=== PATIENT | female | born 2000 | race Caucasian/White ===

== ENCOUNTER 2022-09-04 17:41 | Emergency (ER) | payer OTHER ==
[2022-09-04 18:08] LABS: Urine Blood Negative (Negative); Urine Glucose Negative (Negative); Urine Protein Negative (Negative); Urine Specific Gravity >=1.030 (1.005-1.030); Urine pH 6.5 (5.0-7.0)
[2022-09-04 18:21] LABS: Urine Bacteria <20 /HPF (<20); Urine Mucus 1+ /HPF (None Seen); Urine RBC <5 /HPF (None Seen)
--- NOTE | 2022-09-04 18:35 | ER ---
Nurse's Notes [facility] Name: Yasmine Domínguez Age: 21 yrs Sex: Female : 2000 Arrival Date: 09/04/2022 Time: 17:42 Bed IW1 Private MD: Diagnosis: Dysuria Presentation: 09/04 18:00 Chief complaint: Patient states: dysuria, urgency, vaginal itching x1 week. Coronavirus kb3 screen: Vaccine status: Patient reports receiving the 2nd dose of the covid vaccine. Client denies travel out of the [place] in the last 14 days. Ebola Screen: Patient negative for fever greater than or equal to 101.5 degrees Fahrenheit, and additional compatible Ebola Virus Disease symptoms Patient denies exposure to infectious person. Patient denies travel to an Ebola-affected area in the 21 days before illness onset. Initial Sepsis Screen: Does the patient meet any 2 criteria? No. Patient's initial sepsis screen is negative. Does the patient have a suspected source of infection? No. Patient's initial sepsis screen is negative. Risk Assessment: Do you want to hurt yourself or someone else? Patient reports no desire to harm self or others. Onset of symptoms was August 29, 2022. 18:00 Method Of Arrival: Ambulatory kb3 18:00 Acuity: MARVIN 4 kb3 Triage Assessment: 18:01 General: Appears in no apparent distress. Behavior is calm, cooperative. Pain: kb3 Complains of pain in pelvis Pain does not radiate. Pain currently is 3 out of 10 on a pain scale. Quality of pain is described as dull. : Reports burning with urination, discharge, urgency, urinary frequency. 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 - Social history:: Smoking status: unknown. Screenin:15 Abuse screen: Denies threats or abuse. Denies injuries from another. Nutritional kb3 screening: No deficits noted. Tuberculosis screening: No symptoms or risk factors identified. Fall Risk None identified. Assessment: 18:15 General: See triage note. kb3 18:15 Reassessment: Patient appears in no apparent distress at this time. No changes from kb3 previously documented assessment. Vital Signs: 18:00 BP 125 / 76; Pulse 95; Resp 20; Temp 99.3; Pulse Ox 99% ; Weight 58.97 kg; Height 5 ft. kb3 5 in. (165.10 cm); Pain 6/10; 18:00 Body Mass Index 21.63 (58.97 kg, 165.10 cm) kb3 ED Course: 17:42 Patient arrived in ED. am2 17:42 [facility] Basur[facility]C [facility] kb 17:43 Bernard Romo DO is Attending Physician. kb 18:01 Triage completed. kb3 18:01 Arm band placed on right wrist. kb3 18:15 Patient has correct armband on for positive identification. kb3 18:15 No provider procedures requiring assistance completed. Patient did not have IV access kb3 during this emergency room visit. 18:19 Urine Microscopic Only Sent. kb3 Administered Medications: No medications were administered Medication: 18:15 VIS not applicable for this client. kb3 Outcome: 18:34 Discharge ordered by MD. kb 18:40 Discharged to home ambulatory. kb3 18:40 Condition: stable kb3 18:40 Discharge instructions given to patient, Instructed on discharge instructions, follow up and referral plans. medication usage, Demonstrated understanding of instructions, follow-up care, medications. 19:27 Patient left the ED. kb3 Signatures: Irma Basurto FNP-C FNP-Keisha Kaur am2 Genny Pham, RN RN kb3
--- NOTE | 2022-09-04 18:35 | EDPHYS ---
Physician Documentation [facility] Name: Yasmine Domínguez Age: 21 yrs Sex: Female : 2000 Arrival Date: 09/04/2022 Time: 17:42 Bed IW1 Private MD: ED Physician Bernard Romo HPI: 09/04 18:27 This 21 yrs old Female presents to ER via Ambulatory with complaints of possible uti. kb 18:27 The patient presents with urinary symptoms, dysuria, urgency. Onset: The kb symptoms/episode began/occurred 1 week(s) ago. Modifying factors: The symptoms are alleviated by nothing, the symptoms are aggravated by urinating. Associated signs and symptoms: Pertinent positives: dysuria. Severity of symptoms: At their worst the symptoms were mild, in the emergency department the symptoms are unchanged. The patient has experienced similar episodes in the past. The patient has not recently seen a physician. Pt reports dysuria, urgency, and urinating small amounts for one week. States she has also had some vaginal itching. Reports history of UTIs and yeast infections and said the symptoms are all the same for her. . 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 - Social history:: Smoking status: unknown. ROS: 18:23 Constitutional: Negative for fever, chills, and weight loss. kb 18:23 : Positive for urinary symptoms, urinary frequency, burning with urination, vaginal itching. 18:23 All other systems are negative. Exam: 18:23 Constitutional: This is a well developed, well nourished patient who is awake, alert, kb and in no acute distress. Head/Face: Normocephalic, atraumatic. ENT: Moist Mucous membranes Cardiovascular: Regular rate and rhythm with a normal S1 and S2. No gallops, murmurs, or rubs. No pulse deficits. Respiratory: Respirations even and unlabored. No increased work of breathing. Talking in full sentences Abdomen/GI: Soft, non-tender. No distention Skin: Warm, dry with normal turgor. Normal color. MS/ Extremity: Pulses equal, no cyanosis. Neurovascular intact. Full, normal range of motion. Neuro: Awake and alert, GCS 15, oriented to person, place, time, and situation. Moves all extremities. Normal gait. Psych: Awake, alert, with orientation to person, place and time. Behavior, mood, and affect are within normal limits. Vital Signs: 18:00 BP 125 / 76; Pulse 95; Resp 20; Temp 99.3; Pulse Ox 99% ; Weight 58.97 kg; Height 5 ft. kb3 5 in. (165.10 cm); Pain 6/10; 18:00 Body Mass Index 21.63 (58.97 kg, 165.10 cm) kb3 MDM: 17:56 Patient medically screened. kb 18:23 Data reviewed: vital signs, nurses notes. Data interpreted: Pulse oximetry: on room air kb is 99 %. Interpretation: normal. Counseling: I had a detailed discussion with the patient and/or guardian regarding: the historical points, exam findings, and any diagnostic results supporting the discharge/admit diagnosis, lab results, the need for outpatient follow up, a family practitioner, to return to the emergency department if symptoms worsen or persist or if there are any questions or concerns that arise at home. 09/04 18:04 Order name: Urine Microscopic Only; Complete Time: 18:22 kb 09/04 18:08 Order name: Urine Dipstick-Ancillary; Complete Time: 18:12 EDAR 09/04 18:04 Order name: Urine Dipstick-Ancillary (obtain specimen); Complete Time: 18:19 kb 09/04 18:04 Order name: Urine Test (obtain specimen); Complete Time: 18:23 kb 09/04 18:26 Order name: Urine --Ancillary (enter results); Complete Time: 18:51 em1 Administered Medications: No medications were administered Disposition: 19:15 Co-signature as Attending Physician, Bernard HUMPHRIES was immediately available on-site ms3 in the Emergency Department for consultation in the care of the patient. Disposition Summary: 09/04/22 18:34 Discharge Ordered Location: Home kb Condition: Stable kb Diagnosis - Dysuria kb Followup: kb - With: Emergency Department - When: As needed - Reason: Worsening of condition Followup: kb - With: Private Physician - When: 2 - 3 days - Reason: Recheck today's complaints, Continuance of care, Re-evaluation by your physician Discharge Instructions: - Discharge Summary Sheet kb - Dysuria kb Forms: - Medication Reconciliation Form kb - Thank You Letter kb - Antibiotic Education kb - Prescription Opioid Use kb Signatures: Dispatcher [employer] EDMS Irma Basurto, BLAKE-C EARTHMOVING LABOURER-Bernard Rodriguez, DO ms3 Genny Pham, RN RN kb3
[2022-09-04 18:43] LABS: Urine Specific Gravity/Preg >1.030 (1.005-1.030)
[2022-09-04 19:31] VITALS: BP 125/76; TEMP 99.3; O2SAT 99
== END 2022-09-04 19:27 | disposition home or self-care (01) ==
LOC: ER 17:41
DX: R30.0 Dysuria (principal); Z88.0 Allergy status to penicillin; Z88.5 Allergy status to narcotic agent
CPT/HCPCS: 81003; 81015; 81025; 99283

== ENCOUNTER 2022-11-05 18:06 | Emergency (ER) | payer OTHER ==
--- OUTSIDE RECORDS SUMMARY | 2022-11-05 18:18 | XMS REPORT | Continuity of Care Document ---
:[address] [facility] t Address [address] [place] [address] Care Team Providers Name Role Phone Asked, No Pcp Primary Care Physician Unavailable MANOJ GUTHRIE Attending Clinician Unavailable GIOVANNY FOSTER Attending Clinician Unavailable Junito Garcia Attending Clinician Junito HURLEY Attending Clinician Unavailable Sheela DUBON, Deedee Magana Attending Clinician [phone] Mar Peters MD Attending Clinician Mark Brewer MD Attending Clinician Rajesh Lowry MD Attending Clinician Sheikh LING, Didi Dunbar Attending Clinician [phone] MARK BREWER Attending Clinician Unavailable Kia Ellis MD Attending Clinician Rob Granger Attending Clinician Unavailable Lia Chanel MD Attending Clinician MD GEOFF ADAMS Attending Clinician UnavailGEOFF Arnold Attending Clinician Unavailable MAR PETERS Admitting Clinician Unavailable Physician, No Primary or Family Admitting Clinician UnavailBLAKE Henry Admitting Clinician Unavailable Payers Payer Name Policy Type Policy Number Effective Date Expiration Date [facility] [id number] 2018 [place]ICE [place] 00:00:00 Problems Condition Condition Condition Status Onset Resolution Last Treating Co mments Source Name Details Category Date Date Treatment Clinician Date Intentiona Intentiona Disease Active 2020-[address] [facility]24 [facility], overdose, 00:[facility]: Medi ty initial initial 00 Center encounter encounter No known No known Disease Unive rs active active ity of problems problems [facility] Allergies, Adverse Reactions, Alerts Allergy Allergy Status Severity Reaction(s) Onset Inactive Treating Comm ents Source Name Type Date Date Clinician CODEINE DRUG Active N/V Univers INGREDI 1- ity of 00:00: [place] [facility] [place] Drug Active Hives Univers INS Class - ity of 00:00: [place] [facility] Codeine Propensi Active Nausea Univers ty to and/or 11-04 ity of adverse Vomiting 00:00: [place] reaction 00 Medical s Branch [place] Propensi Active Hives Univer s ins ty to 11-04 ity of adverse 00:00: [place] reaction 00 [facility] s [facility] [place] Allergy Active [address] [facility] 2-19 [facility] 00:[facility] 00 Center Penic[place] Propensi Active 2020-[address] ins ty to 2-19 [facility] adverse 00:00: Medical reaction 00 Center s CODEINE Allergy Active [address] [facility] [address] 2[facility]19 [facility] 00:[facility]: Medical 00 Center Codeine Propensi Active 2020-[address] ty to 2-19 [facility] adverse 00:00: Medical reaction 00 Center s Penic[place] Propensi Active 2020-[address] ins ty to 2-19 [facility] adverse 00:00: Medical reaction 00 Center s Codeine Propensi Active GI 2019-10 Methodi ty to Intolerance 1-14 st adverse 00:00: Hospita reaction 00 l s to drug Penicill Propensi Active Unknown 2019-10 Metho di ins ty to Reaction 1-14 st adverse 00:00: Hospita reaction 00 l s to drug Penicill Propensi Active Unknown 2019-10 Metho di ins ty to Reaction 1-14 st adverse 00:00: Hospita reaction 00 l s to drug [place] DA [facility] [place] [facility] [place] 00:[facility]: [facility] 00 [facility] [place] Penicill DA Active U [facility] ins 10-29 [place] 00:00: [facility] 00 [facility] [place] codeine DA Active U [facility] 10-29 [place] 00:00: [facility] are [place] NO KNOWN Drug Active Univers ALLERGIE Class ity of S [facility] Social History Social Habit Start Date Stop Date Quantity Comments Source Exposure to 2022-10-25 2022-11-04 Not sure University of SARS-CoV-2 00:00:00 15:30:00 [facility] (event) [place] Alcohol intake 2021-03-23 2021-03-23 Current drinker [facility]:00 of [facility] (finding) Sex Assigned At [birth year] [facility] 00:00:00 00:00:00 Smoking Status Start Date Stop Date Source Tobacco smoking consumption [facility] [place] unknown Current every day smoker 2021-03-23 00:00:00 [facility] Medications Ordered Filled Start Stop Current Ordering Indication Dosage Frequency Signature Comments Components Source Medication Medication Date Date Medication? Clinician (SIG) Name Name methylpredn No 125mg 125 mg, U nivers isolone sod 11-04 Intramuscu i ty of succ 23:30: 22:26 lar, ONCE, [place] (SOLU-MEDRO 00 :00 1 dose, On Me dical L) [facility] injection 11/04/22 at 125 mg 1730, XENIA predniSONE Yes [id number] 1 PO BID x Univers 20 mg 11-04 [id number] 4 days ity of tablet 00:00: [address] guaiFENesin 2021- No 200mg Take [address] (ROBITUSSIN 10-19 mLs (200 [facility] ) 100 mg/5 00:00: 23:59 mg total) M edical mL syrup 00 :00 by mouth Center every 4 (four) hours as needed for Congestion for up to 10 days. guaiFENesin 2021- No 200mg Take [address] (ROBITUSSIN 10-19 mLs (200 [facility] ) 100 mg/5 00:00: 23:59 mg total) M edical mL syrup 00 :00 by mouth Center every 4 (four) hours as needed for Congestion for up to 10 days. clindamycin 2021-2021- No 300mg [id number] Take [address] (CLEOCIN) 10-11 [id number] mg by Edna kes 300 MG 18:03: 00:00 3D mouth 3 Medical capsule 36 :00 (three) Center times daily. traMADoL 2021-2021- No 50mg Take [address] (ULTRAM) 50 10-11 by mouth [facility] mg tablet 18:03: 00:00 every 6 Medi ty 36 :00 (six) Center hours as needed for Pain. methylPREDN 2021-2021- No 2mg QD Take [address] ISolone 10-11 by mouth [facility] (MEDROL) 2 18:03: 00:00 daily. Medi ty MG tablet 36 :00 Center ibuprofen 2021-2021- No 400mg Take [address] (ADVIL,MOTR 10-11 mg by [facility] IN) 400 MG 18:03: 00:00 mouth Medic al tablet 36 :00 every 6 Center (six) hours as needed for Pain. clindamycin 2021-2021- No 300mg [id number] Take [address] (CLEOCIN) 10-11 [id number] mg by Edna kes 300 MG 18:03: 00:00 3D mouth 3 Medical capsule 36 :00 (three) Center times daily. traMADoL 2021- No 50mg Take [address] (ULTRAM) 50 10-11 by mouth [facility] mg tablet 18:03: 00:00 every 6 Medi ty 36 :00 (six) Center hours as needed for Pain. methylPREDN 2021-2021- No 2mg QD Take [address] ISolone 10-11 by mouth [facility] (MEDROL) 2 18:03: 00:00 daily. Medi ty MG tablet 36 :00 Center ibuprofen 2021-0 2021- No 400mg Take [address] (ADVIL,MOTR 10-11-03 mg by [facility] IN) 400 MG 18:03: 00:00 mouth Medic al tablet 36 :00 every 6 Center (six) hours as needed for Pain. lidocaine-d 2021- No 10mL Take [address] iphenhyd-Al 03-23 mLs by [facility] -mag-sim 00:00: 00:00 mouth Medical 200-25-400- 00 :00 every 6 Cente r 40 mg/30 mL (six) Mwsh hours as needed Swish and spit every 6 hours as needed for pain. lidocaine-d No 10mL Take [address] iphenhyd-Al 03-23 mLs by [facility] -mag-sim 00:00: 00:00 mouth Medical 200-25-400- 00 :00 every 6 Cente r 40 mg/30 mL (six) Mwsh hours as needed Swish and spit every 6 hours as needed for pain. metroNIDAZO 2020- No 500mg [id number] Take [address] LE (FLAGYL) 03-23 [id number] tablet [facility] 500 MG 00:00: 23:59 3D (500 mg Medical tablet 00 :00 total) by Center mouth 3 (three) times daily for 10 days. metroNIDAZO 2020- No 500mg [id number] Take [address] [facility] (FLAGYL) 03-23 [id number] tablet [facility] 500 MG 00:00: 23:59 3D (500 mg Medical tablet 00 :00 total) by Center mouth 3 (three) times daily for 10 days. ketorolac 2020- No 10mg Take 1 [facility] (TORADOL) 11-27 tablet (10 [facility] 10 mg 00:00: 23:59 mg total) Medica l tablet 00 :00 by mouth Center every 6 (six) hours as needed for Pain for up to 5 days. ketorolac 2020- No 10mg Take 1 [facility] (TORADOL) 11-2724 tablet (10 [facility] 10 mg 00:00: 23:59 mg total) Medica l tablet 00 :00 by mouth Center every 6 (six) hours as needed for Pain for up to 5 days. Immunizations Ordered Immunization Filled Immunization Date Status Commen ts Source Name Name [employer] MRNA 2021-10-27 Completed Meth odist VACCINATION 00:00:00 [facility] PFIZER COVID-19 MRNA 2021-10-27 Completed Meth odist VACCINATION 00:00:00 [facility] PFIZER COVID-19 MRNA 2021-10-27 Completed Meth odist VACCINATION 00:00:00 Hospital Vital Signs Vital Name Observation Time Observation Value Comments Source Respiratory rate 2022-11-04 21:31:00 16 /min [facility] Body height 2022-11-04 21:31:00 165.1 cm Universi ty [facility] Body weight 2022-11-04 21:31:00 61.236 kg Universi ty [facility] BMI 2022-11-04 21:31:00 22.47 kg/m2 [facility] Oxygen saturation in 2022-11-04 21:31:00 100 /min [facility] Arterial blood by [facility] Pulse oximetry Branch Systolic blood 2022-11-04 21:31:00 130 mm[Hg] Univer sity of pressure [facility] Diastolic blood 2022-11-04 21:31:00 88 mm[Hg] [facility] Heart rate 2022-11-04 21:31:00 107 /min Universi ty [facility] Body temperature 2022-11-04 21:31:00 37 Bhumi [facility] HEIGHT 2021-10-01 06:38:00 167.6 cm WEIGHT 2021-10-01 06:38:00 67.45 kg HEIGHT 2021-10-01 02:05:00 167.6 cm WEIGHT 2021-10-01 02:05:00 68.04 kg HEIGHT 2021-10-01 06:38:00 167.6 cm WEIGHT 2021-10-01 06:38:00 67.45 kg HEIGHT 2021-10-01 02:05:00 167.6 cm WEIGHT 2021-10-01 02:05:00 68.04 kg HEIGHT 2021-03-23 17:49:00 165.1 cm WEIGHT 2021-03-23 17:49:00 65.318 kg HEIGHT 2021-03-23 17:49:00 165.1 cm WEIGHT 2021-03-23 17:49:00 65.318 kg HEIGHT 2020-11-27 19:00:00 165.1 cm WEIGHT 2020-11-27 19:00:00 61.236 kg HEIGHT 2020-11-27 19:00:00 165.1 cm WEIGHT 2020-11-27 19:00:00 61.236 kg Systolic blood 2021-10-19 09:08:00 98 mm[Hg] [facility] Diastolic blood 2021-10-19 09:08:00 62 mm[Hg] [facility] Heart rate 2021-10-19 09:08:00 85 /min [facility] Body temperature 2021-10-19 09:08:00 36.67 Bhumi [facility] Respiratory rate 2021-10-19 09:08:00 16 /min [facility] Oxygen saturation in 2021-10-19 09:08:00 100 /min [facility] Arterial blood by Medical Ce nter Pulse oximetry BMI 2021-10-01 06:38:00 24.00 kg/m2 [facility] Body height 2021-10-01 06:38:00 167.6 cm [facility] Body weight 2021-10-01 06:38:00 67.45 kg [facility] Procedures Procedure Date / Time Performing Clinician Source Performed CONSENT/REFUSAL FOR 2022-11-04 21:27:37 Doctor Unassigned, [facility] DIAGNOSIS AND TREATMENT [facility] SARS-COV2/RT-PCR ([facility] & 2021-10-13 16:50:00 Mark Brewer [facility] REF LABS) Center BASIC METABOLIC PANEL (7) 2021-10-11 06:06:00 Charly Baeza [facility] C-REACTIVE PROTEIN 2021-10-11 06:06:00 Charly Baeza [facility] CBC W/PLT COUNT & AUTO 2021-10-11 06:06:00 Charly Baeza [facility] D-DIMER 2021-10-11 06:06:00 Charly Baeza [facility] PROCALCITONIN 2021-10-11 06:06:00 Felisha [facility] CBC W/PLT COUNT & AUTO 2021-10-11 06:06:00 [facility] DIFFERENTIAL Center XR CHEST 1 VIEW PORTABLE 2021-10-11 00:28:00 [facility] / BEDSIDE Center SARS-COV2/RT-PCR ([facility] & 2021-10-10 12:15:00 Rajesh Lowry [facility] REF LABS) [facility] CBC W/PLT COUNT & AUTO 2021-10-08 04:15:00 [facility] BASIC METABOLIC PANEL (7) 2021-10-08 04:15:00 [facility] CBC W/PLT COUNT & AUTO 2021-10-08 04:15:00 [facility] SARS-COV2/RT-PCR ([facility] & 2021-10-07 10:31:00 [facility] REF LABS) [place] CBC W/PLT COUNT & AUTO 2021-10-07 04:18:00 [facility] BASIC METABOLIC PANEL (7) 2021-10-07 04:18:00 [facility] PROCALCITONIN 2021-10-07 04:18:00 [facility] D-DIMER 2021-10-07 04:18:00 [facility] C-REACTIVE PROTEIN 2021-10-07 04:18:00 [facility] CBC W/PLT COUNT & AUTO 2021-10-07 04:18:00 [facility] (MANUAL DIFFERENTIAL) 2021-10-07 04:18:00 [facility] XR CHEST 1 VIEW PORTABLE 2021-10-07 00:39:00 [facility] / BEDSIDE Center CBC W/PLT COUNT & AUTO 2021-10-06 03:34:00 [facility] BASIC METABOLIC PANEL (7) 2021-10-06 03:34:00 [facility] CBC W/PLT COUNT & AUTO 2021-10-06 03:34:00 [facility] PROTHROMBIN TIME/INR 2021-10-05 03:33:00 [facility] PROCALCITONIN 2021-10-05 03:32:00 [facility] C-REACTIVE PROTEIN 2021-10-05 03:32:00 [facility] COMPREHENSIVE METABOLIC 2021-10-05 03:32:00 Felisha [facility] CBC W/PLT COUNT & AUTO 2021-10-05 03:32:00 Felisha [facility] ACETAMINOPHEN LEVEL 2021-10-05 03:32:00 [facility] CBC W/PLT COUNT & AUTO 2021-10-05 03:32:00 Felisha [facility] XR CHEST 1 VIEW PORTABLE 2021-10-05 00:21:00 Felisha [facility] / BEDSIDE Center HEPATIC FUNCTION PANEL 2021-10-04 16:28:00 [facility] PROTHROMBIN TIME/INR 2021-10-04 16:28:00 [facility] CBC W/PLT COUNT & AUTO 2021-10-04 01:22:[address] [facility] HEPATIC FUNCTION PANEL 2021-10-04 01:22:00 [facility] PROTHROMBIN TIME/INR 2021-10-04 01:22:00 [facility] BASIC METABOLIC PANEL (7) 2021-10-04 01:22:00 [facility] CBC W/PLT COUNT & AUTO 2021-10-04 01:22:00 [facility] Center ACETAMINOPHEN LEVEL 2021-10-04 00:07:00 [facility] POCT-GLUCOSE METER 2021-10-03 16:36:00 [facility] BASIC METABOLIC PANEL (7) 2021-10-03 08:37:00 [facility] ACETAMINOPHEN LEVEL 2021-10-03 08:37:00 [facility] POCT-GLUCOSE METER 2021-10-03 08:30:00 [facility] CBC W/PLT COUNT & AUTO 2021-10-03 06:11:00 [facility] CBC W/PLT COUNT & AUTO 2021-10-03 06:11:00 [facility] POCT-GLUCOSE METER 2021-10-02 23:54:00 [facility] ACETAMIN[facility]HEN LEVEL 2021-10-02 14:47:00 [facility] SPUTUM CULTURE + GRAM 2021-10-02 12:22:00 [facility] Center CBC W/PLT COUNT & AUTO 2021-10-02 03:05:00 [facility] PT/APTT 2021-10-02 03:05:00 Felisha [facility] CBC W/PLT COUNT & AUTO 2021-10-02 03:05:00 [facility] COMPREHENSIVE METABOLIC 2021-10-02 02:20:00 [facility] Center ACETAMINOPHEN LEVEL 2021-10-02 02:20:00 Felisha [facility] HEPATIC FUNCTION PANEL 2021-10-02 02:20:00 Charly Baeza [facility] APTT 2021-10-01 21:04:00 [facility] PROT[facility]/INR 2021-10-01 21:04:00 Ahmed, [facility] COMPREHENSIVE METABOLIC 2021-10-01 16:31:00 Ahmed, [facility] PROTHROMBIN TIME/INR 2021-10-01 16:31:00 med, [facility] APTT 2021-10-01 16:31:00 Ahmed, [facility] COMPREHENSIVE METABOLIC 2021-10-01 10:11:00 Ahmed, [facility] PROTHROMBIN TIME/INR 2021-10-01 10:11:00 med, [facility] APTT 2021-10-01 10:11:00 med, [facility] PT/APTT 2021-10-01 05:56:00 Sheela, [facility] ACETAMINOPHEN LEVEL 2021-10-01 05:56:00 [place], [facility] ECG 12-LEAD 2021-10-01 02:36:21 Lytwcathleen, [facility] ECG 12-LEAD 2021-10-01 02:36:21 Unknown, Hl7 Doctor [facility] ED ECG INTERPRETATION 2021-10-01 02:36:00 Sheela [facility] XR CHEST 1 VIEW PORTABLE 2021-10-01 02:35:00 Sheela [facility] / BEDSIDE [facility] RAPID DRUG SCREEN, URINE 2021-10-01 02:26:00 [place] [facility] SARS-COV2/RT-PCR ([facility] & 2021-10-01 02:22:00 Aldair [facility] REF LABS) [facility] CRITICAL CARE 2021-10-01 02:17:39 Sheela [facility] INSERT EMERGENCY 2021-10-01 02:15:00 Sheela [facility] ENDOTRACH AIRWAY [facility] BASIC METABOLIC PANEL (7) 2021-10-01 02:14:00 Sheela [facility] HEPATIC FUNCTION PANEL 2021-10-01 [facility] AUTO 2021-10-01 02:14:00 [facility] TROPONIN I 2021-10-01 02:14:00 [facility] ACETAMINOPHEN LEVEL 2021-10-01 02:14[facility], QUALITATIVE 2021-10-01 02:14[facility]00 [facility] 2021-10-01 02:14[facility]00 [facility] HEM[facility]C 2021-10-01 02:14:00 Mar Peters [facility] CBC W/PLT COUNT & AUTO 2021-10-01 02:14:00 [facility] REPORT OF PROCEDURE - 2021-10-01 00:00:00 Provider, [facility] ENDOSCOPY SCAN Scanning Center CT ABDOMEN/PELVIS WITH IV 2020-11-27 21:25:00 TurkeyLia [facility] CONTRAST [place] CBC W/PLT COUNT & AUTO 2020-11-27 19:59:[address] [facility] COMPREHENSIVE METABOLIC 2020-11-27 19:59:00 [place] [facility] PANEL Center LIPASE 2020-11-27 19:59:00 [place] [facility] URINALYSIS W/ REFLEX 2020-11-27 19:59:00 [facility] URINE CULTURE Center SCREEN, URINE 2020-11-27 19:59:00 [facility] CBC W/PLT COUNT & AUTO 2020-11-27 19:59:00 [place] [facility] Plan of Care Planned Activity Planned Date Details Comments Source Future Scheduled 2022-11-05 COVID-19 VACCINE (4 - [facility] Test 18:13:09 Booster for Moderna series) [code = COVID-19 VACCINE (4 - Booster for Moderna series)] Future Scheduled 2022-11-05 INFLUENZA VACCINE Method ist Hospital Test 18:13:09 [code = INFLUENZA VACCINE] Future Scheduled 2022-11-05 [facility] Test 18:13:09 Chlamydia trachomatis (procedure) [code = 255807512] Future Scheduled 2022-11-05 Hepatitis C screening [facility] Test 18:13:09 (procedure) [code = 519482743] Future Scheduled 2022-11-05 [facility] Test 18:13:09 malignant neoplasm of cervix (procedure) [code = 441400657] Future Scheduled 2022-10-[address] [facility] Test 00:00:00 (12+) [code = [facility] Center DEPRESSION SCREENING (12+)] Future Scheduled 2022-06-09 INFLUENZA VACCINE (#1) [facility] Test 00:00:00 [code = INFLUENZA Medical Ce nter VACCINE (#1)] Future Scheduled 2021-11-17 CHLAMYDIA SCREENING [facility] Hospital Test 12:54:10 [code = CHLAMYDIA SCREENING] Future Scheduled 2021-11-17 Hepatitis C screening [facility] Test 12:54:10 (procedure) [code = 977353851] Future Scheduled 2021-11-17 [facility] Test 12:54:10 malignant neoplasm of cervix (procedure) [code = 778816825] Future Scheduled 2021-11-17 INFLUENZA VACCINE Method ist Hospital Test 12:54:10 [code = INFLUENZA VACCINE] Future Scheduled 2021-10-27 CHLAMYDIA SCREENING Meth odist Hospital Test 14:35:30 [code = CHLAMYDIA SCREENING] Future Scheduled 2021-10-27 Hepatitis C screening [facility] Test 14:35:30 (procedure) [code = 004426135] Future Scheduled 2021-10-27 [facility] Test 14:35:30 malignant neoplasm of cervix (procedure) [code = 958864331] Future Scheduled 2021-10-27 INFLUENZA VACCINE Method ist Hospital Test 14:35:30 [code = INFLUENZA VACCINE] Future Scheduled 2021-10-[address] [facility] Test 00:00:00 (12+) [code = Medical Center DEPRESSION SCREENING (12+)] Future Scheduled 2021-10-[address] [facility] Test 00:00:00 (12+) [code = Medical Center DEPRESSION SCREENING (12+)] Future Scheduled 2021-06-09 INFLUENZA VACCINE (#1) [facility] Test 00:00:00 [code = INFLUENZA Medical Ce nter VACCINE (#1)] Future Scheduled 2021-06-09 INFLUENZA VACCINE (#1) [facility] Test 00:00:00 [code = INFLUENZA Medical Ce nter VACCINE (#1)] Future Scheduled 2019-09-28 DTAP/TDAP/TD VACCINES [facility] Test 00:00:00 (7 - Td or Tdap) [code Medic al Center = DTAP/TDAP/TD VACCINES (7 - Td or Tdap)] Future Scheduled 2019-09-28 DTAP/TDAP/TD VACCINES [facility] Test 00:00:00 (7 - Td or Tdap) [code Medic al Center = DTAP/TDAP/TD VACCINES (7 - Td or Tdap)] Future Scheduled 2019-09-28 DTAP/TDAP/TD VACCINES [facility] Test 00:00:00 (7 - Td or Tdap) [code Medic al Center = DTAP/TDAP/TD VACCINES (7 - Td or Tdap)] Future Scheduled [address] [facility] Test 00:[facility]:00 [facility] [code = 889149558] Future Scheduled [address] [facility] [facility] Test 00:00:00 [facility] cerv[facility] (procedure) [code = 699003744] Future Scheduled [address] [facility] Test 00:00:00 malignant neoplasm of Medica l Center cervix (procedure) [code = 575371364] Future Scheduled [address] [facility] Test 00:00:00 (procedure) [code = [facility] 00251602] Future Scheduled [address] [facility] Test 00:00:00 (procedure) [code = [facility] [id number]] Future Scheduled [address] [facility] Test 00:00:00 (procedure) [code = [facility] 22171091] Future Scheduled 2016 HEPATITIS C [facility]CRE[facility]ING [facility] Test 00:00:00 [code = HEPATITIS C Medical Center SCREENING] Future Scheduled 2016 HEPATITIS C [facility]CRE[facility]ING [facility] Test 00:00:00 [code = HEPATITIS C Medical Center SCREENING] Future Scheduled 2016 HEPATITIS C [facility]CRE[facility] Test 00:00:00 [code = HEPATITIS C Medical Center SCREENING] Future Scheduled [address] [facility] Test 00:00:00 Counseling and Medical Cente r Screening (12+) [code = Tobacco Cessation Counseling and Screening (12+)] Future Scheduled [address] [facility] Test 00:00:00 0-64 YRS (1 of 2 - Medical C enter PPSV23) [code = PNEUMOCOCCAL VACCINE 0-64 YRS (1 of 2 - PPSV23)] Future Scheduled [address] [facility] Test 00:00:00 0-64 YRS (1 of 2 - Medical C enter PPSV23) [code = PNEUMOCOCCAL VACCINE 0-64 YRS (1 of 2 - PPSV23)] Future Scheduled [address] [facility] Test 00:00:00 0-64 YRS (1 - PCV) Medical C enter [code = PNEUMOCOCCAL VACCINE 0-64 YRS (1 - PCV)] Future Scheduled 2003 COVID-19 VACCINE (1) [facility] Test 00:00:00 [code = COVID-[address] VACCINE (1)] Future Scheduled 2003 COVID-19 VACCINE (1) [facility] Test 00:00:00 [code = COVID-[address] VACCINE (1)] Future Scheduled 1999-03-10 COVID-19 VACCINE (#1) [facility] Test 00:00:00 [code = COVID-[address] VACCINE (#1)] Encounters Start End Encounter Admission Attending Care Care Encounter Source Date/Time Date/Time Type Type Clinicians Facility Department ID 2022-11-11 2022-11-11 Outpatient Patel GUTHRIE [facility] [id number] Univers 13:00:00 13:00:00 MANOJ sánchez [facility] 2022-11-08 2022-11-08 Outpatient R CRISTIAN, [facility] [id number] Univers 09:30:00 09:30:00 GIOVANNY ity [facility] 2022-11-04 2022-11-04 Emergency Junito Hurley [facility] [id number] Univers 15:33:00 17:01:00 Nicky COTE 350.1.13.10 i [facility] 4.2.7.2.686 [facility] [id number] [place] [address] [place] 2022-11-04 2022-11-04 Emergency X Junito HURLEY [facility] ERT [id number] Univers 15:33:00 17:01:00 ity [facility] 2021-10-27 2021-10-27 Clinical 1.2.840.1 [id number] Methodi 14:24:37 14:29:[address] 3.430.2.7 Hospit a .3.331656 l .8 2021-10-27 2021-10-27 Travel 1.2.840.1 [id number] [id number] Methodi 00:00:00 00:00:[address] 3.430.2.7 0.2.7.3.698 Ho spita .3.902020 084.8 l .8 2021-10-01 2021-10-19 Hospital ER Deedee Coker [facility] [id number] [facility] 02:00:00 14:25:00 [facility]counter [facility] 2021-10-01 2021-10-19 Inpatient ER MARK BREWER [facility] Emergency 20 [id number] [facility] 02:00:00 14:25:00 2021-10-01 2021-10-01 Travel [facility] [id number] [facility] 00:00[facility]00 00:00:00 [facility] 2021-10-01 2021-10-[address] [facility] [id number] 00:00:00 00:00:00 Only [facility] 2021-03-23 2021-03-[address] [facility] [id number] 17:51:00 21:06:00 [facility] 2021-03-23 2021-03-23 Emergency ER [facility] Emergency [id number] [facility] 17:44:00 17:44:00 2021-03-22 2021-03-22 Emergency EM O'Fabian, HCATB EO3 [id number] [facility] 06:35:00 07:10:00 Rob 14 [facility] [place] 2020-11-27 2020-11-[address] [facility] [id number] 21:57:00 23:07:00 [facility] 2020-11-27 2020-11-27 Emergency 1.2.840.1 [id number] Methodi 18:26:00 19:22:[address] 3.430.2.7 Hospit a .3.788585 l .8 2020-11-27 2020-11-27 Emergency ER [facility] Emergency [id number] [facility] 18:52:00 18:52:00 2020 2020-09-11 Inpatient HCANC RAMO [id number] [facility] 14:05:00 23:51:55 98 [facility] 2020-08-22 2020-08-22 Emergency [facility] 027 [id number] [place] 00:00:00 00:00:00 GEOFF [address] 2019-10-29 2019-10-31 Inpatient HCATB RAMO [id number] [facility] 22:53:00 23:23:55 61 [facility] [place] Results Test Description Test Time Test Comments Results Result Comments Source SARS-CoV2/RT-PCR (Asymptomatic ONLY) 2021-10-14 10:23:00 Test Item Value Reference Range Interpretation Comme nts SARS-COV2/RT-PCR (test Positive Negative AA The S ARS-CoV-2 target code = 10668-6) nucleic acid s are detected in thi s specimen. The p resence SARS-CoV-2 nucl eic acids cannot rule out co-infections o r disease caused by other viral or bacterial patho gens. As with any molecu lar test, mutations withi n the target regions of the Xpert Xpress SA RS-CoV-2 test could affe ct primer and/or probe bi nding resulting in fa ilure to detect the pres ence of virus or the vi so being detected less predictably. Fa lse negative result s may occur if virus is present at leve ls below the analytical limit of detection. This SARS CoV-2 test is a rapid, real-time RT-PC R test intended for e qualitative det ection of nucleic acid fr om SARS-CoV-2 in a nasopharyngeal swab specimen collec rhett from individuals yamileth pected of COVID-19 by the [facility]. Results from e Xpert Xpress SARS-CoV -2 test should be corre lated with the clinic al history, epidem iological data, and other data available to e clinician evalu ating the patient. Viral nucleic acid may persis t in vivo, independe nt of virus viability . Detection of an alyte target(s) does not imply that the corres ponding virus(es) are i nfectious or are the caus ative agents for clin ical symptoms. CHRISTIANA (test code = CHRISTIANA) This test has been authorized by FDA under an EUA for use by authorized laboratories. This test is only authorized for the duration of the declaration that circumstances exist justifying the authorization of emergency use of in vitro diagnostic tests for detection and/or diagnosis of COVID-19 under Section 564(b)(1) of the Federal Food, Drug and Cosmetic Act, 21 U.S.C. 360bbb-3(b)(1), unless the authorization is terminated or revoked sooner. Fact Sheet for Healthcare Providers: https://www.Collab[employer] /Documents/Xpert%20Xpre ss%20SARS%20CoV-2/Fact% 20Sheets/289-6022%20SAR S-COV-2%20HEALTHCARE%20 PROVIDERS%20FACT%20SHEE T.pdf Fact Sheet for Healthcare Patients: https://www.Coll[employer] /Documents/Xpert%20Xpre ss%20SARS%20CoV-2/Fact% 20Sheets/302-3801%20SAR S-COV-2%20PATIENT%20FAC T%20SHEET.pdf Lab Interpretation (test Abnormal code = 26572-9) [facility]-10-14 10:23:00 Test Item Value Reference Interpretation Comments Range SARS-COV2/RT-PCR Positive Negative AA The SARS-Co V-2 (test code = target nucleic 25169-1) acids are detec rhett in this specime n. The presence SARS-CoV-2 nucl eic acids cannot ru le out co-infectio ns or disease caus ed by other viral or bacterial pathogens. As w ith any molecular t est, mutations withi n the target kemi ons of the Xpert Xp ress SARS-CoV-2 test could affect pr keturah and/or probe binding resulti ng in failure to detect the pres ence of virus or the virus being detected less predictably. Fa lse negative result s may occur if vi so is present at levels below th e analytical limi t of detection. This SARS CoV-2 test is a rapid, real-t abdiaziz RT-PCR test intended for th e qualitative detection of nucleic acid fr om SARS-CoV-2 in a nasopharyngeal swab specimen collec rhett from individual s suspected of COVID-19 by the ir healthcare provider. Resul ts from the Xpert Xpress SARS-CoV -2 test should be correlated with the clinical histor y, epidemiological data, and other data available to the clinician evaluating the patient. Viral nucleic acid ma y persist in vivo , independent of virus viability . Detection of analyte target( s) does not imply that the correspondi ng virus(es) are infectious or a re the causative agents for clin ical symptoms. CHRISTIANA (test code = This test has been CHRISTIANA) authorized by FDA under an EUA for use by authorized laboratories. This test is only authorized for the duration of the declaration that circumstances exist justifying the authorization of emergency use of in vitro diagnostic tests for detection and/or diagnosis of COVID-19 under Section 564(b)(1) of the Federal Food, Drug and Cosmetic Act, 21 U.S.C. 360bbb-3(b)(1), unless the authorization is terminated or revoked sooner. Fact Sheet for Healthcare Providers: https://www.cephei d.com/Documents/Xp ert%20Xpress%20SAR S%20CoV-2/Fact%20S heets/302-3802%20S ARS-COV-2%20HEALTH CARE%20PROVIDERS%2 0FACT%20SHEET.pdf Fact Sheet for Healthcare Patients: https://www.GLO/Documents/Xp ert%20Xpress%20SAR S%20CoV-2/Fact%20S heets/302-3801%20S ARS-COV-2%20PATIEN T%20FACT%20SHEET.p df Lab Interpretation Abnormal (test code = 42601-8) [facility]2021-10-14 10:23:00 Test Item Value Reference Range Interpretation Comments SARS-COV2/RT-PCR Positive Negative AA The SARS-Co V-2 target (test code = nucleic acids a re detected 2894184) in this specime n. The presence SARS-C oV-2 nucleic acids cannot ru le out co-infections o r disease caused by other viral or bacterial patho gens. As with any molecular t est, mutations withi n the target regions of the Xpert Xpress SARS-CoV-2 test could affect primer and/or p robe binding resulting in fa ilure to detect the pres ence of virus or the virus be ing detected less predictabl y. False negative result s may occur if virus is pre sent at levels below th e analytical limit of detect ion. This SARS CoV-2 test is a rapid, real-time RT-PC R test intended for th e qualitative detection of nu cleic acid from SARS-CoV-2 in a nasopharyngeal swab specimen collected from individuals suspected of CO VID-19 by their healthcar e provider. Results from th e Xpert Xpress SARS-CoV -2 test should be corre lated with the clinical hi story, epidemiological data, and other data avai lable to the clinician evalu ating the patient. Viral nucleic acid may persist in vivo, independent of virus viability. Dete ction of analyte target( s) does not imply that the corresponding virus(es) are i nfectious or are the causati ve agents for clinical sympto ms. This test has been authorized by FDA under an EUA for use by authorized laboratories. This test is only authorized for the duration of the declaration that circumstances exist justifying the authorization of emergency use of in vitro diagnostic tests for detection and/or diagnosis of COVID-19 under Section 564(b)(1) of the Federal Food, Drug and Cosmetic Act, 21 U.S.C. 360bbb-3(b)(1), unless the authorization is terminated or revoked sooner. Fact Sheet for Healthcare Providers: https://www.[employer] m/Documents/Xpert%20Xpress%20SARS%20CoV-2/Fact%20Sheets/302-3802%53YSFX-ONO-7%20 HEALTHCARE%20PROVIDERS%20FACT%20SHEET.pdf Fact Sheet for Healthcare Patients: https://www.Collabera/Documents/Xpert%20Xp ress%20SARS%20CoV-2/Fact%20Sheets/302-3801%73CIYA-LKE-5%20PATIENT%20FACT%20SHEET .yvpUjfazvbqnqxld9169-35-69 11:32:11 Test Item Value Reference Range Interpretation Comments Procalcitonin (test code = 0.06 ng/mL <0.05 H 21596-3) CHRISTIANA (test code = CHRISTIANA) SEPSIS RISK (ng/mL)Low: 0.05-0.50Intermedia te: 0.51-2.00High: >=2.01 Lab Interpretation (test Abnormal code = 85839-9) [facility]28[facility]-24 11:32:11 Test Item Value Reference Range Interpretation Comments Procalcitonin (test code = 0.06 ng/mL <0.05 H 70585-1) CHRISTIANA (test code = CHRISTIANA) SEPSIS RISK (ng/mL)Low: 0.05-0.50Intermedia te: 0.51-2.00High: >=2.01 Lab Interpretation (test Abnormal code = 25474-2) [facility] Hospital[id number] 11:32:11 Test Item Value Reference Range Interpretation Comments PROCALCITONIN (BEAKER) (test code 0.06 ng/mL <0.05 H = 3036) SEPSIS RISK (ng/mL)Low: 0.05-0.50Intermediate: 0.51-2.00High: >=2.01[facility] Metabolic [id number] 06:56:17 Test Item Value Reference Range Interpretation Comments Sodium (test code = 141 meq/L 097-972 6362-2) Potassium (test code = 3.8 meq/L 3.6-5.5 2823-3) Chloride (test code = 108 meq/L 98-106 H 2075-0) CO2 (test code = 21 meq/L -2028-06) BUN (test code = 6 mg/dL 10-26 L 3094-0) Creatinine (test code 0.65 mg/dL 0.50-1.20 = 2160-0) Glucose (test code = 99 mg/dL 70-110 2345-7) Calcium (test code = 9.6 mg/dL 8.5-10.5 31522-1) EGFR (test code = 113 mL/min/1.73 [place] [address]-3) NOT ACCURATE CREATININE CLEARANCE IN PREDICTING GLOMERULAR FILTRATION RATE . ESTIMATED GFR I S NOT APPLICABLE FOR DIALYSIS PATIENTS. CHRISTIANA (test code = CHRISTIANA) Memory Care Program Director ID - NLYLE Lab Interpretation Abnormal (test code = 20207-4) [facility] Metabolic [id number] 06:56:17 Test Item Value Reference Range Interpretation Comments Sodium (test code = 141 meq/L 922-021 2591-2) Potassium (test code = 3.8 meq/L 3.6-5.5 2823-3) Chloride (test code = 108 meq/L 98-106 H 2075-0) CO2 (test code = 21 meq/L -2028-06) BUN (test code = 6 mg/dL 10-26 L 3094-0) Creatinine (test code 0.65 mg/dL 0.50-1.20 = 2160-0) Glucose (test code = 99 mg/dL 70-110 2345-7) Calcium (test code = 9.6 mg/dL 8.5-10.5 01385-1) EGFR (test code = 113 mL/min/1.[place] [address]-9) NOT ACCURATE CREATININE CLEARANCE IN PREDICTING GLOMERULAR FILTRATION RATE . ESTIMATED GFR I S NOT APPLICABLE FOR DIALYSIS PATIENTS. CHRISTIANA (test code = CHRISTIANA) Memory Care Program Director ID - NLYLE Lab Interpretation Abnormal (test code = 52287-2) [facility]OLIC [id number] 06:56:17 Test Item Value Reference Range Interpretation Comments SODIUM (BEAKER) 141 meq/L 135-148 (test code = 381) POTASSIUM (BEAKER) 3.8 meq/L 3.6-5.5 (test code = 379) CHLORIDE (BEAKER) 108 meq/L 98-106 H (test code = 382) CO2 (BEAKER) (test 21 meq/L 20-29 code = 355) BLOOD UREA NITROGEN 6 mg/dL 10-26 L (BEAKER) (test code = 354) CREATININE (BEAKER) 0.65 mg/dL 0.50-1.20 (test code = 358) GLUCOSE RANDOM 99 mg/dL 70-110 (BEAKER) (test code = 652) CALCIUM (BEAKER) 9.6 mg/dL 8.5-10.5 (test code = 697) EGFR (BEAKER) (test 113 mL/min/1.73 ESTIM ATED GFR IS code = 1092) sq m NOT ACCURATE CREATININE CLEARANCE IN PREDICTING GLOMERULAR FILTRATION RATE . ESTIMATED GFR I S NOT APPLICABLE FOR DIALYSIS PATIEN TS. Memory Care Program Director ID - NLYLEC-Reactive Luiyhnp0412-50-09 06:51:44 Test Item Value Reference Range Interpretation Comments CRP (test code = 676) 0.28 mg/dL 0.00-1.00 CHRISTIANA (test code = CHRISTIANA) Memory Care Program Director ID - NLYLE Lab Interpretation (test Normal code = 79289-4) [facility] [id number] 06:51:44 Test Item Value Reference Range Interpretation Comments CRP (test code = 676) 0.28 mg/dL 0.00-1.00 CHRISTIANA (test code = CHRISTIANA) Memory Care Program Director ID - NLYLE Lab Interpretation (test Normal code = 08091-7) [facility]ACTIVE [id number] 06:51:44 Test Item Value Reference Range Interpretation Comments C-REACTIVE PROTEIN (BEAKER) (test 0.28 mg/dL 0.00-1.00 code = 676) Memory Care Program Director ID - AULSZH-[id number] 06:47:26 Test Item Value Reference Range Interpretation Comments D-Dimer, Quant (test 2.39 See_Comment H Final I nformation code = 82320-6) (Auto Output ) [Automated message] The system which generated this result transmitted reference range : <0.50 MG/L FEU. The reference range was not used to interpr et this result as normal/abnormal . CHRISTIANA (test code = REGARDING D-DIMER CHRISTIANA) RESULTS: The 98% NPV (Negative Predictive Value) for DVT/PE exclusion is 0.50 mg/L FEU as suggested by the metal furrer and as approved by the FDA. Lab Interpretation Abnormal (test code = 36468-7) [facility]-[id number] 06:47:26 Test Item Value Reference Range Interpretation Comments D-Dimer, Quant (test 2.39 See_Comment H Final I nformation code = 48957-2) (Auto Output ) [Automated message] The system which generated this result transmitted reference range : <0.50 MG/L FEU. The reference range was not used to interpr et this result as normal/abnormal . CHRISTIANA (test code = REGARDING D-DIMER CHRISTIANA) RESULTS: The 98% NPV (Negative Predictive Value) for DVT/PE exclusion is 0.50 mg/L FEU as suggested by the metal furrer and as approved by the FDA. Lab Interpretation Abnormal (test code = 14962-8) [facility]-[id number] 06:47:26 Test Item Value Reference Range Interpretation Comments D-DIMER QUANTITATIVE 2.39 MG/L FEU <0.50 H Final Information (MAXINEAKER) (test code = (Auto Output) 671) REGARDING D-DIMER RESULTS: The 98% NPV (Negative Predictive Value) for DVT/PE exclusion is 0.50 mg/LFEU as suggested by the metal furrer and as approved by the FDA.CBC with platelet count + automated [id number] 06:38:04 Test Item Value Reference Range Interpretation Comments WBC (test code = 6690-2) 5.3 See_Comment [A utomated message] The system [employer] generated this result transmitted ref erence range: 4.0 - 10 .0 K/L. The refe rence range was not u sed to interpret this result as normal/abnor mal. RBC (test code = 789-8) 4.05 See_Comment [Au tomated message] The system [employer] generated this result transmitted ref erence range: 4.00 - 5 .00 M/L. The refe rence range was not u sed to interpret this result as normal/abnor mal. MCHC (test code = 786-4) 35.0 See_Comment [A utomated message] The system [employer] generated this result transmitted ref erence range: 32.0 - 3 6.0 GM/DL. The refe rence range was not u sed to interpret this result as normal/abnor mal. Hematocrit (test code = 36.3 % 36.0-46.0 4544-3) MCV (test code = 787-2) 89.6 fL 82.0-99.0 MCH (test code = 785-6) 31.4 pg 27.0-33.0 RDW (test code = 788-0) 12.5 % 12.0-15.0 Platelets (test code = 568 See_Comment H [Aut omated message] 777-3) The system [employer] generated this result transmitted ref erence range: 150 - 43 0 K/CU MM. The referen ce range was not u sed to interpret this result as normal/abnor mal. MPV (test code = 9.4 fL 6.0-11.5 87738-9) nRBC (test code = 413) 0 See_Comment [Aut omated message] The system [employer] generated this result transmitted ref erence range: 0 - 0 /1 00 WBC. The refere nce range was not u sed to interpret this result as normal/abnor mal. % Neutros (test code = 55 % 429) % Lymphs (test code = 28 % 430) % Monos (test code = 11 % 431) % Eos (test code = 432) 5 % % Baso (test code = 437) 1 % # Neutros (test code = 2.91 See_Comment [Aut omated message] 670) The system [employer] generated this result transmitted ref erence range: 1.80 - 8 .00 K/L. The refe rence range was not u sed to interpret this result as normal/abnor mal. # Lymphs (test code = 1.47 See_Comment L [Auto mated message] 414) The system [employer] generated this result transmitted ref erence range: 1.48 - 4 .50 K/L. The refe rence range was not u sed to interpret this result as normal/abnor mal. # Monos (test code = 0.58 See_Comment [Autom ated message] 415) The system [employer] generated this result transmitted ref erence range: 0.00 - 1 .30 K/L. The refe rence range was not u sed to interpret this result as normal/abnor mal. # Eos (test code = 416) 0.24 See_Comment [Au tomated message] The system [employer] generated this result transmitted ref erence range: 0.00 - 0 .50 K/L. The refe rence range was not u sed to interpret this result as normal/abnor mal. # Baso (test code = 417) 0.03 See_Comment [A utomated message] The system [employer] generated this result transmitted ref erence range: 0.00 - 0 .20 K/L. The refe rence range was not u sed to interpret this result as normal/abnor mal. Immature 2 % 0-0 H Granulocytes-Relative (test code = 2801) Lab Interpretation (test Abnormal code = 20299-9) [facility] with platelet count + automated [id number] 06:38:04 Test Item Value Reference Range Interpretation Comments WBC (test code = 6690-2) 5.3 See_Comment [A utomated message] The system [employer] generated this result transmitted ref erence range: 4.0 - 10 .0 K/L. The refe rence range was not u sed to interpret this result as normal/abnor mal. RBC (test code = 789-8) 4.05 See_Comment [Au tomated message] The system [employer] generated this result transmitted ref erence range: 4.00 - 5 .00 M/L. The refe rence range was not u sed to interpret this result as normal/abnor mal. MCHC (test code = 786-4) 35.0 See_Comment [A utomated message] The system [employer] generated this result transmitted ref erence range: 32.0 - 3 6.0 GM/DL. The refe rence range was not u sed to interpret this result as normal/abnor mal. Hematocrit (test code = 36.3 % 36.0-46.0 4544-3) MCV (test code = 787-2) 89.6 fL 82.0-99.0 MCH (test code = 785-6) 31.4 pg 27.0-33.0 RDW (test code = 788-0) 12.5 % 12.0-15.0 Platelets (test code = 568 See_Comment H [Aut omated message] 777-3) The system [employer] generated this result transmitted ref erence range: 150 - 43 0 K/CU MM. The referen ce range was not u sed to interpret this result as normal/abnor mal. MPV (test code = 9.4 fL 6.0-11.5 28355-7) nRBC (test code = 413) 0 See_Comment [Aut omated message] The system [employer] generated this result transmitted ref erence range: 0 - 0 /1 00 WBC. The refere nce range was not u sed to interpret this result as normal/abnor mal. % Neutros (test code = 55 % 429) % Lymphs (test code = 28 % 430) % Monos (test code = 11 % 431) % Eos (test code = 432) 5 % % Baso (test code = 437) 1 % # Neutros (test code = 2.91 See_Comment [Aut omated message] 670) The system [employer] generated this result transmitted ref erence range: 1.80 - 8 .00 K/L. The refe rence range was not u sed to interpret this result as normal/abnor mal. # Lymphs (test code = 1.47 See_Comment L [Auto mated message] 414) The system [employer] generated this result transmitted ref erence range: 1.48 - 4 .50 K/L. The refe rence range was not u sed to interpret this result as normal/abnor mal. # Monos (test code = 0.58 See_Comment [Autom ated message] 415) The system [employer] generated this result transmitted ref erence range: 0.00 - 1 .30 K/L. The refe rence range was not u sed to interpret this result as normal/abnor mal. # Eos (test code = 416) 0.24 See_Comment [Au tomated message] The system [employer] generated this result transmitted ref erence range: 0.00 - 0 .50 K/L. The refe rence range was not u sed to interpret this result as normal/abnor mal. # Baso (test code = 417) 0.03 See_Comment [A utomated message] The system [employer] generated this result transmitted ref erence range: 0.00 - 0 .20 K/L. The refe rence range was not u sed to interpret this result as normal/abnor mal. Immature 2 % 0-0 H Granulocytes-Relative (test code = 2801) Lab Interpretation (test Abnormal code = 15649-3) [facility] W/PLT COUNT & AUTO [id number] 06:38:04 Test Item Value Reference Range Interpretation Comments WHITE BLOOD CELL COUNT (BEAKER) 5.3 K/ L 4.0-10.0 (test code = 775) RED BLOOD CELL COUNT (BEAKER) 4.05 M/ L 4.00-5.00 (test code = 761) HEMOGLOBIN (BEAKER) (test code = 12.7 GM/DL 12.0-15.5 410) HEMATOCRIT (BEAKER) (test code = 36.3 % 36.0-46.0 411) MEAN CORPUSCULAR VOLUME (BEAKER) 89.6 fL 82.0-99.0 (test code = 753) MEAN CORPUSCULAR HEMOGLOBIN 31.4 pg 27.0-33.0 (BEAKER) (test code = 751) MEAN CORPUSCULAR HEMOGLOBIN CONC 35.0 GM/DL 32.0-36.0 (BEAKER) (test code = 752) RED CELL DISTRIBUTION WIDTH 12.5 % 12.0-15.0 (BEAKER) (test code = 412) PLATELET COUNT (BEAKER) (test 568 K/CU MM 150-430 H code = 756) MEAN PLATELET VOLUME (BEAKER) 9.4 fL 6.0-11.5 (test code = 754) NUCLEATED RED BLOOD CELLS 0 /100 WBC 0-0 (BEAKER) (test code = 413) NEUTROPHILS RELATIVE PERCENT 55 % (BEAKER) (test code = 429) LYMPHOCYTES RELATIVE PERCENT 28 % (BEAKER) (test code = 430) MONOCYTES RELATIVE PERCENT 11 % (BEAKER) (test code = 431) EOSINOPHILS RELATIVE PERCENT 5 % (BEAKER) (test code = 432) BASOPHILS RELATIVE PERCENT 1 % (BEAKER) (test code = 437) NEUTROPHILS ABSOLUTE COUNT 2.91 K/ L 1.80-8.00 (BEAKER) (test code = 670) LYMPHOCYTES ABSOLUTE COUNT 1.47 K/ L 1.48-4.50 L (BEAKER) (test code = 414) MONOCYTES ABSOLUTE COUNT (BEAKER) 0.58 K/ L 0.00-1.30 (test code = 415) EOSINOPHILS ABSOLUTE COUNT 0.24 K/ L 0.00-0.50 (BEAKER) (test code = 416) BASOPHILS ABSOLUTE COUNT (BEAKER) 0.03 K/ L 0.00-0.20 (test code = 417) IMMATURE GRANULOCYTES-RELATIVE 2 % 0-0 H PERCENT (BEAKER) (test code = 2801) RAD, CHEST, 1 VIEW, NON [id number] 03:14:00Reason for exam:- >PneumoniaShould this be performed at the bedside?->Yes [facility]VONNE : 2000 Sex: FFINAL REPORT RAD, CHEST, 1 VIEW, NON DEPT INDICATION: Pneumonia COMPARISON: 10/07/2021 FINDINGS: Portable frontal view of the chest. IMPRESSION: Support Lines: None. Lungs and pleura: Lungs are clear. No pneumothorax. Heart and mediastinum: Stable contours. Additional findings: None. Signed: Marcos, Stefanie MDReport Verified Date/Time: 10/11/2021 03:14:31 SARS-COV2/RT-PCR ([facility]) 2021-10-10 13:12:46 Test Item Value Reference Range Interpretation Comments SARS-COV2/RT-PCR Positive Negative AA The SARS-Co V-2 target (test code = nucleic acids a re detected [id number]) in this specime n. The presence SARS-C oV-2 nucleic acids cannot ru le out co-infections o r disease caused by other viral or bacterial patho gens. As with any molecular t est, mutations withi n the target regions of the Xpert Xpress SARS-CoV-2 test could affect primer and/or p robe binding resulting in fa ilure to detect the pres ence of virus or the virus be ing detected less predictabl y. False negative result s may occur if virus is pre sent at levels below th e analytical limit of detect ion. This SARS CoV-2 test is a rapid, real-time RT-PC R test intended for e qualitative detection of nu cleic acid from SARS-CoV-2 in a nasopharyngeal swab specimen collected from individuals suspected of CO VID-19 by their healthcar e provider. Results from e Xpert Xpress SARS-CoV -2 test should be corre lated with the clinical hi story, epidemiological data, and other data avai lable to the clinician evalu ating the patient. Viral nucleic acid may persist in vivo, independent of virus viability. Dete ction of analyte target( s) does not imply that the corresponding virus(es) are i nfectious or are the causati ve agents for clinical sympto ms. This test has been authorized by FDA under an EUA for use by authorized laboratories. This test is only authorized for the duration of the declaration that circumstances exist justifying the authorization of emergency use of in vitro diagnostic tests for detection and/or diagnosis of COVID-19 under Section 564(b)(1) of the Federal Food, Drug and Cosmetic Act, 21 U.S.C. 360bbb-3(b)(1), unless the authorization is terminated or revoked sooner. Fact Sheet for Healthcare Providers: https://www.cepheid.co m/Documents/Xpert%20Xpress%20SARS%20CoV-2/Fact%20Sheets/302-3802%26VEXL-ATW-6%20 HEALTHCARE%20PROVIDERS%20FACT%20SHEET.pdf Fact Sheet for Healthcare Patients: https://www.Collabera/Documents/Xpert%20Xp ress%20SARS%20CoV-2/Fact%20Sheets/302-3801%78ISEO-QLX-3%20PATIENT%20FACT%20SHEET .pdfCBC W/PLT COUNT & AUTO [id number] 06:48:59 Test Item Value Reference Range Interpretation Comments WHITE BLOOD CELL COUNT (BEAKER) 7.4 K/ L 4.0-10.0 (test code = 775) RED BLOOD CELL COUNT (BEAKER) 3.66 M/ L 4.00-5.00 L (test code = 761) HEMOGLOBIN (BEAKER) (test code = 11.2 GM/DL 12.0-15.5 L 410) HEMATOCRIT (BEAKER) (test code = 32.3 % 36.0-46.0 L 411) MEAN CORPUSCULAR VOLUME (BEAKER) 88.3 fL 82.0-99.0 (test code = 753) MEAN CORPUSCULAR HEMOGLOBIN 30.6 pg 27.0-33.0 (BEAKER) (test code = 751) MEAN CORPUSCULAR HEMOGLOBIN CONC 34.7 GM/DL 32.0-36.0 (BEAKER) (test code = 752) RED CELL DISTRIBUTION WIDTH 11.7 % 12.0-15.0 L (BEAKER) (test code = 412) PLATELET COUNT (BEAKER) (test 489 K/CU MM 150-430 H code = 756) MEAN PLATELET VOLUME (BEAKER) 9.2 fL 6.0-11.5 (test code = 754) NUCLEATED RED BLOOD CELLS 0 /100 WBC 0-0 (BEAKER) (test code = 413) NEUTROPHILS RELATIVE PERCENT 51 % (BEAKER) (test code = 429) LYMPHOCYTES RELATIVE PERCENT 30 % (BEAKER) (test code = 430) MONOCYTES RELATIVE PERCENT 10 % (BEAKER) (test code = 431) EOSINOPHILS RELATIVE PERCENT 5 % (BEAKER) (test code = 432) BASOPHILS RELATIVE PERCENT 1 % (BEAKER) (test code = 437) NEUTROPHILS ABSOLUTE COUNT 3.71 K/ L 1.80-8.00 (BEAKER) (test code = 670) LYMPHOCYTES ABSOLUTE COUNT 2.19 K/ L 1.48-4.50 (BEAKER) (test code = 414) MONOCYTES ABSOLUTE COUNT (BEAKER) 0.70 K/ L 0.00-1.30 (test code = 415) EOSINOPHILS ABSOLUTE COUNT 0.33 K/ L 0.00-0.50 (BEAKER) (test code = 416) BASOPHILS ABSOLUTE COUNT (BEAKER) 0.04 K/ L 0.00-0.20 (test code = 417) IMMATURE GRANULOCYTES-RELATIVE 5 % 0-0 H PERCENT (BEAKER) (test code = 2801) Occasional Reactive Lymphocytes seen.BASIC METABOLIC [id number] 04:55:13 Test Item Value Reference Range Interpretation Comments SODIUM (BEAKER) 138 meq/L 135-148 (test code = 381) POTASSIUM (BEAKER) 3.5 meq/L 3.6-5.5 L (test code = 379) CHLORIDE (BEAKER) 105 meq/L 98-106 (test code = 382) CO2 (BEAKER) (test 20 meq/L 20-29 code = 355) BLOOD UREA NITROGEN 9 mg/dL 10-26 L (BEAKER) (test code = 354) CREATININE (BEAKER) 0.57 mg/dL 0.50-1.20 (test code = 358) GLUCOSE RANDOM 73 mg/dL 70-110 (BEAKER) (test code = 652) CALCIUM (BEAKER) 9.0 mg/dL 8.5-10.5 (test code = 697) EGFR (BEAKER) (test 131 mL/min/1.73 ESTIM ATED GFR IS code = 1092) sq m NOT ACCURATE CREATININE CLEARANCE IN PREDICTING GLOMERULAR FILTRATION RATE . ESTIMATED GFR I S NOT APPLICABLE FOR DIALYSIS PATIEN TS. Memory Care Program Director ID - [id number] 12:25:14 Test Item Value Reference Range Interpretation Comments PROCALCITONIN (BEAKER) (test code 1.63 ng/mL <0.05 H = 3036) SEPSIS RISK (ng/mL)Low: 0.05-0.50Intermediate: 0.51-2.00High: >=2.01 SARS-COV2/RT-PCR ([facility])2021-10-07 12:02:11 Test Item Value Reference Range Interpretation Comments SARS-COV2/RT-PCR Positive Negative AA The SARS-Co V-2 target (test code = nucleic acids a re detected [id number]) in this specime n. The presence SARS-C oV-2 nucleic acids cannot ru le out co-infections o r disease caused by other viral or bacterial patho gens. As with any molecular t est, mutations withi n the target regions of the Xpert Xpress SARS-CoV-2 test could affect primer and/or p robe binding resulting in fa ilure to detect the pres ence of virus or the virus be ing detected less predictabl y. False negative result s may occur if virus is pre sent at levels below th e analytical limit of detect ion. This SARS CoV-2 test is a rapid, real-time RT-PC R test intended for th e qualitative detection of nu cleic acid from SARS-CoV-2 in a nasopharyngeal swab specimen collected from individuals suspected of CO VID-19 by their healthcar e provider. Results from th e Xpert Xpress SARS-CoV -2 test should be corre lated with the clinical hi story, epidemiological data, and other data avai lable to the clinician evalu ating the patient. Viral nucleic acid may persist in vivo, independent of virus viability. Dete ction of analyte target( s) does not imply that the corresponding virus(es) are i nfectious or are the causati ve agents for clinical sympto ms. This test has been authorized by FDA under an EUA for use by authorized laboratories. This test is only authorized for the duration of the declaration that circumstances exist justifying the authorization of emergency use of in vitro diagnostic tests for detection and/or diagnosis of COVID-19 under Section 564(b)(1) of the Federal Food, Drug and Cosmetic Act, 21 U.S.C. 360bbb-3(b)(1), unless the authorization is terminated or revoked sooner. Fact Sheet for Healthcare Providers: https://www.cepheid.co m/Documents/Xpert%20Xpress%20SARS%20CoV-2/Fact%20Sheets/302-6389%32ZHKE-KWI-5%20 HEALTHCARE%20PROVIDERS%20FACT%20SHEET.pdf Fact Sheet for Healthcare Patients: https://www.Mophie.Vitaldent/Documents/Xpert%20Xp ress%20SARS%20CoV-2/Fact%20Sheets/3023801%69YMNE-IHW-5%20PATIENT%20FACT%20SHEET .pdfManual [id number] 06:05:28 Test Item Value Reference Range Interpretation Comments % Neutros (manual) (test 53 % code = 1359) % Lymphs (manual) (test 24 % code = 1360) % Monos (manual) (test 15 % code = 1361) % Eos (manual) (test 1 % code = 1362) % Myelo (manual) (test 1 % 0-0 H code = 1594) % Promyelo (manual) 1 % 0-0 H (test code = 259) % Bands (manual) (test 5 % 0-10 code = 1348) # Neutros (manual) (test 3.18 See_Comment [A utomated message] code = 1365) The system [employer] generated this result transmitted ref erence range: 1.80 - 8 .00 K/L. The refe rence range was not u sed to interpret this result as normal/abnor mal. # Lymphs (manual) (test 1.44 See_Comment L [Au tomated message] code = 1366) The system [employer] generated this result transmitted ref erence range: 1.48 - 4 .50 K/L. The refe rence range was not u sed to interpret this result as normal/abnor mal. # Monos (manual) (test 0.90 See_Comment [Aut omated message] code = 1367) The system [employer] generated this result transmitted ref erence range: 0.00 - 1 .30 K/L. The refe rence range was not u sed to interpret this result as normal/abnor mal. # Eos (manual) (test 0.06 See_Comment [Autom ated message] code = 1368) The system [employer] generated this result transmitted ref erence range: 0.00 - 0 .50 K/L. The refe rence range was not u sed to interpret this result as normal/abnor mal. # Promyelo (manual) 0.06 See_Comment H [Automa rhett message] (test code = 262) The system which generated this result transmitted ref erence range: 0.00 - 0 .00 K/L. The refe rence range was not u sed to interpret this result as normal/abnor mal. # Bands (manual) (test 0.3 See_Comment [Aut omated message] code = 1349) The system [employer] generated this result transmitted ref erence range: 0.0 - 0. 8 K/L. The refe rence range was not u sed to interpret this result as normal/abnor mal. # Myelo (manual) (test 0.06 See_Comment H [Aut omated message] code = 1593) The system [employer] generated this result transmitted ref erence range: 0.00 - 0 .00 K/L. The refe rence range was not u sed to interpret this result as normal/abnor mal. Total Counted (test code 100 = 1351) Bands plus Segmented 3.48 Neutrophils (test code = 1352) WBC Morphology (test Normal code = 487) Platelet Morphology Normal (test code = 486) RBC Morphology (test Normal code = 762) Lab Interpretation (test Abnormal code = 71658-2) [facility] [id number] 06:05:28 Test Item Value Reference Range Interpretation Comments % Neutros (manual) (test 53 % code = 1359) % Lymphs (manual) (test 24 % code = 1360) % Monos (manual) (test 15 % code = 1361) % Eos (manual) (test 1 % code = 1362) % Myelo (manual) (test 1 % 0-0 H code = 1594) % Promyelo (manual) 1 % 0-0 H (test code = 259) % Bands (manual) (test 5 % 0-10 code = 1348) # Neutros (manual) (test 3.18 See_Comment [A utomated message] code = 1365) The system [employer] generated this result transmitted ref erence range: 1.80 - 8 .00 K/L. The refe rence range was not u sed to interpret this result as normal/abnor mal. # Lymphs (manual) (test 1.44 See_Comment L [Au tomated message] code = 1366) The system [employer] generated this result transmitted ref erence range: 1.48 - 4 .50 K/L. The refe rence range was not u sed to interpret this result as normal/abnor mal. # Monos (manual) (test 0.90 See_Comment [Aut omated message] code = 1367) The system [employer] generated this result transmitted ref erence range: 0.00 - 1 .30 K/L. The refe rence range was not u sed to interpret this result as normal/abnor mal. # Eos (manual) (test 0.06 See_Comment [Autom ated message] code = 1368) The system [employer] generated this result transmitted ref erence range: 0.00 - 0 .50 K/L. The refe rence range was not u sed to interpret this result as normal/abnor mal. # Promyelo (manual) 0.06 See_Comment H [Automa rhett message] (test code = 262) The system which generated this result transmitted ref erence range: 0.00 - 0 .00 K/L. The refe rence range was not u sed to interpret this result as normal/abnor mal. # Bands (manual) (test 0.3 See_Comment [Aut omated message] code = 1349) The system [employer] generated this result transmitted ref erence range: 0.0 - 0. 8 K/L. The refe rence range was not u sed to interpret this result as normal/abnor mal. # Myelo (manual) (test 0.06 See_Comment H [Aut omated message] code = 1593) The system [employer] generated this result transmitted ref erence range: 0.00 - 0 .00 K/L. The refe rence range was not u sed to interpret this result as normal/abnor mal. Total Counted (test code 100 = 1351) Bands plus Segmented 3.48 Neutrophils (test code = 1352) WBC Morphology (test Normal code = 487) Platelet Morphology Normal (test code = 486) RBC Morphology (test Normal code = 762) Lab Interpretation (test Abnormal code = 96116-4) [facility] W/PLT COUNT & AUTO [id number] 06:05:28 Test Item Value Reference Range Interpretation Comments WHITE BLOOD CELL COUNT (BEAKER) 6.0 K/ L 4.0-10.0 (test code = 775) RED BLOOD CELL COUNT (BEAKER) 3.91 M/ L 4.00-5.00 L (test code = 761) HEMOGLOBIN (BEAKER) (test code = 12.2 GM/DL 12.0-15.5 410) HEMATOCRIT (BEAKER) (test code = 34.6 % 36.0-46.0 L 411) MEAN CORPUSCULAR VOLUME (BEAKER) 88.5 fL 82.0-99.0 (test code = 753) MEAN CORPUSCULAR HEMOGLOBIN 31.2 pg 27.0-33.0 (BEAKER) (test code = 751) MEAN CORPUSCULAR HEMOGLOBIN CONC 35.3 GM/DL 32.0-36.0 (BEAKER) (test code = 752) RED CELL DISTRIBUTION WIDTH 11.6 % 12.0-15.0 L (BEAKER) (test code = 412) PLATELET COUNT (BEAKER) (test 490 K/CU MM 150-430 H code = 756) MEAN PLATELET VOLUME (BEAKER) 9.9 fL 6.0-11.5 (test code = 754) NUCLEATED RED BLOOD CELLS 0 /100 WBC 0-0 (BEAKER) (test code = 413) (MANUAL DIFFERENTIAL)2021-10-07 06:05:28 Test Item Value Reference Range Interpretation Comments NEUTROPHILS - REL (DIFF) (BEAKER) 53 % (test code = 1359) LYMPHOCYTES - REL (DIFF) (BEAKER) 24 % (test code = 1360) MONOCYTES - REL (DIFF) (BEAKER) 15 % (test code = 1361) EOSINOPHILS - REL (DIFF) (BEAKER) 1 % (test code = 1362) MYELOCYTES-REL (DIFF) (BEAKER) 1 % 0-0 H (test code = 1594) PROMYELOCYTES-REL (DIFF) (BEAKER) 1 % 0-0 H (test code = 259) BANDS - REL (DIFF) (BEAKER) (test 5 % 0-10 code = 1348) NEUTROPHILS - ABS (DIFF) (BEAKER) 3.18 K/ L 1.80-8.00 (test code = 1365) LYMPHOCYTES - ABS (DIFF) (BEAKER) 1.44 K/ L 1.48-4.50 L (test code = 1366) MONOCYTES - ABS (DIFF) (BEAKER) 0.90 K/ L 0.00-1.30 (test code = 1367) EOSINOPHILS - ABS (DIFF) (BEAKER) 0.06 K/ L 0.00-0.50 (test code = 1368) PROMYELOCYTES - ABS (DIFF) (BEAKER) 0.06 K/ L 0.00-0.00 H (test code = 262) BANDS-ABS (DIFF) (BEAKER) (test 0.3 K/ L 0.0-0.8 code = 1349) MYELOCYTES-ABS (DIFF) (BEAKER) 0.06 K/ L 0.00-0.00 H (test code = 1593) TOTAL COUNTED (BEAKER) (test code = 100 1351) BANDS + SEGMENTED NEUTROPHILS 3.48 (BEAKER) (test code = 1352) WBC MORPHOLOGY (BEAKER) (test code Normal = 487) PLT MORPHOLOGY (BEAKER) (test code Normal = 486) RBC MORPHOLOGY (BEAKER) (test code Normal = 762) BASIC METABOLIC [id number] 05:17:04 Test Item Value Reference Range Interpretation Comments SODIUM (BEAKER) 139 meq/L 135-148 (test code = 381) POTASSIUM (BEAKER) 3.5 meq/L 3.6-5.5 L (test code = 379) CHLORIDE (BEAKER) 106 meq/L 98-106 (test code = 382) CO2 (BEAKER) (test 19 meq/L 20-29 L code = 355) BLOOD UREA NITROGEN 4 mg/dL 10-26 L (BEAKER) (test code = 354) CREATININE (BEAKER) 0.63 mg/dL 0.50-1.20 (test code = 358) GLUCOSE RANDOM 83 mg/dL 70-110 (BEAKER) (test code = 652) CALCIUM (BEAKER) 9.4 mg/dL 8.5-10.5 (test code = 697) EGFR (BEAKER) (test 117 mL/min/1.73 ESTIM ATED GFR IS code = 1092) sq m NOT ACCURATE CREATININE CLEARANCE IN PREDICTING GLOMERULAR FILTRATION RATE . ESTIMATED GFR I S NOT APPLICABLE FOR DIALYSIS PATIEN TS. Memory Care Program Director ID - NLYLEC-REACTIVE [id number] 05:13:22 Test Item Value Reference Range Interpretation Comments C-REACTIVE PROTEIN (BEAKER) (test 1.41 mg/dL 0.00-1.00 H code = 676) Memory Care Program Director ID - [id number] 05:01:21 Test Item Value Reference Range Interpretation Comments D-DIMER QUANTITATIVE 1.41 MG/L FEU <0.50 H Final Information (BEAKER) (test code = (Auto Output) 671) REGARDING D-DIMER RESULTS: The 98% NPV (Negative Predictive Value) for DVT/PE exclusion is 0.50 mg/LFEU as suggested by the metal furrer and as approved by the FDA.RAD, CHEST, 1 VIEW, NON [id number] 03:46:00Reason for exam:- >PneumoniaShould this be performed at the bedside?->Yes [facility] : 2000 Sex: FFINAL REPORT RAD, CHEST, 1 VIEW, NON DEPT INDICATION: Pneumonia COMPARISON: 10/05/2021 FINDINGS: Portable frontal view of the chest. IMPRESSION: Support Lines: None Lungs and pleura: Lungs are clear. No pneumothorax. Heart and mediastinum: Stable contours. Additional findings: None. Signed: Stefanie Rordíguez Verified Date/Time: 10/07/2021 03:46:56 BASIC METABOLIC [id number] 04:21:45 Test Item Value Reference Range Interpretation Comments SODIUM (BEAKER) 140 meq/L 135-148 (test code = 381) POTASSIUM (BEAKER) 3.3 meq/L 3.6-5.5 L (test code = 379) CHLORIDE (BEAKER) 109 meq/L 98-106 H (test code = 382) CO2 (BEAKER) (test 19 meq/L 20-29 L code = 355) BLOOD UREA NITROGEN < mg/dL 10-26 L (BEAKER) (test code = 354) CREATININE (BEAKER) 0.57 mg/dL 0.50-1.20 (test code = 358) GLUCOSE RANDOM 85 mg/dL 70-110 (BEAKER) (test code = 652) CALCIUM (BEAKER) 8.7 mg/dL 8.5-10.5 (test code = 697) EGFR (BEAKER) (test 131 mL/min/1.73 ESTIM ATED GFR IS code = 1092) sq m NOT ACCURATE CREATININE CLEARANCE IN PREDICTING GLOMERULAR FILTRATION RATE . ESTIMATED GFR I S NOT APPLICABLE FOR DIALYSIS PATIEN TS. Memory Care Program Director ID - NOLICBC W/PLT COUNT & AUTO [id number] 04:11:29 Test Item Value Reference Range Interpretation Comments WHITE BLOOD CELL COUNT (BEAKER) 3.7 K/ L 4.0-10.0 L (test code = 775) RED BLOOD CELL COUNT (BEAKER) 3.62 M/ L 4.00-5.00 L (test code = 761) HEMOGLOBIN (BEAKER) (test code = 11.0 GM/DL 12.0-15.5 L 410) HEMATOCRIT (BEAKER) (test code = 31.0 % 36.0-46.0 L 411) MEAN CORPUSCULAR VOLUME (BEAKER) 85.6 fL 82.0-99.0 (test code = 753) MEAN CORPUSCULAR HEMOGLOBIN 30.4 pg 27.0-33.0 (BEAKER) (test code = 751) MEAN CORPUSCULAR HEMOGLOBIN CONC 35.5 GM/DL 32.0-36.0 (BEAKER) (test code = 752) RED CELL DISTRIBUTION WIDTH 11.7 % 12.0-15.0 L (BEAKER) (test code = 412) PLATELET COUNT (BEAKER) (test 390 K/CU MM 150-430 code = 756) MEAN PLATELET VOLUME (BEAKER) 9.9 fL 6.0-11.5 (test code = 754) NUCLEATED RED BLOOD CELLS 0 /100 WBC 0-0 (BEAKER) (test code = 413) NEUTROPHILS RELATIVE PERCENT 59 % (BEAKER) (test code = 429) LYMPHOCYTES RELATIVE PERCENT 19 % (BEAKER) (test code = 430) MONOCYTES RELATIVE PERCENT 15 % (BEAKER) (test code = 431) EOSINOPHILS RELATIVE PERCENT 3 % (BEAKER) (test code = 432) BASOPHILS RELATIVE PERCENT 1 % (BEAKER) (test code = 437) NEUTROPHILS ABSOLUTE COUNT 2.16 K/ L 1.80-8.00 (BEAKER) (test code = 670) LYMPHOCYTES ABSOLUTE COUNT 0.71 K/ L 1.48-4.50 L (BEAKER) (test code = 414) MONOCYTES ABSOLUTE COUNT (BEAKER) 0.54 K/ L 0.00-1.30 (test code = 415) EOSINOPHILS ABSOLUTE COUNT 0.12 K/ L 0.00-0.50 (BEAKER) (test code = 416) BASOPHILS ABSOLUTE COUNT (BEAKER) 0.04 K/ L 0.00-0.20 (test code = 417) IMMATURE GRANULOCYTES-RELATIVE 3 % 0-0 H PERCENT (BEAKER) (test code = 2801) [id number] 12:27:04 Test Item Value Reference Range Interpretation Comments PROCALCITONIN (BEAKER) (test code 8.27 ng/mL <0.05 H = 3036) SEPSIS RISK (ng/mL)Low: 0.05-0.50Intermediate: 0.51-2.00High: >=2.01Sputum Culture + Gram [id number] 12:06:13 Test Item Value Reference Range Interpretation Comments Result (test code = 1+ Streptococcus not A 6463-4) group A beta hemolytic Gram Stain Result (test No organisms seen code = 1123) CHRISTIANA (test code = CHRISTIANA) 2+ Normal respiratory saeed present Lab Interpretation Abnormal (test code = 12673-3) [facility] [id number] 12:06:13 Test Item Value Reference Range Interpretation Comments Result (test code = 1+ Streptococcus not A 6463-4) group A beta hemolytic Gram Stain Result (test No organisms seen code = 1123) CHRISTIANA (test code = CHRISTIANA) 2+ Normal respiratory saeed present Lab Interpretation Abnormal (test code = 26756-3) [facility]AM [id number] 12:06:13 Test Item Value Reference Range Interpretation Comments CULTURE (BEAKER) A 1+ Streptoc occus not (test code = group A beta 1095) hemolytic GRAM STAIN No White blood RESULT (BEAKER) cells seen (test code = 1123) GRAM STAIN No organisms seen RESULT (BEAKER) (test code = 905894) 2+ Normal respiratory saeed presentRAD, CHEST, 1 VIEW, NON [id number] 05:35:00Reason for exam:->PneumoniaShould this be performed at the bedside?->[facility] : 2000 Sex: FFINAL REPORT Chest one view. Clinical history: Pneumonia Comparison: Chest radiograph 10/01/2021. Technique: A single frontal view of the chest was obtained. Findings:Endotracheal and feeding tubes are in satisfactory positions.The cardiomediastinal contours are normal. There is no focal pulmonary consolidation, pleural effusion or pneumothorax. There is no pulmonary edema. The osseous structures are unremarkable. Impression: No focal pulmonary consolidation. Signed: Sonal Batista Verified Date/Time: 10/05/2021 05:35:18 Acetaminophen [id number] 04:22:07 Test Item Value Reference Range Interpretation Comments Acetaminophen Level <5.7 10.0-30.0 L Specimen (test code = 3298-7) slightl y hemolyzed CHRISTIANA (test code = CHRISTIANA) Memory Care Program Director ID - [id number] Lab Interpretation Abnormal (test code = 46408-6) [facility]Acetamin[facility] [id number] 04:22:07 Test Item Value Reference Range Interpretation Comments Acetaminophen Level <5.7 10.0-30.0 L Specimen (test code = 3298-7) slightl y hemolyzed CHRISTIANA (test code = CHRISTIANA) Memory Care Program Director ID - [id number] Lab Interpretation Abnormal (test code = 35285-8) [facility] HospitalACETAMINOPHEN [id number] 04:22:07 Test Item Value Reference Range Interpretation Comments ACETAMINOPHEN LEVEL < ug/mL 10.0-30.0 L Specimen slightly (BEAKER) (test code = hemoly zed 344) Memory Care Program Director ID - [id number] metabolic [id number] 04:21:04 Test Item Value Reference Range Interpretation Comments Protein, Total (test 6.0 See_Comment [Autom ated code = 2885-2) message] The system which generated this result transmit rhett reference range : 6.0 - 8.5 gm/dL . The reference range was not u sed to interpret th is result as normal/abnormal . Albumin (test code = 3.5 g/dL 3.5-5.0 70769-3) Alkaline Phosphatase 54 U/L 30-115 (test code = 6768-6) Total Bilirubin (test 0.9 mg/dL 0.1-1.2 code = 1974-2) Sodium (test code = 139 meq/L 061-900 5626-2) Potassium (test code 3.2 meq/L 3.6-5.5 L = 2823-3) Chloride (test code = 108 meq/L 98-106 H 2074-0) CO2 (test code = 21 meq/L 20-29 8-9) BUN (test code = <3 10-26 L 3094-0) Creatinine (test code 0.60 mg/dL 0.50-1.20 = 2160-0) Glucose (test code = 93 mg/dL 70-110 2345-7) Calcium (test code = 8.9 mg/dL 8.5-10.5 80332-3) AST (test code = 179 U/L 5-40 H 1920-8) ALT (test code = 287 U/L 5-50 H 1742-6) EGFR (test code = 124 mL/min/1.73 [place] [address]-6) NOT ACCURATE CREATININE CLEARANCE IN PREDICTING GLOMERULAR FILTRATION RATE . ESTIMATED GFR I S NOT APPLICABLE FOR DIALYSIS PATIEN TS. CHRISTIANA (test code = CHRISTIANA) Memory Care Program Director ID - [id number] Lab Interpretation Abnormal (test code = 99987-6) [facility]Com[facility] [id number] 04:21:04 Test Item Value Reference Range Interpretation Comments Protein, Total (test 6.0 See_Comment [Autom ated code = 2885-2) message] The system which generated this result transmit rhett reference range : 6.0 - 8.5 gm/dL . The reference range was not u sed to interpret th is result as normal/abnormal . Albumin (test code = 3.5 g/dL 3.5-5.0 15574-0) Alkaline Phosphatase 54 U/L 30-115 (test code = 6768-6) Total Bilirubin (test 0.9 mg/dL 0.1-1.2 code = 1975-2) Sodium (test code = 139 meq/L 588-237 2300-2) Potassium (test code 3.2 meq/L 3.6-5.5 L = 2823-3) Chloride (test code = 108 meq/L 98-106 H 2075-0) CO2 (test code = 21 meq/L 20-29 8-9) BUN (test code = <3 10-26 L 3094-0) Creatinine (test code 0.60 mg/dL 0.50-1.20 = 2160-0) Glucose (test code = 93 mg/dL 70-110 2345-7) Calcium (test code = 8.9 mg/dL 8.5-10.5 30819-7) AST (test code = 179 U/L 5-40 H 1920-8) ALT (test code = 287 U/L 5-50 H 1742-6) EGFR (test code = 124 mL/min/1.73 [place] [address]-5) NOT ACCURATE CREATININE CLEARANCE IN PREDICTING GLOMERULAR FILTRATION RATE . ESTIMATED GFR I S NOT APPLICABLE FOR DIALYSIS PATIEN TS. CHRISTIANA (test code = CHRISTIANA) [facility] Program Director ID - [id number] Lab Interpretation Abnormal (test code = 58693-9) [facility] [id number] 04:21:04 Test Item Value Reference Range Interpretation Comments TOTAL PROTEIN 6.0 gm/dL 6.0-8.5 (BEAKER) (test code = 770) ALBUMIN (BEAKER) 3.5 g/dL 3.5-5.0 (test code = 1145) ALKALINE PHOSPHATASE 54 U/L 30-115 (BEAKER) (test code = 346) BILIRUBIN TOTAL 0.9 mg/dL 0.1-1.2 (BEAKER) (test code = 377) SODIUM (BEAKER) (test 139 meq/L 135-148 code = 381) POTASSIUM (BEAKER) 3.2 meq/L 3.6-5.5 L (test code = 379) CHLORIDE (BEAKER) 108 meq/L 98-106 H (test code = 382) CO2 (BEAKER) (test 21 meq/L 20-29 code = 355) BLOOD UREA NITROGEN < mg/dL 10-26 L (BEAKER) (test code = 354) CREATININE (BEAKER) 0.60 mg/dL 0.50-1.20 (test code = 358) GLUCOSE RANDOM 93 mg/dL 70-110 (BEAKER) (test code = 652) CALCIUM (BEAKER) 8.9 mg/dL 8.5-10.5 (test code = 697) AST (SGOT) (BEAKER) 179 U/L 5-40 H (test code = 353) ALT (SGPT) (BEAKER) 287 U/L 5-50 H (test code = 347) EGFR (BEAKER) (test 124 ESTIMATE D GFR IS code = 1092) mL/min/1.73 sq NOT ACCURA TE m CREATININE CLEARANCE IN PREDICTING GLOMERULAR FILTRATION RATE . ESTIMATED GFR I S NOT APPLICABLE FOR DIALYSIS PATIEN TS. Memory Care Program Director ID - [id number] 04:15:21 Test Item Value Reference Range Interpretation Comments C-REACTIVE PROTEIN (BEAKER) (test 3.57 mg/dL 0.00-1.00 H code = 676) Memory Care Program Director ID - NLYLEProthrombin time/[id number] 04:03:51 Test Item Value Reference Interpretation Comments Range Protime (test code = 11.9 See_Comment Final 5902-2) Information (Auto Output) [Automated message] The system which generated this result transmitted reference range : 9.8 - 12.0 seconds. The reference range was not used to interpret this result as normal/abnormal . INR (test code = 1.09 See_Comment Final 6301-6) Information (Auto Output) [Automated message] The system which generated this result transmitted reference range : <=5.90. The reference range was not used to interpret this result as normal/abnormal . CHRISTIANA (test code = RECOMMENDED CHRISTIANA) COUMADIN/WARFARIN INR THERAPY RANGESSTANDARD DOSE: 2.0 - 3.0 Includes: PROPHYLAXIS for venous thrombosis, systemic embolization; TREATMENT for venous thrombosis and/or pulmonary embolus.HIGH RISK: Target INR is 2.5-3.5 for patients with mechanical heart valves. Lab Interpretation Normal (test code = 94326-2) [facility]/[id number] 04:03:51 Test Item Value Reference Interpretation Comments Range Protime (test code = 11.9 See_Comment Final 5902-2) Information (Auto Output) [Automated message] The system which generated this result transmitted reference range : 9.8 - 12.0 seconds. The reference range was not used to interpret this result as normal/abnormal . INR (test code = 1.09 See_Comment Final 6301-6) Information (Auto Output) [Automated message] The system which generated this result transmitted reference range : <=5.90. The reference range was not used to interpret this result as normal/abnormal . CHRISTIANA (test code = RECOMMENDED CHRISTIANA) COUMADIN/WARFARIN INR THERAPY RANGESSTANDARD DOSE: 2.0 - 3.0 Includes: PROPHYLAXIS for venous thrombosis, systemic embolization; TREATMENT for venous thrombosis and/or pulmonary embolus.HIGH RISK: Target INR is 2.5-3.5 for patients with mechanical heart valves. Lab Interpretation Normal (test code = 62336-8) [facility] HospitalPROTHROMBIN [facility]/[id number] 04:03:51 Test Item Value Reference Range Interpretation Comments PROTIME (BEAKER) 11.9 seconds 9.8-12.0 Final Infor mation (test code = 759) (Auto Outp ut) INR (BEAKER) (test 1.09 See_Comment Final Inf ormation code = 370) (Auto Output) [Automated mess age] The system [employer] generated this result transmitted ref erence range: <=5.90. The reference range was not used to int erpret this result as normal/abnormal . RECOMMENDED COUMADIN/WARFARIN INR THERAPY RANGESSTANDARD DOSE: 2.0 - 3.0 Includes: PROPHYLAXIS for venous thrombosis, systemic embolization; TREATMENT for venous thrombosis and/or pulmonary embolus.HIGH RISK: Target INR is 2.5-3.5 for patients with mechanical heart valves.CBC W/PLT COUNT & AUTO [id number] 03:52:35 Test Item Value Reference Range Interpretation Comments WHITE BLOOD CELL COUNT (BEAKER) 5.5 K/ L 4.0-10.0 (test code = 775) RED BLOOD CELL COUNT (BEAKER) 3.62 M/ L 4.00-5.00 L (test code = 761) HEMOGLOBIN (BEAKER) (test code = 11.3 GM/DL 12.0-15.5 L 410) HEMATOCRIT (BEAKER) (test code = 31.3 % 36.0-46.0 L 411) MEAN CORPUSCULAR VOLUME (BEAKER) 86.5 fL 82.0-99.0 (test code = 753) MEAN CORPUSCULAR HEMOGLOBIN 31.2 pg 27.0-33.0 (BEAKER) (test code = 751) MEAN CORPUSCULAR HEMOGLOBIN CONC 36.1 GM/DL 32.0-36.0 H (BEAKER) (test code = 752) RED CELL DISTRIBUTION WIDTH 11.5 % 12.0-15.0 L (BEAKER) (test code = 412) PLATELET COUNT (BEAKER) (test 352 K/CU MM 150-430 code = 756) MEAN PLATELET VOLUME (BEAKER) 10.0 fL 6.0-11.5 (test code = 754) NUCLEATED RED BLOOD CELLS 0 /100 WBC 0-0 (BEAKER) (test code = 413) NEUTROPHILS RELATIVE PERCENT 77 % (BEAKER) (test code = 429) LYMPHOCYTES RELATIVE PERCENT 12 % (BEAKER) (test code = 430) MONOCYTES RELATIVE PERCENT 7 % (BEAKER) (test code = 431) EOSINOPHILS RELATIVE PERCENT 3 % (BEAKER) (test code = 432) BASOPHILS RELATIVE PERCENT 0 % (BEAKER) (test code = 437) NEUTROPHILS ABSOLUTE COUNT 4.18 K/ L 1.80-8.00 (BEAKER) (test code = 670) LYMPHOCYTES ABSOLUTE COUNT 0.64 K/ L 1.48-4.50 L (BEAKER) (test code = 414) MONOCYTES ABSOLUTE COUNT (BEAKER) 0.37 K/ L 0.00-1.30 (test code = 415) EOSINOPHILS ABSOLUTE COUNT 0.17 K/ L 0.00-0.50 (BEAKER) (test code = 416) BASOPHILS ABSOLUTE COUNT (BEAKER) 0.02 K/ L 0.00-0.20 (test code = 417) IMMATURE GRANULOCYTES-RELATIVE 1 % 0-0 H PERCENT (BEAKER) (test code = 2801) Hepatic function [id number] 17:01:16 Test Item Value Reference Range Interpretation Comments Protein, Total (test 6.2 See_Comment [Autom ated code = 2885-2) message] The system which generated this result transmit rhett reference range : 6.0 - 8.5 gm/dL . The reference range was not u sed to interpret th is result as normal/abnormal . Albumin (test code = 3.6 g/dL 3.5-5.0 96949-6) Total Bilirubin (test 1.2 mg/dL 0.1-1.2 code = 1975-2) Bilirubin, Direct 0.6 mg/dL 0.0-0.4 H (test code = 1967-7) Alkaline Phosphatase 59 U/L 30-115 (test code = 6768-6) AST (test code = 211 U/L 5-40 H 1920-8) ALT (test code = 344 U/L 5-50 H 1742-6) CHRISTIANA (test code = CHRISTIANA) Memory Care Program Director ID - NLYLE Lab Interpretation Abnormal (test code = 10375-9) [facility] HospitalHepatic function [id number] 17:01:16 Test Item Value Reference Range Interpretation Comments Protein, Total (test 6.2 See_Comment [Autom ated code = 2885-2) message] The system which generated this result transmit rhett reference range : 6.0 - 8.5 gm/dL . The reference range was not u sed to interpret th is result as normal/abnormal . Albumin (test code = 3.6 g/dL 3.5-5.0 49920-4) Total Bilirubin (test 1.2 mg/dL 0.1-1.2 code = 1975-2) Bilirubin, Direct 0.6 mg/dL 0.0-0.4 H (test code = 1968-7) Alkaline Phosphatase 59 U/L 30-115 (test code = 6768-6) AST (test code = 211 U/L 5-40 H 1920-8) ALT (test code = 344 U/L 5-50 H 1742-6) CHRISTIANA (test code = CHRISTIAAN) Memory Care Program Director ID - NLYLE Lab Interpretation Abnormal (test code = 52829-9) [facility] HospitalHEPATIC FUNCTION [id number] 17:01:16 Test Item Value Reference Range Interpretation Comments TOTAL PROTEIN (BEAKER) (test code = 6.2 gm/dL 6.0-8.5 770) ALBUMIN (BEAKER) (test code = 1145) 3.6 g/dL 3.5-5.0 BILIRUBIN TOTAL (BEAKER) (test code 1.2 mg/dL 0.1-1.2 = 377) BILIRUBIN DIRECT (BEAKER) (test 0.6 mg/dL 0.0-0.4 H code = 706) ALKALINE PHOSPHATASE (BEAKER) (test 59 U/L 30-115 code = 346) AST (SGOT) (BEAKER) (test code = 211 U/L 5-40 H 353) ALT (SGPT) (BEAKER) (test code = 344 U/L 5-50 H 347) Memory Care Program Director ID - NLYLEPROTHROMBIN TIME/[id number] 16:48:48 Test Item Value Reference Range Interpretation Comments PROTIME (BEAKER) 12.1 seconds 9.8-12.0 H Final Infor mation (test code = 759) (Auto Outp ut) INR (BEAKER) (test 1.11 See_Comment Final Inf ormation code = 370) (Auto Output) [Automated mess age] The system [employer] generated this result transmitted ref erence range: <=5.90. The reference range was not used to int erpret this result as normal/abnormal . RECOMMENDED COUMADIN/WARFARIN INR THERAPY RANGESSTANDARD DOSE: 2.0 - 3.0 Includes: PROPHYLAXIS for venous thrombosis, systemic embolization; TREATMENT for venous thrombosis and/or pulmonary embolus.HIGH RISK: Target INR is 2.5-3.5 for patients with mechanical heart valves.BASIC METABOLIC [id number] 02:00:44 Test Item Value Reference Range Interpretation Comments SODIUM (BEAKER) 140 meq/L 135-148 (test code = 381) POTASSIUM (BEAKER) 3.2 meq/L 3.6-5.5 L (test code = 379) CHLORIDE (BEAKER) 112 meq/L 98-106 H (test code = 382) CO2 (BEAKER) (test 18 meq/L 20-29 L code = 355) BLOOD UREA NITROGEN < mg/dL 10-26 L (BEAKER) (test code = 354) CREATININE (BEAKER) 0.56 mg/dL 0.50-1.20 (test code = 358) GLUCOSE RANDOM 98 mg/dL 70-110 (BEAKER) (test code = 652) CALCIUM (BEAKER) 8.3 mg/dL 8.5-10.5 L (test code = 697) EGFR (BEAKER) (test 134 mL/min/1.73 ESTIM ATED GFR IS code = 1092) sq m NOT ACCURATE CREATININE CLEARANCE IN PREDICTING GLOMERULAR FILTRATION RATE . ESTIMATED GFR I S NOT APPLICABLE FOR DIALYSIS PATIEN TS. Memory Care Program Director ID - CHOPZHEPATIC FUNCTION [id number] 02:00:37 Test Item Value Reference Range Interpretation Comments TOTAL PROTEIN (BEAKER) (test code = 5.2 gm/dL 6.0-8.5 L 770) ALBUMIN (BEAKER) (test code = 1145) 3.1 g/dL 3.5-5.0 L BILIRUBIN TOTAL (BEAKER) (test code 1.3 mg/dL 0.1-1.2 H = 377) BILIRUBIN DIRECT (BEAKER) (test 0.6 mg/dL 0.0-0.4 H code = 706) ALKALINE PHOSPHATASE (BEAKER) (test 52 U/L 30-115 code = 346) AST (SGOT) (BEAKER) (test code = 270 U/L 5-40 H 353) ALT (SGPT) (BEAKER) (test code = 377 U/L 5-50 H 347) Memory Care Program Director ID - CHOPZPROTHROMBIN TIME/[id number] 01:47:37 Test Item Value Reference Range Interpretation Comments PROTIME (BEAKER) 12.6 seconds 9.8-12.0 H Final Infor mation (test code = 759) (Auto Outp ut) INR (BEAKER) (test 1.16 See_Comment Final Inf ormation code = 370) (Auto Output) [Automated mess age] The system [employer] generated this result transmitted ref erence range: <=5.90. The reference range was not used to int erpret this result as normal/abnormal . RECOMMENDED COUMADIN/WARFARIN INR THERAPY RANGESSTANDARD DOSE: 2.0 - 3.0 Includes: PROPHYLAXIS for venous thrombosis, systemic embolization; TREATMENT for venous thrombosis and/or pulmonary embolus.HIGH RISK: Target INR is 2.5-3.5 for patients with mechanical heart valves.CBC W/PLT COUNT & AUTO [id number] 01:38:26 Test Item Value Reference Range Interpretation Comments WHITE BLOOD CELL COUNT (BEAKER) 6.0 K/ L 4.0-10.0 (test code = 775) RED BLOOD CELL COUNT (BEAKER) 3.49 M/ L 4.00-5.00 L (test code = 761) HEMOGLOBIN (BEAKER) (test code = 10.8 GM/DL 12.0-15.5 L 410) HEMATOCRIT (BEAKER) (test code = 31.0 % 36.0-46.0 L 411) MEAN CORPUSCULAR VOLUME (BEAKER) 88.8 fL 82.0-99.0 (test code = 753) MEAN CORPUSCULAR HEMOGLOBIN 30.9 pg 27.0-33.0 (BEAKER) (test code = 751) MEAN CORPUSCULAR HEMOGLOBIN CONC 34.8 GM/DL 32.0-36.0 (BEAKER) (test code = 752) RED CELL DISTRIBUTION WIDTH 11.6 % 12.0-15.0 L (BEAKER) (test code = 412) PLATELET COUNT (BEAKER) (test 280 K/CU MM 150-430 code = 756) MEAN PLATELET VOLUME (BEAKER) 9.7 fL 6.0-11.5 (test code = 754) NUCLEATED RED BLOOD CELLS 0 /100 WBC 0-0 (BEAKER) (test code = 413) NEUTROPHILS RELATIVE PERCENT 75 % (BEAKER) (test code = 429) LYMPHOCYTES RELATIVE PERCENT 16 % (BEAKER) (test code = 430) MONOCYTES RELATIVE PERCENT 6 % (BEAKER) (test code = 431) EOSINOPHILS RELATIVE PERCENT 3 % (BEAKER) (test code = 432) BASOPHILS RELATIVE PERCENT 0 % (BEAKER) (test code = 437) NEUTROPHILS ABSOLUTE COUNT 4.47 K/ L 1.80-8.00 (BEAKER) (test code = 670) LYMPHOCYTES ABSOLUTE COUNT 0.93 K/ L 1.48-4.50 L (BEAKER) (test code = 414) MONOCYTES ABSOLUTE COUNT (BEAKER) 0.35 K/ L 0.00-1.30 (test code = 415) EOSINOPHILS ABSOLUTE COUNT 0.17 K/ L 0.00-0.50 (BEAKER) (test code = 416) BASOPHILS ABSOLUTE COUNT (BEAKER) 0.02 K/ L 0.00-0.20 (test code = 417) IMMATURE GRANULOCYTES-RELATIVE 0 % 0-0 PERCENT (BEAKER) (test code = 2801) ACETAMINOPHEN [id number] 00:51:51 Test Item Value Reference Range Interpretation Comments ACETAMINOPHEN LEVEL < ug/mL 10.0-30.0 L Specimen slightly (BEAKER) (test code = hemoly zed 344) Memory Care Program Director ID - BRUCEPOC-Glucose [id number] 16:49:05 Test Item Value Reference Range Interpretation Comments POC-Glucose Meter (test 109 mg/dL 70-110 : TE STED AT [facility] code = 1538) [place] [address]: Memory Care Program Director/Techni ck ID = [id number] for Shay-Casino, Mirabelle Lab Interpretation (test Normal code = 37547-1) [facility]ucose [id number] 16:49:05 Test Item Value Reference Range Interpretation Comments POC-Glucose Meter (test 109 mg/dL 70-110 : TE STED AT [facility] code = 1538) [place] [address]: Memory Care Program Director/Techni ck ID = [id number] for Shay-Casino, Mirabelle Lab Interpretation (test Normal code = 48898-0) [facility]PO[facility]UCOSE [id number] 16:49:05 Test Item Value Reference Range Interpretation Comments POC-GLUCOSE METER 109 mg/dL 70-110 : TESTED A T [facility] (BEAKER) (test code [address], = 1538) [place] [address]: Memory Care Program Director/Techni ck ID = [id number] for Shay -Casino, Mirabelle ACETAMINOPHEN [id number] 09:12:51 Test Item Value Reference Range Interpretation Comments ACETAMINOPHEN LEVEL < ug/mL 10.0-30.0 L Specimen slightly (BEAKER) (test code = hemoly zed 344) Memory Care Program Director ID - [id number] METABOLIC [id number] 09:03:33 Test Item Value Reference Range Interpretation Comments SODIUM (BEAKER) 141 meq/L 135-148 (test code = 381) POTASSIUM (BEAKER) 3.5 meq/L 3.6-5.5 L (test code = 379) CHLORIDE (BEAKER) 113 meq/L 98-106 H (test code = 382) CO2 (BEAKER) (test 17 meq/L 20-29 L code = 355) BLOOD UREA NITROGEN < mg/dL 10-26 L (BEAKER) (test code = 354) CREATININE (BEAKER) 0.58 mg/dL 0.50-1.20 (test code = 358) GLUCOSE RANDOM 110 mg/dL 70-110 (BEAKER) (test code = 652) CALCIUM (BEAKER) 8.4 mg/dL 8.5-10.5 L (test code = 697) EGFR (BEAKER) (test 129 mL/min/1.73 ESTIM ATED GFR IS code = 1092) sq m NOT ACCURATE CREATININE CLEARANCE IN PREDICTING GLOMERULAR FILTRATION RATE . ESTIMATED GFR I S NOT APPLICABLE FOR DIALYSIS PATIEN TS. Memory Care Program Director ID - [id number] 08:41:11 Test Item Value Reference Range Interpretation Comments POC-GLUCOSE METER 96 mg/dL 70-110 : TESTED A T [facility] (BEAKER) (test code = [address], 1538) [place] [address]: Memory Care Program Director/Techni ck ID = [id number] for Nill as, Cooper CBC W/PLT COUNT & AUTO [id number] 06:22:59 Test Item Value Reference Range Interpretation Comments WHITE BLOOD CELL COUNT (BEAKER) 6.7 K/ L 4.0-10.0 (test code = 775) RED BLOOD CELL COUNT (BEAKER) 4.96 M/ L 4.00-5.00 (test code = 761) HEMOGLOBIN (BEAKER) (test code = 15.4 GM/DL 12.0-15.5 410) HEMATOCRIT (BEAKER) (test code = 44.8 % 36.0-46.0 411) MEAN CORPUSCULAR VOLUME (BEAKER) 90.3 fL 82.0-99.0 (test code = 753) MEAN CORPUSCULAR HEMOGLOBIN 31.0 pg 27.0-33.0 (BEAKER) (test code = 751) MEAN CORPUSCULAR HEMOGLOBIN CONC 34.4 GM/DL 32.0-36.0 (BEAKER) (test code = 752) RED CELL DISTRIBUTION WIDTH 11.9 % 12.0-15.0 L (BEAKER) (test code = 412) PLATELET COUNT (BEAKER) (test 292 K/CU MM 150-430 code = 756) MEAN PLATELET VOLUME (BEAKER) 11.0 fL 6.0-11.5 (test code = 754) NUCLEATED RED BLOOD CELLS 0 /100 WBC 0-0 (BEAKER) (test code = 413) NEUTROPHILS RELATIVE PERCENT 74 % (BEAKER) (test code = 429) LYMPHOCYTES RELATIVE PERCENT 18 % (BEAKER) (test code = 430) MONOCYTES RELATIVE PERCENT 6 % (BEAKER) (test code = 431) EOSINOPHILS RELATIVE PERCENT 2 % (BEAKER) (test code = 432) BASOPHILS RELATIVE PERCENT 0 % (BEAKER) (test code = 437) NEUTROPHILS ABSOLUTE COUNT 4.93 K/ L 1.80-8.00 (BEAKER) (test code = 670) LYMPHOCYTES ABSOLUTE COUNT 1.20 K/ L 1.48-4.50 L (BEAKER) (test code = 414) MONOCYTES ABSOLUTE COUNT (BEAKER) 0.41 K/ L 0.00-1.30 (test code = 415) EOSINOPHILS ABSOLUTE COUNT 0.11 K/ L 0.00-0.50 (BEAKER) (test code = 416) BASOPHILS ABSOLUTE COUNT (BEAKER) 0.03 K/ L 0.00-0.20 (test code = 417) IMMATURE GRANULOCYTES-RELATIVE 0 % 0-0 PERCENT (BEAKER) (test code = 2801) POCT-GLUCOSE [id number] 00:18:37 Test Item Value Reference Range Interpretation Comments POC-GLUCOSE METER 82 mg/dL 70-110 : TESTED A T [facility] (BEAKER) (test code = [address], 1538) [place] [address]: Memory Care Program Director/Techni ck ID = [id number] for REJI OSORIO ACETAMINOPHEN [id number] 15:37:54 Test Item Value Reference Range Interpretation Comments ACETAMINOPHEN LEVEL (BEAKER) (test 37.4 ug/mL 10.0-30.0 H code = 344) Memory Care Program Director ID - NLYLEHEPATIC FUNCTION [id number] 07:18:04 Test Item Value Reference Range Interpretation Comments TOTAL PROTEIN (BEAKER) (test code = 5.5 gm/dL 6.0-8.5 L 770) ALBUMIN (BEAKER) (test code = 1145) 3.3 g/dL 3.5-5.0 L BILIRUBIN TOTAL (BEAKER) (test code 0.5 mg/dL 0.1-1.2 = 377) BILIRUBIN DIRECT (BEAKER) (test 0.3 mg/dL 0.0-0.4 code = 706) ALKALINE PHOSPHATASE (BEAKER) (test 48 U/L 30-115 code = 346) AST (SGOT) (BEAKER) (test code = 51 U/L 5-40 H 353) ALT (SGPT) (BEAKER) (test code = 20 U/L 5-50 347) Memory Care Program Director ID - NLYLEPT/[id number] 03:24:12 Test Item Value Reference Interpretation Comments Range Protime (test code = 13.8 See_Comment H Final 5902-2) Information (Auto Output) [Automated message] The system which generated this result transmitted reference range : 9.8 - 12.0 seconds. The reference range was not used to interpret this result as normal/abnormal . INR (test code = 1.28 See_Comment Final 6301-6) Information (Auto Output) [Automated message] The system which generated this result transmitted reference range : <=5.90. The reference range was not used to interpret this result as normal/abnormal . PTT (test code = 35.9 See_Comment H Final 71969-7) Information (Auto Output) [Automated message] The system which generated this result transmitted reference range : 25.8 - 34.5 seconds. The reference range was not used to interpret this result as normal/abnormal . CHRISTIAAN (test code = RECOMMENDED CHRISTIANA) COUMADIN/WARFARIN INR THERAPY RANGESSTANDARD DOSE: 2.0 - 3.0 Includes: PROPHYLAXIS for venous thrombosis, systemic embolization; TREATMENT for venous thrombosis and/or pulmonary embolus.HIGH RISK: Target INR is 2.5-3.5 for patients with mechanical heart valves. Lab Interpretation Abnormal (test code = 40999-2) [facility] HospitalPT/[id number] 03:24:12 Test Item Value Reference Interpretation Comments Range Protime (test code = 13.8 See_Comment H Final 5902-2) Information (Auto Output) [Automated message] The system which generated this result transmitted reference range : 9.8 - 12.0 seconds. The reference range was not used to interpret this result as normal/abnormal . INR (test code = 1.28 See_Comment Final 6301-6) Information (Auto Output) [Automated message] The system which generated this result transmitted reference range : <=5.90. The reference range was not used to interpret this result as normal/abnormal . PTT (test code = 35.9 See_Comment H Final 39582-7) Information (Auto Output) [Automated message] The system which generated this result transmitted reference range : 25.8 - 34.5 seconds. The reference range was not used to interpret this result as normal/abnormal . CHRISTIANA (test code = RECOMMENDED CHRISTIANA) COUMADIN/WARFARIN INR THERAPY RANGESSTANDARD DOSE: 2.0 - 3.0 Includes: PROPHYLAXIS for venous thrombosis, systemic embolization; TREATMENT for venous thrombosis and/or pulmonary embolus.HIGH RISK: Target INR is 2.5-3.5 for patients with mechanical heart valves. Lab Interpretation Abnormal (test code = 54883-4) [facility]PT/[id number] 03:24:12 Test Item Value Reference Range Interpretation Comments PROTIME (BEAKER) (test 13.8 seconds 9.8-12.0 H Final Information code = 759) (Auto Output) INR (BEAKER) (test 1.28 See_Comment Final Inf ormation code = 370) (Auto Output) [Automated mess age] The system [employer] generated this result transmit rhett reference range : <=5.90. The reference range was not used to interpret this result as normal/abnormal . PARTIAL THROMBOPLASTIN 35.9 seconds 25.8-34.5 H Final Information TIME (BEAKER) (test (Auto Ou tput) code = 760) RECOMMENDED COUMADIN/WARFARIN INR THERAPY RANGESSTANDARD DOSE: 2.0 - 3.0 Includes: PROPHYLAXIS for venous thrombosis, systemic embolization; TREATMENT for venous thrombosis and/or pulmonary embolus.HIGH RISK: Target INR is 2.5-3.5 for patients with mechanical heart valves.CBC W/PLT COUNT & AUTO [id number] 03:13:43 Test Item Value Reference Range Interpretation Comments WHITE BLOOD CELL COUNT (BEAKER) 8.7 K/ L 4.0-10.0 (test code = 775) RED BLOOD CELL COUNT (BEAKER) 3.72 M/ L 4.00-5.00 L (test code = 761) HEMOGLOBIN (BEAKER) (test code = 11.5 GM/DL 12.0-15.5 L 410) HEMATOCRIT (BEAKER) (test code = 34.3 % 36.0-46.0 L 411) MEAN CORPUSCULAR VOLUME (BEAKER) 92.2 fL 82.0-99.0 (test code = 753) MEAN CORPUSCULAR HEMOGLOBIN 30.9 pg 27.0-33.0 (BEAKER) (test code = 751) MEAN CORPUSCULAR HEMOGLOBIN CONC 33.5 GM/DL 32.0-36.0 (BEAKER) (test code = 752) RED CELL DISTRIBUTION WIDTH 11.7 % 12.0-15.0 L (BEAKER) (test code = 412) PLATELET COUNT (BEAKER) (test 277 K/CU MM 150-430 code = 756) MEAN PLATELET VOLUME (BEAKER) 10.0 fL 6.0-11.5 (test code = 754) NUCLEATED RED BLOOD CELLS 0 /100 WBC 0-0 (BEAKER) (test code = 413) NEUTROPHILS RELATIVE PERCENT 76 % (BEAKER) (test code = 429) LYMPHOCYTES RELATIVE PERCENT 15 % (BEAKER) (test code = 430) MONOCYTES RELATIVE PERCENT 8 % (BEAKER) (test code = 431) EOSINOPHILS RELATIVE PERCENT 1 % (BEAKER) (test code = 432) BASOPHILS RELATIVE PERCENT 0 % (BEAKER) (test code = 437) NEUTROPHILS ABSOLUTE COUNT 6.63 K/ L 1.80-8.00 (BEAKER) (test code = 670) LYMPHOCYTES ABSOLUTE COUNT 1.29 K/ L 1.48-4.50 L (BEAKER) (test code = 414) MONOCYTES ABSOLUTE COUNT (BEAKER) 0.68 K/ L 0.00-1.30 (test code = 415) EOSINOPHILS ABSOLUTE COUNT 0.06 K/ L 0.00-0.50 (BEAKER) (test code = 416) BASOPHILS ABSOLUTE COUNT (BEAKER) 0.02 K/ L 0.00-0.20 (test code = 417) IMMATURE GRANULOCYTES-RELATIVE 0 % 0-0 PERCENT (BEAKER) (test code = 2801) ACETAMINOPHEN [id number] 02:52:25 Test Item Value Reference Range Interpretation Comments ACETAMINOPHEN LEVEL (BEAKER) (test 82.3 ug/mL 10.0-30.0 H code = 344) Memory Care Program Director ID - CHOPZCOMPREHENSIVE METABOLIC [id number] 02:52:14 Test Item Value Reference Range Interpretation Comments TOTAL PROTEIN 5.5 gm/dL 6.0-8.5 L (BEAKER) (test code = 770) ALBUMIN (BEAKER) 3.3 g/dL 3.5-5.0 L (test code = 1145) ALKALINE PHOSPHATASE 49 U/L 30-115 (BEAKER) (test code = 346) BILIRUBIN TOTAL 0.7 mg/dL 0.1-1.2 (BEAKER) (test code = 377) SODIUM (BEAKER) (test 137 meq/L 135-148 code = 381) POTASSIUM (BEAKER) 3.9 meq/L 3.6-5.5 (test code = 379) CHLORIDE (BEAKER) 111 meq/L 98-106 H (test code = 382) CO2 (BEAKER) (test 14 meq/L 20-29 L code = 355) BLOOD UREA NITROGEN 5 mg/dL 10-26 L (BEAKER) (test code = 354) CREATININE (BEAKER) 0.71 mg/dL 0.50-1.20 (test code = 358) GLUCOSE RANDOM 103 mg/dL 70-110 (BEAKER) (test code = 652) CALCIUM (BEAKER) 8.5 mg/dL 8.5-10.5 (test code = 697) AST (SGOT) (BEAKER) 52 U/L 5-40 H (test code = 353) ALT (SGPT) (BEAKER) 21 U/L 5-50 (test code = 347) EGFR (BEAKER) (test 102 ESTIMATE D GFR IS code = 1092) mL/min/1.73 sq NOT ACCURA TE m CREATININE CLEARANCE IN PREDICTING GLOMERULAR FILTRATION RATE . ESTIMATED GFR I S NOT APPLICABLE FOR DIALYSIS PATIEN TS. Memory Care Program Director ID - [id number] 21:30:09 Test Item Value Reference Range Interpretation Comments PTT (test code = 30543-8) 32.0 See_Comment Fi nal Information (Auto Output) [Automated mess age] The system [employer] generated this result transmitted ref erence range: 25.8 - 3 4.5 seconds. The re ference range was not u sed to interpret this result as normal/abnor mal. Lab Interpretation (test Normal code = 20652-3) [id number] Test Item Value Reference Range Interpretation Comments PTT (test code = 52524-7) 32.0 See_Comment Fi nal Information (Auto Output) [Automated mess age] The system [employer] generated this result transmitted ref erence range: 25.8 - 3 4.5 seconds. The re ference range was not u sed to interpret this result as normal/abnor mal. Lab Interpretation (test Normal code = 79158-2) [facility]09 Test Item Value Reference Range Interpretation Comments PARTIAL THROMBOPLASTIN 32.0 seconds 25.8-34.5 Final Information TIME (BEAKER) (test (Auto Ou tput) code = 760) PROTHROMBIN TIME/[id number] 21:30:04 Test Item Value Reference Range Interpretation Comments PROTIME (BEAKER) 11.9 seconds 9.8-12.0 Final Infor mation (test code = 759) (Auto Outp ut) INR (BEAKER) (test 1.10 See_Comment Final Inf ormation code = 370) (Auto Output) [Automated mess age] The system [employer] generated this result transmitted ref erence range: <=5.90. The reference range was not used to int erpret this result as normal/abnormal . RECOMMENDED COUMADIN/WARFARIN INR THERAPY RANGESSTANDARD DOSE: 2.0 - 3.0 Includes: PROPHYLAXIS for venous thrombosis, systemic embolization; TREATMENT for venous thrombosis and/or pulmonary embolus.HIGH RISK: Target INR is 2.5-3.5 for patients with mechanical heart valves.[id number] 17:27:19 Test Item Value Reference Range Interpretation Comments PARTIAL THROMBOPLASTIN 33.9 seconds 25.8-34.5 Final Information TIME (BEAKER) (test (Auto Ou tput) code = 760) PROTHROMBIN TIME/[id number] 17:27:18 Test Item Value Reference Range Interpretation Comments PROTIME (BEAKER) 11.8 seconds 9.8-12.0 Final Infor mation (test code = 759) (Auto Outp ut) INR (BEAKER) (test 1.09 See_Comment Final Inf ormation code = 370) (Auto Output) [Automated mess age] The system [employer] generated this result transmitted ref erence range: <=5.90. The reference range was not used to int erpret this result as normal/abnormal . RECOMMENDED COUMADIN/WARFARIN INR THERAPY RANGESSTANDARD DOSE: 2.0 - 3.0 Includes: PROPHYLAXIS for venous thrombosis, systemic embolization; TREATMENT for venous thrombosis and/or pulmonary embolus.HIGH RISK: Target INR is 2.5-3.5 for patients with mechanical heart valves.COMPREHENSIVE METABOLIC PANEL 2021-10-01 17:15:05 Test Item Value Reference Range Interpretation Comments TOTAL PROTEIN 6.2 gm/dL 6.0-8.5 Specimen sligh tly (BEAKER) (test code = hemoly zed 770) ALBUMIN (BEAKER) 3.7 g/dL 3.5-5.0 Specimen sl ightly (test code = 1145) hemolyzed ALKALINE PHOSPHATASE 53 U/L 30-115 (BEAKER) (test code = 346) BILIRUBIN TOTAL 0.7 mg/dL 0.1-1.2 Specimen sli ghtly (BEAKER) (test code = hemoly zed 377) SODIUM (BEAKER) (test 136 meq/L 135-148 code = 381) POTASSIUM (BEAKER) 3.3 meq/L 3.6-5.5 L Specimen slightly (test code = 379) hemolyzed CHLORIDE (BEAKER) 107 meq/L 98-106 H (test code = 382) CO2 (BEAKER) (test 16 meq/L 20-29 L code = 355) BLOOD UREA NITROGEN 5 mg/dL 10-26 L (BEAKER) (test code = 354) CREATININE (BEAKER) 0.77 mg/dL 0.50-1.20 Specimen slightly (test code = 358) hemolyzed GLUCOSE RANDOM 126 mg/dL 70-110 H (BEAKER) (test code = 652) CALCIUM (BEAKER) 8.7 mg/dL 8.5-10.5 (test code = 697) AST (SGOT) (BEAKER) 24 U/L 5-40 Specimen slightly (test code = 353) hemolyzed ALT (SGPT) (BEAKER) 6 U/L 5-50 Specimen slightly (test code = 347) hemolyzed EGFR (BEAKER) (test 93 mL/min/1.73 ESTIMA RHETT GFR IS code = 1092) sq m NOT ACCURATE CREATININE CLEARANCE IN PREDICTING GLOMERULAR FILTRATION RATE . ESTIMATED GFR I S NOT APPLICABLE FOR DIALYSIS PATIEN TS. Memory Care Program Director ID - BRUCECOMPREHENSIVE METABOLIC [id number] 10:50:09 Test Item Value Reference Range Interpretation Comments TOTAL PROTEIN 6.2 gm/dL 6.0-8.5 (BEAKER) (test code = 770) ALBUMIN (BEAKER) 3.8 g/dL 3.5-5.0 (test code = 1145) ALKALINE PHOSPHATASE 53 U/L 30-115 (BEAKER) (test code = 346) BILIRUBIN TOTAL 0.7 mg/dL 0.1-1.2 (BEAKER) (test code = 377) SODIUM (BEAKER) (test 133 meq/L 135-148 L code = 381) POTASSIUM (BEAKER) 3.4 meq/L 3.6-5.5 L (test code = 379) CHLORIDE (BEAKER) 105 meq/L 98-106 (test code = 382) CO2 (BEAKER) (test 16 meq/L 20-29 L code = 355) BLOOD UREA NITROGEN 5 mg/dL 10-26 L (BEAKER) (test code = 354) CREATININE (BEAKER) 0.68 mg/dL 0.50-1.20 (test code = 358) GLUCOSE RANDOM 126 mg/dL 70-110 H (BEAKER) (test code = 652) CALCIUM (BEAKER) 8.1 mg/dL 8.5-10.5 L (test code = 697) AST (SGOT) (BEAKER) 17 U/L 5-40 (test code = 353) ALT (SGPT) (BEAKER) 7 U/L 5-50 (test code = 347) EGFR (BEAKER) (test 107 ESTIMATE D GFR IS code = 1092) mL/min/1.73 sq NOT ACCURA TE m CREATININE CLEARANCE IN PREDICTING GLOMERULAR FILTRATION RATE . ESTIMATED GFR I S NOT APPLICABLE FOR DIALYSIS PATIEN TS. Memory Care Program Director ID - [id number] TIME/[id number] 10:50:03 Test Item Value Reference Range Interpretation Comments PROTIME (BEAKER) 11.5 seconds 9.8-12.0 Final Infor mation (test code = 759) (Auto Outp ut) INR (BEAKER) (test 1.06 See_Comment Final Inf ormation code = 370) (Auto Output) [Automated mess age] The system [employer] generated this result transmitted ref erence range: <=5.90. The reference range was not used to int erpret this result as normal/abnormal . RECOMMENDED COUMADIN/WARFARIN INR THERAPY RANGESSTANDARD DOSE: 2.0 - 3.0 Includes: PROPHYLAXIS for venous thrombosis, systemic embolization; TREATMENT for venous thrombosis and/or pulmonary embolus.HIGH RISK: Target INR is 2.5-3.5 for patients with mechanical heart valves.[id number] 10:50:03 Test Item Value Reference Range Interpretation Comments PARTIAL THROMBOPLASTIN 37.4 seconds 25.8-34.5 H Final Information TIME (BEAKER) (test (Auto Ou tput) code = 760) Hemoglobin [id number] 06:49:11 Test Item Value Reference Range Interpretation Comments Hemoglobin A1C (test code 4.2 % 4.3-6.1 L = 4548-4) CHRISTIANA (test code = CHRISTIANA) Memory Care Program Director ID - [id number] Lab Interpretation (test Abnormal code = 70981-4) [facility] [id number] 06:49:11 Test Item Value Reference Range Interpretation Comments Hemoglobin A1C (test code 4.2 % 4.3-6.1 L = 4548-4) CHRISTIANA (test code = CHRISTIANA) Memory Care Program Director ID - [id number] Lab Interpretation (test Abnormal code = 97659-8) [facility]MO[facility]IN [id number] 06:49:11 Test Item Value Reference Range Interpretation Comments HEMOGLOBIN A1C (BEAKER) (test code = 4.2 % 4.3-6.1 L 368) Memory Care Program Director ID - [id number] 06:43:41 Test Item Value Reference Range Interpretation Comments ACETAMINOPHEN LEVEL 296.3 ug/mL 10.0-30.0 H Specimen slightly (BEAKER) (test code = hemoly zed 344) Memory Care Program Director ID - [id number] ID - [id number]/[id number] 06:18:04 Test Item Value Reference Range Interpretation Comments PROTIME (BEAKER) (test 10.9 seconds 9.8-12.0 Final Information code = 759) (Auto Output) INR (BEAKER) (test 1.00 See_Comment Final Inf ormation code = 370) (Auto Output) [Automated mess age] The system [employer] generated this result transmit rhett reference range : <=5.90. The reference range was not used to interpret this result as normal/abnormal . PARTIAL THROMBOPLASTIN 30.3 seconds 25.8-34.5 Final Information TIME (BEAKER) (test (Auto Ou tput) code = 760) RECOMMENDED COUMADIN/WARFARIN INR THERAPY RANGESSTANDARD DOSE: 2.0 - 3.0 Includes: PROPHYLAXIS for venous thrombosis, systemic embolization; TREATMENT for venous thrombosis and/or pulmonary embolus.HIGH RISK: Target INR is 2.5-3.5 for patients with mechanical heart valves.[id number] 04:46:31 Test Item Value Reference Range Interpretation Comments Magnesium (test code = 1.5 mg/dL 1.5-3.0 62972-2) CHRISTIANA (test code = CHRISTIANA) Memory Care Program Director ID - [id number] Lab Interpretation (test Normal code = 40643-8) [facility]esium[facility]21-[facility] 04:46:31 Test Item Value Reference Range Interpretation Comments Magnesium (test code = 1.5 mg/dL 1.5-3.0 48805-1) CHRISTIANA (test code = CHRISTIANA) Memory Care Program Director ID - [id number] Lab Interpretation (test Normal code = 29407-7) [facility] 04:[facility] Test Item Value Reference Range Interpretation Comments MAGNESIUM (BEAKER) (test code = 1.5 mg/dL 1.5-3.0 627) Memory Care Program Director ID - [id number], CHEST, 1 VIEW, NON [id number] 03:21:00Reason for exam:->post intubationIs the patient ?->UnknownShould this be performed at the bedside?->Yes [facility] : 2000 Sex: FFINAL REPORT Chest one view. Clinical history: post intubation Comparison: None. Technique: A single frontal view of the chest was obtained. Findings:Endotracheal and feeding tubes are in satisfactory positions.The cardiomediastinal contours are normal. There is airspace opacity in theleft lung base suspicious for pneumonia. There is no pleural effusion, pneumothorax or pulmonary edema. There is radiodensity overlying the right shoulder, which may represent artifact or soft tissue calcifications. Impression:Endotracheal and feeding tubes in satisfactory positions.Left lower lobe opacity suspicious for pneumonia. Signed: Sonal Batistaeport Verified Date/Time: 10/01/2021 03:21:46 ACETAMINOPHEN [id number] 03:10:33 Test Item Value Reference Range Interpretation Comments ACETAMINOPHEN LEVEL (BEAKER) 568.0 ug/mL 10.0-30.0 H (test code = 344) Memory Care Program Director ID - [id number] ID - [id number]/RT-PCR ([facility]) 2021-10-01 03:06:53 Test Item Value Reference Range Interpretation Comments SARS-COV2/RT-PCR Positive Negative AA The SARS-Co V-2 target (test code = nucleic acids a re detected ) in this specime n. The presence SARS-C oV-2 nucleic acids cannot ru le out co-infections o r disease caused by other viral or bacterial patho gens. As with any molecular t est, mutations withi n the target regions of the Xpert Xpress SARS-CoV-2 test could affect primer and/or p robe binding resulting in fa ilure to detect the pres ence of virus or the virus be ing detected less predictabl y. False negative result s may occur if virus is pre sent at levels below th e analytical limit of detect ion. This SARS CoV-2 test is a rapid, real-time RT-PC R test intended for e qualitative detection of nu cleic acid from SARS-CoV-2 in a nasopharyngeal swab specimen collected from individuals suspected of CO VID-19 by [facility]. Results from e Xpert Xpress SARS-CoV -2 test should be corre lated with the clinical hi story, epidemiological data, and other data avai lable to the clinician evalu ating the patient. Viral nucleic acid may persist in vivo, independent of virus viability. Dete ction of analyte target( s) does not imply that the corresponding virus(es) are i nfectious or are the causati ve agents for clinical sympto ms. This test has been authorized by FDA under an EUA for use by authorized laboratories. This test is only authorized for the duration of the declaration that circumstances exist justifying the authorization of emergency use of in vitro diagnostic tests for detection and/or diagnosis of COVID-19 under Section 564(b)(1) of the Federal Food, Drug and Cosmetic Act, 21 U.S.C. 360bbb-3(b)(1), unless the authorization is terminated or revoked sooner. Fact Sheet for Healthcare Providers: https://www.[employer] m/Documents/Xpert%20Xpress%20SARS%20CoV-2/Fact%20Sheets/302-1886%41GDUM-PNP-1%20 HEALTHCARE%20PROVIDERS%20FACT%20SHEET.pdf Fact Sheet for Healthcare Patients: https://www.[employer]/Documents/Xpert%20Xp ress%20SARS%20CoV-2/Fact%20Sheets/302-3801%63UFIT-TIP-8%20PATIENT%20FACT%20SHEET .pdfRapid drug screen, [id number] 02:59:03 Test Item Value Reference Range Interpretation Comments Barbiturate Screen Negative Negative (test code = 59336-3) Benzodiazepine Screen Negative Negative (test code = 21481-3) Cocaine (Metab.) Negative Negative Screen (test code = 3397-7) Opiate Screen (test Negative Negative code = 98950-3) Cannabinoid Screen Positive Negative A (test code = 44674-4) Amph/Methamph Screen Negative Negative (test code = 60936-7) Phencyclidine Screen Negative Negative (test code = 16550-5) pH, UA (test code = 5.5 5.0-8.0 5803-2) CHRISTIANA (test code = CHRISTIANA) DRUG CUTOFF CONC.Cocaine 300 ng/mLCannabinoid 50 ng/mLBenzodiazepine 200 ng/mLBarbiturate 200 ng/mLPhencyclidine 25 ng/mLOpiate 300 ng/mLAmphetamine/ 1000 ng/mL Methamphetamine This assay provides an unconfirmed qualitative test result for the clinical management of patients in emergency situations. Chain of custody not maintained. Some uhbl-gcy-pzwasoz medications, as well as adulterants, may cause inaccurate results. Clinical correlation should be applied. A more comprehensive drug screen or confirmation of a detected drug may be performed upon request.Memory Care Program Director ID - [id number] Lab Interpretation Abnormal (test code = 50750-2) [facility] HospitalR[facility], [id number] 02:59:03 Test Item Value Reference Range Interpretation Comments Barbiturate Screen Negative Negative (test code = 15689-7) Benzodiazepine Screen Negative Negative (test code = 40529-9) Cocaine (Metab.) Negative Negative Screen (test code = 3397-7) Opiate Screen (test Negative Negative code = 43314-1) Cannabinoid Screen Positive Negative A (test code = 11697-6) Amph/Methamph Screen Negative Negative (test code = 37342-7) Phencyclidine Screen Negative Negative (test code = 57074-1) pH, UA (test code = 5.5 5.0-8.0 5803-2) CHRISTIANA (test code = CHRISTIANA) DRUG CUTOFF CONC.Cocaine 300 ng/mLCannabinoid 50 ng/mLBenzodiazepine 200 ng/mLBarbiturate 200 ng/mLPhencyclidine 25 ng/mLOpiate 300 ng/mLAmphetamine/ 1000 ng/mL Methamphetamine This assay provides an unconfirmed qualitative test result for the clinical management of patients in emergency situations. Chain of custody not maintained. Some zail-rtv-nygffag medications, as well as adulterants, may cause inaccurate results. Clinical correlation should be applied. A more comprehensive drug screen or confirmation of a detected drug may be performed upon request.Memory Care Program Director ID - [id number] Lab Interpretation Abnormal (test code = 15628-5) [facility], [id number] 02:59:03 Test Item Value Reference Range Interpretation Comments BARBITURATE URINE (BEAKER) (test Negative Negative code = 725) BENZODIAZEPINE SCREEN URINE (BEAKER) Negative Negative (test code = 726) COCAINE (METAB.) SCREEN (BEAKER) Negative Negative (test code = 1164) OPIATE SCREEN URINE (BEAKER) (test Negative Negative code = 734) CANNABINOID SCREEN URINE (BEAKER) Positive Negative A (test code = 727) AMPH/METHAMPH SCREEN (BEAKER) (test Negative Negative code = 1438) PHENCYCLIDINE SCREEN URINE (BEAKER) Negative Negative (test code = 608) PH UA (BEAKER) (test code = 467) 5.5 5.0-8.0 DRUG CUTOFF CONC.Cocaine 300 ng/mLCannabinoid 50 ng/mLBenzodiazepine 200 ng/mLBarbiturate 200 ng/mLPhencyclidine 25 ng/mLOpiate 300 ng/mLAmphetamine/ 1000 ng/mL MethamphetamineThis assay provides an unconfirmed qualitative test result for the clinical management of patients in emergency situations. Chain of custody not maintained. Some sqgk-kja-jpetepc medications, as well as adulterants, may cause inaccurate results. Clinical correlation should be applied. A more comprehensive drug screen or confirmation of a detected drug may be performed upon request.Memory Care Program Director ID - [id number] [id number] 02:52:00 Test Item Value Reference Range Interpretation Comments Salicylate Lvl (test code <5.0 20.0-30.0 L = 4024-6) CHRISTIANA (test code = CHRISTIANA) Memory Care Program Director ID - [id number] Lab Interpretation (test Abnormal code = 36933-8) [facility] [id number] 02:52:00 Test Item Value Reference Range Interpretation Comments Salicylate Lvl (test code <5.0 20.0-30.0 L = 4024-6) CHRISTIANA (test code = CHRISTIANA) Memory Care Program Director ID - [id number] Lab Interpretation (test Abnormal code = 21881-8) [facility]AL[facility] [id number] 02:52:00 Test Item Value Reference Range Interpretation Comments SALICYLATE LEVEL (BEAKER) (test code < mg/dL 20.0-30.0 L = 764) Memory Care Program Director ID - [id number] METABOLIC [id number] 02:51:55 Test Item Value Reference Range Interpretation Comments SODIUM (BEAKER) 139 meq/L 135-148 (test code = 381) POTASSIUM (BEAKER) 3.1 meq/L 3.6-5.5 L (test code = 379) CHLORIDE (BEAKER) 106 meq/L 98-106 (test code = 382) CO2 (BEAKER) (test 17 meq/L 20-29 L code = 355) BLOOD UREA NITROGEN 4 mg/dL 10-26 L (BEAKER) (test code = 354) CREATININE (BEAKER) 0.75 mg/dL 0.50-1.20 (test code = 358) GLUCOSE RANDOM 209 mg/dL 70-110 H (BEAKER) (test code = 652) CALCIUM (BEAKER) 9.1 mg/dL 8.5-10.5 (test code = 697) EGFR (BEAKER) (test 96 mL/min/1.73 ESTIMA RHETT GFR IS code = 1092) sq m NOT ACCURATE CREATININE CLEARANCE IN PREDICTING GLOMERULAR FILTRATION RATE . ESTIMATED GFR I S NOT APPLICABLE FOR DIALYSIS PATIEN TS. Memory Care Program Director ID - [id number] 02:47:00 Test Item Value Reference Range Interpretation Comments Troponin I (test code = <0.01 0.00-0.03 15392-8) CHRISTIANA (test code = CHRISTIANA) Troponin I (TnI) levels must be interpreted in the context of the presenting symptoms and the clinical findings. Elevated TnI levels indicate myocardial damage, but are not specific for ischemic heart disease. Elevated TnI levels are seen in patients with other cardiac conditions (including myocarditis and congestive heart failure), and slight TnI elevations occur in patients with other conditions, including sepsis, renal failure, acidosis, acute neurological disease, and persistent tachyarrhythmia.[facility] ID - [id number] Lab Interpretation (test Normal code = 46310-7) [facility] [id number] 02:47:00 Test Item Value Reference Range Interpretation Comments Troponin I (test code = <0.01 0.00-0.03 22717-8) CHRISTIANA (test code = CHRISTIANA) Troponin I (TnI) levels must be interpreted in the context of the presenting symptoms and the clinical findings. Elevated TnI levels indicate myocardial damage, but are not specific for ischemic heart disease. Elevated TnI levels are seen in patients with other cardiac conditions (including myocarditis and congestive heart failure), and slight TnI elevations occur in patients with other conditions, including sepsis, renal failure, acidosis, acute neurological disease, and persistent tachyarrhythmia.[facility] ID - [id number] Lab Interpretation (test Normal code = 15972-7) [facility] [id number] 02:47:00 Test Item Value Reference Range Interpretation Comments TROPONIN I (BEAKER) (test code = 397) < ng/mL 0.00-0.03 Troponin I (TnI) levels must be interpreted in the context of the presenting symptoms and the clinical findings. Elevated TnI levels indicate myocardial damage, but are not specific for ischemic heart disease. Elevated TnI levels are seen in patients with other cardiac conditions (including myocarditis and congestive heart failure), and slight TnI elevations occur in patients with other conditions, including sepsis, renal failure, acidosis, acute neurological disease, and persistent tachyarrhythmia.Memory Care Program Director ID - [id number] FUNCTION [id number] 02:46:37 Test Item Value Reference Range Interpretation Comments TOTAL PROTEIN (BEAKER) (test code = 6.7 gm/dL 6.0-8.5 770) ALBUMIN (BEAKER) (test code = 1145) 4.1 g/dL 3.5-5.0 BILIRUBIN TOTAL (BEAKER) (test code 0.6 mg/dL 0.1-1.2 = 377) BILIRUBIN DIRECT (BEAKER) (test 0.3 mg/dL 0.0-0.4 code = 706) ALKALINE PHOSPHATASE (BEAKER) (test 58 U/L 30-115 code = 346) AST (SGOT) (BEAKER) (test code = 16 U/L 5-40 353) ALT (SGPT) (BEAKER) (test code = 5 U/L 5-50 347) Memory Care Program Director ID - [id number] 02:42:17 Test Item Value Reference Range Interpretation Comments Ethanol Lvl (test <10 See_Comment [Automate d code = 5643-2) message] The system which generated this result transmit rhett reference range : <=10 mg/dL. The reference range was not used to interpret this result as normal/abnormal . CHRISTIANA (test code = CHRISTIANA) Memory Care Program Director ID - [id number] Lab Interpretation Normal (test code = 32017-8) [facility] HospitalEthanol[facility]21-[facility] 02:42:17 Test Item Value Reference Range Interpretation Comments Ethanol Lvl (test <10 See_Comment [Automate d code = 5643-2) message] The system which generated this result transmit rhett reference range : <=10 mg/dL. The reference range was not used to interpret this result as normal/abnormal . CHRISTIANA (test code = CHRISTIANA) Memory Care Program Director ID - [id number] Lab Interpretation Normal (test code = 94585-7) [facility] HospitalETHANOL2021-[facility] 02:42:17 Test Item Value Reference Range Interpretation Comments ETHANOL (BEAKER) < mg/dL See_Comment [Automated message] The (test code = 400) system [facility] generated this result tra nsmitted reference range : <=10. The reference r isreal was not used to int erpret this result as normal/abnormal . Memory Care Program Director ID - [id number], serum, [id number] 02:37:59 Test Item Value Reference Range Interpretation Comments Preg Test, Serum (test code = Negative 2110-02) [facility] HospitalhCG, serum, [id number] 02:37:59 Test Item Value Reference Range Interpretation Comments Preg Test, Serum (test code = Negative 2110-02) [facility] HospitalHCG, SERUM, [id number] 02:37:59 Test Item Value Reference Range Interpretation Comments TEST SERUM (BEAKER) (test Negative code = 584) CBC W/PLT COUNT & AUTO [id number] 02:23:53 Test Item Value Reference Range Interpretation Comments WHITE BLOOD CELL COUNT (BEAKER) 4.1 K/ L 4.0-10.0 (test code = 775) RED BLOOD CELL COUNT (BEAKER) 4.15 M/ L 4.00-5.00 (test code = 761) HEMOGLOBIN (BEAKER) (test code = 13.2 GM/DL 12.0-15.5 410) HEMATOCRIT (BEAKER) (test code = 37.8 % 36.0-46.0 411) MEAN CORPUSCULAR VOLUME (BEAKER) 91.1 fL 82.0-99.0 (test code = 753) MEAN CORPUSCULAR HEMOGLOBIN 31.8 pg 27.0-33.0 (BEAKER) (test code = 751) MEAN CORPUSCULAR HEMOGLOBIN CONC 34.9 GM/DL 32.0-36.0 (BEAKER) (test code = 752) RED CELL DISTRIBUTION WIDTH 11.7 % 12.0-15.0 L (BEAKER) (test code = 412) PLATELET COUNT (BEAKER) (test 316 K/CU MM 150-430 code = 756) MEAN PLATELET VOLUME (BEAKER) 10.3 fL 6.0-11.5 (test code = 754) NUCLEATED RED BLOOD CELLS 0 /100 WBC 0-0 (BEAKER) (test code = 413) NEUTROPHILS RELATIVE PERCENT 44 % (BEAKER) (test code = 429) LYMPHOCYTES RELATIVE PERCENT 42 % (BEAKER) (test code = 430) MONOCYTES RELATIVE PERCENT 12 % (BEAKER) (test code = 431) EOSINOPHILS RELATIVE PERCENT 2 % (BEAKER) (test code = 432) BASOPHILS RELATIVE PERCENT 1 % (BEAKER) (test code = 437) NEUTROPHILS ABSOLUTE COUNT 1.78 K/ L 1.80-8.00 L (BEAKER) (test code = 670) LYMPHOCYTES ABSOLUTE COUNT 1.70 K/ L 1.48-4.50 (BEAKER) (test code = 414) MONOCYTES ABSOLUTE COUNT (BEAKER) 0.48 K/ L 0.00-1.30 (test code = 415) EOSINOPHILS ABSOLUTE COUNT 0.08 K/ L 0.00-0.50 (BEAKER) (test code = 416) BASOPHILS ABSOLUTE COUNT (BEAKER) 0.03 K/ L 0.00-0.20 (test code = 417) IMMATURE GRANULOCYTES-RELATIVE 0 % 0-0 PERCENT (BEAKER) (test code = 2801) CT, [id number] 21:58:00Reason for exam:->right lower quadrant abdominal painIs the patient ?->UnknownWhat is the patient's sedation requirement?->No Sedation [facility] YVONNE : 2000 Sex: FFINAL REPORT ABDOMINAL AND PELVIS CT DATED 11/27/2020 CLINICAL INFORMATION: RLQ abdominal pain, appendicitis suspected (Age > 14y)right lower quadrant abdominal pain TECHNIQUE: Axial images of the abdomen and pelvis were obtained from diaphragm to the pubic symphysis with intravenouscontrast. This exam was performed according to our departmental dose-optimization program, which includes automated exposure control, adjustment of the mA and/or kV according to patient size and/or useof interactive reconstruction technique. COMMENT: Liver and spleen are normal in size without focal abnormality. Gallbladder is contracted. No gallstone or biliary dilatation is noted. Pancreas and adrenals are unremarkable. Both kidneys are normal in size and functioning. No hydronephrosis, hydroureter, urolithiasis is seen. The small and large bowel are unremarkable. Appendix is normal in caliber. Uterus and ovaries are unremarkable. The urinary bladder is contracted. No mass, adenopathy or ascites is present. IMPRESSION: Unremarkable CT of the abdomen and pelvis. Signed: Stefanie Goinseport Verified Date/Time: 11/27/2020 21:58:08 Reading Location: [address] Consult Reading Room COMPREHENSIVE METABOLIC [id number] 20:39:00 Test Item Value Reference Range Interpretation Comments TOTAL PROTEIN 8.1 gm/dL 6.0-8.5 Specimen sligh tly (BEAKER) (test code = hemoly zed 770) ALBUMIN (BEAKER) 5.1 g/dL 3.5-5.0 H Specimen sl ightly (test code = 1145) hemolyzed ALKALINE PHOSPHATASE 62 U/L 30-115 (BEAKER) (test code = 346) BILIRUBIN TOTAL 0.9 mg/dL 0.1-1.2 Specimen sli ghtly (BEAKER) (test code = hemoly zed 377) SODIUM (BEAKER) (test 139 meq/L 135-148 code = 381) POTASSIUM (BEAKER) 4.2 meq/L 3.6-5.5 Specimen slightly (test code = 379) hemolyzed CHLORIDE (BEAKER) 105 meq/L 98-106 (test code = 382) CO2 (BEAKER) (test 20 meq/L 20-29 code = 355) BLOOD UREA NITROGEN 7 mg/dL 10-26 L (BEAKER) (test code = 354) CREATININE (BEAKER) 0.75 mg/dL 0.50-1.20 Specimen slightly (test code = 358) hemolyzed GLUCOSE RANDOM 87 mg/dL 70-110 (BEAKER) (test code = 652) CALCIUM (BEAKER) 9.6 mg/dL 8.5-10.5 (test code = 697) AST (SGOT) (BEAKER) 20 U/L 5-40 Specimen slightly (test code = 353) hemolyzed ALT (SGPT) (BEAKER) 6 U/L 5-50 Specimen slightly (test code = 347) hemolyzed EGFR (BEAKER) (test INSUFFIC IENT CLINICAL code = 1092) DATA TO CALCULA TE ESTIMATED GFR. Memory Care Program Director ID - [id number] 20:35:00 Test Item Value Reference Range Interpretation Comments Lipase (test code = 15 U/L 6-51 3040-3) CHRISTIANA (test code = CHRISTIANA) Memory Care Program Director ID - CLAVSKI Lab Interpretation (test Normal code = 80335-0) [facility] Test Item Value Reference Range Interpretation Comments Lipase (test code = 15 U/L 651 3040-3) CHRISTIANA (test code = CHRISTIANA) Memory Care Program Director ID - CLAVSKI Lab Interpretation (test Normal code = 04783-6) [facility] 20:35:00 Test Item Value Reference Range Interpretation Comments LIPASE (BEAKER) (test code = 749) 15 U/L 51 Memory Care Program Director ID - CLAVSKIPregnancy Screen, [id number] 20:25:00 Test Item Value Reference Range Interpretation Comments Preg Test, Ur (test code = 2112-1) Negative [facility], [id number] 20:25:00 Test Item Value Reference Range Interpretation Comments Preg Test, Ur (test code = 2-1) Negative [facility], [id number] 20:25:00 Test Item Value Reference Range Interpretation Comments TEST URINE (BEAKER) (test Negative code = 583) Urinalysis w/Microscopic + Reflex to [id number] 20:24:00 Test Item Value Reference Range Interpretation Comments Color, UA (test code = Yellow 5778-6) Clarity, UA (test code = Clear 5767-9) Specific [place], UA 1.020 1.001-1.035 (test code = 5811-5) pH, UA (test code = 7.0 5.0-8.0 5803-2) Protein, UA (test code = Negative Negative 95065-6) Glucose, UA (test code = Negative Negative 365) Ketones, UA (test code = Negative Negative 2514-8) Bilirubin, UA (test code Negative Negative = 25624-4) Blood, UA (test code = Negative Negative 68883-4) Nitrite, UA (test code = Negative Negative 5802-4) Leukocytes, UA (test Small Negative A code = 5799-2) Urobilinogen, UA (test 0.2 mg/dL 0.2-1.0 code = 06349-5) Bacteria, UA (test code Many = 69915-5) RBC, UA (test code = <5 See_Comment [Autom ated message] 799-7) The system [employer] generated this result transmit rhett reference range : /HPF. The refer ence range was not u sed to interpret th is result as normal/abnormal . WBC, UA (test code = 5-10 See_Comment [Autom ated message] 56047-0) The system [employer] generated this result transmit rhett reference range : /HPF. The refer ence range was not u sed to interpret th is result as normal/abnormal . SQUAMOUS EPITHELIAL <5 See_Comment [Automa rhett message] (test code = 90407-7) The sy stem which generated this result transmit rhett reference range : /HPF. The refer ence range was not u sed to interpret th is result as normal/abnormal . Specimen Source (test code = 2795) Lab Interpretation (test Abnormal code = 87459-7) [facility]/Microscopic + Reflex to Culture 2020-11-27 20:24:00 Test Item Value Reference Range Interpretation Comments Color, UA (test code = Yellow 5778-6) Clarity, UA (test code = Clear 5767-9) Specific [place], UA 1.020 1.001-1.035 (test code = 5811-5) pH, UA (test code = 7.0 5.0-8.0 5803-2) Protein, UA (test code = Negative Negative 77494-4) Glucose, UA (test code = Negative Negative 365) Ketones, UA (test code = Negative Negative 2514-8) Bilirubin, UA (test code Negative Negative = 71057-5) Blood, UA (test code = Negative Negative 87908-9) Nitrite, UA (test code = Negative Negative 5802-4) Leukocytes, UA (test Small Negative A code = 5799-2) Urobilinogen, UA (test 0.2 mg/dL 0.2-1.0 code = 68239-2) Bacteria, UA (test code Many = 64869-0) RBC, UA (test code = <5 See_Comment [Autom ated message] 799-7) The system [employer] generated this result transmit rhett reference range : /HPF. The refer ence range was not u sed to interpret th is result as normal/abnormal . WBC, UA (test code = 5-10 See_Comment [Autom ated message] 71792-0) The system whic h generated this result transmit rhett reference range : /HPF. The refer ence range was not u sed to interpret th is result as normal/abnormal . SQUAMOUS EPITHELIAL <5 See_Comment [Automa rhett message] (test code = 85571-7) The sy stem which generated this result transmit rhett reference range : /HPF. The refer ence range was not u sed to interpret th is result as normal/abnormal . Specimen Source (test code = 2795) Lab Interpretation (test Abnormal code = 30106-3) [facility]FLEX URINE [id number] 20:24:00 Test Item Value Reference Range Interpretation Comments COLOR (BEAKER) (test code = 470) Yellow CLARITY (BEAKER) (test code = 469) Clear SPECIFIC GRAVITY UA (BEAKER) (test 1.020 1.001-1.035 code = 468) PH UA (BEAKER) (test code = 467) 7.0 5.0-8.0 PROTEIN UA (BEAKER) (test code = Negative Negative 464) GLUCOSE UA (BEAKER) (test code = Negative Negative 365) KETONES UA (BEAKER) (test code = Negative Negative 371) BILIRUBIN UA (BEAKER) (test code = Negative Negative 462) BLOOD UA (BEAKER) (test code = 461) Negative Negative NITRITE UA (BEAKER) (test code = Negative Negative 465) LEUKOCYTE ESTERASE UA (BEAKER) Small Negative A (test code = 466) UROBILINOGEN UA (BEAKER) (test code 0.2 mg/dL 0.2-1.0 = 463) BACTERIA (BEAKER) (test code = 517) Many RBC UA-MANUAL (BEAKER) (test code = <5 /HPF 1659) WBC UA-MANUAL (BEAKER) (test code = 5-10 /HPF 1661) SQUAMOUS EPITHELIAL MANUAL (BEAKER) <5 /HPF (test code = 1663) SOURCE(BEAKER) (test code = 2795) CBC W/PLT COUNT & AUTO [id number] 20:08:00 Test Item Value Reference Range Interpretation Comments WHITE BLOOD CELL COUNT (BEAKER) 6.8 K/ L 4.0-10.0 (test code = 775) RED BLOOD CELL COUNT (BEAKER) 4.95 M/ L 4.00-5.00 (test code = 761) HEMOGLOBIN (BEAKER) (test code = 14.9 GM/DL 12.0-15.5 410) HEMATOCRIT (BEAKER) (test code = 44.3 % 36.0-46.0 411) MEAN CORPUSCULAR VOLUME (BEAKER) 89.5 fL 82.0-99.0 (test code = 753) MEAN CORPUSCULAR HEMOGLOBIN 30.1 pg 27.0-33.0 (BEAKER) (test code = 751) MEAN CORPUSCULAR HEMOGLOBIN CONC 33.6 GM/DL 32.0-36.0 (BEAKER) (test code = 752) RED CELL DISTRIBUTION WIDTH 11.9 % 12.0-15.0 L (BEAKER) (test code = 412) PLATELET COUNT (BEAKER) (test 474 K/CU MM 150-430 H code = 756) MEAN PLATELET VOLUME (BEAKER) 10.2 fL 6.0-11.5 (test code = 754) NUCLEATED RED BLOOD CELLS 0 /100 WBC 0-0 (BEAKER) (test code = 413) NEUTROPHILS RELATIVE PERCENT 61 % (BEAKER) (test code = 429) LYMPHOCYTES RELATIVE PERCENT 26 % (BEAKER) (test code = 430) MONOCYTES RELATIVE PERCENT 10 % (BEAKER) (test code = 431) EOSINOPHILS RELATIVE PERCENT 3 % (BEAKER) (test code = 432) BASOPHILS RELATIVE PERCENT 1 % (BEAKER) (test code = 437) NEUTROPHILS ABSOLUTE COUNT 4.14 K/ L 1.80-8.00 (BEAKER) (test code = 670) LYMPHOCYTES ABSOLUTE COUNT 1.79 K/ L 1.48-4.50 (BEAKER) (test code = 414) MONOCYTES ABSOLUTE COUNT (BEAKER) 0.65 K/ L 0.00-1.30 (test code = 415) EOSINOPHILS ABSOLUTE COUNT 0.18 K/ L 0.00-0.50 (BEAKER) (test code = 416) BASOPHILS ABSOLUTE COUNT (BEAKER) 0.05 K/ L 0.00-0.20 (test code = 417) IMMATURE GRANULOCYTES-RELATIVE 0 % 0-0 PERCENT (BEAKER) (test code = 2801) Novel Coronavirus 2019 [id number] 10:55:00 Test Item Value Reference Range Interpretation Comments Novel Coronavirus Negative Negative Test Descr iptionAltru Dx 2019 nCoV (test code COVID-1 9 Real-Time RT-PCR = COVID19) test is a lab developedtest b ased on Q[employer] em "[employer]" 2018-n CoV assaystargeting three SARS-CoV-2 gene s (ORF1ab, 5-protein andN- protein) and one positiv e control assay that targ ets theHuman RNaseP RPPH1 gene. FDA's ind ependent review of this validation is pending. The test can be performed on nasopharyngeal swabs obtained fromin dividuals suspected of CO VID-19. This test proce dure has the following limitations:-Th e detection of vi ral nucleic acid is dependent uponproper spec imen collection, degroot dling, transportation, storage and preparation . Failure to observe properprocedure s in any of these steps can lead to incorrectres ults with the risk of fal se positive or fal se negativevalues. Specimen has to be store d at 2-8*C no more than 72hours.-Altru Dx COVID-19 test i s qualitative nicky t and does notprovide a qu antitative value for the organism.-Resul ts from this test must be correlated with the clinicalhistory ,epidemiol ogical data, an d other data available tothe clinician evalu ating the patient.-Interf erence from substances that were not evaluted co uldlead to erroneous resul ts-A negative result does not exclude the pos sibility ofCOVID-19 infe ction. False negative test results may occ urdue to the presence of inhibitors. Nicky t results may also beaffe cted by levels of organ ism in the specimen that a rebelow threshold detec tion for the test. Negat delia resultsshould n ot be used as the sole bas is for diagnosis,treat ment, or other patient m anagement decisions. Does patient have the clinical criteria consistent with COVID-19? YIs the patient going to be discharged home? SANTO RFLX MICR CULT IF [id number] 17:18:00 Test Item Value Reference Range Interpretation Comments UA COLOR (test code = COLU) JULIA YELLOW A UA APPEARANCE (test code = CLEAR CLEAR APPU) UA GLUCOSE DIPSTICK (test code NEGATIVE NEGATIVE = DGLUU) UA BILIRUBIN DIPSTICK (test 1+ NEGATIVE A code = BILU) UA KETONE DIPSTICK (test code NEGATIVE NEGATIVE = KETU) UA SPECIFIC GRAVITY (test code 1.029 1.005-1.025 H = SGU) UA BLOOD DIPSTICK (test code = NEGATIVE NEGATIVE CHAD) UA PH DIPSTICK (test code = 5.0 5.0-8.0 KALIN) UA PROTEIN DIPSTICK (test code 2+ NEGATIVE A = PROU) UA UROBILINOGEN DIPSTICK (test NEGATIVE EU/dL 0.1-0.2 code = URO) UA NITRITE DIPSTICK (test code NEGATIVE NEGATIVE = PENNIE) UA LEUKOCYTE ESTERASE DIPSTICK 2+ NEGATIVE A (test code = LEUU) UA MICROSCOPIC NEEDED? (test YES NO A code = UAMICRO) UA WBC (test code = WBCU) 11-20 /hpf 0-3 A UA RBC (test code = RBCU) 0-2 /hpf 0-3 UA BACTERIA (test code = BACU) RARE /HPF NEGATIVE UA SQUAMOUS CELLS (test code = Many /HPF FEW SQU) UA MUCUS (test code = MUCU) MANY /lpf Indication for culture: Dysuria/FrequencyUR HCG [id number] 17:18:00 Test Item Value Reference Range Interpretation Comments UR HCG QUAL (test code = HCGQLU) NEGATIVE NEGATIVE Indication for culture: Dysuria/FrequencyUA RFLX MICR CULT IF INDICATED 2020 17:13:00 Test Item Value Reference Range Interpretation Comments UA COLOR (test code = COLU) YELLOW UA APPEARANCE (test code = APPU) CLEAR UA GLUCOSE DIPSTICK (test code = NEGATIVE DGLUU) UA BILIRUBIN DIPSTICK (test code = NEGATIVE BILU) UA KETONE DIPSTICK (test code = KETU) NEGATIVE UA SPECIFIC GRAVITY (test code = SGU) 1.005-1.025 UA BLOOD DIPSTICK (test code = CHAD) NEGATIVE UA PH DIPSTICK (test code = KALIN) 5.0-8.0 UA PROTEIN DIPSTICK (test code = PROU) NEGATIVE UA UROBILINOGEN DIPSTICK (test code = EU/dL 0.1-0.2 URO) UA NITRITE DIPSTICK (test code = PENNIE) NEGATIVE UA LEUKOCYTE ESTERASE DIPSTICK (test NEGATIVE code = LEUU) UA WBC (test code = WBCU) /hpf 0-3 UA RBC (test code = RBCU) /hpf 0-3 UA BACTERIA (test code = BACU) /HPF NEGATIVE UA SQUAMOUS CELLS (test code = SQU) /HPF FEW Indication for culture: Dysuria/FrequencyUR HCG [id number] 17:13:00 Test Item Value Reference Range Interpretation Comments UR HCG QUAL (test code = HCGQLU) NEGATIVE NEGATIVE Indication for culture: Dysuria/FrequencyBASIC METABOLIC [id number] 16:55:00 Test Item Value Reference Range Interpretation Comments SODIUM (test code 138 mmol/L 135-145 N = NA) POTASSIUM (test 3.5 mmol/L 3.5-5.1 N code = K) CHLORIDE (test 106 mmol/L 98-107 N code = CL) CARBON DIOXIDE 27 mmol/L 21-32 N (test code = CO2) ANION GAP (test 8.5 2.0-16.0 N code = GAP) GLUCOSE (test code 92 mg/dL 65-99 N = GLU) BLOOD UREA 12 mg/dL 4-23 N NITROGEN (test code = BUN) GLOMERULAR >=60 max >60 The estimated FILTRATION RATE estimate ml/min glomerula r (test code = GFR) filtration rate is computed usingpatient ra ce, age (>18), sex, and serum creatinin e. If anyof the neede d data elements a re missing the Laboratory azucena ot compute an estimation of t he glomerular filtration rate . CREATININE (test 0.9 mg/dL 0.6-1.5 N code = CREAT) BUN/CREATININE 13.3 12.0-20.0 N RATIO (test code = BUN/CREA) CALCIUM (test code 9.0 mg/dL 8.5-10.1 N = CA) LIVER FUNCTION [id number] 16:55:00 Test Item Value Reference Range Interpretation Comments TOTAL PROTEIN 7.9 g/dL 6.4-8.2 N (test code = PROT) ALBUMIN (test code 4.4 g/dL 3.4-5.0 N = ALB) GLOBULIN (test 3.5 g/dL 2.3-3.5 N code = GLOB) BILIRUBIN TOTAL 0.9 mg/dL 0.2-1.2 N Use of this assay is not (test code = BILT) recommend ed for patients undergoingtreat ment with Eltrombopag due to the potential for falselyelevated results. BILIRUBIN DIRECT 0.2 mg/dL 0.0-0.3 N (test code = BILD) BILIRUBIN INDIRECT 0.7 mg/dL 0.0-0.8 N (test code = BILIND) SGOT/AST (test 29 U/L 15-37 N code = AST) SGPT/ALT (test 13 U/L 6-50 N code = ALT) ALKALINE 78 U/L 45-117 N PHOSPHATASE (test code = ALKP) [id number] 16:55:00 Test Item Value Reference Range Interpretation Comments LIPASE (test code = LIP) 90 U/L 73-393 N CBC W/AUTO [id number] 16:40:00 Test Item Value Reference Range Interpretation Comments WHITE BLOOD CELL (test code = 4.1 10 3/uL 4.5-11.0 L WBC) RED BLOOD CELL (test code = 5.27 10 6/uL 3.50-5.50 N RBC) HEMOGLOBIN (test code = HGB) 16.1 g/dL 12.0-16.0 H HEMATOCRIT (test code = HCT) 46.5 % 37.0-55.0 N MEAN CELL VOLUME (test code = 88 fL 81-102 N MCV) MEAN CELL HGB (test code = 30.6 pg 26.0-34.0 N MCH) MEAN CELL HGB CONCENTRATION 34.6 g/dL 31.0-37.0 N (test code = MCHC) RED CELL DISTRIBUTION WIDTH 12.0 % 11.6-14.4 N (test code = RDW) PLATELET COUNT (test code = 312 10 3/uL 150-400 N PLT) MEAN PLATELET VOLUME (test 9.7 fL 9.0-12.6 N code = MPV) NEUTROPHIL % (test code = NT%) 74.2 % 33.0-76.0 N IMMATURE GRANULOCYTE % (test 0.5 % 0.0-1.0 N code = IG%) LYMPHOCYTE % (test code = LY%) 20.0 % 14.0-56.4 N MONOCYTE % (test code = MO%) 5.1 % 0.0-12.9 N EOSINOPHIL % (test code = EO%) 0.0 % 0.0-7.0 N BASOPHIL % (test code = BA%) 0.2 % 0-2.0 N NUCLEATED RBC % (test code = 0.0 % 0-0.2 N NRBC%) NEUTROPHIL # (test code = NT#) 3.03 10 3/uL 1.5-7.0 N IMMATURE GRANULOCYTE # (test 0.020 x10 3/uL 0.000-0.100 N code = IG#) LYMPHOCYTE # (test code = LY#) 0.82 10 3/uL 1.50-4.00 L MONOCYTE # (test code = MO#) 0.21 10 3/uL 0.20-0.80 N EOSINOPHIL # (test code = EO#) 0.00 10 3/uL 0.0-0.5 N BASOPHIL # (test code = BA#) 0.01 10 3/uL 0.0-0.1 N - XR CHEST 1 [id number] 15:20:[address] [facility] CYPRESSName: ROX COATES : 2000 Sex: FPatient Name: ROX COATES Unit No: [id number] EXAMS: CPT CODE: [id number] XR CHEST 1 V 14875 EXAM:Chest one view. Location: A1 HISTORY: URI, , COMPARISON: None available. FINDINGS: The lungs are free of focal airspace consolidations.. There are no pleural effusions or pneumothorax. The aorta, pulmonary vasculature and mediastinum are within normal limits. Cardiac silhouette is normal in size and contour. Visualized skeletal structures are unremarkable. IMPRESSION: No active disease in the chest. at 1520 Reported and signed by: Cuate Rdz MD CC: Govind Alvarado [facility]; Delmi Mcwilliams NP Technologist: Renetta Fairbanks Fluoro Time: DAP(Gy m2): Air Kerma (mGy): Trscr Dt/Tm: 2020 (152) by:[email or web address] Electronic Signature Date/Time: 2020 (152)Orig Print D/T: S: 2020 (1524) Name: ROX COATES [facility] Phys: [place] [address] : 2000 Age: 20 Sex: [place] [address] Loc: [place].ERS Exam Date: 2020 Status: REG ER PH: FAX: PAGE 1 Signed NnojkxLNSC-EuB-7 (COVID-19) RNA [Presence] in Respiratory specimen by SHOLA with probe [id number] 21:35:03 Test Item Value Reference Range Interpretation Comments SARS-CoV-2 (COVID-19) RNA Not detected Not-Detected [Presence] in Respiratory specimen by SHOLA with probe detection (test code = 50865-0) [id number] HOSPITALBASIC METABOLIC [id number] 23:40:00 Test Item Value Reference Range Interpretation Comments SODIUM (test code 139 mmol/L 136-145 N = NA) POTASSIUM (test 3.9 MMOL/L 3.6-5.2 N code = K) CHLORIDE (test 107 MMOL/L 98-110 N code = CL) CARBON DIOXIDE 24 mEq/L 24-32 N (test code = CO2) GLUCOSE (test code 110 mg/dL 70-110 N = GLU) BLOOD UREA 8 mg/dL 7-18 N NITROGEN (test code = BUN) GLOMERULAR >=60 max >60 The estimated FILTRATION RATE estimate glomerular (test code = GFR) filtration rate is computed usingpatient ra ce, age (>18), sex, and serum creatinin e. If anyof the neede d data elements a re missing the Laboratory azucena ot compute an estimation of t he glomerular filtration rate . CREATININE (test 0.74 mg/dL 0.60-1.30 N code = CREAT) CALCIUM (test code 9.6 mg/dL 8.6-10.4 N = CA) LIVER FUNCTION [id number] 23:40:00 Test Item Value Reference Range Interpretation Comments TOTAL PROTEIN (test code = PROT) g/dL 6.0-8.3 ALBUMIN (test code = ALB) g/dL 3.2-5.5 BILIRUBIN TOTAL (test code = BILT) mg/dL 0.2-1.0 BILIRUBIN DIRECT (test code = BILD) mg/dL 0.0-0.2 SGOT/AST (test code = AST) UNITS/L 10-42 SGPT/ALT (test code = ALT) UNITS/L 10-40 ALKALINE PHOSPHATASE (test code = UNITS/L 34-104 ALKP) BASIC METABOLIC [id number] 23:40:00 Test Item Value Reference Range Interpretation Comments SODIUM (test code 139 mmol/L 136-145 N = NA) POTASSIUM (test 3.9 MMOL/L 3.6-5.2 N code = K) CHLORIDE (test 107 MMOL/L 98-110 N code = CL) CARBON DIOXIDE 24 mEq/L 24-32 N (test code = CO2) GLUCOSE (test code 110 mg/dL 70-110 N = GLU) BLOOD UREA 8 mg/dL 7-18 N NITROGEN (test code = BUN) GLOMERULAR >=60 max >60 The estimated FILTRATION RATE estimate glomerular (test code = GFR) filtration rate is computed usingpatient ra ce, age (>18), sex, and serum creatinin e. If anyof the neede d data elements a re missing the Laboratory azucena ot compute an estimation of t he glomerular filtration rate . CREATININE (test 0.74 mg/dL 0.60-1.30 N code = CREAT) CALCIUM (test code 9.6 mg/dL 8.6-10.4 N = CA) LIVER FUNCTION [id number] 23:40:00 Test Item Value Reference Range Interpretation Comments TOTAL PROTEIN (test 7.6 g/dL 6.0-8.3 N code = PROT) ALBUMIN (test code = 5.1 g/dL 3.2-5.5 N ALB) BILIRUBIN TOTAL 0.9 mg/dL 0.2-1.0 N V-suysct-w-b enzoquinone (test code = BILT) imine (NA PQI), a metabolite ofacetaminophen (paracetamol), may generate errone ously lowresults in s amples for patients th at have taken toxic dos esof acetaminophen (paracetamol). BILIRUBIN DIRECT 0.1 mg/dL 0.0-0.2 N N-acetyl-p- benzoquinone (test code = BILD) imine (NA PQI), a metabolite ofacetaminophen (paracetamol), may generate errone ously lowresults in s amples for patients th at have taken toxic dos esof acetaminophen (paracetamol). BILIRUBIN INDIRECT 0.8 mg/dL (test code = BILIND) SGOT/AST (test code 23 UNITS/L 10-42 N = AST) SGPT/ALT (test code 8 UNITS/L 10-40 L = ALT) ALKALINE PHOSPHATASE 49 UNITS/L 34-104 N (test code = ALKP) URINALYSIS [id number] 23:39:00 Test Item Value Reference Range Interpretation Comments UA COLOR (test code = COLU) YELLOW YELLOW UA APPEARANCE (test code = CLEAR CLEAR APPU) UA GLUCOSE DIPSTICK (test code NEGATIVE MG/AL NEGATIVE = DGLUU) UA BILIRUBIN DIPSTICK (test NEGATIVE NEGATIVE code = BILU) UA KETONE DIPSTICK (test code NEGATIVE MG/DL NEGATIVE = KETU) UA SPECIFIC GRAVITY (test code 1.020 1.000-1.030 = SGU) UA BLOOD DIPSTICK (test code = NEGATIVE NEGATIVE CHAD) UA PH DIPSTICK (test code = 7.0 4.5-8.5 KALIN) UA PROTEIN DIPSTICK (test code NEGATIVE NEGATIVE = PROU) UA UROBILINOGEN DIPSTICK (test 0.2 EU/dL <=1.0 code = URO) UA NITRITE DIPSTICK (test code NEGATIVE NEGATIVE = PENNIE) UA LEUKOCYTE ESTERASE DIPSTICK 1+ NEGATIVE (test code = LEUU) UA WBC (test code = WBCU) 3-5 /HPF 0-3 A UA RBC (test code = RBCU) 0-3 /HPF 0-3 UA EPITHELIAL CELLS (test code 1+ /LPF NONE-FEW = EPIU) UA BACTERIA (test code = BACU) 1+ /HPF NEGATIVE A BASIC METABOLIC [id number] 23:32:00 Test Item Value Reference Range Interpretation Comments SODIUM (test code = NA) 139 mmol/L 136-145 N POTASSIUM (test code = K) 3.9 MMOL/L 3.6-5.2 N CHLORIDE (test code = CL) 107 MMOL/L 98-110 N CARBON DIOXIDE (test code = CO2) 24 mEq/L 24-32 N GLUCOSE (test code = GLU) 110 mg/dL 70-110 N BLOOD UREA NITROGEN (test code = mg/dL 7-18 BUN) GLOMERULAR FILTRATION RATE (test >60 code = GFR) CREATININE (test code = CREAT) mg/dL 0.60-1.30 CALCIUM (test code = CA) 9.6 mg/dL 8.6-10.4 N LIVER FUNCTION [id number] 23:32:00 Test Item Value Reference Range Interpretation Comments TOTAL PROTEIN (test code = PROT) g/dL 6.0-8.3 ALBUMIN (test code = ALB) g/dL 3.2-5.5 BILIRUBIN TOTAL (test code = BILT) mg/dL 0.2-1.0 BILIRUBIN DIRECT (test code = BILD) mg/dL 0.0-0.2 SGOT/AST (test code = AST) UNITS/L 10-42 SGPT/ALT (test code = ALT) UNITS/L 10-40 ALKALINE PHOSPHATASE (test code = UNITS/L 34-104 ALKP) BASIC METABOLIC [id number] 23:30:00 Test Item Value Reference Range Interpretation Comments SODIUM (test code = NA) mmol/L 136-145 POTASSIUM (test code = K) 3.9 MMOL/L 3.6-5.2 N CHLORIDE (test code = CL) MMOL/L 98-110 CARBON DIOXIDE (test code = CO2) mEq/L 24-32 GLUCOSE (test code = GLU) mg/dL 70-110 BLOOD UREA NITROGEN (test code = mg/dL 7-18 BUN) GLOMERULAR FILTRATION RATE (test >60 code = GFR) CREATININE (test code = CREAT) mg/dL 0.60-1.30 CALCIUM (test code = CA) mg/dL 8.6-10.4 LIVER FUNCTION [id number] 23:30:00 Test Item Value Reference Range Interpretation Comments TOTAL PROTEIN (test code = PROT) g/dL 6.0-8.3 ALBUMIN (test code = ALB) g/dL 3.2-5.5 BILIRUBIN TOTAL (test code = BILT) mg/dL 0.2-1.0 BILIRUBIN DIRECT (test code = BILD) mg/dL 0.0-0.2 SGOT/AST (test code = AST) UNITS/L 10-42 SGPT/ALT (test code = ALT) UNITS/L 10-40 ALKALINE PHOSPHATASE (test code = UNITS/L 34-104 ALKP) URINALYSIS [id number] 23:27:00 Test Item Value Reference Range Interpretation Comments UA COLOR (test code = COLU) YELLOW YELLOW UA APPEARANCE (test code = CLEAR CLEAR APPU) UA GLUCOSE DIPSTICK (test code NEGATIVE MG/AL NEGATIVE = DGLUU) UA BILIRUBIN DIPSTICK (test NEGATIVE NEGATIVE code = BILU) UA KETONE DIPSTICK (test code NEGATIVE MG/DL NEGATIVE = KETU) UA SPECIFIC GRAVITY (test code 1.020 1.000-1.030 = SGU) UA BLOOD DIPSTICK (test code = NEGATIVE NEGATIVE CHAD) UA PH DIPSTICK (test code = 7.0 4.5-8.5 KALIN) UA PROTEIN DIPSTICK (test code NEGATIVE NEGATIVE = PROU) UA UROBILINOGEN DIPSTICK (test 0.2 EU/dL <=1.0 code = URO) UA NITRITE DIPSTICK (test code NEGATIVE NEGATIVE = PENNIE) UA LEUKOCYTE ESTERASE DIPSTICK 1+ NEGATIVE (test code = LEUU) UA WBC (test code = WBCU) /HPF 0-3 UA RBC (test code = RBCU) /HPF 0-3 UA EPITHELIAL CELLS (test code /LPF NONE-FEW = EPIU) UA BACTERIA (test code = BACU) /HPF NEGATIVE CBC W/AUTO [id number] 23:26:00 Test Item Value Reference Range Interpretation Comments WHITE BLOOD CELL (test code = WBC) 7.29 K/mm3 5.0-12.0 N RED BLOOD CELL (test code = RBC) 4.72 M/mm3 4.20-5.40 N HEMOGLOBIN (test code = HGB) 14.2 G/DL 12.0-16.0 N HEMATOCRIT (test code = HCT) 41.2 % 36.0-46.0 N MEAN CELL VOLUME (test code = MCV) 87 fL 81-99 N MEAN CELL HGB (test code = MCH) 30.1 PGM 27-31 N MEAN CELL HGB CONCENTRATION (test 34.5 G/DL 33-37 N code = MCHC) RED CELL DISTRIBUTION WIDTH (test 11.8 % 11.6-16.2 N code = RDW) PLATELET COUNT (test code = PLT) 465 K/mm3 130-400 H MEAN PLATELET VOLUME (test code = 9.8 fl 7.4-10.4 N MPV) NEUTROPHIL % (test code = NT%) 51.3 % 43-65 N IMMATURE GRANULOCYTE % (test code 0.4 % 0.0-2.0 N = IG%) LYMPHOCYTE % (test code = LY%) 35.7 % 20.5-45.5 N MONOCYTE % (test code = MO%) 8.5 % 5.5-11.7 N EOSINOPHIL % (test code = EO%) 3.3 % 0.9-2.9 H BASOPHIL % (test code = BA%) 0.8 % 0.2-1.0 N NUCLEATED RBC % (test code = 0.0 % 0-1.0 N NRBC%) NEUTROPHIL # (test code = NT#) 3.74 K/mm3 2.2-4.8 N LYMPHOCYTE # (test code = LY#) 2.60 K/mm3 1.3-2.9 N MONOCYTE # (test code = MO#) 0.62 K/mm3 0.3-0.8 N EOSINOPHIL # (test code = EO#) 0.24 K/MM3 0.0-0.2 H BASOPHIL # (test code = BA#) 0.06 K/mm3 0.0-0.1 N UR HCG [id number] 23:26:00 Test Item Value Reference Range Interpretation Comments UR HCG QUAL (test code = HCGQLU) NEGATIVE NEGATIVE
[2022-11-05 18:58] LABS: Urine Blood Negative (Negative); Urine Glucose Negative (Negative); Urine Protein Negative (Negative); Urine Specific Gravity 1.015 (1.005-1.030); Urine pH 6.5 (5.0-7.0)
[2022-11-05] MEDS ORDERED: NA CHLORIDE 0.9% 1,000 ML ONE (19:31)
[2022-11-05 19:44] LABS: Absolute Lymphocytes (CBC) 0.7 K/uL (0.7-4.9); Hematocrit 39.4 % (36.0-45.0); MCV 88.9 fL (80-100); MPV 8.3 fL (7.6-11.3); RBC Red Blood Cell Count 4.43 M/uL (3.86-4.86)
[2022-11-05 19:59] LABS: Potassium 3.9 mmol/L (3.5-5.1)
[2022-11-05] MEDS ORDERED: KETOROLAC 30 MG/ML INJ ONE (20:14)
[2022-11-05 20:15] LABS: Urine Bacteria <20 /HPF (<20); Urine Mucus 1+ /HPF (None Seen); Urine RBC None Seen /HPF (None Seen)
[2022-11-05] MEDS ORDERED: FENTANYL CITR 100 MCG/2 ML ONE (20:46)
[2022-11-05 20:50] LABS: SARS-COV-2 RT PCR NEGATIVE (NEGATIVE)
--- NOTE | 2022-11-05 21:11 | RAD REPORT ---
EXAM DESCRIPTION: CT - Abdomen Pelvis W Contrast - 11/05/2022 8:56 pm CLINICAL HISTORY: Abdominal pain/back pain COMPARISON: none. TECHNIQUE: Computed axial tomography of the abdomen pelvis was obtained. 100 cc Isovue-300 was admin istered intravenously. Oral contrast was not requested which limits evaluation of bowel and appendix All CT scans are performed using dose optimization technique as appropriate and may include automated exposure control or mA/KV adjustment according to patient size. FINDINGS: The liver, spleen, pancreas, adrenal and kidneys appear unremarkable. There is no evidence of diverticulitis. Cecum is mildly distended with stool measuring 6.5 centimeters. The uterus is retroverted. No adnexal mass. IMPRESSION: Cecum is mildly distended with stool. Otherwise, unremarkable exam
--- NOTE | 2022-11-05 21:19 | ER ---
Nurse's Notes [facility] Name: Yasmine Domínguez Age: 22 yrs Sex: Female : 2000 Arrival Date: 11/05/2022 Time: 18:07 Bed 12 Private MD: Diagnosis: Constipation;Low back pain Presentation: 11/05 18:11 Chief complaint: Bilateral hip and low back pain and N/V x 2 days. Denies injury or hb urinary s/s. Coronavirus screen: Client presents with at least one sign or symptom that may indicate coronavirus-19. Provider contacted for isolation considerations. Ebola Screen: No symptoms or risks identified at this time. Initial Sepsis Screen: Does the patient meet any 2 criteria? No. Patient's initial sepsis screen is negative. Does the patient have a suspected source of infection? No. Patient's initial sepsis screen is negative. Risk Assessment: Do you want to hurt yourself or someone else? Patient reports no desire to harm self or others. Onset of symptoms was November 03, 2022. 18:11 Method Of Arrival: Ambulatory hb 18:11 Acuity: MARVIN 3 hb Triage Assessment: 18:13 General: Appears in no apparent distress. uncomfortable, Behavior is calm, cooperative. hb 18:13 Pain: Pain currently is 10 out of 10 on a pain scale. Neuro: Level of Consciousness is hb awake, alert, obeys commands, Oriented to person, place, time, situation. Cardiovascular: Patient's skin is warm and dry. Respiratory: Respiratory effort is even, unlabored, Respiratory pattern is regular, symmetrical. GI: Reports nausea, vomiting. Musculoskeletal: Reports pain in hips and back. Historical: - Allergies: 18:13 Codeine; hb 18:13 PENICILLINS; hb - Home Meds: 18:13 None [Active]; hb - PMHx: 18:13 None; hb - PSHx: 18:13 None; hb - Immunization history:: Adult Immunizations up to date, Client reports receiving the 2nd dose of the Covid vaccine. - Social history:: Smoking status: Patient reports the use of cigarette tobacco products, denies chronic smoking, but will smoke occasionally. Screenin:30 [facility] ED Fall Risk Assessment (Adult) History of falling in the last 3 months, eh3 including since admission No falls in past 3 months (0 pts) Confusion or Disorientation No (0 pts) Intoxicated or Sedated No (0 pts) Impaired Gait No (0 pts) Mobility Assist Device Used No (0 pt) Altered Elimination No (0 pt) Score/Fall Risk Level 0 - 2 = Low Risk. Abuse screen: Denies threats or abuse. Denies injuries from another. Nutritional screening: No deficits noted. Tuberculosis screening: No symptoms or risk factors identified. Assessment: 19:30 General: Appears distressed, uncomfortable, Behavior is cooperative, appropriate for eh3 age, anxious, crying. Pain: Complains of pain in pelvis and low back area. Neuro: Level of Consciousness is awake, alert, obeys commands, Oriented to person, place, time, situation. Cardiovascular: Capillary refill < 3 seconds Patient's skin is warm and dry. Respiratory: Airway is patent Respiratory effort is even, unlabored, Respiratory pattern is regular, symmetrical. GI: Abdomen is flat, non-distended. : No signs and/or symptoms were reported regarding the genitourinary system. EENT: No signs and/or symptoms were reported regarding the EENT system. Derm: No signs and/or symptoms reported regarding the dermatologic system. Skin is pink, warm \T\ dry. Musculoskeletal: No signs and/or symptoms reported regarding the musculoskeletal system. Circulation, motion, and sensation intact. Range of motion: intact in all extremities. 20:30 Reassessment: Patient and/or family updated on plan of care and expected duration. Pain eh3 level reassessed. Patient is alert, oriented x 3, equal unlabored respirations, skin warm/dry/pink. 21:30 Reassessment: Patient appears in no apparent distress at this time. Patient and/or eh3 family updated on plan of care and expected duration. Pain level reassessed. Patient is alert, oriented x 3, equal unlabored respirations, skin warm/dry/pink. Patient states symptoms have improved. 21:30 Reassessment: Pt to complete magnesium infusion prior to discharge; 100mL remains to be eh3 infused at 100mL/hr. Vital Signs: 18:11 BP 118 / 81; Pulse 120; Resp 16; Temp 98.9(TE); Pulse Ox 99% on R/A; Weight 61.23 kg; hb Height 5 ft. 5 in. (165.10 cm); Pain 10/10; 19:00 BP 117 / 76; Pulse 85; Resp 18; Pulse Ox 99% on R/A; eh3 20:01 BP 111 / 70; Pulse 82; Resp 18; Temp 98.7; Pulse Ox 98% ; Weight 61.23 kg; Height 5 ft. ls5 5 in. (165.10 cm); Pain 10/10; 21:30 BP 114 / 63; Pulse 82; Resp 18; Pulse Ox 100% on R/A; eh3 20:01 Body Mass Index 22.46 (61.23 kg, 165.10 cm) ls5 ED Course: 18:07 Patient arrived in ED. am2 18:09 Alanna Cosby FNP-C [facility]. snw 18:09 Dylan Weir MD is Attending Physician. snw 18:13 Triage completed. hb 18:13 Arm band placed on. hb 19:23 Chloe Mendez, RN is Primary Nurse. eh3 19:30 Patient has correct armband on for positive identification. Bed in low position. Call 3 light in reach. Side rails up X2. Adult w/ patient. Pulse ox on. NIBP on. Door closed. Noise minimized. Lights dimmed. Warm blanket given. 20:00 Inserted saline lock: 20 gauge in right antecubital area, using aseptic technique. ls5 Blood collected. 20:58 CT Abd/Pelvis - IV Contrast Only In Process Unspecified. EDMS 22:27 No provider procedures requiring assistance completed. eh3 22:43 IV discontinued, intact, bleeding controlled, No redness/swelling at site. Pressure eh3 dressing applied. Administered Medications: 19:50 Drug: NS 0.9% 1000 ml Route: IV; Rate: 1 bolus; Site: right antecubital; eh3 21:00 Follow up: IV Status: Completed infusion; IV Intake: 1000ml eh3 20:10 Drug: Ketorolac 30 mg Route: IVP; Site: right antecubital; eh3 20:30 Follow up: Response: Pain is unchanged, physician notified eh3 20:46 Drug: fentaNYL (PF) 25 mcg Route: IVP; Site: right antecubital; eh3 21:19 Follow up: Response: Pain is decreased eh3 21:30 Drug: Dulcolax (bisacodyl) Suppository 10 mg Route: NV; eh3 22:45 Follow up: Response: No adverse reaction eh3 21:30 Drug: Bisacodyl 5 mg Route: PO; eh3 22:44 Follow up: Response: No adverse reaction eh3 21:30 Drug: Simethicone 240 mg Route: PO; eh3 22:44 Follow up: Response: No adverse reaction eh3 21:30 Drug: Magnesium Sulfate 1 grams Route: IVPB; Infused Over: 1 hrs; Site: right 3 antecubital; 22:44 Follow up: Response: No adverse reaction; IV Status: Completed infusion; IV Intake: eh3 100ml Medication: 22:27 VIS not applicable for this client. eh3 Intake: 21:00 IV: 1000ml; Total: 1000ml. eh3 22:44 IV: 100ml; Total: 1100ml. eh3 Outcome: 21:18 Discharge ordered by . snw 22:44 Discharged to home ambulatory, with family. eh3 22:44 Condition: stable 22:44 Discharge instructions given to patient, Instructed on discharge instructions, follow up and referral plans. medication usage, Demonstrated understanding of instructions, follow-up care, medications, Prescriptions given X 2. 22:44 Patient left the ED. eh3 Signatures: Dispatcher [employer] EDMS Alanna Cosby, CALCULATOR OPERATOR-C CALCULATOR OPERATOR-Csnw Dari Christie RN ALFREDO Keisha Hannah Erin, RN RN 3 Gian Rodriguez ls5 Corrections: (The following items were deleted from the chart) 18:39 18:38 General: Appears hb hb
--- NOTE | 2022-11-05 21:19 | EDPHYS ---
Physician Documentation [facility] Name: Yasmine Domínguez Age: 22 yrs Sex: Female : 2000 Arrival Date: 11/05/2022 Time: 18:07 Bed 12 Private MD: ED Physician Dylan Weir HPI: 11/05 19:01 This 22 yrs old Female presents to ER via Ambulatory with complaints of Back Pain, Hip snw Pain. 19:01 The patient presents with pain that is acute, with no known mechanism of injury. The snw symptoms are located in the low back, bilateral hips. Onset: The symptoms/episode began/occurred acutely, 3 day(s) ago, and became persistent. Location: low back area. The problem was sustained from unknown cause. Severity of symptoms: At their worst the symptoms were moderate, severe. The patient has not experienced similar symptoms in the past. It is unknown whether or not the patient has recently seen a physician. Historical: - Allergies: 18:13 Codeine; hb 18:13 PENICILLINS; hb - Home Meds: 18:13 None [Active]; hb - PMHx: 18:13 None; hb - PSHx: 18:13 None; hb - Immunization history:: Adult Immunizations up to date, Client reports receiving the 2nd dose of the Covid vaccine. - Social history:: Smoking status: Patient reports the use of cigarette tobacco products, denies chronic smoking, but will smoke occasionally. ROS: 18:59 Eyes: Negative for injury, pain, redness, and discharge, ENT: Negative for injury, snw pain, and discharge, Neck: Negative for injury, pain, and swelling, Cardiovascular: Negative for chest pain, palpitations, and edema, Respiratory: Negative for shortness of breath, cough, wheezing, and pleuritic chest pain. 18:59 Constitutional: Positive for body aches, malaise, poor PO intake. 18:59 Abdomen/GI: Positive for nausea and vomiting. 18:59 Back: Positive for pain at rest, pain with movement. 18:59 MS/extremity: Positive for decreased range of motion, pain, tenderness, of the left lower back and right lower back. Exam: 18:58 Constitutional: This is a well developed, well nourished patient who is awake, alert, snw and in no acute distress. 18:58 Head/Face: Normocephalic, atraumatic. Eyes: Pupils equal round and reactive to light, extra-ocular motions intact. Lids and lashes normal. Conjunctiva and sclera are non-icteric and not injected. Cornea within normal limits. Periorbital areas with no swelling, redness, or edema. ENT: Nares patent. No nasal discharge, no septal abnormalities noted. Tympanic membranes are normal and external auditory canals are clear. Oropharynx with no redness, swelling, or masses, exudates, or evidence of obstruction, uvula midline. Mucous membranes moist. Neck: Trachea midline, no thyromegaly or masses palpated, and no cervical lymphadenopathy. Supple, full range of motion without nuchal rigidity, or vertebral point tenderness. No Meningismus. Chest/axilla: Normal chest wall appearance and motion. Nontender with no deformity. No lesions are appreciated. 18:58 Respiratory: Lungs have equal breath sounds bilaterally, clear to auscultation and percussion. No rales, rhonchi or wheezes noted. No increased work of breathing, no retractions or nasal flaring. Abdomen/GI: Soft, non-tender, with normal bowel sounds. No distension or tympany. No guarding or rebound. No evidence of tenderness throughout. Back: No spinal tenderness. No costovertebral tenderness. Full range of motion. Skin: Warm, dry with normal turgor. Normal color with no rashes, no lesions, and no evidence of cellulitis. Neuro: Awake and alert, GCS 15, oriented to person, place, time, and situation. Cranial nerves II-XII grossly intact. Motor strength 5/5 in all extremities. Sensory grossly intact. Cerebellar exam normal. Normal gait. 18:58 Constitutional: The patient appears alert, awake, anxious, uncomfortable. 18:58 Cardiovascular: Rate: tachycardic, Rhythm: regular. 18:58 Musculoskeletal/extremity: Exam is negative for 18:58 Neuro: Exam negative for acute changes. Vital Signs: 18:11 BP 118 / 81; Pulse 120; Resp 16; Temp 98.9(TE); Pulse Ox 99% on R/A; Weight 61.23 kg; hb Height 5 ft. 5 in. (165.10 cm); Pain 10/10; 19:00 BP 117 / 76; Pulse 85; Resp 18; Pulse Ox 99% on R/A; eh3 20:01 BP 111 / 70; Pulse 82; Resp 18; Temp 98.7; Pulse Ox 98% ; Weight 61.23 kg; Height 5 ft. ls5 5 in. (165.10 cm); Pain 10/10; 21:30 BP 114 / 63; Pulse 82; Resp 18; Pulse Ox 100% on R/A; eh3 20:01 Body Mass Index 22.46 (61.23 kg, 165.10 cm) ls5 MDM: 18:23 Patient medically screened. snw 21:19 Differential diagnosis: Fatigue Pyelonephritis sprain, ovarian torsion, appendicitis, snw viral infection, constipation. Data reviewed: vital signs, nurses notes. I considered the following discharge prescriptions or medication management in the emergency department Medications were administered in the Emergency Department. See MAR. Counseling: I had a detailed discussion with the patient and/or guardian regarding: the historical points, exam findings, and any diagnostic results supporting the discharge/admit diagnosis, lab results, radiology results, the need for outpatient follow up, to return to the emergency department if symptoms worsen or persist or if there are any questions or concerns that arise at home. Special discussion: Based on the history and exam findings, there is no indication for further emergent testing or inpatient evaluation. I discussed with the patient/guardian the need to see the primary care provider for further evaluation of the symptoms. 11/05 18:25 Order name: Urine Culture [facility] 11/05 18:25 Order name: Urine Microscopic Only; Complete Time: 20:15 [facility] 11/05 18:25 Order name: COVID-19/FLU A+B; Complete Time: 20:50 [facility] 11/05 18:54 Order name: CBC with Diff; Complete Time: 19:50 [facility] 11/05 18:54 Order name: Chem 7; Complete Time: 20:01 [facility] 11/05 18:57 Order name: Blood Culture Adult (2) [facility] 11/05 18:57 Order name: Procalcitonin; Complete Time: 20:16 [facility] 11/05 18:57 Order name: Lactate w/ 2H reflex if indic.; Complete Time: 20:04 [facility] 11/05 18:58 Order name: Urine Dipstick-Ancillary; Complete Time: 19:02 [facility] 11/05 20:04 Order name: CT Abd/Pelvis - IV Contrast Only; Complete Time: 21:16 snw 11/05 18:25 Order name: Urine Dipstick-Ancillary (obtain specimen); Complete Time: 19:05 snw 11/05 18:25 Order name: Urine Test (obtain specimen); Complete Time: 19:05 snw Administered Medications: 19:50 Drug: NS 0.9% 1000 ml Route: IV; Rate: 1 bolus; Site: right antecubital; 3 21:00 Follow up: IV Status: Completed infusion; IV Intake: 1000ml 3 20:10 Drug: Ketorolac 30 mg Route: IVP; Site: right antecubital; 3 20:30 Follow up: Response: Pain is unchanged, physician notified 3 20:46 Drug: fentaNYL (PF) 25 mcg Route: IVP; Site: right antecubital; 3 21:19 Follow up: Response: Pain is decreased 3 21:30 Drug: Dulcolax (bisacodyl) Suppository 10 mg Route: TN; 3 22:45 Follow up: Response: No adverse reaction 3 21:30 Drug: Bisacodyl 5 mg Route: PO; eh3 22:44 Follow up: Response: No adverse reaction eh3 21:30 Drug: Simethicone 240 mg Route: PO; eh3 22:44 Follow up: Response: No adverse reaction 3 21:30 Drug: Magnesium Sulfate 1 grams Route: IVPB; Infused Over: 1 hrs; Site: right [facility] antecubital; 22:44 Follow up: Response: No adverse reaction; IV Status: Completed infusion; IV Intake: eh3 100ml Disposition Summary: 11/05/22 21:18 Discharge Ordered Location: Home snw Condition: Stable snw Diagnosis - Constipation snw - Low back pain snw Followup: snw - With: Emergency Department - When: As needed - Reason: Worsening of condition Followup: snw - With: Private Physician - When: 2 - 3 days - Reason: Recheck today's complaints, Continuance of care, Re-evaluation by your physician Discharge Instructions: - Discharge Summary Sheet snw - Constipation, Adult snw - High-Fiber Diet snw - Rehydration, Adult snw Forms: - Medication Reconciliation Form snw - Thank You Letter snw - Antibiotic Education snw - Prescription Opioid Use snw Prescriptions: - simethicone - take 210 milligram by ORAL route 1-3 times daily; 1 box; Refills: 0, Product snw Selection Permitted - Lactulose 10 gram/15 mL Oral Solution - take 30 milliliters by ORAL route once daily prn constipation; 300 milliliter; snw Refills: 0, Product Selection Permitted Signatures: Dispatcher [employer] EDMS Alanna Cosby, INSPECTOR WATCH ASSEMBLY-C INSPECTOR WATCH ASSEMBLY-Csnw Dari Christie RN RN Chloe Mendez RN RN eh3 Corrections: (The following items were deleted from the chart) 20:03 20:03 Pelvic Exam Setup ordered. snw snw
[2022-11-05] MEDS ORDERED: BISACODYL 10 MG RECTAL SUPP ONE (21:34)
[2022-11-05] MEDS ORDERED: BISACODYL E.C. 5 MG TAB PO ONE (21:34)
[2022-11-05] MEDS ORDERED: SIMETHICONE 80 MG TAB ONE (21:34)
[2022-11-05] MEDS ORDERED: MAGNESIUM SULFATE 1 gm IVPB 1 GM/100 ML BAG IV ONE (21:34)
[2022-11-05 23:51] VITALS: TEMP 98.7
[2022-11-05 23:52] VITALS: BP 114/63; O2SAT 100
== END 2022-11-05 22:44 | disposition home or self-care (01) ==
LOC: ER 18:06
DX: K59.00 Constipation, unspecified (principal); M54.50 Low back pain, unspecified; F17.210 Nicotine dependence, cigarettes, uncomplicated; Z20.822 Contact with and (suspected) exposure to COVID-19; Z88.0 Allergy status to penicillin; Z88.5 Allergy status to narcotic agent
CPT/HCPCS: 96365; 96361; 87040 ×2; 87088; 85025; 87086; 80048; 36415; 83605; 84145; 0240U; 74177; 96375; 99284; Q9967; J3010; J3475; J7030; 81003; 81015

== ENCOUNTER 2022-11-22 20:34 | Emergency (ER) | payer OTHER ==
--- OUTSIDE RECORDS SUMMARY | 2022-11-22 20:42 | XMS REPORT | Continuity of Care Document ---
:2000 Author Organization [facility] [place] [facility] t Address [address] [place] [address] Care Team Providers Name Role Phone Asked, No Pcp Primary Care Physician Unavailable Lucina Wood MD Attending Clinician LUCINA WOOD Attending Clinician Unavailable Doctor Unassigned, [place] Attending Clinician Unavailable MANOJ GUTHRIE Attending Clinician Unavailable 2, [facility] Attending Clinician Unavailable Giovanny Foster PA-C Attending Clinician GIOVANNY FOSTER Attending Clinician Unavailable Junito Garcia Attending Clinician Junito HURLEY Attending Clinician Unavailable MARK BREWER Attending Clinician Unavailable Deedee Coker MD Attending Clinician [phone] Mar Peters MD Attending Clinician Mark Brewer MD Attending Clinician Rajesh Lowry MD Attending Clinician Didi Cuenca MD Attending Clinician [phone] Kia Ellis MD Attending Clinician Rob Granger Attending Clinician Unavailable Lia Chanel MD Attending Clinician MD GEOFF ADAMS Attending Clinician UnavailGEOFF Arnold Attending Clinician Unavailable MAR PETERS Admitting Clinician Unavailable Physician, No Primary or Family Admitting Clinician UnavailBLAKE Henry Admitting Clinician Unavailable Payers Payer Name Policy Type Policy Number Effective Date Expiration Date Tish hewitt MEDICAID COMM [id number] 2019 HEALTH CHOICE 00:00:00 Problems Condition Condition Condition Status Onset Resolution Last Treating Co mments Source Name Details Category Date Date Treatment Clinician Date Nexplanon Nexplanon Disease Active Uni vers in place in place 11-17 ity of 00:00: [place] 00 [facility] Branch Intentiona Intentiona Disease Active 2020-[address] [facility], overdose, 00[facility]00: Medi ty initial initial 00 Center encounter encounter No known No known Disease Unive rs active active ity of problems problems [facility] Allergies, Adverse Reactions, Alerts Allergy Allergy Status Severity Reaction(s) Onset Inactive Treating Comm ents Source Name Type Date Date Clinician CODEINE DRUG Active N/V Univers INGREDI 1-27 ity of 00:00: 00 Medical Branch PENICILL Drug Active Hives Univers INS Class 1-27 ity of 00:00: 00 Medical Branch Codeine Propensi Active Nausea 0 Univers ty to and/or 1-27 ity of adverse Vomiting 00:00: [place] reaction 00 Medical s Branch Penic[place] Propensi Active Hives Univer s ins ty to 1-27 ity of adverse 00:00: [place] reaction 00 Medical s Branch PENICILL [facility]ergy Active [facility] [place] Propensi Active [facility] ty to 2[facility] adverse 00:00: Medical reaction 00 Center s CODEINE Allergy Active [facility] 00:[facility]: Medical 00 Center Codeine Propensi Active [address] [facility] ty to 2-19 [facility] adverse 00:00: Medical reaction 00 Center s Penic[place] Propensi Active [facility] to 2[facility] [...] s to drug Penic[place] DA Active U 2019[facility] [place] [facility] [place] codeine DA Active U 2019-0 [facility] [place] [facility] 00 [facility] [place] Penicill DA Active U RASH 2019-0 [facility] 10[facility]29 [place] 00:[facility]: [facility] 00 are [place] codeine DA Active U RASH 2019-0 [facility] [place] [facility] 00 are [place] NO KNOWN Drug Active Univers ALLERGIE Class ity of S [facility] Social History Social Habit Start Date Stop Date Quantity Comments Source History of Cigarette Smoker Universi ty of tobacco use [facility] Exposure to 2022-11-07 2022-11-17 Not sure University of SARS-CoV-2 00:00:00 14:32:00 [facility] (event) Branch Tobacco use and 2022-11-08 2022-11-08 Smokeless tobacco Un iversity of exposure 00:00:00 00:00:00 non-user [facility] Alcohol intake 2021-03-23 2021-03-23 [facility]00 of [facility] (finding) Sex Assigned At [birth year] [facility] 00:00:00 00:00:00 Smoking Status Start Date Stop Date Source Tobacco smoking consumption [facility] unknown Smokes tobacco daily 2022-11-08 00:00:00 [facility] ity of [facility] Medications Ordered Filled Start Stop Current Ordering Indication Dosage Frequency Signature Comments Components Source Medication Medication Date Date Medication? Clinician (SIG) Name Name etonogestre 2022- No [id number] 68mg Univers L 2-10 02-10 ity of (NEXPLANON) 01:00: 00:09 [place] implant 68 00 :00 Medical Branch etonogestre 2022- No [id number] 68mg 68 mg, Univers L 2-10 02-10 Subdermal, ity of (NEXPLANON) 01:00: 00:09 ONCE NOW, [place] implant 68 00 :00 1 dose, On Med ical mg Ankita 11/17/22 Branch at 1900, Routine
Use approved by: DREDGEMASTER etonogestre 2022- No [id number] 68mg Univers L 2-10 -10 ity of (NEXPLANON) 01:00: 00:09 [place] implant 68 00 :00 Medical mg Branch etonogestre 2022- No [id number] 68mg 68 mg, Univers L 2-10 -10 Subdermal, ity of (NEXPLANON) 01:00: 00:09 ONCE NOW, [place] implant 68 00 :00 1 dose, On Med ical mg [facility] 11/17/22 Branch at 1900, Routine
Use approved by: DREDGEMASTER miSOPROStoL Yes [id number] Take one Univers 200 mcg 1-31 tablet ity of tablet 00:00: night [place] 00 before Medical procedure, Branch then take one tablet morning of procedure miSOPROStoL 0 Yes [id number] Take one Univers 200 mcg 1-31 tablet ity of tablet 00:00: night [place] 00 before Medical procedure, Branch then take one tablet morning of procedure miSOPROStoL 2022-0 Yes [id number] Take one Univers 200 mcg 1-31 tablet ity of tablet 00:00: night [place] 00 before Medical procedure, Branch then take one tablet morning of procedure miSOPROStoL 0 Yes [id number] Take one Univers 200 mcg 1-31 tablet ity of tablet 00:00: night [place] 00 before Medical procedure, Branch then take one tablet morning of procedure miSOPROStoL 0 2022- No [id number] Take one Univers 200 mcg 1-31 -09 tablet ity of tablet 00:00: 00:00 night [place] 00 :00 before Medical procedure, Branch then take one tablet morning of procedure miSOPROStoL 2022-0 2022- No [id number] Take one Univers 200 mcg 1-31 -09 tablet ity of tablet 00:00: 00:00 night [place] 00 :00 before Medical procedure, Branch then take one tablet morning of procedure methylpredn 2022- No 125mg 125 mg, U nivers isolone sod 11-04 Intramuscu i ty of succ 23:30: 22:26 lar, ONCE, [place] (SOLU-MEDRO 00 :00 1 dose, On Me dical L) Fri Branch injection 11/04/22 at 125 mg 1730, XENIA predniSONE 2022-0 Yes [id number] 1 PO BID x Univers 20 mg 11-04 [id number] 4 days ity of tablet 00:00: [place] [facility] predniSONE 3-0 Yes [id number] 1 PO BID x Univers 20 mg 11-04 [id number] 4 days ity of tablet 00:00: [place] [facility] predniSONE 2023-0 Yes [id number] 1 PO BID x Univers 20 mg 11-04 [id number] 4 days ity of tablet 00:00: [place] [facility] predniSONE 3-0 Yes [id number] 1 PO BID x Univers 20 mg 11-04 [id number] 4 days ity of tablet 00:00: [place] [facility] predniSONE 3-0 Yes [id number] 1 PO BID x Univers 20 mg 11-04 [id number] 4 days ity of tablet 00:00: [place] [facility] predniSONE 2023-0 Yes [id number] 1 PO BID x Univers 20 mg 11-04 [id number] 4 days ity of tablet 00:00: [place] [facility] predniSONE 2023-0 Yes [id number] 1 PO BID x Univers 20 mg 11-04 [id number] 4 days ity of tablet 00:00: Medical Branch predniSONE 2023-0 202- No [id number] 1 PO BID x Univers 20 mg 11-04 [id number] 4 days ity of tablet 00:00: 00:00 [place] 00 Medical Branch predniSONE 2023-0 2023- No [id number] 1 PO BID x Univers 20 mg 11-04 [id number] 4 days ity of tablet 00:00: 00:00 [place] 00 :00 Medical Branch guaiFENesin 2021-2021- No 200mg Take [address] (ROBITUSSIN 10-19 mLs (200 [facility] ) 100 mg/5 00:00: 23:59 mg total) M edical mL syrup 00 :00 by mouth Center every 4 (four) hours as needed for Congestion for up to 10 days. guaiFENesin 2021-2021- No 200mg Take [address] (ROBITUSSIN 1-11 01-21 mLs (200 [facility] ) 100 mg/5 00:00: 23:59 mg total) M edical mL syrup 00 :00 by mouth Center every 4 (four) hours as needed for Congestion for up to 10 days. clindamycin 2021- No 300mg Q.[id number] Take [address] (CLEOCIN) 10-11 [id number] mg by Edna kes 300 MG 18:03: 00:00 3D mouth 3 Medical capsule 36 :00 (three) Center times daily. traMADoL 2021- No 50mg Take [address] (ULTRAM) 50 10-11 by mouth [facility] mg tablet 18:03: 00:00 every 6 Medi ty 36 :00 (six) Center hours as needed for Pain. methylPREDN 2021- No 2mg QD Take [address] ISolone 10-11 by mouth [facility] (MEDROL) 2 18:03: 00:00 daily. Medi ty MG tablet 36 :00 Center ibuprofen 2021- No 400mg Take [address] (ADVIL,MOTR 10-11 mg by [facility] [place]) 400 MG 18:03: 00:00 mouth Medic al tablet 36 :00 every 6 Center (six) hours as needed for Pain. clindamycin 2021- No 300mg Q.[id number] Take [address] (CLEOCIN) 10-11 [id number] mg by Edna kes 300 MG 18:03: [...] [facility] (ADVIL,MOTR 10-11 mg by [facility] [place]) 400 MG 18:03: 00:00 mouth Medic al tablet 36 :00 every 6 Center (six) hours as needed for Pain. lidocaine-d 2021- No 10mL Take [address] iphenhyd-Al 03-23 mLs by [facility] -mag-sim 00:00: 00:00 mouth Medical 200-25-400- 00 :00 every 6 Cente r 40 mg/30 mL (six) Mwsh hours as needed Swish and spit every 6 hours as needed for pain. lidocaine-d No 10mL Take [address] iphenhyd-Al 03-23 mLs by [facility] -mag-sim 00:00: 00:00 mouth Medical 200-25-400- 00 :00 every 6 Cente r 40 mg/30 mL (six) Mwsh hours as needed Swish and spit every 6 hours as needed for pain. metroNIDAZO 2020- No 500mg Q.[id number] Take [address] LE (FLAGYL) 03-23 [id number] tablet [facility] 500 MG 00:00: 23:59 3D (500 mg Medical tablet 00 :00 total) by Center mouth 3 (three) times daily for 10 days. metroNIDAZO 2020- No 500mg Q.[id number] Take [address] [facility] (FLAGYL) 03-23 [id number] tablet [facility] 500 MG 00:00: 23:59 3D (500 mg Medical tablet 00 :00 total) by Center mouth 3 (three) times daily for 10 days. ketorolac 2020- No 10mg Take 1 [facility] (TORADOL) 11-27-24 tablet (10 [facility] 10 mg 00:00: 23:59 mg total) Medica l tablet 00 :00 by mouth Center every 6 (six) hours as needed for Pain for up to 5 days. ketorolac 2020- No 10mg Take 1 [facility] (TORADOL) 11-27-24 tablet (10 [facility] 10 mg 00:00: 23:59 mg total) Medica l tablet 00 :00 by mouth Center every 6 (six) hours as needed for Pain for up to 5 days. Immunizations Ordered Immunization Filled Immunization Date Status Commen ts Source Name Name PFIZER COVID-19 MRNA 2021-10-27 Completed Meth odist VACCINATION 00:00:00 [facility] PFIZER COVID-19 MRNA 2021-10-27 Completed Meth odist VACCINATION 00:00:00 [facility] PFIZER COVID-19 MRNA 2021-10-27 Completed Meth odist VACCINATION 00:00:00 [facility] PFIZER COVID-19 MRNA 2021-10-27 Completed Meth odist VACCINATION 00:00:00 Hospital Vital Signs Vital Name Observation Time Observation Value Comments Source Systolic blood 2022-11-17 20:53:00 115 mm[Hg] Univer [facility]ity [facility] Diastolic blood 2022-11-17 20:53:00 76 mm[Hg] [facility] Heart rate 2022-11-17 20:53:00 92 /min Universi ty [facility] Body temperature 2022-11-17 20:53:00 36.83 Bhumi [facility] Body height 2022-11-17 20:53:00 165.1 cm Universi ty of [place] [facility] [place] Body weight 2022-11-17 20:53:00 60.419 kg Universi ty [facility] BMI 2022-11-17 20:53:00 22.17 kg/m2 Universi ty [facility] Systolic blood 2022-11-16 17:03:00 111 mm[Hg] Univer sity of pressure [facility] Diastolic blood 2022-11-16 17:03:00 77 mm[Hg] Unive rsity of [facility] Heart rate 2022-11-16 17:03:00 67 /min Universi ty of [facility] Body temperature 2022-11-16 17:03:00 36.72 Bhumi [facility] height 2022-11-16 17:03:00 165.1 cm Universi ty of [facility] Body weight 2022-11-16 17:03:00 59.058 kg Universi ty of [facility] BMI 2022-11-16 17:03:00 21.67 kg/m2 Universi ty [facility] Systolic blood 2022-11-08 15:28:00 109 mm[Hg] Univer sity of pressure [place] [facility] Diastolic blood 2022-11-08 15:28:00 72 mm[Hg] Unive rsity of pressure [place] [facility] Heart rate 2022-11-08 15:28:00 62 /min Universi ty of [facility] Body temperature 2022-11-08 15:28:00 36.89 Bhumi Univ ersity of [facility] Branch Respiratory rate 2022-11-08 15:28:00 18 /min Univ ersity of [facility] Body height 2022-11-08 15:28:00 165.1 cm Universi ty [facility] [place] [facility] [place] Body weight 2022-11-08 15:28:00 61.236 kg Universi ty of [place] [facility] BMI 2022-11-08 15:28:00 22.47 kg/m2 Universi ty of [facility] Branch Systolic blood 2022-11-04 21:31:00 130 mm[Hg] Univer sity of pressure [facility] Diastolic blood 2022-11-04 21:31:00 88 mm[Hg] Unive rsity of pressure [facility] Heart rate 2022-11-04 21:31:00 107 /min Universi ty [facility] [place] [facility] [place] Body temperature 2022-11-04 21:31:00 37 Bhumi Univ ersity of [facility] Respiratory rate 2022-11-04 21:31:00 16 /min Univ ersity of [facility] Body height 2022-11-04 21:31:00 165.1 cm Universi ty of [place] [facility] [place] Body weight 2022-11-04 21:31:00 61.236 kg Universi ty of [place] [facility] [place] BMI 2022-11-04 21:31:00 22.47 kg/m2 Universi ty of [facility] Oxygen saturation in 2022-11-04 21:31:00 100 /min [facility] Arterial blood by [facility] Pulse oximetry Branch HEIGHT 2021-10-01 06:38:00 167.6 cm WEIGHT 2021-10-01 [...] kg Systolic blood 2021-10-19 09:08:00 98 mm[Hg] [facility] Diastolic blood 2021-10-19 09:08:00 62 mm[Hg] [facility] Heart rate 2021-10-19 09:08:00 85 /min [facility] Body temperature 2021-10-19 09:08:00 36.67 Bhumi [facility] Respiratory rate 2021-10-19 09:08:00 16 /min [facility] Oxygen saturation in 2021-10-19 09:08:00 100 /min [facility] Arterial blood by Medical Ce nter Pulse oximetry BMI 2021-10-01 06:38:00 24.00 kg/m2 [facility] Body height 2021-10-01 06:38:00 167.6 cm [facility] Body weight 2021-10-01 06:38:00 67.45 kg [facility] Procedures Procedure Date / Time Performing Clinician Source Performed POCT TEST 2022-11-17 00:00:00 Lucina Wood [facility] DISCLOSURE AND CONSENT, 2022-11-16 06:01:00 Doctor Unassigned, [facility] MEDICAL AND SURGICAL [place] [facility] PROCEDURES POCT TEST 2022-11-16 00:00:00 Lucina Wood [facility] CONSENT/REFUSAL FOR 2022-11-04 21:27:37 Doctor Unassigned, [facility] DIAGNOSIS AND TREATMENT [place] [facility] SARS-COV2/RT-PCR ([facility] & 2021-10-13 16:50:00 Mark Brewer [facility] REF LABS) Center BASIC METABOLIC PANEL (7) 2021-10-11 06:06:00 Charly Baeza [facility] C-REACTIVE PROTEIN 2021-10-11 06:06:00 [facility] CBC W/PLT COUNT & AUTO 2021-10-11 06:06:00 FelishaCharly [facility] DIFFERENTIAL [place] D-DIMER 2021-10-11 06:06:00 [facility] PROCALCITONIN 2021-10-11 06:06:00 [facility] CBC W/PLT COUNT & AUTO 2021-10-11 06:06:00 [facility] CHEST 1 VIEW PORTABLE 2021-10-11 00:28:00 [facility] / BEDSIDE Center SARS-COV2/RT-PCR ([facility] & 2021-10-10 12:15:00 Rajesh Lowry [facility] REF LABS) [facility] CBC W/PLT COUNT & AUTO 2021-10-08 04:15:00 [facility] BASIC METABOLIC PANEL (7) 2021-10-08 04:15[facility] CBC W/PLT COUNT & AUTO 2021-10-08 04:15:00 [facility] SARS-COV2/RT-PCR ([facility] & 2021-10-07 10:31:00 Felisha [facility] REF LABS) [place] CBC W/PLT COUNT & AUTO 2021-10-07 04:18:00 BrewerMark [facility] BASIC METABOLIC PANEL (7) 2021-10-07 04:18:00 [facility] PROCALCITONIN 2021-10-07 04:18:00 [facility] [place] D-DIMER 2021-10-07 04:18:00 [facility] [place] C-REACTIVE PROTEIN 2021-10-07 04:18:00 [facility] CBC W/PLT COUNT & AUTO 2021-10-07 04:18:00 [facility] (MANUAL DIFFERENTIAL) 2021-10-07 04:18:00 [facility] XR CHEST 1 VIEW PORTABLE 2021-10-07 00:39:00 [facility] / BEDSIDE [place] CBC W/PLT COUNT & AUTO 2021-10-06 03:34:00 [facility] BASIC METABOLIC PANEL (7) 2021-10-06 03:34:00 [facility] CBC W/PLT COUNT & AUTO 2021-10-06 03:34:00 [facility] PROTHROMBIN TIME/INR 2021-10-05 03:33:00 [facility] PROCALCITONIN 2021-10-05 03:32:00 [facility] [place] C-REACTIVE PROTEIN 2021-10-05 03:32:00 [facility] COMPREHENSIVE METABOLIC 2021-10-05 03:32:00 [facility] PANEL Center CBC W/PLT COUNT & AUTO 2021-10-05 03:32:00 [facility] ACETAMINOPHEN LEVEL 2021-10-05 03:32:00 [facility] CBC W/PLT COUNT & AUTO 2021-10-05 03:32:00 [facility] XR CHEST 1 VIEW PORTABLE 2021-10-05 00:21:00 [facility] / BEDSIDE Center HEPATIC FUNCTION PANEL 2021-10-04 16:28:00 Brewer [facility] PROTHROMBIN TIME/INR 2021-10-04 16:28:00 [facility] CBC W/PLT COUNT & AUTO 2021-10-04 01:22:00 AgustinKell [facility] HEPATIC FUNCTION PANEL 2021-10-04 01:22:00 Canelo [facility] PROTHROMBIN TIME/INR 2021-10-04 01:22:00 [facility] BASIC METABOLIC PANEL (7) 2021-10-04 01:22:00 Charly Baeza [facility] CBC W/PLT COUNT & AUTO 2021-10-04 01:22:00 [facility] [place] ACETAMINOPHEN LEVEL 2021-10-04 00:07:00 [facility] POCT-GLUCOSE METER 2021-10-03 16:36:00 [facility] BASIC METABOLIC PANEL (7) 2021-10-03 08:37:00 [facility] ACETAMINOPHEN LEVEL 2021-10-03 08:37:00 [facility] POCT-GLUCOSE METER 2021-10-03 08:30:00 [facility] CBC W/PLT COUNT & AUTO 2021-10-03 06:11:00 [facility] CBC W/PLT COUNT & AUTO 2021-10-03 06:11:00 [facility] [place] POCT-GLUCOSE METER 2021-10-02 23:54:00 [facility] ACETAMINOPHEN LEVEL 2021-10-02 14:47:00 [facility] SPUTUM CULTURE + GRAM 2021-10-02 12:22:00 [facility] CBC W/PLT COUNT & AUTO 2021-10-02 03:05:00 Santana [facility] PT/APTT 2021-10-02 03:05:00 Felisha [facility] CBC W/PLT COUNT & AUTO 2021-10-02 03:05:00 Santana [facility] COMPREHENSIVE METABOLIC 2021-10-02 02:20:00 Santana, [facility] ACETAMINOPHEN LEVEL 2021-10-02 02:20:00 Felisha Ch[facility] HEPATIC FUNCTION PANEL 2021-10-02 02:20:00 Felisha [facility] APTT 2021-10-01 21:04:00 rinku, [facility] PROTHROMBIN TIME/INR 2021-10-01 21:04:00 rinku, [facility] METABOLIC 2021-10-01 16:31:00 rinku, [facility] PROTHROMBIN TIME/INR 2021-10-01 16:31:00 [facility], [facility] APTT 2021-10-01 16:31:00 rinku, [facility] METABOLIC 2021-10-01 10:11:00 [facility], [facility] PROTHROMBIN TIME/INR 2021-10-01 10:11:00 [facility], [facility] APTT 2021-10-01 10:11:00 rinku, [facility] PT/APTT 2021-10-01 05:56:00 Lytwcathleen [facility] ACETAMINOPHEN LEVEL 2021-10-01 05:56:00 Lyt[place], [facility] ECG 12-LEAD 2021-10-01 02:36:21 [place], [facility] ECG 12-LEAD 2021-10-01 02:36:21 Unknown, [facility] ED ECG INTERPRETATION 2021-10-01 02:36:00 Sheela [facility] XR CHEST 1 VIEW PORTABLE 2021-10-01 02:35:00 Sheela [facility] / BEDSIDE [facility] RAPID DRUG SCREEN, URINE 2021-10-01 02:26:00 Sheela, [facility] SARS-COV2/RT-PCR ([facility] & 2021-10-01 02:22:00 Sheela [facility] REF LABS) [facility] CRITICAL CARE 2021-10-01 02:17:39 Tessytserg [facility] INSERT EMERGENCY 2021-10-01 02:15:00 Sheela [facility] ENDOTRACH AIRWAY [facility] BASIC METABOLIC PANEL (7) 2021-10-01 02:14:[address] [facility] HEPATIC FUNCTION PANEL 2021-10-01 02:14:00 Sheela [facility] CBC W/PLT COUNT & AUTO 2021-10-01 02:14:00 Sheela [facility] DIFFERENTIAL [facility] TROPONIN I 2021-10-01 02:14:00 Juanpablocathleen, [facility] ACETAMINOPHEN LEVEL 2021-10-01 02:14:[address] [facility] HCG, SERUM, QUALITATIVE 2021-10-01 02:14:00 Tessytserg [facility] MAGNESIUM 2021-10-01 02:14:00 Lytserg [facility] HEMOGLOBIN A1C 2021-10-01 02:14:00 [facility] W/[facility]T COUNT & AUTO 2021-10-01 02:14:00 [facility] DI[facility] REPORT OF PROCEDURE - 2021-10-01 00:00:00 Provider, [facility] ENDOSCOPY SCAN Scanning Center CT ABDOMEN/PELVIS WITH IV 2020-11-27 21:25:00 Lia Chanel [facility] CONTRAST Center CBC W/PLT COUNT & AUTO 2020-11-27 19:59:00 [facility] [place] COMPREHENSIVE METABOLIC 2020-11-27 19:59:00 [facility] LIPASE 2020-11-27 19:59:00 [facility] URINALYSIS W/ REFLEX 2020-11-27 19:59:00 [facility] URINE CULTURE Center SCREEN, URINE 2020-11-27 19:59:00 [facility] CBC W/PLT COUNT & AUTO 2020-11-27 19:59:00 [facility] Plan of Care Planned Activity Planned Date Details Comments Source Future Scheduled 2022-11-05 [facility] Test 18:13:09 Chlamydia trachomatis (procedure) [code = 428748703] Future Scheduled 2022-11-[address] [facility] Test 18:13:09 (procedure) [code = 134670436] Future Scheduled 2022-11-05 [facility] Test 18:13:09 malignant neoplasm of cervix (procedure) [code = [id number]] Future Scheduled 2022-11-05 COVID-19 VACCINE (4 - [facility] Test 18:13:09 Booster for Moderna series) [code = COVID-19 VACCINE (4 - Booster for Moderna series)] Future Scheduled 2022-11-05 INFLUENZA VACCINE [facility] 18:13:09 [code = INFLUENZA VACCINE] Future Scheduled 2022-11-05 COVID-19 VACCINE (4 - [facility] Test 18:13:09 Booster for Moderna series) [code = COVID-19 VACCINE (4 - Booster for [employer] series)] Future Scheduled 2022-11-05 [facility]INE [facility] 18:13:09 [code = INFLUENZA VACCINE] Future Scheduled 2022-11-05 [facility] 18:13:09 Chlamydia trachomatis (procedure) [code = 649146956] Future Scheduled 2022-11-[address] [facility] Test 18:13:09 (procedure) [code = 469703713] Future Scheduled 2022-11-05 [facility] Test 18:13:09 malignant neoplasm of cervix (procedure) [code = 732456547] Future Scheduled 2022-10-[address] [facility] Test 00:00:00 (12+) [code = Medical Center DEPRESSION SCREENING (12+)] Future Scheduled 2022-10-[address] [facility] Test 00:00:00 (12+) [code = Medical Center DEPRESSION SCREENING (12+)] Future Scheduled 2022-06-09 INFLUENZA VACCINE (#1) [facility]:00[facility]00 [code = INFLUENZA Medical Ce nter VACCINE (#1)] Future Scheduled 2022-06-09 INFLUENZA VACCINE (#1) [facility] 00:00:00 [code = INFLUENZA Medical Ce nter VACCINE (#1)] Future Scheduled 2021-11-17 CHLAMYDIA SCREENING [facility] Test 12:54:10 [code = CHLAMYDIA SCREENING] Future Scheduled 2021-11-17 Hepatitis C screening [facility] Test 12:54:10 (procedure) [code = 598489945] Future Scheduled 2021-11-17 [facility] 12:54:10 malignant neoplasm of cervix (procedure) [code = 454212184] Future Scheduled 2021-11-17 [facility]INE [facility] 12:54:10 [code = INFLUENZA VACCINE] Future Scheduled 2021-10-27 CHLAMYDIA SCREENING [facility] Test 14:35:30 [code = CHLAMYDIA SCREENING] Future Scheduled 2021-10-27 Hepatitis C screening [facility] Test 14:35:30 (procedure) [code = 370351384] Future Scheduled 2021-10-27 [facility] Test 14:35:30 malignant neoplasm of cervix (procedure) [code = 278156191] Future Scheduled 2021-10-27 INFLUENZA VACCINE Method ist [...] [facility]ica l Center cervix (procedure) [code = 927024201] Future Scheduled [address] [facility] 00[facility]00 malignant neoplasm of [facility] cervix (procedure) [code = 847489338] Future Scheduled [address] [facility] Test 00:00:00 malignant ne[facility] of [facility] cervix (procedure) [code = 863324430] Future Scheduled [address] [facility] Test 00:00:00 malignant neoplasm of [facility] cervix (procedure) [code = 599396805] Future Scheduled [address] [facility] Test 00:[facility]:00 (procedure) [code = [facility] 46742955] Future Scheduled [address] [facility] Test 00:00:00 (procedure) [code = [facility] 83988070] Future Scheduled [address] [facility] Test 00:00:00 (procedure) [code = [facility] 43697882] Future Scheduled [address] [facility] Test 00:00:00 (procedure) [code = [facility] 54928626] Future Scheduled 2016 HEPATITIS C SCREENING CH [...] Cessation Counseling and Screening (12+)] Future Scheduled [address] [...] 0-64 YRS (1 - PCV)] Future Scheduled [address] [...] = COVID-[address] VACCINE (#1)] Future Scheduled 1999-03-10 COVID-19 VACCINE (#1[facility] 00:00[facility]00 [code = COVID-[address] VACCINE (#1)] Encounters Start End Encounter Admission Attending Care Care Encounter Source Date/Time Date/Time Type Type Clinicians Facility Department ID 2022-11-18 2022-11-18 Telephone Lucina Wood [id number] Univers 00:00:00 00:00:00 [place] 350.1.13.10 [place] [id number] Ar dicor NAL [address] [place] [address] 2022-11-17 2022-11-17 Office Lucina Wood OHALIX 1.2.097.126 [id number] Univers 15:00:00 16:22:05 Visit Cam [place] 350.1.13.10 [place] [phone] [address] 2022-11-17 2022-11-17 Outpatient R LUCINA WOOD [facility] [id number] Univers 15:00:00 16:22:05 ity [facility] 2022-11-16 2022-11-16 Office Lucina Wood OHAL[place] [id number] Univers 10:30:00 11:00:00 Visit Cam [place] 350.1.13.10 [place] [id number] [address] 2022-11-16 2022-11-16 Outpatient R LUCINA WOOD [facility] [id number] Univers 10:30:00 10:30:00 ity [facility] 2022-11-16 2022-11-16 Orders Doctor HERVE 1.2.840.114 [id number] Univers 00:00:00 00:00:00 Only Unassigned, JIMENA 350.1.13.10 [facility] 4.2.7.2.686 [place] [phone] [facility] [address] 2022-11-11 2022-11-11 Outpatient Patel GUTHRIE [facility] [id number] Univers 13:00:00 13:00:00 MANOJ ity of [facility] 2022-11-08 2022-11-08 [employer] Unit Leader 2, Adc Lab [facility] 1.2.840.114 [id number] Univers 10:30:00 10:45:00 Visit Giovanny Foster 350.1.13.10 [place] [phone] Ar dical [facility] [address] [facility] 2022-11-08 2022-11-08 Office Cristian [facility] 1.2.165.286 [id number] Univers 09:30:00 10:17:09 Visit Giovanny [place] 350.1.13.10 [place] [id number] Ar dical NAL [address] [facility] 2022-11-08 2022-11-08 Outpatient R CRISTIAN [facility] [id number] Univers 09:30:00 10:17:09 GIOVANNY ity [facility] 2022-11-04 2022-11-04 Emergency Junito Hurley [facility] 1.2.840.114 [id number] Univers 15:33:00 17:01:00 Nicky [place] 350.1.13.10 [place] [phone] [facility] [address] 2022-11-04 2022-11-04 Emergency X Junito HURLEY [facility] ERT [id number] Univers 15:33:00 17:01:00 ity of [facility] 2021-10-27 2021-10-27 Clinical 1.2.840.1 [id number] Methodi 14:24:37 14:29:[address] 3.430.2.7 Hospit a .3.219304 l .8 2021-10-27 2021-10-27 Travel 1.2.840.1 [id number] [id number] Methodi 00:00:00 00:00:[address] 3.430.2.7 0.2.7.3.698 Ho spita .3.841841 084.8 l .8 2021-10-01 2021-10-19 Inpatient ER MARK BREWER [facility] Emergency 20 [id number] [facility] 02:00:00 14:25:00 2021-10-01 2021-10-19 Hospital ER Deedee Coker [facility] [id number] 02:00[facility] 14:25:00 Encounter [facility] Didi Cuenca 2021-10-01 2021-10-[address] [facility] [id number] [facility] 00[facility]00 [facility] 2021-10-01 2021-10-[address] [facility] [id number] 00:00:00 00:00:00 Only [facility] 2021-03-23 2021-03-23 Emergency Rhonda, [facility] [id number] 17:51:00 21:06:00 [facility] 2021-03-23 2021-03-23 Emergency ER [facility] Emergency [id number] [facility] 17:44:00 17:44:00 2021-03-22 2021-03-22 Emergency EM Elkin, BOOTB EO3 [id number] [facility] 06:35:00 07:10:[address] [place] [address] viji Torresball 2020-11-27 2020-11-27 Emergency ER Lia Chanel [facility] [id number] 21:57:00 23:07:00 [facility] 2020-11-27 2020-11-27 Emergency 1.2.840.1 [id number] Methodi 18:26:00 19:22:[address] 3.430.2.7 Hospit a .3.382581 l .8 2020-11-27 2020-11-27 Emergency ER SL Emergency [id number] [facility] 18:52:00 18:52:00 2020 2020-09-11 Inpatient HCANC RAMO [id number] [facility] 14:05:00 23:51:55 98 [facility] are [facility] 2020-08-22 2020-08-22 Emergency [place] [id number] [address] [place] [address] 00:00:00 00:00:00 GEOFF [facility] 2019-10-29 2019-10-31 Inpatient HCATB RAMO [id number] [facility] 22:53:00 23:23:55 61 [facility] are [facility] Results Test Description Test Time Test Comments Results Result Comments Source POCT TEST 2022-11-17 20:51:00 Test Item Value Reference Range Interpretation Comme nts POCT PREG (test code = 1605) Negative On board controls acceptable with C Line (test code = 3574) Yes POCT PREG LOT # (test code = 3575) POCT PREG TEST DATE (test code = 3576) [facility] [id number] 20:51:00 Test Item Value Reference Range Interpretation Comments POCT PREG (test code = 1605) Negative On board controls acceptable with C Yes Line (test code = 3574) POCT PREG LOT # (test code = 3575) POCT PREG TEST DATE (test code = 3576) [facility] [id number] 17:01:00 Test Item Value Reference Range Interpretation Comments POCT PREG (test code = 1605) Negative On board controls acceptable with C Yes Line (test code = 3574) POCT PREG LOT # (test code = 3575) POCT PREG TEST DATE (test code = 3576) [facility] [id number] 17:01:00 Test Item Value Reference Range Interpretation Comments POCT PREG (test code = 1605) Negative On board controls acceptable with C Yes Line (test code = 3574) POCT PREG LOT # (test code = 3575) POCT PREG TEST DATE (test code = 3576) [facility] (Asymptomatic ONLY)2021-10-14 10:23:00 Test Item Value Reference Interpretation Comments Range SARS-COV2/RT-PCR Positive Negative AA The SARS-Co V-2 (test code = target nucleic 42318-0) acids are detec rhett in this specime [...] revoked sooner. Fact Sheet for Healthcare Providers: https://www.GetMeMedia/Documents/Xp ert%20Xpress%20SAR S%20CoV-2/Fact%20S heets/302-3802%20S ARS-COV-2%20HEALTH CARE%20PROVIDERS%2 0FACT%20SHEET.pdf Fact Sheet for Healthcare Patients: https://www.GetMe[employer]/Documents/Xp ert%20Xpress%20SAR S%20CoV-2/Fact%20S heets/302-3801%20S ARS-COV-2%20PATIEN T%20FACT%20SHEET.p df Lab Interpretation Abnormal (test code = 76048-7) [facility]2021-10-14 10:23:00 Test Item Value Reference Interpretation Comments Range SARS-COV2/RT-PCR Positive Negative AA The SARS-Co V-2 (test code = target nucleic 19303-0) acids are detec rhett in this specime [...] revoked sooner. Fact Sheet for Healthcare Providers: https://www.GetMeMedia/Documents/Xp ert%20Xpress%20SAR S%20CoV-2/Fact%20S heets/302-3802%20S ARS-COV-2%20HEALTH CARE%20PROVIDERS%2 0FACT%20SHEET.pdf Fact Sheet for Healthcare Patients: https://www.[employer]MeMedia/Documents/Xp ert%20Xpress%20SAR S%20CoV-2/Fact%20S heets/302-3801%20S ARS-COV-2%20PATIEN T%20FACT%20SHEET.p df Lab Interpretation Abnormal (test code = 92671-0) [facility])2021-10-14 10:23:00 Test Item Value [...] individuals suspected of CO VID-19 by their [facility] e provider. Results from e Xpert Xpress [...] revoked sooner. Fact Sheet for Healthcare Providers: https://www.[employer]Re[employer] m/Documents/Xpert%20Xpress%20SARS%20CoV-2/Fact%20Sheets/302-3802%33MCLL-YPF-2%20 HEALTHCARE%20PROVIDERS%20FACT%20SHEET.pdf Fact Sheet for Healthcare Patients: https://www.[employer]/Documents/Xpert%20Xp ress%20SARS%20CoV-2/Fact%20Sheets/302-3801%64BBHA-OEW-7%20PATIENT%20FACT%20SHEET .uhoZctzqjhrdwicn3774-10-44 11:32:11 Test Item Value Reference Range Interpretation Comments Procalcitonin (test code = 0.06 ng/mL <0.05 H 60267-8) CHRISTIANA (test code = CHRISTIANA) SEPSIS RISK (ng/mL)Low: 0.05-0.50Intermedia te: 0.51-2.00High: >=2.01 Lab Interpretation (test Abnormal code = 01111-7) [facility] 11:32:11 Test Item Value Reference Range Interpretation Comments Procalcitonin (test code = 0.06 ng/mL <0.05 H 72035-3) CHRISTIANA (test code = CHRISTIANA) SEPSIS RISK (ng/mL)Low: 0.05-0.50Intermedia te: 0.51-2.00High: >=2.01 Lab Interpretation (test Abnormal code = 59607-4) [facility] CenterCqfpjjIXVPMGTFLYBRJ7448-85-00 11:32:11 Test Item Value Reference Range Interpretation Comments PROCALCITONIN (BEAKER) (test code 0.06 ng/mL <0.05 H = 3036) SEPSIS RISK (ng/mL)Low: 0.05-0.50Intermediate: 0.51-2.00High: >=2.01[facility] [id number] 06:56:17 Test Item Value Reference Range Interpretation Comments Sodium (test code = 141 meq/L 849-451 0942-2) Potassium (test code = 3.8 meq/L 3.6-5.5 2823-3) Chloride (test code = 108 meq/L 98-106 H 2075-0) CO2 (test code = 21 meq/L -2028-06) BUN (test code = 6 mg/dL 10-26 L 3094-0) Creatinine (test code 0.65 mg/dL 0.50-1.20 = 2160-0) Glucose (test code = 99 mg/dL 70-110 2345-7) Calcium (test code = 9.6 mg/dL 8.5-10.5 26262-1) EGFR (test code = 113 mL/min/1.73 [place] [address]-3) NOT ACCURATE CREATININE CLEARANCE IN PREDICTING GLOMERULAR FILTRATION RATE . ESTIMATED GFR I S NOT APPLICABLE FOR DIALYSIS PATIENTS. CHRISTIANA (test code = CHRISTIANA) Pattern Filer ID - NLYLE Lab Interpretation Abnormal (test code = 82492-5) [facility] [id number] 06:56:17 Test Item Value Reference Range Interpretation Comments Sodium (test code = 141 meq/L 813-359 7979-2) Potassium (test code = 3.8 meq/L 3.6-5.5 2823-3) Chloride (test code = 108 meq/L 98-106 H 2075-0) CO2 (test code = 21 meq/L -29 2028-9) BUN (test code = 6 mg/dL 10-26 L 3094-0) Creatinine (test code 0.65 mg/dL 0.50-1.20 = 2160-0) Glucose (test code = 99 mg/dL 70-110 2345-7) Calcium (test code = 9.6 mg/dL 8.5-10.5 34966-7) EGFR (test code = 113 mL/min/1.[place] [address]-0) NOT ACCURATE CREATININE CLEARANCE IN PREDICTING GLOMERULAR FILTRATION RATE . ESTIMATED GFR I S NOT APPLICABLE FOR DIALYSIS PATIENTS. CHRISTIANA (test code = CHRISTIANA) Pattern Filer ID - NLYLE Lab Interpretation Abnormal (test code = 69498-0) [facility]IC [id number] 06:56:17 Test Item Value Reference Range Interpretation [...] S NOT APPLICABLE FOR DIALYSIS PATIEN TS. Pattern Filer ID - NLYLEC-Reactive [id number] 06:51:44 Test Item Value Reference Range Interpretation Comments CRP (test code = 676) 0.28 mg/dL 0.00-1.00 CHRISTIANA (test code = CHRISTIANA) Pattern Filer ID - NLYLE Lab Interpretation (test Normal code = 43441-8) [facility] [id number] 06:51:44 Test Item Value Reference Range Interpretation Comments CRP (test code = 676) 0.28 mg/dL 0.00-1.00 CHRISTIANA (test code = CHRISTIAAN) Pattern Filer ID - NLYLE Lab Interpretation (test Normal code = 29768-4) [facility]REACTIVE [id number] 06:51:44 Test Item Value Reference Range Interpretation Comments C-REACTIVE PROTEIN (BEAKER) (test 0.28 mg/dL 0.00-1.00 code = 676) Pattern Filer ID - NRAUAV-[id number] 06:47:26 Test Item Value Reference Range Interpretation Comments D-Dimer, Quant (test 2.39 See_Comment H Final I nformation code = 48985-1) (Auto Output ) [Automated message] The system which generated this result transmitted reference range : <0.50 MG/L FEU. The reference range was not used to interpr et this result as normal/abnormal . CHRISTIANA (test code = REGARDING D-DIMER CHRISTIANA) RESULTS: The 98% NPV (Negative Predictive Value) for DVT/PE exclusion is 0.50 mg/L FEU as suggested by the laboratory tech and as approved by the FDA. Lab Interpretation Abnormal (test code = 56476-0) [facility]-ejpdf5841-84-29 06:47:26 Test Item Value Reference Range Interpretation Comments D-Dimer, Quant (test 2.39 See_Comment H Final I nformation code = 25416-8) (Auto Output ) [Automated message] The system which generated this result transmitted reference range : <0.50 MG/L FEU. The reference range was not used to interpr et this result as normal/abnormal . CHRISTIANA (test code = REGARDING D-DIMER CHRISTIANA) RESULTS: The 98% NPV (Negative Predictive Value) for DVT/PE exclusion is 0.50 mg/L FEU as suggested by the laboratory tech and as approved by the FDA. Lab Interpretation Abnormal (test code = 43718-2) [facility]-[id number] 06:47:26 Test Item Value Reference Range Interpretation Comments D-DIMER QUANTITATIVE 2.39 MG/L FEU <0.50 H Final Information (BEAKER) (test code = (Auto Output) 671) REGARDING D-DIMER RESULTS: The 98% NPV (Negative Predictive Value) for DVT/PE exclusion is 0.50 mg/LFEU as suggested by the laboratory tech and as approved by the FDA.CBC with platelet count + automated [id number] 06:38:04 Test Item Value Reference Range Interpretation Comments WBC (test code = 6690-2) 5.3 See_Comment [A utomated message] The system [employer] generated this result transmitted ref erence range: 4.0 - 10 .0 K/L. The refe rence range was not u sed to interpret this result as normal/abnor mal. RBC (test code = 789-8) 4.05 See_Comment [Au tomated message] The system [employer] generated this result transmitted ref erence range: 4.00 - 5 .00 M/L. The refe rence range was not u sed to interpret this result as normal/abnor mal. MCHC (test code = 786-4) 35.0 See_Comment [A utomated message] The system [employer] generated this result transmitted ref erence range: [...] H [Aut omated message] 777-3) The system [employer] generated this result transmitted ref erence range: 150 - 43 0 K/CU MM. The referen ce range was not u sed to interpret this result as normal/abnor mal. MPV (test code = 9.4 fL 6.0-11.5 10586-8) nRBC (test code = 413) 0 See_Comment [Aut omated message] The system [employer] generated this result transmitted ref erence range: [...] See_Comment [Aut omated message] 670) The system [employer] generated this result transmitted ref erence range: 1.80 - 8 .00 K/L. The refe rence range was not u sed to interpret this result as normal/abnor mal. # Lymphs (test code = 1.47 See_Comment L [Auto mated message] 414) The system [employer] generated this result transmitted ref erence range: 1.48 - 4 .50 K/L. The refe rence range was not u sed to interpret this result as normal/abnor mal. # Monos (test code = 0.58 See_Comment [Autom ated message] 415) The system [employer] generated this result transmitted ref erence range: 0.00 - 1 .30 K/L. The refe rence range was not u sed to interpret this result as normal/abnor mal. # Eos (test code = 416) 0.24 See_Comment [Au tomated message] The system [employer] generated this result transmitted ref erence range: 0.00 - 0 .50 K/L. The refe rence range was not u sed to interpret this result as normal/abnor mal. # Baso (test code = 417) 0.03 See_Comment [A utomated message] The system [employer] generated this result transmitted ref erence range: 0.00 - 0 .20 K/L. The refe rence range was not u sed to interpret this result as normal/abnor mal. Immature 2 % 0-0 H Granulocytes-Relative (test code = 2801) Lab Interpretation (test Abnormal code = 95468-0) [facility] with platelet count + automated [id number] 06:38:04 Test Item Value Reference Range Interpretation Comments WBC (test code = 6690-2) 5.3 See_Comment [A utomated message] The system [employer] generated this result transmitted ref erence range: 4.0 - 10 .0 K/L. The refe rence range was not u sed to interpret this result as normal/abnor mal. RBC (test code = 789-8) 4.05 See_Comment [Au tomated message] The system [employer] generated this result transmitted ref erence range: 4.00 - 5 .00 M/L. The refe rence range was not u sed to interpret this result as normal/abnor mal. MCHC (test code = 786-4) 35.0 See_Comment [A utomated message] The system [employer] generated this result transmitted ref erence range: [...] H [Aut omated message] 777-3) The system [employer] generated this result transmitted ref erence range: 150 - 43 0 K/CU MM. The referen ce range was not u sed to interpret this result as normal/abnor mal. MPV (test code = 9.4 fL 6.0-11.5 90525-8) nRBC (test code = 413) 0 See_Comment [Aut omated message] The system [employer] generated this result transmitted ref erence range: [...] See_Comment [Aut omated message] 670) The system [employer] generated this result transmitted ref erence range: 1.80 - 8 .00 K/L. The refe rence range was not u sed to interpret this result as normal/abnor mal. # Lymphs (test code = 1.47 See_Comment L [Auto mated message] 414) The system [employer] generated this result transmitted ref erence range: 1.48 - 4 .50 K/L. The refe rence range was not u sed to interpret this result as normal/abnor mal. # Monos (test code = 0.58 See_Comment [Autom ated message] 415) The system [employer] generated this result transmitted ref erence range: 0.00 - 1 .30 K/L. The refe rence range was not u sed to interpret this result as normal/abnor mal. # Eos (test code = 416) 0.24 See_Comment [Au tomated message] The system [employer] generated this result transmitted ref erence range: 0.00 - 0 .50 K/L. The refe rence range was not u sed to interpret this result as normal/abnor mal. # Baso (test code = 417) 0.03 See_Comment [A utomated message] The system [employer] generated this result transmitted ref erence range: 0.00 - 0 .20 K/L. The refe rence range was not u sed to interpret this result as normal/abnor mal. Immature 2 % 0-0 H Granulocytes-Relative (test code = 2801) Lab Interpretation (test Abnormal code = 54293-9) [facility] W/PLT COUNT & AUTO [id number] 06:38:04 Test Item Value Reference Range Interpretation [...] = 2801) RAD, CHEST, 1 VIEW, NON [id number] 03:14:00Reason for exam:- >PneumoniaShould this be performed at the bedside?->Yes [facility] 2000 Sex: FFINAL REPORT RAD, CHEST, 1 VIEW, NON DEPT INDICATION: Pneumonia COMPARISON: 10/07/2021 FINDINGS: Portable frontal view of the chest. IMPRESSION: Support Lines: None. Lungs and pleura: Lungs are clear. No pneumothorax. Heart and mediastinum: Stable contours. Additional findings: None. Signed: Stefanie Rodríguez MDReport Verified Date/Time: 10/11/2021 03:14:31 SARS-COV2/RT-PCR ([facility]) 2021-10-10 13:12:46 Test Item [...] revoked sooner. Fact Sheet for Healthcare Providers: https://www.[employer]Re[employer] m/Documents/Xpert%20Xpress%20SARS%20CoV-2/Fact%20Sheets/302-3802%48GCUS-BZJ-7%20 HEALTHCARE%20PROVIDERS%20FACT%20SHEET.pdf Fact Sheet for Healthcare Patients: https://www.[employer]/Documents/Xpert%20Xp ress%20SARS%20CoV-2/Fact%20Sheets/3023801%06LWQV-JNC-1%20PATIENT%20FACT%20SHEET .pdfARH [facility] W/PLT COUNT & AUTO [id number] 06:48:59 Test Item Value Reference Range Interpretation [...] = 2801) Occasional Reactive Lymphocytes seen.BASIC METABOLIC [id number] 04:55:13 Test Item Value Reference Range Interpretation [...] S NOT APPLICABLE FOR DIALYSIS PATIEN TS. Pattern Filer ID - [id number] 12:25:14 Test Item Value Reference Range Interpretation Comments PROCALCITONIN (MAXINEAKER) (test code 1.63 ng/mL <0.05 H = 3036) SEPSIS RISK (ng/mL)Low: 0.05-0.50Intermediate: 0.51-2.00High: >=2.01 SARS-COV2/RT-PCR ([facility])2021-10-07 12:02:11 Test Item Value [...] revoked sooner. Fact Sheet for Healthcare Providers: https://www.[employer] m/Documents/Xpert%20Xpress%20SARS%20CoV-2/Fact%20Sheets/302-3802%53ZNKA-AAC-1%20 HEALTHCARE%20PROVIDERS%20FACT%20SHEET.pdf Fact Sheet for Healthcare Patients: https://www.[employer]/Documents/Xpert%20Xp ress%20SARS%20CoV-2/Fact%20Sheets/302-3801%36LZYB-RJJ-1%20PATIENT%20FACT%20SHEET .pdfManual [id number] 06:05:28 Test Item Value Reference Range Interpretation [...] utomated message] code = 1365) The system [employer] generated this result transmitted ref erence range: 1.80 - 8 .00 K/L. The refe rence range was not u sed to interpret this result as normal/abnor mal. # Lymphs (manual) (test 1.44 See_Comment L [Au tomated message] code = 1366) The system [employer] generated this result transmitted ref erence range: 1.48 - 4 .50 K/L. The refe rence range was not u sed to interpret this result as normal/abnor mal. # Monos (manual) (test 0.90 See_Comment [Aut omated message] code = 1367) The system [employer] generated this result transmitted ref erence range: 0.00 - 1 .30 K/L. The refe rence range was not u sed to interpret this result as normal/abnor mal. # Eos (manual) (test 0.06 See_Comment [Autom ated message] code = 1368) The system [employer] generated this result transmitted ref erence range: [...] omated message] code = 1349) The system [employer] generated this result transmitted ref erence range: 0.0 - 0. 8 K/L. The refe rence range was not u sed to interpret this result as normal/abnor mal. # Myelo (manual) (test 0.06 See_Comment H [Aut omated message] code = 1593) The system [employer] generated this result transmitted ref erence range: [...] 762) Lab Interpretation (test Abnormal code = 26742-2) [facility] [id number] 06:05:28 Test Item Value Reference Range Interpretation [...] utomated message] code = 1365) The system [employer] generated this result transmitted ref erence range: 1.80 - 8 .00 K/L. The refe rence range was not u sed to interpret this result as normal/abnor mal. # Lymphs (manual) (test 1.44 See_Comment L [Au tomated message] code = 1366) The system [employer] generated this result transmitted ref erence range: 1.48 - 4 .50 K/L. The refe rence range was not u sed to interpret this result as normal/abnor mal. # Monos (manual) (test 0.90 See_Comment [Aut omated message] code = 1367) The system [employer] generated this result transmitted ref erence range: 0.00 - 1 .30 K/L. The refe rence range was not u sed to interpret this result as normal/abnor mal. # Eos (manual) (test 0.06 See_Comment [Autom ated message] code = 1368) The system [employer] generated this result transmitted ref erence range: [...] omated message] code = 1349) The system [employer] generated this result transmitted ref erence range: 0.0 - 0. 8 K/L. The refe rence range was not u sed to interpret this result as normal/abnor mal. # Myelo (manual) (test 0.06 See_Comment H [Aut omated message] code = 1593) The system whic h generated this result transmitted ref erence range: [...] 762) Lab Interpretation (test Abnormal code = 19915-6) [facility] W/PLT COUNT & AUTO [id number] 06:05:28 Test Item Value Reference Range Interpretation [...] (test code Normal = 762) BASIC METABOLIC [id number] 05:17:04 Test Item Value Reference Range Interpretation [...] S NOT APPLICABLE FOR DIALYSIS PATIEN TS. Pattern Filer ID - NLYLEC-REACTIVE [id number] 05:13:22 Test Item Value Reference Range Interpretation Comments C-REACTIVE PROTEIN (MAXINEAKER) (test 1.41 mg/dL 0.00-1.00 H code = 676) Pattern Filer ID - [id number]-[id number] 05:01:21 Test Item Value Reference Range Interpretation Comments D-DIMER QUANTITATIVE 1.41 MG/L FEU <0.50 H Final Information (JUAN) (test code = (Auto Output) 671) REGARDING D-DIMER RESULTS: The 98% NPV (Negative Predictive Value) for DVT/PE exclusion is 0.50 mg/LFEU as suggested by the laboratory tech and as approved by the FDA.RAD, CHEST, 1 VIEW, NON [id number] 03:46:00Reason for exam:- >PneumoniaShould this be performed at the bedside?->Yes [facility] : 2000 Sex: FFINAL REPORT RAD, CHEST, 1 VIEW, NON DEPT INDICATION: Pneumonia COMPARISON: 10/05/2021 FINDINGS: Portable frontal view of the chest. IMPRESSION: Support Lines: None Lungs and pleura: Lungs are clear. No pneumothorax. Heart and mediastinum: Stable contours. Additional findings: None. Signed: Stefanie Rodríguez MDReport Verified Date/Time: 10/07/2021 03:46:56 BASIC METABOLIC [id number] 04:21:45 Test Item Value Reference Range Interpretation [...] S NOT APPLICABLE FOR DIALYSIS PATIEN TS. Pattern Filer ID - NOLICBC W/PLT COUNT & AUTO [id number] 04:11:29 Test Item Value Reference Range Interpretation [...] H PERCENT (BEAKER) (test code = 2801) [id number] 12:27:04 Test Item Value Reference Range Interpretation Comments PROCALCITONIN (BEAKER) (test code 8.27 ng/mL <0.05 H = 3036) SEPSIS RISK (ng/mL)Low: 0.05-0.50Intermediate: 0.51-2.00High: >=2.01Sputum Culture + Gram [id number] 12:06:13 Test Item Value Reference Range Interpretation Comments Result (test code = 1+ Streptococcus not A 6463-4) group A beta hemolytic Gram Stain Result (test No organisms seen code = 1123) CHRISTIANA (test code = CHRISTIANA) 2+ Normal respiratory saeed present Lab Interpretation Abnormal (test code = 48529-1) [facility] [id number] 12:06:13 Test Item Value Reference Range Interpretation Comments Result (test code = 1+ Streptococcus not A 6463-4) group A beta hemolytic Gram Stain Result (test No organisms seen code = 1123) CHRISTIANA (test code = CHRISTIANA) 2+ Normal respiratory saeed present Lab Interpretation Abnormal (test code = 08384-6) [facility] + GRAM [id number] 12:06:13 Test Item Value Reference Range Interpretation Comments CULTURE (BEAKER) A 1+ Streptoc occus not (test code = group A beta 1095) hemolytic GRAM STAIN No White blood RESULT (BEAKER) cells seen (test code = 1123) GRAM STAIN No organisms seen RESULT (BEAKER) (test code = 053286) 2+ Normal respiratory saeed presentRAD, CHEST, 1 VIEW, NON [id number] 05:35:00Reason for exam:->PneumoniaShould this be performed at the bedside?->[facility] : 2000 Sex: FFINAL REPORT Chest one [...] No focal pulmonary consolidation. Signed: Sonal Batista MDReport Verified Date/Time: 10/05/2021 05:35:18 Electronically signed by: SONAL BATISTA MD on10/05/2021 05:35 AMAcetaminophen [id number] 04:22:07 Test Item Value Reference Range Interpretation Comments Acetaminophen Level <5.7 10.0-30.0 L Specimen (test code = 3298-7) slightl y hemolyzed CHRISTIANA (test code = CHRISTIANA) Pattern Filer ID - [id number] Lab Interpretation Abnormal (test code = 79041-2) [facility] CenterAcetaminophen [id number] 04:22:07 Test Item Value Reference Range Interpretation Comments Acetaminophen Level <5.7 10.0-30.0 L Specimen (test code = 3298-7) slightl y hemolyzed CHRISTIANA (test code = CHRISTIANA) Pattern Filer ID - [id number] Lab Interpretation Abnormal (test code = 38220-2) [facility] CenterACETAMINOPHEN [id number] 04:22:07 Test Item Value Reference Range Interpretation Comments ACETAMINOPHEN LEVEL < ug/mL 10.0-30.0 L Specimen slightly (BEAKER) (test code = hemoly zed 344) Pattern Filer ID - [id number] metabolic [id number] 04:21:04 Test Item Value Reference Range Interpretation Comments Protein, Total (test 6.0 See_Comment [Autom ated code = 2885-2) message] The system which generated this result transmit rhett reference range : 6.0 - 8.5 gm/dL . The reference range was not u sed to interpret th is result as normal/abnormal . Albumin (test code = 3.5 g/dL 3.5-5.0 45602-5) Alkaline Phosphatase 54 U/L 30-115 (test code = 6768-6) Total Bilirubin (test 0.9 mg/dL 0.1-1.2 code = 1975-2) Sodium (test code = 139 meq/L 096-286 4851-2) Potassium (test code 3.2 meq/L 3.6-5.5 L = 2823-3) Chloride (test code = 108 meq/L 98-106 H 2075-0) CO2 (test code = 21 meq/L -2028-06) BUN (test code = <3 10-26 L 3094-0) Creatinine (test code 0.60 mg/dL 0.50-1.20 = 2160-0) Glucose (test code = 93 mg/dL 70-110 2345-7) Calcium (test code = 8.9 mg/dL 8.5-10.5 14828-7) AST (test code = 179 U/L 5-40 H 1920-8) ALT (test code = 287 U/L 5-50 H 1742-6) EGFR (test code = 124 mL/min/1.73 [place] [address]-1) NOT ACCURATE CREATININE CLEARANCE IN PREDICTING GLOMERULAR FILTRATION RATE . ESTIMATED GFR I S NOT APPLICABLE FOR DIALYSIS PATIEN TS. VILLEDA (test code = CHRISTIANA) Pattern Filer ID - [id number] Lab Interpretation Abnormal (test code = 75191-8) [facility] CenterComprehensive metabolic [id number] 04:21:04 Test Item Value Reference Range Interpretation Comments Protein, Total (test 6.0 See_Comment [Autom ated code = 2885-2) message] The system which generated this result transmit rhett reference range : 6.0 - 8.5 gm/dL . The reference range was not u sed to interpret th is result as normal/abnormal . Albumin (test code = 3.5 g/dL 3.5-5.0 77026-8) Alkaline Phosphatase 54 U/L 30-115 (test code = 6768-6) Total Bilirubin (test 0.9 mg/dL 0.1-1.2 code = 1975-2) Sodium (test code = 139 meq/L 975-170 4638-2) Potassium (test code 3.2 meq/L 3.6-5.5 L = 2823-3) Chloride (test code = 108 meq/L 98-106 H 2074-0) CO2 (test code = 21 meq/L -29 2028-06) BUN (test code = <3 10-26 L 3094-0) Creatinine (test code 0.60 mg/dL 0.50-1.20 = 2160-0) Glucose (test code = 93 mg/dL 70-110 2345-7) Calcium (test code = 8.9 mg/dL 8.5-10.5 95267-6) AST (test code = 179 U/L 5-40 H 1920-8) ALT (test code = 287 U/L 5-50 H 1742-6) EGFR (test code = 124 mL/min/1.73 [place] [address]-4) NOT ACCURATE CREATININE CLEARANCE IN PREDICTING GLOMERULAR FILTRATION RATE . ESTIMATED GFR I S NOT APPLICABLE FOR DIALYSIS PATIEN TS. VILLEDA (test code = CHRISTIANA) Pattern Filer ID - [id number] Lab Interpretation Abnormal (test code = 26755-5) [facility] CenterCOMPREHENSIVE METABOLIC [id number] 04:21:04 Test Item Value Reference Range Interpretation [...] S NOT APPLICABLE FOR DIALYSIS PATIEN TS. Pattern Filer ID - [id number] [id number] 04:15:21 Test Item Value Reference Range Interpretation Comments C-REACTIVE PROTEIN (BEAKER) (test 3.57 mg/dL 0.00-1.00 H code = 676) Pattern Filer ID - NLYLEProthrombin time/[id number] 04:03:51 Test Item Value Reference Interpretation Comments [...] valves. Lab Interpretation Normal (test code = 03560-2) [facility] CenterProthrombin time/[id number] 04:03:51 Test Item Value Reference Interpretation Comments [...] valves. Lab Interpretation Normal (test code = 71215-3) [facility] CenterPROTHROMBIN TIME/[id number] 04:03:51 Test Item Value Reference Range Interpretation Comments PROTIME (BEAKER) 11.9 seconds 9.8-12.0 Final Infor mation (test code = 759) (Auto Outp ut) INR (BEAKER) (test 1.09 See_Comment Final Inf ormation code = 370) (Auto Output) [Automated mess age] The system [employer] generated this result transmitted ref erence range: <=5.90. The reference range was not used to int erpret this result as normal/abnormal . RECOMMENDED COUMADIN/WARFARIN INR THERAPY RANGESSTANDARD DOSE: 2.0 - 3.0 Includes: PROPHYLAXIS for venous thrombosis, systemic embolization; TREATMENT for venous thrombosis and/or pulmonary embolus.HIGH RISK: Target INR is 2.5-3.5 for patients with mechanical heart valves.CBC W/PLT COUNT & AUTO [id number] 03:52:35 Test Item Value Reference Range Interpretation [...] (BEAKER) (test code = 2801) Hepatic function [id number] 17:01:16 Test Item Value Reference Range Interpretation Comments Protein, Total (test 6.2 See_Comment [Autom ated code = 2885-2) message] The system which generated this result transmit rhett reference range : 6.0 - 8.5 gm/dL . The reference range was not u sed to interpret th is result as normal/abnormal . Albumin (test code = 3.6 g/dL 3.5-5.0 48375-9) Total Bilirubin (test 1.2 mg/dL 0.1-1.2 code = 1974-2) Bilirubin, Direct 0.6 mg/dL 0.0-0.4 H (test code = 1967-7) Alkaline Phosphatase 59 U/L 30-115 (test code = 6768-6) AST (test code = 211 U/L 5-40 H 1920-8) ALT (test code = 344 U/L 5-50 H 1742-6) CHRISTIANA (test code = CHRISTIANA) Pattern Filer ID - NLYLE Lab Interpretation Abnormal (test code = 75373-0) [facility] CenterHepatic function [id number] 17:01:16 Test Item Value Reference Range Interpretation Comments Protein, Total (test 6.2 See_Comment [Autom ated code = 2885-2) message] The system which generated this result transmit rhett reference range : 6.0 - 8.5 gm/dL . The reference range was not u sed to interpret th is result as normal/abnormal . Albumin (test code = 3.6 g/dL 3.5-5.0 31219-9) Total Bilirubin (test 1.2 mg/dL 0.1-1.2 code = 1975-2) Bilirubin, Direct 0.6 mg/dL 0.0-0.4 H (test code = 1968-7) Alkaline Phosphatase 59 U/L 30-115 (test code = 6768-6) AST (test code = 211 U/L 5-40 H 1920-8) ALT (test code = 344 U/L 5-50 H 1742-6) CHRISTIANA (test code = CHRISTIANA) Pattern Filer ID - NLYLE Lab Interpretation Abnormal (test code = 24200-6) [facility] CenterHEPATIC FUNCTION [id number] 17:01:16 Test Item Value Reference Range Interpretation [...] code = 344 U/L 5-50 H 347) Pattern Filer ID - NLYLEPROTHROMBIN TIME/[id number] 16:48:48 Test Item Value Reference Range Interpretation Comments PROTIME (BEAKER) 12.1 seconds 9.8-12.0 H Final Infor mation (test code = 759) (Auto Outp ut) INR (BEAKER) (test 1.11 See_Comment Final Inf ormation code = 370) (Auto Output) [Automated mess age] The system [employer] generated this result transmitted ref erence range: <=5.90. The reference range was not used to int erpret this result as normal/abnormal . RECOMMENDED COUMADIN/WARFARIN INR THERAPY RANGESSTANDARD DOSE: 2.0 - 3.0 Includes: PROPHYLAXIS for venous thrombosis, systemic embolization; TREATMENT for venous thrombosis and/or pulmonary embolus.HIGH RISK: Target INR is 2.5-3.5 for patients with mechanical heart valves.BASIC METABOLIC [id number] 02:00:44 Test Item Value Reference Range Interpretation [...] S NOT APPLICABLE FOR DIALYSIS PATIEN TS. Pattern Filer ID - CHOPZHEPATIC FUNCTION [id number] 02:00:37 Test Item Value Reference Range Interpretation [...] code = 377 U/L 5-50 H 347) Pattern Filer ID - CHOPZPROTHROMBIN TIME/[id number] 01:47:37 Test Item Value Reference Range Interpretation Comments PROTIME (BEAKER) 12.6 seconds 9.8-12.0 H Final Infor mation (test code = 759) (Auto Outp ut) INR (BEAKER) (test 1.16 See_Comment Final Inf ormation code = 370) (Auto Output) [Automated mess age] The system [employer] generated this result transmitted ref erence range: <=5.90. The reference range was not used to int erpret this result as normal/abnormal . RECOMMENDED COUMADIN/WARFARIN INR THERAPY RANGESSTANDARD DOSE: 2.0 - 3.0 Includes: PROPHYLAXIS for venous thrombosis, systemic embolization; TREATMENT for venous thrombosis and/or pulmonary embolus.HIGH RISK: Target INR is 2.5-3.5 for patients with mechanical heart valves.CBC W/PLT COUNT & AUTO [id number] 01:38:26 Test Item Value Reference Range Interpretation [...] PERCENT (BEAKER) (test code = 2801) ACETAMINOPHEN [id number] 00:51:51 Test Item Value Reference Range Interpretation Comments ACETAMINOPHEN LEVEL < ug/mL 10.0-30.0 L Specimen slightly (BEAKER) (test code = hemoly zed 344) Pattern Filer ID - BRUCEPOC-Glucose [id number] 16:49:05 Test Item Value Reference Range Interpretation Comments POC-Glucose Meter (test 109 mg/dL 70-110 : TE STED AT [facility] code = 1538) [place] [address]: Pattern Filer/Techni ck ID = [id number] for Shay-Casino, Mirabelle Lab Interpretation (test Normal code = 61548-9) [facility] CenterPOC-Glucose kygyl0105-94-84 16:49:05 Test Item Value Reference Range Interpretation Comments POC-Glucose Meter (test 109 mg/dL 70-110 : TE STED AT [facility] code = 1538) [address], [facility] [address]: Pattern Filer/Techni ck ID = [id number] for Shay-Casino, Mirabelle Lab Interpretation (test Normal code = 87221-9) [facility] CenterPOCT-GLUCOSE [id number] 16:49:05 Test Item Value Reference Range Interpretation Comments POC-GLUCOSE METER 109 mg/dL 70-110 : TESTED A T [facility] (BEAKER) (test code [address], = 1538) [facility] [address]: Pattern Filer/Techni ck ID = [id number] for Shay -Casino, Mirabelle ACETAMINOPHEN [id number] 09:12:51 Test Item Value Reference Range Interpretation Comments ACETAMINOPHEN LEVEL < ug/mL 10.0-30.0 L Specimen slightly (BEAKER) (test code = hemoly zed 344) Pattern Filer ID - [id number] METABOLIC [id number] 09:03:33 Test Item Value Reference Range Interpretation [...] S NOT APPLICABLE FOR DIALYSIS PATIEN TS. Pattern Filer ID - [id number] [id number] 08:41:11 Test Item Value Reference Range Interpretation Comments POC-GLUCOSE METER 96 mg/dL 70-110 : TESTED A T [facility] (BEAKER) (test code = [address], 3147) [facility] [address]: Pattern Filer/Techni ck ID = [id number] for Nill as, [place] CBC W/PLT COUNT & AUTO [id number] 06:22:59 Test Item Value Reference Range Interpretation [...] PERCENT (BEAKER) (test code = 2801) POCT-GLUCOSE [id number] 00:18:37 Test Item Value Reference Range Interpretation Comments POC-GLUCOSE METER 82 mg/dL 70-110 : TESTED A T [facility] (BEAKER) (test code = [address], 2268) [place] [address]: Pattern Filer/Techni ck ID = [id number] for MONY NIEVES REJI ACETAMINOPHEN [id number] 15:37:54 Test Item Value Reference Range Interpretation Comments ACETAMINOPHEN LEVEL (BEAKER) (test 37.4 ug/mL 10.0-30.0 H code = 344) Pattern Filer ID - NLYLEHEPATIC FUNCTION [id number] 07:18:04 Test Item Value Reference Range Interpretation [...] (test code = 20 U/L 5-50 347) Pattern Filer ID - NLYLEPT/[id number] 03:24:12 Test Item Value Reference Interpretation Comments [...] (test code = 35.9 See_Comment H Final 00578-9) Information (Auto Output) [Automated message] The system [...] valves. Lab Interpretation Abnormal (test code = 37920-2) [facility] CenterPT/[id number] 03:24:12 Test Item Value Reference Interpretation Comments [...] (test code = 35.9 See_Comment H Final 64405-4) Information (Auto Output) [Automated message] The system [...] valves. Lab Interpretation Abnormal (test code = 09449-4) [facility] CenterPT/[id number] 03:24:12 Test Item Value Reference Range Interpretation Comments PROTIME (BEAKER) (test 13.8 seconds 9.8-12.0 H Final Information code = 759) (Auto Output) INR (BEAKER) (test 1.28 See_Comment Final Inf ormation code = 370) (Auto Output) [Automated mess age] The system [employer] generated this result transmit rhett reference range [...] mechanical heart valves.CBC W/PLT COUNT & AUTO [id number] 03:13:43 Test Item Value Reference Range Interpretation [...] PERCENT (BEAKER) (test code = 2801) ACETAMINOPHEN [id number] 02:52:25 Test Item Value Reference Range Interpretation Comments ACETAMINOPHEN LEVEL (BEAKER) (test 82.3 ug/mL 10.0-30.0 H code = 344) Pattern Filer ID - CHOPZCOMPREHENSIVE METABOLIC [id number] 02:52:14 Test Item Value Reference Range Interpretation [...] S NOT APPLICABLE FOR DIALYSIS PATIEN TS. Pattern Filer ID - [id number] 21:30:09 Test Item Value Reference Range Interpretation Comments PTT (test code = 61630-8) 32.0 See_Comment Fi nal Information (Auto Output) [Automated mess age] The system [employer] generated this result transmitted ref erence range: 25.8 - 3 4.5 seconds. The re ference range was not u sed to interpret this result as normal/abnor mal. Lab Interpretation (test Normal code = 69128-6) [facility] CenteraPTT2021-[facility] 21:30:09 Test Item Value Reference Range Interpretation Comments PTT (test code = 92708-9) 32.0 See_Comment Fi nal Information (Auto Output) [Automated mess age] The system [employer] generated this result transmitted ref erence range: 25.8 - 3 4.5 seconds. The re ference range was not u sed to interpret this result as normal/abnor mal. Lab Interpretation (test Normal code = 50580-3) [facility] CenterAPTT2021-12-[facility] 21:30:09 Test Item Value Reference Range Interpretation Comments PARTIAL THROMBOPLASTIN 32.0 seconds 25.8-34.5 Final Information TIME (BEAKER) (test (Auto Ou tput) code = 760) PROTHROMBIN TIME/[id number] 21:30:04 Test Item Value Reference Range Interpretation Comments PROTIME (BEAKER) 11.9 seconds 9.8-12.0 Final Infor mation (test code = 759) (Auto Outp ut) INR (BEAKER) (test 1.10 See_Comment Final Inf ormation code = 370) (Auto Output) [Automated mess age] The system [employer] generated this result transmitted ref erence range: <=5.90. The reference range was not used to int erpret this result as normal/abnormal . RECOMMENDED COUMADIN/WARFARIN INR THERAPY RANGESSTANDARD DOSE: 2.0 - 3.0 Includes: PROPHYLAXIS for venous thrombosis, systemic embolization; TREATMENT for venous thrombosis and/or pulmonary embolus.HIGH RISK: Target INR is 2.5-3.5 for patients with mechanical heart valves.[id number] 17:27:19 Test Item Value Reference Range Interpretation Comments PARTIAL THROMBOPLASTIN 33.9 seconds 25.8-34.5 Final Information TIME (BEAKER) (test (Auto Ou tput) code = 760) PROTHROMBIN TIME/[id number] 17:27:18 Test Item Value Reference Range Interpretation Comments PROTIME (BEAKER) 11.8 seconds 9.8-12.0 Final Infor mation (test code = 759) (Auto Outp ut) INR (BEAKER) (test 1.09 See_Comment Final Inf ormation code = 370) (Auto Output) [Automated mess age] The system [employer] generated this result transmitted ref erence range: [...] S NOT APPLICABLE FOR DIALYSIS PATIEN TS. Pattern Filer ID - BRUCECOMPREHENSIVE METABOLIC [id number] 10:50:09 Test Item Value Reference Range Interpretation [...] S NOT APPLICABLE FOR DIALYSIS PATIEN TS. Pattern Filer ID - NLYLEPROTHROMBIN TIME/[id number] 10:50:03 Test Item Value Reference Range Interpretation Comments PROTIME (BEAKER) 11.5 seconds 9.8-12.0 Final Infor mation (test code = 759) (Auto Outp ut) INR (BEAKER) (test 1.06 See_Comment Final Inf ormation code = 370) (Auto Output) [Automated mess age] The system [employer] generated this result transmitted ref erence range: <=5.90. The reference range was not used to int erpret this result as normal/abnormal . RECOMMENDED COUMADIN/WARFARIN INR THERAPY RANGESSTANDARD DOSE: 2.0 - 3.0 Includes: PROPHYLAXIS for venous thrombosis, systemic embolization; TREATMENT for venous thrombosis and/or pulmonary embolus.HIGH RISK: Target INR is 2.5-3.5 for patients with mechanical heart valves.[id number] 10:50:03 Test Item Value Reference Range Interpretation Comments PARTIAL THROMBOPLASTIN 37.4 seconds 25.8-34.5 H Final Information TIME (BEAKER) (test (Auto Ou tput) code = 760) Hemoglobin [id number] 06:49:11 Test Item Value Reference Range Interpretation Comments Hemoglobin A1C (test code 4.2 % 4.3-6.1 L = 4548-4) CHRISTIANA (test code = CHRISTIANA) Pattern Filer ID - [id number] Lab Interpretation (test Abnormal code = 13083-9) [facility] CenterHemoglobin [id number] 06:49:11 Test Item Value Reference Range Interpretation Comments Hemoglobin A1C (test code 4.2 % 4.3-6.1 L = 4548-4) CHRISTIANA (test code = CHRISTIANA) Pattern Filer ID - [id number] Lab Interpretation (test Abnormal code = 68614-1) [facility] CenterHEMOGLOBIN [id number] 06:49:11 Test Item Value Reference Range Interpretation Comments HEMOGLOBIN A1C (BEAKER) (test code = 4.2 % 4.3-6.1 L 368) Pattern Filer ID - [id number] 06:43:41 Test Item Value Reference Range Interpretation Comments ACETAMINOPHEN LEVEL 296.3 ug/mL 10.0-30.0 H Specimen slightly (BEAKER) (test code = hemoly zed 344) Pattern Filer ID - HMWV10Ladzhslh ID - JPXP39LR/[id number] 06:18:04 Test Item Value Reference Range Interpretation Comments PROTIME (BEAKER) (test 10.9 seconds 9.8-12.0 Final Information code = 759) (Auto Output) INR (BEAKER) (test 1.00 See_Comment Final Inf ormation code = 370) (Auto Output) [Automated mess age] The system [employer] generated this result transmit rhett reference range [...] is 2.5-3.5 for patients with mechanical heart valves.Lmfefjsrd9846-12-60 04:46:31 Test Item Value Reference Range Interpretation Comments Magnesium (test code = 1.5 mg/dL 1.5-3.0 12580-8) CHRISTIANA (test code = CHRISTIANA) Pattern Filer ID - [id number] Lab Interpretation (test Normal code = 34319-7) [facility] CenterMagnesium2021-12-24 04:46:31 Test Item Value Reference Range Interpretation Comments Magnesium (test code = 1.5 mg/dL 1.5-3.0 76737-0) CHRISTIANA (test code = CHRISTIANA) Pattern Filer ID - [id number] Lab Interpretation (test Normal code = 76919-4) [facility] 04:46:31 Test Item Value Reference Range Interpretation Comments MAGNESIUM (BEAKER) (test code = 1.5 mg/dL 1.5-3.0 627) Pattern Filer ID - [id number], CHEST, 1 VIEW, NON [id number] 03:21:00Reason for exam:->post intubationIs the patient ?->UnknownShould this be performed at the bedside?->Yes [facility] : 2000 Sex: [...] lobe opacity suspicious for pneumonia. Signed: Sonal Batista MDReport Verified Date/Time: 10/01/2021 03:21:46 ACETAMINOPHEN [id number] 03:10:33 Test Item Value Reference Range Interpretation Comments ACETAMINOPHEN LEVEL (BEAKER) 568.0 ug/mL 10.0-30.0 H (test code = 344) Pattern Filer ID - [id number] ID - [id number]/RT-PCR ([facility]) 2021-10-01 03:06:53 Test Item [...] revoked sooner. Fact Sheet for Healthcare Providers: https://www.[employer]/Documents/Xpert%20Xpress%20SARS%20CoV-2/Fact%20Sheets/302-3802%17DRGR-UYW-0%20 HEALTHCARE%20PROVIDERS%20FACT%20SHEET.pdf Fact Sheet for Healthcare Patients: https://www.[employer]/Documents/Xpert%20Xp ress%20SARS%20CoV-2/Fact%20Sheets/302-3801%84YDGN-ZTF-0%20PATIENT%20FACT%20SHEET .pdfRapid drug screen, [id number] 02:59:03 Test Item Value Reference Range Interpretation Comments Barbiturate Screen Negative Negative (test code = 00230-5) Benzodiazepine Screen Negative Negative (test code = 57569-6) Cocaine (Metab.) Negative Negative Screen (test code = 3397-7) Opiate Screen (test Negative Negative code = 84399-2) Cannabinoid Screen Positive Negative A (test code = 19893-8) Amph/Methamph Screen Negative Negative (test code = 74071-5) Phencyclidine Screen Negative Negative (test code = 73178-1) pH, UA (test code = 5.5 5.0-8.0 5803-2) CHRISTIANA (test code = CHRISTIANA) DRUG CUTOFF CONC.Cocaine 300 ng/mLCannabinoid 50 ng/mLBenzodiazepine 200 ng/mLBarbiturate 200 ng/mLPhencyclidine 25 ng/mLOpiate 300 ng/mLAmphetamine/ 1000 ng/mL Methamphetamine This assay provides an unconfirmed qualitative test result for the clinical management of patients in emergency situations. Chain of custody not maintained. Some zufx-ohf-xwevrrt medications, as well as adulterants, may cause inaccurate results. Clinical correlation should be applied. A more comprehensive drug screen or confirmation of a detected drug may be performed upon request.Pattern Filer ID - [id number] Lab Interpretation Abnormal (test code = 82481-2) [facility], [id number] 02:59:03 Test Item Value Reference Range Interpretation Comments Barbiturate Screen Negative Negative (test code = 03207-1) Benzodiazepine Screen Negative Negative (test code = 63198-6) Cocaine (Metab.) Negative Negative Screen (test code = 3397-7) Opiate Screen (test Negative Negative code = 11321-2) Cannabinoid Screen Positive Negative A (test code = 16618-0) Amph/Methamph Screen Negative Negative (test code = 87629-7) Phencyclidine Screen Negative Negative (test code = 10206-4) pH, UA (test code = 5.5 5.0-8.0 5803-2) CHRISTIANA (test code = CHRISTIANA) DRUG CUTOFF CONC.Cocaine 300 ng/mLCannabinoid 50 ng/mLBenzodiazepine 200 ng/mLBarbiturate 200 ng/mLPhencyclidine 25 ng/mLOpiate 300 ng/mLAmphetamine/ 1000 ng/mL Methamphetamine This assay provides an unconfirmed qualitative test result for the clinical management of patients in emergency situations. Chain of custody not maintained. Some teoc-gqi-abpjjvr medications, as well as adulterants, may cause inaccurate results. Clinical correlation should be applied. A more comprehensive drug screen or confirmation of a detected drug may be performed upon request.Pattern Filer ID - [id number] Lab Interpretation Abnormal (test code = 79868-7) [facility], [id number] 02:59:03 Test Item Value Reference Range Interpretation [...] situations. Chain of custody not maintained. Some mcsh-fak-zfofucc medications, as well as adulterants, may cause inaccurate results. Clinical correlation should be applied. A more comprehensive drug screen or confirmation of a detected drug may be performed upon request.Pattern Filer ID - [id number] 02:52:00 Test Item Value Reference Range Interpretation Comments Salicylate Lvl (test code <5.0 20.0-30.0 L = 4024-6) CHRISTIANA (test code = CHRISTIANA) Pattern Filer ID - [id number] Lab Interpretation (test Abnormal code = 01565-4) [facility] [id number] 02:52:00 Test Item Value Reference Range Interpretation Comments Salicylate Lvl (test code <5.0 20.0-30.0 L = 4024-6) CHRISTIANA (test code = CHRISTIANA) Pattern Filer ID - [id number] Lab Interpretation (test Abnormal code = 35911-4) [facility] CenterALICYLATE [id number] 02:52:00 Test Item Value Reference Range Interpretation Comments SALICYLATE LEVEL (BEAKER) (test code < mg/dL 20.0-30.0 L = 764) Pattern Filer ID - [id number] METABOLIC [id number] 02:51:55 Test Item Value Reference Range Interpretation [...] S NOT APPLICABLE FOR DIALYSIS PATIEN TS. Pattern Filer ID - [id number] 02:47:00 Test Item Value Reference Range Interpretation Comments Troponin I (test code = <0.01 0.00-0.03 01747-9) CHRISTIANA (test code = CHRISTIANA) Troponin I [...] failure, acidosis, acute neurological disease, and persistent tachyarrhythmia.[facility] ID - [id number] Lab Interpretation (test Normal code = 64012-2) [facility] [id number] 02:47:00 Test Item Value Reference Range Interpretation Comments Troponin I (test code = <0.01 0.00-0.03 88946-5) CHRISTIANA (test code = CHRISTIANA) Troponin I [...] failure, acidosis, acute neurological disease, and persistent tachyarrhythmia.[facility] ID - [id number] Lab Interpretation (test Normal code = 01988-5) [facility] [id number] 02:47:00 Test Item Value Reference Range Interpretation [...] failure, acidosis, acute neurological disease, and persistent tachyarrhythmia.Pattern Filer ID - [id number] FUNCTION [id number] 02:46:37 Test Item Value Reference Range Interpretation [...] (test code = 5 U/L 5-50 347) Pattern Filer ID - [id number] 02:42:17 Test Item Value Reference Range Interpretation Comments Ethanol Lvl (test <10 See_Comment [Automate d code = 5643-2) message] The system which generated this result transmit rhett reference range : <=10 mg/dL. The reference range was not used to interpret this result as normal/abnormal . CHRISTIANA (test code = CHRISTIANA) Pattern Filer ID - [id number] Lab Interpretation Normal (test code = 44004-2) [facility] CenterEthanol2021-12-24 02:42:17 Test Item Value Reference Range Interpretation Comments Ethanol Lvl (test <10 See_Comment [Automate d code = 5643-2) message] The system which generated this result transmit rhett reference range : <=10 mg/dL. The reference range was not used to interpret this result as normal/abnormal . CHRISTIANA (test code = CHRISTIANA) Pattern Filer ID - [id number] Lab Interpretation Normal (test code = 49767-1) [facility] CenterETHANOL2021-12-24 02:42:17 Test Item Value Reference Range Interpretation Comments ETHANOL (BEAKER) < mg/dL See_Comment [Automated message] The (test code = 400) system [facility] generated this result tra nsmitted reference range : <=10. The reference r isreal was not used to int erpret this result as normal/abnormal . Pattern Filer ID - [id number], serum, [id number] 02:37:59 Test Item Value Reference Range Interpretation Comments Preg Test, Serum (test code = Negative 2110-02) [facility] CenterhCG, serum, [id number] 02:37:59 Test Item Value Reference Range Interpretation Comments Preg Test, Serum (test code = Negative 2110-02) [facility] CenterHCG, SERUM, [id number] 02:37:59 Test Item Value Reference Range Interpretation Comments TEST SERUM (BEAKER) (test Negative code = 584) CBC W/PLT COUNT & AUTO [id number] 02:23:53 Test Item Value Reference Range Interpretation [...] PERCENT (BEAKER) (test code = 2801) CT, [id number] 21:58:00Reason for exam:->right lower quadrant abdominal painIs the patient ?->UnknownWhat is the patient's sedation requirement?->No Sedation [facility] YVONNE : 2000 [...] of the abdomen and pelvis. Signed: Stefanie Goins MDReport Verified Date/Time: 11/27/2020 21:58:08 Reading Location: [facility] B1 [id number] Consult Reading Room COMPREHENSIVE METABOLIC [id number] 20:39:00 Test Item Value Reference Range Interpretation [...] 1092) DATA TO CALCULA TE ESTIMATED GFR. Pattern Filer ID - [id number] 20:35:00 Test Item Value Reference Range Interpretation Comments Lipase (test code = 15 U/L 6-51 3040-3) CHRISTIANA (test code = CHRISTAINA) Pattern Filer ID - CLAVSKI Lab Interpretation (test Normal code = 73284-3) [facility] CenterLipase2021-02-19 20:35:00 Test Item Value Reference Range Interpretation Comments Lipase (test code = 15 U/L 6-51 3040-3) CHRISTIANA (test code = CHRISTIANA) Pattern Filer ID - [id number] Lab Interpretation (test Normal code = 03431-6) [facility] CenterLIPASE2021-02-19 20:35:00 Test Item Value Reference Range Interpretation Comments LIPASE (BEAKER) (test code = 749) 15 U/L 6-51 Pattern Filer ID - CLAVSKIPregnancy Screen, [id number] 20:25:00 Test Item Value Reference Range Interpretation Comments Preg Test, Ur (test code = 2112-1) Negative [facility] CenterPregnancy Screen, [id number] 20:25:00 Test Item Value Reference Range Interpretation Comments Preg Test, Ur (test code = 2112-1) Negative [facility] CenterPREGNANCY SCREEN, [id number] 20:25:00 Test Item Value Reference Range Interpretation Comments TEST URINE (BEAKER) (test Negative code = 583) Urinalysis w/Microscopic + Reflex to [id number] 20:24:00 Test Item Value Reference Range Interpretation Comments Color, UA (test code = Yellow 5778-6) Clarity, UA (test code = Clear 5767-9) Specific Newborn, UA 1.020 1.001-1.035 (test code = 5811-5) pH, UA (test code = 7.0 5.0-8.0 5803-2) Protein, UA (test code = Negative Negative 85289-2) Glucose, UA (test code = Negative Negative 365) Ketones, UA (test code = Negative Negative 2514-8) Bilirubin, UA (test code Negative Negative = 60948-6) Blood, UA (test code = Negative Negative 50707-8) Nitrite, UA (test code = Negative Negative 5802-4) Leukocytes, UA (test Small Negative A code = 5799-2) Urobilinogen, UA (test 0.2 mg/dL 0.2-1.0 code = 30610-7) Bacteria, UA (test code Many = 65771-0) RBC, UA (test code = <5 See_Comment [Autom ated message] 799-7) The system [employer] generated this result transmit rhett reference range : /HPF. The refer ence range was not u sed to interpret th is result as normal/abnormal . WBC, UA (test code = 5-10 See_Comment [Autom ated message] 08399-6) The system [employer] generated this result transmit rhett reference range : /HPF. The refer ence range was not u sed to interpret th is result as normal/abnormal . SQUAMOUS EPITHELIAL <5 See_Comment [Automa rhett message] (test code = 34015-6) The sy stem which generated this result transmit rhett reference range : /HPF. The refer ence range was not u sed to interpret th is result as normal/abnormal . Specimen Source (test code = 2795) Lab Interpretation (test Abnormal code = 97544-4) [facility] CenterUrinalysis w/Microscopic + Reflex to Culture 2020-11-27 20:24:00 Test Item Value Reference Range Interpretation Comments Color, UA (test code = Yellow 5778-6) Clarity, UA (test code = Clear 5767-9) Specific Newborn, UA 1.020 1.001-1.035 (test code = 5811-5) pH, UA (test code = 7.0 5.0-8.0 5803-2) Protein, UA (test code = Negative Negative 05258-4) Glucose, UA (test code = Negative Negative 365) Ketones, UA (test code = Negative Negative 2514-8) Bilirubin, UA (test code Negative Negative = 61954-5) Blood, UA (test code = Negative Negative 31732-5) Nitrite, UA (test code = Negative Negative 5802-4) Leukocytes, UA (test Small Negative A code = 5799-2) Urobilinogen, UA (test 0.2 mg/dL 0.2-1.0 code = 00110-4) Bacteria, UA (test code Many = 29243-2) RBC, UA (test code = <5 See_Comment [Autom ated message] 799-7) The system [employer] generated this result transmit rhett reference range : /HPF. The refer ence range was not u sed to interpret th is result as normal/abnormal . WBC, UA (test code = 5-10 See_Comment [Autom ated message] 78533-4) The system [employer] generated this result transmit rhett reference range : /HPF. The refer ence range was not u sed to interpret th is result as normal/abnormal . SQUAMOUS EPITHELIAL <5 See_Comment [Automa rhett message] (test code = 81285-5) The sy stem which generated this result transmit rhett reference range : /HPF. The refer ence range was not u sed to interpret th is result as normal/abnormal . Specimen Source (test code = 2795) Lab Interpretation (test Abnormal code = 34371-0) [facility] CenterUR[facility]IS [facility]/ REFLEX URINE [id number] 20:24:00 Test Item Value Reference Range Interpretation [...] code = 1663) SOURCE(BEAKER) (test code = 8755) CBC W/PLT COUNT & AUTO [id number] 20:08:00 Test Item Value Reference Range Interpretation [...] (test code = 2801) Novel Coronavirus 2019 [id number] 10:55:00 Test Item Value Reference Range Interpretation Comments Novel Coronavirus Negative Negative Test Descr iptionAltru Dx 2019 nCoV (test code COVID-1 9 Real-Time RT-PCR = COVID19) test is a lab developedtest b ased on [employer] em "[employer]" 2019-n CoV assaystargeting three SARS-CoV-2 gene s (ORF1ab, [...] discharged home? SANTO RFLX MICR CULT IF [id number] 17:18:00 Test Item Value Reference Range Interpretation [...] MANY /lpf Indication for culture: Dysuria/FrequencyUR HCG [id number] 17:18:00 Test Item Value Reference Range Interpretation [...] /HPF FEW Indication for culture: Dysuria/FrequencyUR HCG [id number] 17:13:00 Test Item Value Reference Range Interpretation Comments UR HCG QUAL (test code = HCGQLU) NEGATIVE NEGATIVE Indication for culture: Dysuria/FrequencyBASIC METABOLIC [id number] 16:55:00 Test Item Value Reference Range Interpretation [...] mg/dL 8.5-10.1 N = CA) LIVER FUNCTION [id number] 16:55:00 Test Item Value Reference Range Interpretation [...] 45-117 N PHOSPHATASE (test code = ALKP) [id number] 16:55:00 Test Item Value Reference Range Interpretation Comments LIPASE (test code = LIP) 90 U/L 73-393 N CBC W/AUTO [id number] 16:40:00 Test Item Value Reference Range Interpretation [...] 3/uL 0.0-0.1 N - XR CHEST 1 [id number] 15:20:00 [facility] : 2000 Sex: FPatient Name: ROX COATES Unit No: [id number] EXAMS: CPT CODE: [id number] XR CHEST 1 V 87876 EXAM: Chest one view. Location: A1 HISTORY: URI, , [...] by: Cuate Rdz MD CC: Govind Alvarado [facility] DO; Delmi Mcwilliams NP Technologist: Renetta Fairbanks Fluoro Time: DAP (Gy m2): Air Kerma (mGy): Trscr Dt/Tm: 2020 (1520) by:[email or web address] Electronic Signature Date/Time: 2020 (1520)Orig Print D/T: S: 2020 (1524) Name: COATESROX [facility] [place] Phys: [place] [address] : 2000 Age: 20 Sex: [place] [address] Loc: NM.ERS Exam Date: 2020 Status: REG ER PH: FAX: PAGE 1 Signed OhzgkpJSJV-PgE-3 (COVID-19) RNA [Presence] in Respiratory specimen by SHOLA with probe [id number] 21:35:03 Test Item Value Reference Range Interpretation Comments SARS-CoV-2 (COVID-19) RNA Not detected Not-Detected [Presence] in Respiratory specimen by SHOLA with probe detection (test code = 51380-3) [id number] [facility]SI METABOLIC [id number] 23:40:00 Test Item Value Reference Range Interpretation [...] mg/dL 8.6-10.4 N = CA) LIVER FUNCTION [id number] 23:40:00 Test Item Value Reference Range Interpretation Comments TOTAL PROTEIN (test code = PROT) g/dL 6.0-8.3 ALBUMIN (test code = ALB) g/dL 3.2-5.5 BILIRUBIN TOTAL (test code = BILT) mg/dL 0.2-1.0 BILIRUBIN DIRECT (test code = BILD) mg/dL 0.0-0.2 SGOT/AST (test code = AST) UNITS/L 10-42 SGPT/ALT (test code = ALT) UNITS/L 10-40 ALKALINE PHOSPHATASE (test code = UNITS/L 34-104 ALKP) BASIC METABOLIC [id number] 23:40:00 Test Item Value Reference Range Interpretation [...] mg/dL 8.6-10.4 N = CA) LIVER FUNCTION [id number] 23:40:00 Test Item Value Reference Range Interpretation Comments TOTAL PROTEIN (test 7.6 g/dL 6.0-8.3 N code = PROT) ALBUMIN (test code = 5.1 g/dL 3.2-5.5 N ALB) BILIRUBIN TOTAL 0.9 mg/dL 0.2-1.0 N X-bvxcoq-z-b enzoquinone (test code = BILT) imine (NA [...] 34-104 N (test code = ALKP) URINALYSIS [id number] 23:39:00 Test Item Value Reference Range Interpretation [...] BACU) 1+ /HPF NEGATIVE A BASIC METABOLIC [id number] 23:32:00 Test Item Value Reference Range Interpretation [...] CA) 9.6 mg/dL 8.6-10.4 N LIVER FUNCTION [id number] 23:32:00 Test Item Value Reference Range Interpretation Comments TOTAL PROTEIN (test code = PROT) g/dL 6.0-8.3 ALBUMIN (test code = ALB) g/dL 3.2-5.5 BILIRUBIN TOTAL (test code = BILT) mg/dL 0.2-1.0 BILIRUBIN DIRECT (test code = BILD) mg/dL 0.0-0.2 SGOT/AST (test code = AST) UNITS/L 10-42 SGPT/ALT (test code = ALT) UNITS/L 10-40 ALKALINE PHOSPHATASE (test code = UNITS/L 34-104 ALKP) BASIC METABOLIC [id number] 23:30:00 Test Item Value Reference Range Interpretation [...] code = CA) mg/dL 8.6-10.4 LIVER FUNCTION [id number] 23:30:00 Test Item Value Reference Range Interpretation Comments TOTAL PROTEIN (test code = PROT) g/dL 6.0-8.3 ALBUMIN (test code = ALB) g/dL 3.2-5.5 BILIRUBIN TOTAL (test code = BILT) mg/dL 0.2-1.0 BILIRUBIN DIRECT (test code = BILD) mg/dL 0.0-0.2 SGOT/AST (test code = AST) UNITS/L 10-42 SGPT/ALT (test code = ALT) UNITS/L 10-40 ALKALINE PHOSPHATASE (test code = UNITS/L 34-104 ALKP) URINALYSIS [id number] 23:27:00 Test Item Value Reference Range Interpretation [...] code = BACU) /HPF NEGATIVE CBC W/AUTO [id number] 23:26:00 Test Item Value Reference Range Interpretation [...] BA#) 0.06 K/mm3 0.0-0.1 N UR HCG [id number] 23:26:00 Test Item Value Reference Range Interpretation Comments UR HCG QUAL (test code = HCGQLU) NEGATIVE NEGATIVE
--- NOTE | 2022-11-22 21:37 | ER ---
Nurse's Notes [facility] Name: Yasmine Domínguez Age: 22 yrs Sex: Female : 2000 Arrival Date: 11/22/2022 Time: 21:03 Bed Waiting Private MD: Diagnosis: Presentation: 11/22 21:31 Note not in lobby. kl 21:36 Note mot in lobby. ED Course: 21:03 Patient arrived in ED. ag3 21:37 Wale Mackey MD is Attending Physician. kl Administered Medications: No medications were administered Outcome: 21:37 Patient left the ED. Signatures: Lizz Looney RN RN Valentina Khalil ag3
== END 2022-11-22 21:37 | disposition left against medical advice (07) ==
LOC: ER 20:34
DX: Z02.9 Encounter for administrative examinations, unspecified (principal)

== ENCOUNTER 2023-06-02 18:35 | Emergency (ER) | payer OTHER ==
--- OUTSIDE RECORDS SUMMARY | 2023-06-02 18:46 | XMS REPORT | Continuity of Care Document ---
:2000 Author Organization [facility] t Address [address] [facility] [address] [place] [address] Care Team Providers Name Role Phone Asked, No Pcp Primary Care Physician Unavailable JONAH MORRISON Attending Clinician Unavailable POLINA MUSA Attending Clinician Unavailable Nichelle Vieira Attending Clinician Polina Musa MD Attending Clinician [phone] NICHELLE SMITH Attending Clinician Unavailable RIA VELASCO Attending Clinician Unavailable Berenice Hernandez LMSW Attending Clinician LUCERO JOHNSON Attending Clinician Unavailable Lab, Ang - Db Attending Clinician Unavailable Unknown, Attending Attending Clinician Unavailable Lucero Tripp Attending Clinician GALO TARIQ Attending Clinician Unavailable GALO TARIQ Attending Clinician Unavailable Ria Olea Attending Clinician William Basurto MD Attending Clinician WILLIAM BASURTO Attending Clinician Unavailable Doctor Unassigned, [place] Attending Clinician Unavailable YANELIS TAYLOR Attending Clinician Unavailable JENNA VIRK Attending Clinician Unavailable Jenna Pitts Attending Clinician Lucina Wood MD Attending Clinician LUCINA WOOD Attending Clinician Unavailable MANOJ GUTHRIE Attending Clinician Unavailable 2, [facility] Attending Clinician Unavailable Giovanny Foster PA-C Attending Clinician GIOVANNY FOSTER Attending Clinician Unavailable Junito Garcia Attending Clinician Junito CHAPIN Attending Clinician Unavailable MARK LEMOS Attending Clinician Unavailable Sheela DUBON, Deedee Magana Attending Clinician [phone] Santana DUBON, Mar Attending Clinician Mark Lemos MD Attending Clinician Alen DUBON, Rajesh Joseph Attending Clinician Sheikh LING, Didi Dunbar Attending Clinician [phone] Rhonda DUBON, Kia Molina Attending Clinician Rob Granger Attending Clinician Unavailable Darío DUBON, Lia Attending Clinician MD GEOFF ADAMS Attending Clinician UnavailGEOFF Arnold Attending Clinician Unavailable NICHELLE SMITH Admitting Clinician Unavailable GALO TARIQ Admitting Clinician Unavailable JENNA VIRK Admitting Clinician Unavailable MAR DILLON Admitting Clinician Unavailable Physician, No Primary or Family Admitting Clinician UnavailBLAKE Henry Admitting Clinician Unavailable Payers Payer Name Policy Type Policy Number Effective Date Expiration Date [facility] [id number] 2018 CHOICE [place] STAR 00:00:00 MEDICAID COMM [id number] 2019 Emergent[employer]ection CHOICE 00:00:00 Problems Condition Condition Condition Status Onset Resolution Last Treating Co mments Source Name Details Category Date Date Treatment Clinician Date Right Right Disease Active Univers ovarian ovarian 3-04 ity of cyst cyst 00:00: [address] Pain Pain Disease Active Univers pelvic pelvic 3-04 ity of 00:00: [address] Nexplanon Nexplanon Disease Active Uni vers in place in place 2 ity of 00:00: [place] [facility] Intentiona Intentiona Disease Recurre 2020-[address] [facility] 2[facility]24 [facility] overdose, overdose, 00:00: Medi ty initial initial 00 Center encounter encounter No known No known Disease Unive rs active active ity of problems problems [place] [facility] Allergies, Adverse Reactions, Alerts Allergy Allergy Status Severity Reaction(s) Onset Inactive Treating Comm ents Source Name Type Date Date Clinician CODEINE DRUG Active N/V Univers INGREDI 1-27 ity of 00:00: [place] 00 Medical Branch PENICILL Drug Active Hives 0 Univers INS Class 1-27 ity of 00:00: [place] 00 Medical Branch Codeine Propensi Active Nausea 0 Univers ty to and/or 11-04 ity of adverse Vomiting 00:00: [place] reaction 00 Medical s Branch Penicill Propensi Active Hives 0 Univer s ins ty to 11-04 ity of adverse 00:00: [place] reaction 00 Medical s Branch PENICILL Allergy Active 2020-[address] [facility] [address] INS 2-19 [facility] 00:[facility]: [facility] 00 Center Penicill Propensi Active 2020-[address] [facility] [address] [facility] ty to 2-19 [facility] adverse 00:00: Medical reaction 00 Center s CODEINE Allergy Active 2020-[address] [facility] [address] 2-19 [facility] 00:[facility]: Medical 00 Center Codeine Propensi Active 2020-[address] [facility] [address] ty to 2-19 [facility] adverse 00:00: Medical reaction 00 Center s Penicill Propensi Active 2020-[address] [facility] [address] ins ty to 2-19 [facility] adverse 00:00: Medical reaction 00 Center s Codeine Propensi Active GI 2020-1 [facility] ty to Intolerance 1-[facility] adverse 00:00: [facility]osp[facility] reaction 00 l s to drug Penicill Propensi Active Unknown 2020-1 [facility] di ins ty to Reaction 1-14 [facility] adverse 00:00: Hospita reaction 00 l s to drug Penicill Propensi Active Unknown 2020-1 Metho di ins ty to Reaction 1-14 [facility] adverse 00:00: Hospita reaction 00 l s to drug Penicill DA Active U 2020-0 [facility] 10-29 [place] 00:00: [facility] 00 are [place] codeine DA Active U 2020-0 [facility] 10-29 [place] 00:00: [facility] 00 are [place] Penicill DA Active U RASH 2020-0 [facility] ins 10-29 [place] 00:00: [facility] 00 are [place] codeine DA Active U RASH 2020-0 [facility] 10-29 [place] 00:00: [facility] 00 are [place] NO KNOWN Drug Active Univers ALLERGIE Class ity of S [facility] Social History Social Habit Start Date Stop Date Quantity Comments Source Gender identity [facility] History of tobacco Passive smoker Un iversity of use [facility] Exposure to 2023-03-10 2023-03-20 Not sure University of SARS-CoV-2 (event) 00:00:00 09:31:00 [facility] Alcohol Comment 2022-12-26 2022-12-26 Socially Universit y of 00:00:00 00:00:00 [facility] Tobacco use and 2022-12-26 2022-12-26 Smokeless Universit y of exposure 00:00:00 00:00:00 tobacco non-user [facility] Alcohol intake 2021-03-23 2021-03-23 Current drinker TUNG Tish [facility]ard [facility] 00:[facility]:00 of [facility] (finding) History of Social 2020-08-22 2020-08-[address] function 00:00:00 00:00:00 Hospital Sex Assigned At [birth year] T[facility] [place] [facility] 00:00:00 [facility]:00:00 [facility] Smoking Status Start Date Stop Date Source Tobacco smoking [facility] consumption unknown Ex-smoker 2022-12-26 00:00:00 2022-12-26 [place] [facility] [place] 00:00:00 [facility] Smokes tobacco daily 2022-11-08 00:00:00 Univers ity [facility] Medications Ordered Filled Start Stop Current Ordering Indication Dosage Frequency Signature Comments Components Source Medication Medication Date Date Medication? Clinician (SIG) Name Name doxycycline 2022- Yes [id number] 100mg Take 1 Univers hyclate 100 04-25 capsule by i ty of mg capsule 00:00: 04:59 mouth [place] 00 :00 every 12 Medical (twelve) Branch hours for 7 days. metroNIDAZO 2022- Yes [id number] 500mg Take 1 Univers LE 500 mg 04-25 tablet by ity of tablet 00:00: 04:59 mouth in [place] 00 :00 the Medical morning Branch and 1 tablet in the evening. Do all this for 7 days. propranoloL 2023-0 Yes [id number] 20mg Take 1 Univers 20 mg 7-14 tablet by ity of tablet 00:00: mouth in [place] 00 the Medical morning Branch and 1 tablet in the evening. propranoloL 2023-0 Yes [id number] 20mg Take 1 Univers 20 mg 7-14 tablet by ity of tablet 00:00: mouth in [place] 00 the Medical morning Branch and 1 tablet in the evening. propranoloL 2023-0 Yes [id number] 20mg Take 1 Univers 20 mg 7-14 tablet by ity of tablet 00:00: mouth in [place] 00 the Medical morning Branch and 1 tablet in the evening. propranoloL 2023-0 Yes [id number] 20mg Take 1 Univers 20 mg 7-14 tablet by ity of tablet 00:00: mouth in [place] 00 the Medical morning Branch and 1 tablet in the evening. Nitrofurant 2023-0 Yes 100mg Take 1 Uni vers oin&Nit. 6-13 capsule by ity o f Macrocryst 00:00: mouth in [place] as 100 mg 00 the Medical capsule morning Branch and 1 capsule in the evening. Nitrofurant 2023-0 Yes 100mg Take 1 Uni vers oin&Nit. 6-13 capsule by ity o f Macrocryst 00:00: mouth in [place] as 100 mg 00 the Medical capsule morning Branch and 1 capsule in the evening. Nitrofurant 2023-0 Yes 100mg Take 1 Uni vers oin&Nit. 6-13 capsule by ity o f Macrocryst 00:00: mouth in [place] as 100 mg 00 the Medical capsule morning Branch and 1 capsule in the evening. Nitrofurant 2023-0 Yes 100mg Take 1 Uni vers oin&Nit. 6-13 capsule by ity o f Macrocryst 00:00: mouth in [place] as 100 mg 00 the Medical capsule morning Branch and 1 capsule in the evening. fluconazole 2023-0 Yes 150mg Take 1 Uni vers 150 mg 6-13 tablet by ity of tablet 00:00: mouth in [place] 00 the Medical morning. Branch Nitrofurant 2023-0 Yes 100mg Take 1 Uni vers oin&Nit. 6-13 capsule by ity o f Macrocryst 00:00: mouth in [place] as 100 mg 00 the Medical capsule morning Branch and 1 capsule in the evening. fluconazole 2023-0 Yes 150mg Take 1 Uni vers 150 mg 6-13 tablet by ity of tablet 00:00: mouth in [place] 00 the Medical morning. Branch Nitrofurant 2023-0 Yes 100mg Take 1 Uni vers oin&Nit. 6-13 capsule by ity o f Macrocryst 00:00: mouth in [place] as 100 mg 00 the Medical capsule morning Branch and 1 capsule in the evening. fluconazole 2023-0 Yes 150mg Take 1 Uni vers 150 mg 6-13 tablet by ity of tablet 00:00: mouth in [place] 00 the Medical morning. Branch Nitrofurant 2023-0 Yes 100mg Take 1 Uni vers oin&Nit. 6-13 capsule by ity o f Macrocryst 00:00: mouth in [place] as 100 mg 00 the Medical capsule morning Branch and 1 capsule in the evening. fluconazole 2023-0 2023- No 150mg Take 1 Un [facility]son 150 mg 6-13 07-14 tablet by ity of tablet 00:00: 00:00 mouth in [place] 00 :00 the Medical morning. Branch fluconazole 2023-0 2023- No 150mg Take 1 Un edosn 150 mg 6-13 07-14 tablet by ity of tablet 00:00: 00:00 mouth in [place] 00 :00 the Medical morning. Branch montelukast 2023-0 Yes 10mg Take 1 Univ ers 10 mg 4-27 tablet by ity of tablet 00:00: mouth in [place] 00 the Medical morning. Branch VENTOLIN 2023-0 Yes 2{puff} Inhale 2 Un [facility] HFA 90 4-27 Puffs ity of mcg/actuati 00:00: every 6 [place] as on inhaler 00 (six) Medical hours as Branch needed. montelukast 2023-0 Yes 10mg Take 1 Univ ers 10 mg 4-27 tablet by ity of tablet 00:00: mouth in [place] 00 the Medical morning. Branch VENTOLIN 2023-0 Yes 2{puff} Inhale 2 Un [place] HFA 90 4-27 Puffs ity of mcg/actuati 00:00: every 6 [place] as on inhaler 00 (six) Medical hours as Branch needed. montelukast 2023-0 Yes 10mg Take 1 Univ ers 10 mg 4-27 tablet by ity of tablet 00:00: mouth in [place] 00 the Medical morning. Branch VENTOLIN 2023-0 Yes 2{puff} Inhale 2 Un [place] HFA 90 4-27 Puffs ity of mcg/actuati 00:00: every 6 [place] as on inhaler 00 (six) Medical hours as Branch needed. montelukast 3-0 Yes 10mg Take 1 Univ ers 10 mg 4-27 tablet by ity of tablet 00:00: mouth in [place] 00 the Medical morning. Branch VENTOLIN 3-0 Yes 2{puff} Inhale 2 Un [place] HFA 90 4-27 Puffs ity of mcg/actuati 00:00: every 6 [place] as on inhaler 00 (six) Medical hours as Branch needed. montelukast 3-0 Yes 10mg Take 1 Univ ers 10 mg 4-27 tablet by ity of tablet 00:00: mouth in [place] 00 the Medical morning. Branch VENTOLIN 3-0 Yes 2{puff} Inhale 2 Un [place] HFA 90 4-27 Puffs ity of mcg/actuati 00:00: every 6 [place] as on inhaler 00 (six) Medical hours as Branch needed. montelukast 3-0 Yes 10mg Take 1 Univ ers 10 mg 4-27 tablet by ity of tablet 00:00: mouth in [place] 00 the Medical morning. Branch VENTOLIN 3-0 Yes 2{puff} Inhale 2 Un [place] HFA 90 4-27 Puffs ity of mcg/actuati 00:00: every 6 [place] as on inhaler 00 (six) Medical hours as Branch needed. montelukast 3-0 Yes 10mg Take 1 Univ ers 10 mg 4-27 tablet by ity of tablet 00:00: mouth in [place] 00 the Medical morning. Branch VENTOLIN 3-0 Yes 2{puff} Inhale 2 Un [place] HFA 90 4-27 Puffs ity of mcg/actuati 00:00: every 6 [place] as on inhaler 00 (six) Medical hours as Branch needed. montelukast 2023-0 Yes 10mg Take 1 Univ ers 10 mg 4-27 tablet by ity of tablet 00:00: mouth in [place] 00 the Medical morning. Branch VENTOLIN 3-0 Yes 2{puff} Inhale 2 Un [place] HFA 90 4-27 Puffs ity of mcg/actuati 00:00: every 6 [place] as on inhaler 00 (six) Medical hours as Branch needed. montelukast 2023-0 Yes 10mg Take 1 Univ ers 10 mg 4-27 tablet by ity of tablet 00:00: mouth in [place] 00 the Medical morning. Branch VENTOLIN 2022-0 Yes 2{puff} Inhale 2 Un [place] HFA 90 4-27 Puffs ity of mcg/actuati 00:00: every 6 [place] as on inhaler 00 (six) Medical hours as Branch needed. montelukast 3-0 Yes 10mg Take 1 Univ ers 10 mg 4-27 tablet by ity of tablet 00:00: mouth in [place] 00 the Medical morning. Branch VENTOLIN 2022-0 Yes 2{puff} Inhale 2 Un [facility] HFA 90 4-27 Puffs ity of mcg/actuati 00:00: every 6 [place] as on inhaler 00 (six) Medical hours as Branch needed. montelukast 3-0 Yes 10mg Take 1 Univ ers 10 mg 4-27 tablet by ity of tablet 00:00: mouth in [place] 00 the Medical morning. Branch VENTOLIN 2022-0 Yes 2{puff} Inhale 2 Un [place] HFA 90 4-27 Puffs ity of mcg/actuati 00:00: every 6 [place] as on inhaler 00 (six) Medical hours as Branch needed. montelukast 3-0 Yes 10mg Take 1 Univ ers 10 mg 4-27 tablet by ity of tablet 00:00: mouth in [place] 00 the Medical morning. Branch VENTOLIN 2022-0 Yes 2{puff} Inhale 2 Un [place] HFA 90 4-27 Puffs ity of mcg/actuati 00:00: every 6 [place] as on inhaler 00 (six) Medical hours as Branch needed. montelukast 3-0 Yes 10mg Take 1 Univ ers 10 mg 4-27 tablet by ity of tablet 00:00: mouth in [place] 00 the Medical morning. Branch VENTOLIN 2022-0 Yes 2{puff} Inhale 2 Un [place] HFA 90 4-27 Puffs ity of mcg/actuati 00:00: every 6 [place] as on inhaler 00 (six) Medical hours as Branch needed. montelukast 3-0 Yes 10mg Take 1 Univ ers 10 mg 4-27 tablet by ity of tablet 00:00: mouth in [place] 00 the Medical morning. Branch VENTOLIN 0 Yes 2{puff} Inhale 2 Un [place] HFA 90 4-27 Puffs ity of mcg/actuati 00:00: every 6 [place] as on inhaler 00 (six) Medical hours as Branch needed. phenazopyri 2022-0 Yes Take by Uni vers dine HCl 3-20 mouth as ity of (AZO 13:20: needed. [place] STANDARD Medical MAXIMUM Branch STRENGTH ORAL) phenazopyri 2022-0 Yes Take by Uni vers dine HCl 3-20 mouth as ity of (AZO 13:20: needed. [place] STANDARD Medical MAXIMUM Branch STRENGTH ORAL) phenazopyri 2022-0 Yes Take by Uni vers dine HCl 3-20 mouth as ity of (AZO 13:20: needed. [place] STANDARD Medical MAXIMUM Branch STRENGTH ORAL) phenazopyri 2022-0 Yes Take by Uni vers dine HCl 3-20 mouth as ity of (AZO 13:20: needed. [place] STANDARD Medical MAXIMUM Branch STRENGTH ORAL) phenazopyri 2022-0 Yes Take by Uni vers dine HCl 3-20 mouth as ity of (AZO 13:20: needed. [place] STANDARD Medical MAXIMUM Branch STRENGTH ORAL) phenazopyri 2022-0 Yes Take by Uni vers dine HCl 3-20 mouth as ity of (AZO 13:20: needed. [place] STANDARD Medical MAXIMUM Branch STRENGTH ORAL) phenazopyri 2022-0 Yes Take by Uni vers dine HCl 3-20 mouth as ity of (AZO 13:20: needed. [place] STANDARD Medical MAXIMUM Branch STRENGTH ORAL) phenazopyri 2022-0 Yes Take by Uni vers dine HCl 3-20 mouth as ity of (AZO 13:20: needed. [place] STANDARD Medical MAXIMUM Branch STRENGTH ORAL) phenazopyri 2022-0 Yes Take by Uni vers dine HCl 3-20 mouth as ity of (AZO 13:20: needed. [place] STANDARD Medical MAXIMUM Branch STRENGTH ORAL) phenazopyri 2022-0 Yes Take by Uni vers dine HCl 3-20 mouth as ity of (AZO 13:20: needed. [place] STANDARD Medical MAXIMUM Branch STRENGTH ORAL) phenazopyri 2022-0 Yes Take by Uni vers dine HCl 3-20 mouth as ity of (AZO 13:20: needed. [place] STANDARD Medical MAXIMUM Branch STRENGTH ORAL) diclofenac 2023-0 Yes [id number] 75mg Take 1 U nivers 75 mg EC 3-20 tablet by ity of tablet 00:00: mouth in [place] [address] the [facility] morning [place] and 1 tablet in the evening. Take with meals. diclofenac 2023-0 Yes [id number] 75mg Take 1 U nivers 75 mg EC 3-20 tablet by ity of tablet 00:00: mouth in [place] [address] the [facility] morning [place] and 1 tablet in the evening. Take with meals. diclofenac 2023-0 Yes [id number] 75mg Take 1 U nivers 75 mg EC 3-20 tablet by ity of tablet 00:00: mouth in [place] [address] the [facility] morning [place] and 1 tablet in the evening. Take with meals. diclofenac 2023-0 Yes [id number] 75mg Take 1 U nivers 75 mg EC 3-20 tablet by ity of tablet 00:00: mouth in [place] [address] the [facility] morning [place] and 1 tablet in the evening. Take with meals. diclofenac 2023-0 Yes [id number] 75mg Take 1 U nivers 75 mg EC 3-20 tablet by ity of tablet 00:00: mouth in [address] and 1 tablet in the evening. Take with meals. diclofenac 2023-0 Yes [id number] 75mg Take 1 U nivers 75 mg EC 3-20 tablet by ity of tablet 00:00: mouth in [address] and 1 tablet in the evening. Take with meals. diclofenac 2023-0 Yes [id number] 75mg Take 1 U nivers 75 mg EC 3-20 tablet by ity of tablet 00:00: mouth in [address] morning [place] and 1 tablet in the evening. Take with meals. diclofenac 2023-0 Yes [id number] 75mg Take 1 U nivers 75 mg EC 3-20 tablet by ity of tablet 00:00: mouth in [address] morning [place] and 1 tablet in the evening. Take with meals. diclofenac 2023-0 Yes [id number] 75mg Take 1 U nivers 75 mg EC 3-20 tablet by ity of tablet 00:00: mouth in [address] and 1 tablet in the evening. Take with meals. diclofenac 2023-0 Yes [id number] 75mg Take 1 U nivers 75 mg EC 3-20 tablet by ity of tablet 00:00: mouth in [address] and 1 tablet in the evening. Take with meals. diclofenac 2023-0 Yes [id number] 75mg Take 1 U nivers 75 mg EC 3-20 tablet by ity of tablet 00:00: mouth in [address] morning [place] and 1 tablet in the evening. Take with meals. diclofenac 2023-0 Yes [id number] 75mg Take 1 U nivers 75 mg EC 3-20 tablet by ity of tablet 00:00: mouth in [address] morning [place] and 1 tablet in the evening. Take with meals. diclofenac 2023-0 Yes [id number] 75mg Take 1 U nivers 75 mg EC 3-20 tablet by ity of tablet 00:00: mouth in [address] morning [place] and 1 tablet in the evening. Take with meals. diclofenac 2023-0 Yes [id number] 75mg Take 1 U nivers 75 mg EC 3-20 tablet by ity of tablet 00:00: mouth in [address] and 1 tablet in the evening. Take with meals. diclofenac 2023-0 Yes [id number] 75mg Take 1 U nivers 75 mg EC 3-20 tablet by ity of tablet 00:00: mouth in [address] and 1 tablet in the evening. Take with meals. diclofenac 2023-0 Yes [id number] 75mg Take 1 U nivers 75 mg EC 3-20 tablet by ity of tablet 00:00: mouth in [address] and 1 tablet in the evening. Take with meals. diclofenac 2023-0 Yes [id number] 75mg Take 1 U nivers 75 mg EC 3-20 tablet by ity of tablet 00:00: mouth in [address] and 1 tablet in the evening. Take with meals. diclofenac 2023-0 Yes [id number] 75mg Take 1 U nivers 75 mg EC 3-20 tablet by ity of tablet 00:00: mouth in [address] and 1 tablet in the evening. Take with meals. diclofenac 2023-0 Yes [id number] 75mg Take 1 U nivers 75 mg EC 3-20 tablet by ity of tablet 00:00: mouth in [address] and 1 tablet in the evening. Take with meals. diclofenac 2023-0 Yes [id number] 75mg Take 1 U nivers 75 mg EC 3-20 tablet by ity of tablet 00:00: mouth in [address] and 1 tablet in the evening. Take with meals. diclofenac 2023-0 Yes [id number] 75mg Take 1 U nivers 75 mg EC 3-20 tablet by ity of tablet 00:00: mouth in [place] [address] the [facility] and 1 tablet in the evening. Take with meals. diclofenac 2023-0 Yes [id number] 75mg Take 1 U nivers 75 mg EC 3-20 tablet by ity of tablet 00:00: mouth in [address] and 1 tablet in the evening. Take with meals. diclofenac 2023-0 Yes [id number] 75mg Take 1 U nivers 75 mg EC 3-20 tablet by ity of tablet 00:00: mouth in [address] and 1 tablet in the evening. Take with meals. diclofenac 2023-0 Yes [id number] 75mg Take 1 U nivers 75 mg EC 3-20 tablet by ity of tablet 00:00: mouth in [address] and 1 tablet in the evening. Take with meals. diclofenac 2023-0 Yes [id number] 75mg Take 1 U nivers 75 mg EC 3-20 tablet by ity of tablet 00:00: mouth in [address] and 1 tablet in the evening. Take with meals. cefUROXime 3-0 2023- No [id number] 500mg Take 2 Univers 250 mg 3-20 -28 tablets by ity of tablet 00:00: 04:59 mouth in [place] 00 :00 the [facility] and 2 tablets in the evening. Do all this for 7 days. cefUROXime 2022-0 2023- No [id number] 500mg Take 2 Univers 250 mg 3-20 -28 tablets by ity of tablet 00:00: 04:59 mouth in [place] 00 :00 the [facility] and 2 tablets in the evening. Do all this for 7 days. cefUROXime 2023-0 2023- No [id number] 500mg Take 2 Univers 250 mg 3-20 -28 tablets by ity of tablet 00:00: 04:59 mouth in [place] 00 :00 the [facility] and 2 tablets in the evening. Do all this for 7 days. fluconazole 2022-0 Yes Univer s 150 mg 3-01 ity of tablet 00:00: [place] 00 Medical Branch Nitrofurant 2023-0 Yes Univer s oin&Nit. 3-01 ity of Macrocryst 00:00: [place] 100 mg 00 Medical capsule Branch fluconazole 3-0 Yes Univer s 150 mg 3-01 ity of tablet 00:00: [place] 00 Medical Branch Nitrofurant 2022-0 Yes Univer s oin&Nit. 3-01 ity of Macrocryst 00:00: [place] 100 mg 00 Medical capsule Branch fluconazole 3-0 Yes Univer s 150 mg 3-01 ity of tablet 00:00: [place] 00 Medical Branch Nitrofurant 2022-0 Yes Univer s oin&Nit. 3-01 ity of Macrocryst 00:00: [place] 100 mg 00 Medical capsule Branch fluconazole 2022-0 Yes Univer s 150 mg 3-01 ity of tablet 00:00: [place] 00 Medical Branch Nitrofurant 2022-0 Yes Univer s oin&Nit. 3-01 ity of Macrocryst 00:00: [place] 100 mg 00 Medical capsule Branch fluconazole 3-0 Yes Univer s 150 mg 3-01 ity of tablet 00:00: [place] 00 Medical Branch Nitrofurant 2022-0 Yes Univer s oin&Nit. 3-01 ity of Macrocryst 00:00: [place] 100 mg 00 Medical capsule Branch fluconazole 3-0 Yes Univer s 150 mg 3-01 ity of tablet 00:00: [place] 00 Medical Branch Nitrofurant 2022-0 Yes Univer s oin&Nit. 3-01 ity of Macrocryst 00:00: [place] 100 mg 00 Medical capsule Branch fluconazole 3-0 Yes Univer s 150 mg 3-01 ity of tablet 00:00: [place] 00 Medical Branch Nitrofurant 3-0 Yes Univer s oin&Nit. 3-01 ity of Macrocryst 00:00: [place] 100 mg 00 Medical capsule Branch fluconazole 3-0 Yes Univer s 150 mg 3-01 ity of tablet 00:00: [place] 00 Medical Branch Nitrofurant 3-0 Yes Univer s oin&Nit. 3-01 ity of Macrocryst 00:00: [place] 100 mg 00 Medical capsule Branch fluconazole 2023-0 Yes Univer s 150 mg 3-01 ity of tablet 00:00: [place] 00 Medical Branch Nitrofurant 2023-0 Yes Univer s oin&Nit. 3- ity of Macrocryst 00:00: [place] 100 mg 00 Medical capsule Branch fluconazole Yes Univer s 150 mg 3- ity of tablet 00:00: [place] 00 Medical Branch Nitrofurant Yes Univer s oin&Nit. 3 ity of Macrocryst 00:00: [place] 100 mg 00 Medical capsule Branch fluconazole Yes Univer s 150 mg 3 ity of tablet 00:00: [place] 00 Medical Branch Nitrofurant Yes Univer s oin&Nit. 3 ity of Macrocryst 00:00: [place] 100 mg 00 Medical capsule Branch fluconazole Yes Univer s 150 mg 3 ity of tablet 00:00: [place] 00 Medical Branch Nitrofurant Yes Univer s oin&Nit. 3 ity of Macrocryst 00:00: [place] 100 mg 00 Medical capsule Branch fluconazole Yes Univer s 150 mg 3 ity of tablet 00:00: [place] 00 Medical Branch Nitrofurant Yes Univer s oin&Nit. 3 ity of Macrocryst 00:00: [place] 100 mg 00 Medical capsule Branch iopamidol 2022- No [id number] 75mL 75 mL, Univers (ISOVUE 11-23 Intravenou ity o f 370-500 mL) 07:30: 07:30 s, ONCE, 1 [place] injection 00 :00 dose, On Medica l 75 mL Wed Branch 11/23/22 at 0130, Routine cephALEXin 2022- No 500mg 500 mg, Un [place] (KEFLEX) 11-23 Oral, ity of capsule 500 07:21: 07:31 [place]CE, 1 [place] mg 00 :[place] dose, On Medical Wed Branch 11/23/22 at 0130, XENIA
Re ason for Anti-Infec tive: Documented Infection< br>Documen rhett Infection Site: Abdominal< br>Duratio n of Therapy: Other (see Comments) ketorolac 2022- No 30mg 30 mg, Unive rs (TORADOL) 11-23 Slow IV ity of injection 07:19: 07:31 [place], [place] 30 mg 00 :00 ONCE, 1 Medical dose, On Branch Mon11/23/22 at 0130, XENIA NaCl 0.9% 2022- No 1000mL at 999 Uni vers (NS) IV 11-23 mL/hr, ity of infusion 06:00: 07:21 Intravenou [place] 1,000 mL 00 :00 s, ONCE, 1 Medic al dose, On Branch Mon11/23/22 at 0000, Routine ondansetron 2022- No 4mg 4 mg, Slow Univers (ZOFRAN 11-23 IV Push, ity of (PF)) 05:11: 05:29 ONCE, 1 [place] injection 4 00 :00 dose, On Medi ty mg [facility] 11/22/22 at 2315, XENIA morpHINE (4 2022- No 4mg 4 mg, Slow Univers mg/mL) 11-23 IV Push, ity of injection 4 05:11: 05:29 [place]CE[place] 1 [place] :[place] dose, On Medical [facility] 11/22/22 at 2315, STAT sodium Yes 5mL 5 mL, Univers chloride 11-23 Intravenou ity o f (NS) 04:08: s, PRN, [place] injection 5 58 Starting Medi ty mL on Tue Branch 11/22/22 at 2208, Until Discontinu ed, Routine, IV line flushing cephALEXin 2022- No [id number] 500mg Take 1 Univers (KEFLEX) 11-23 capsule by ity of 500 mg 00:00: 05:59 mouth in [place] capsule 00 :00 the Medical morning Branch and 1 capsule in the evening. Do all this for 7 days. etonogestre 2022- No [id number] 68mg Univers L 2-07 10-10 ity of (NEXPLANON) 01:00: 00:09 [place] implant 68 00 :00 Medical mg Branch etonogestre 0 2022- No [id number] 68mg 68 mg, Univers L 2-07 10-10 Subdermal, ity of (NEXPLANON) 01:00: 00:09 ONCE NOW, [place] implant 68 00 :00 1 dose, On Med ical mg [facility] 11/17/22 Branch at 1900, Routine
Use approved by: SMOKING P[employer]TER etonogestre 2022- No [id number] 68mg Univers L 2-10 -10 ity of (NEXPLANON) 01:00: 00:09 [place] implant 68 00 :00 Medical mg Branch etonogestre 2022- No [id number] 68mg 68 mg, Univers L 2-07 10-10 Subdermal, ity of (NEXPLANON) 01:00: 00:09 ONCE NOW, [place] implant 68 00 :00 1 dose, On Med ical mg [facility] 11/17/22 Branch at 1900, Routine
Use approved by: [employer] miSOPROStoL Yes [id number] Take one Univers 200 mcg 1-31 tablet ity of tablet 00:00: night [place] 00 before Medical procedure, Branch then take one tablet morning of procedure miSOPROStoL Yes [id number] Take one Univers 200 mcg 1-31 tablet ity of tablet 00:00: night [place] 00 before Medical procedure, Branch then take one tablet morning of procedure miSOPROStoL 0 Yes [id number] Take one Univers 200 mcg 1-31 tablet ity of tablet 00:00: night [place] 00 before Medical procedure, Branch then take one tablet morning of procedure miSOPROStoL 0 Yes [id number] Take one Univers 200 mcg 1-31 tablet ity of tablet 00:00: night [place] 00 before Medical procedure, Branch then take one tablet morning of procedure miSOPROStoL 2022- No [id number] Take one Univers 200 mcg 1-31 -09 tablet ity of tablet 00:00: 00:00 night [place] 00 :00 before Medical procedure, Branch then take one tablet morning of procedure miSOPROStoL 0 2022- No [id number] Take one Univers 200 mcg 1-31 - tablet ity of tablet 00:00: 00:00 night [place] 00 :00 before Medical procedure, Branch then take one tablet morning of procedure methylpredn 2022- No 125mg 125 mg, U nivers isolone sod 11-04 Intramuscu i ty of succ 23:30: 22:26 lar, ONCE, [place] (SOLU-MEDRO 00 :00 1 dose, On Me dical L) Fri Branch injection 11/04/22 at 125 mg 1730, XENIA predniSONE 3-0 Yes [id number] 1 PO BID x Univers 20 mg 11-04 [id number] 4 days ity of tablet 00:00: [place] 00 Medical Branch predniSONE 2023-0 Yes [id number] 1 PO BID x Univers 20 mg 11-04 [id number] 4 days ity of tablet 00:00: [place] 00 Medical Branch predniSONE 2023-0 Yes [id number] 1 PO BID x Univers 20 mg 11-04 [id number] 4 days ity of tablet 00:00: [place] 00 Medical Branch predniSONE 2023-0 Yes [id number] 1 PO BID x Univers 20 mg 11-04 [id number] 4 days ity of tablet 00:00: [place] 00 Medical Branch predniSONE 2023-0 Yes [id number] 1 PO BID x Univers 20 mg 11-04 [id number] 4 days ity of tablet 00:00: [place] 00 Medical Branch predniSONE 2023-0 Yes [id number] 1 PO BID x Univers 20 mg 11-04 [id number] 4 days ity of tablet 00:00: [place] 00 Medical Branch predniSONE 2023-0 Yes [id number] 1 PO BID x Univers 20 mg 11-04 [id number] 4 days ity of tablet 00:00: [place] 00 Medical Branch predniSONE 2023-0 2023- No [id number] 1 PO BID x Univers 20 mg 11-04 [id number] 4 days ity of tablet 00:00: 00:00 [place] 00 :00 Medical Branch predniSONE 2023-0 2023- No [id number] 1 PO BID x Univers 20 mg 11-04 [id number] 4 days ity of tablet 00:00: 00:00 [place] 00 :00 Medical Branch guaiFENesin 2021-0 2021- No 200mg Take 10 C HI [...] to 10 days. clindamycin 2021-2021- No 300mg [id number] Take [address] [facility] (CLEOCIN) 10-11 [id number] mg by Edna kes 300 MG 18:03: [...] needed for Pain. clindamycin 2021-2021- No 300mg [id number] Take [address] [facility] [address] (CLEOCIN) 10-11 [id number] mg by Edna kes 300 MG 18:03: [...] 400mg Take [address] [facility] [address] (ADVIL,MOTR 10-11- [facility]) 400 MG 18:03: [...] 6 hours as needed for pain. lidocaine-d 2021- No 10mL Take [address] [facility] [address] [facility] iphenhyd-Al 03-23 mLs by [facility] -mag-sim 00:00: 00:00 mouth Medical 200-25-400- 00 :00 every 6 Cente r 40 mg/30 mL (six) Mwsh hours as needed Swish and spit every 6 hours as needed for pain. metroNIDAZO 2020- No 500mg [id number] Take [address] [facility] (FLAGYL) 03-23 [id number] tablet [facility] 500 MG 00:00: 23:59 3D (500 mg Medical tablet 00 :00 total) by Center mouth 3 (three) times daily for 10 days. metroNIDAZO 2020- No 500mg [id number] Take [address] [facility] (FLAGYL) 03-23 [id number] tablet [facility] 500 MG 00:00: 23:59 3D [...] Date Status Commen ts Source Name Name Influenza Virus 2022-06-22 Completed Universit y of Vaccine (3+ yrs) 00:00:00 [facility] Influenza Virus 2022-06-22 Completed Universit y of Vaccine (3+ yrs) 00:00:00 [facility] Influenza Virus 2022-06-22 Completed Universit y of Vaccine (3+ yrs) 00:00:00 [facility] Influenza Virus 2022-06-22 Completed Universit y of Vaccine (3+ yrs) 00:00:00 [facility] Influenza Virus 2022-06-22 Completed Universit y of Vaccine (3+ yrs) 00:00:00 [facility] Influenza Virus 2022-06-22 Completed Universit y of Vaccine (3+ yrs) 00:00:00 [facility] Influenza Virus 2022-06-22 Completed Universit y of Vaccine (3+ yrs) 00:00:00 [facility] Influenza Virus 2022-06-22 Completed Universit y of Vaccine (3+ yrs) 00:00:00 [facility] Influenza Virus 2022-06-22 Completed Universit y of Vaccine (3+ yrs) 00:00:00 [facility] Influenza Virus 2022-06-22 Completed Universit y of Vaccine (3+ yrs) 00:00:00 [facility] Influenza Virus 2022-06-22 Completed Universit y of Vaccine (3+ yrs) 00:00:00 [facility] Influenza Virus 2022-06-22 Completed Universit y of Vaccine (3+ yrs) 00:00:00 [facility] Influenza Virus 2022-06-22 Completed Universit y of Vaccine (3+ yrs) 00:00:00 [facility] Influenza Virus 2022-06-22 Completed Universit y of Vaccine (3+ yrs) 00:00:00 [facility] Influenza Virus 2022-06-22 Completed Universit y of Vaccine (3+ yrs) 00:00:00 [facility] Influenza Virus 2022-06-22 Completed Universit y of Vaccine (3+ yrs) 00:00:00 [facility] Influenza Virus 2022-06-22 Completed Universit y of Vaccine (3+ yrs) 00:00:00 [place] [facility] Influenza Virus 2022-06-22 Completed Universit y of Vaccine (3+ yrs) 00:00:00 [facility] Influenza Virus 2022-06-22 Completed Universit y of Vaccine (3+ yrs) 00:00:00 [facility] Influenza Virus 2022-06-22 Completed Universit y of Vaccine (3+ yrs) 00:00:00 [facility] Influenza Virus 2022-06-22 Completed Universit y of Vaccine (3+ yrs) 00:00:00 [facility] Influenza Virus 2022-06-22 Completed Universit y of Vaccine (3+ yrs) 00:00:00 [facility] Influenza Virus 2022-06-22 Completed Universit y of Vaccine (3+ yrs) 00:00:00 [facility] Influenza Virus 2022-06-22 Completed Universit y of Vaccine (3+ yrs) 00:00:00 [facility] Influenza Virus 2022-06-22 Completed Universit y of Vaccine (3+ yrs) 00:00:00 [facility] SARS-COV-2 COVID-19 2021-10-27 Completed Unive rsity of PFIZER VACCINE 00:00:00 [facility] SARS-COV-2 COVID-19 2021-10-27 Completed Unive rsity of PFIZER VACCINE 00:00:00 [facility] SARS-COV-2 COVID-19 2021-10-27 Completed Unive rsity of PFIZER VACCINE 00:00:00 [facility] SARS-COV-2 COVID-19 2021-10-27 Completed Unive rsity of PFIZER VACCINE 00:00:00 [facility] SARS-COV-2 COVID-19 2021-10-27 Completed Unive rsity of PFIZER VACCINE 00:00:00 [facility] SARS-COV-2 COVID-19 2021-10-27 Completed Unive rsity of PFIZER VACCINE 00:00:00 [facility] SARS-COV-2 COVID-19 2021-10-27 Completed Unive rsity of PFIZER VACCINE 00:00:00 [facility] SARS-COV-2 COVID-19 2021-10-27 Completed Unive rsity of PFIZER VACCINE 00:00:00 [facility] SARS-COV-2 COVID-19 2021-10-27 Completed Unive rsity of PFIZER VACCINE 00:00:00 [facility] SARS-COV-2 COVID-19 2021-10-27 Completed Unive rsity of PFIZER VACCINE 00:00:00 [facility] SARS-COV-2 COVID-19 2021-10-27 Completed Unive rsity of PFIZER VACCINE 00:00:00 [facility] SARS-COV-2 COVID-19 2021-10-27 Completed Unive rsity of PFIZER VACCINE 00:00:00 [facility] SARS-COV-2 COVID-19 2021-10-27 Completed Unive rsity of PFIZER VACCINE 00:00:00 [facility] SARS-COV-2 COVID-19 2021-10-27 Completed Unive rsity of PFIZER VACCINE 00:00:00 [facility] PFIZER COVID-19 MRNA 2021-10-27 Completed Meth odist VACCINATION 00:00:00 Hospital PFIZER COVID-19 MRNA 2021-10-27 Completed Meth odist VACCINATION 00:00:00 Hospital PFIZER COVID-19 MRNA 2021-10-27 Completed Meth odist VACCINATION 00:00:00 Hospital PFIZER COVID-19 MRNA 2021-10-27 Completed Meth odist VACCINATION 00:00:00 Hospital PFIZER COVID-19 MRNA 2021-10-27 Completed Meth odist VACCINATION 00:00:00 [facility] SARS-COV-2 COVID-19 2021-02-11 Completed Unive rsity of VACCINE - (MODERNA) 00:00:00 [facility] [place] [facility] SARS-COV-2 COVID-19 2021-02-11 Completed Unive rsity of VACCINE - (MODERNA) 00:00:00 [facility] [place] [facility] SARS-COV-2 COVID-19 2021-02-11 Completed Unive rsity of VACCINE - (MODERNA) 00:00:00 [facility] [place] [facility] SARS-COV-2 COVID-19 2021-02-11 Completed Unive rsity of VACCINE - (MODERNA) 00:00:00 [facility] [place] [facility] SARS-COV-2 COVID-19 2021-02-11 Completed Unive rsity of VACCINE - (MODERNA) 00:00:00 [facility] [place] [facility] SARS-COV-2 COVID-19 2021-02-11 Completed Unive rsity of VACCINE - (MODERNA) 00:00:00 [facility] [place] [facility] SARS-COV-2 COVID-19 2021-02-11 Completed Unive rsity of VACCINE - (MODERNA) 00:00:00 [facility] [place] [facility] SARS-COV-2 COVID-19 2021-02-11 Completed Unive rsity of VACCINE - (MODERNA) 00:00:00 [facility] [place] [facility] SARS-COV-2 COVID-19 2021-02-11 Completed Unive rsity of VACCINE - (MODERNA) 00:00:00 [facility] [place] [facility] SARS-COV-2 COVID-19 2021-02-11 Completed Unive rsity of VACCINE - (MODERNA) 00:00:00 [facility] [place] [facility] SARS-COV-2 COVID-19 2021-02-11 Completed Unive rsity of VACCINE - (MODERNA) 00:00:00 [facility] [place] [facility] SARS-COV-2 COVID-19 2021-02-11 Completed Unive rsity of VACCINE - (MODERNA) 00:00:00 [facility] [place] [facility] SARS-COV-2 COVID-19 2021-02-11 Completed Unive rsity of VACCINE - (MODERNA) 00:00:00 [facility] [place] [facility] SARS-COV-2 COVID-19 2021-02-11 Completed Unive rsity of VACCINE - (MODERNA) 00:00:00 [facility] [place] [facility] SARS-COV-2 COVID-19 2021-01-14 Completed Unive rsity of VACCINE - (MODERNA) 00:00:00 [facility] [place] [facility] SARS-COV-2 COVID-19 2021-01-14 Completed Unive rsity of VACCINE - (MODERNA) 00:00:00 [facility] SARS-COV-2 COVID-19 2021-01-14 Completed Unive rsity of VACCINE - (MODERNA) 00:00:00 [facility] [place] [facility] SARS-COV-2 COVID-19 2021-01-14 Completed Unive rsity of VACCINE - (MODERNA) 00:00:00 [facility] [place] [facility] SARS-COV-2 COVID-19 2021-01-14 Completed Unive rsity of VACCINE - (MODERNA) 00:00:00 [facility] [place] [facility] SARS-COV-2 COVID-19 2021-01-14 Completed Unive rsity of VACCINE - (MODERNA) 00:00:00 [place] [facility] SARS-COV-2 COVID-19 2021-01-14 Completed Unive rsity of VACCINE - (MODERNA) 00:00:00 [facility] [place] [facility] SARS-COV-2 COVID-19 2021-01-14 Completed Unive rsity of VACCINE - (MODERNA) 00:00:00 [facility] [place] [facility] SARS-COV-2 COVID-19 2021-01-14 Completed Unive rsity of VACCINE - (MODERNA) 00:00:00 [facility] [place] [facility] SARS-COV-2 COVID-19 2021-01-14 Completed Unive rsity of VACCINE - (MODERNA) 00:00:00 [facility] [place] [facility] SARS-COV-2 COVID-19 2021-01-14 Completed Unive rsity of VACCINE - (MODERNA) 00:00:00 [facility] [place] [facility] SARS-COV-2 COVID-19 2021-01-14 Completed Unive rsity of VACCINE - (MODERNA) 00:00:00 [facility] [place] [facility] SARS-COV-2 COVID-19 2021-01-14 Completed Unive rsity of VACCINE - (MODERNA) 00:00:00 [facility] [place] [facility] SARS-COV-2 COVID-19 2021-01-14 Completed Unive rsity of VACCINE - (MODERNA) 00:00:00 [facility] [place] [facility] Influenza Virus 2017-07-04 Completed Universit y of Vaccine - Whole 00:00:00 [facility] Influenza Virus 2017-07-04 Completed Universit y of Vaccine - Whole 00:00:00 [facility] Influenza Virus 2017-07-04 Completed Universit y of Vaccine - Whole 00:00:00 [facility] Influenza Virus 2017-07-04 Completed Universit y of Vaccine - Whole 00:00:00 [facility] Influenza Virus 2017-07-04 Completed Universit y of Vaccine - Whole 00:00:00 [facility] Influenza Virus 2017-07-04 Completed Universit y of Vaccine - Whole 00:00:00 [facility] Influenza Virus 2017-07-04 Completed Universit y of Vaccine - Whole 00:00:00 [facility] Influenza Virus 2017-07-04 Completed Universit y of Vaccine - Whole 00:00:00 [facility] Influenza Virus 2017-07-04 Completed Universit y of Vaccine - Whole 00:00:00 [facility] Influenza Virus 2017-07-04 Completed Universit y of Vaccine - Whole 00:00:00 [facility] Influenza Virus 2017-07-04 Completed Universit y of Vaccine - Whole 00:00:00 [facility] Influenza Virus 2017-07-04 Completed Universit y of Vaccine - Whole 00:00:00 [facility] Influenza Virus 2017-07-04 Completed Universit y of Vaccine - Whole 00:00:00 [facility] Influenza Virus 2017-07-04 Completed Universit y of Vaccine - Whole 00:00:00 [facility] Flu Trivalent 2016-07-03 Completed University of 00:00:00 [facility] [place] [facility] Flu Trivalent 2016-07-03 Completed University of 00:00:00 [facility] Flu Trivalent 2016-07-03 Completed University of 00:00:00 [facility] [place] [facility] Flu Trivalent 2016-07-03 Completed University of 00:00:00 [facility] [place] [facility] Flu Trivalent 2016-07-03 Completed University of 00:00:00 [facility] [place] [facility] Flu Trivalent 2016-07-03 Completed University of 00:00:00 [facility] [place] [facility] Flu Trivalent 2016-07-03 Completed University of 00:00:00 [facility] [place] [facility] Flu Trivalent 2016-07-03 Completed University of 00:00:00 [facility] [place] [facility] Flu Trivalent 2016-07-03 Completed University of 00:00:00 [facility] [place] [facility] Flu Trivalent 2016-07-03 Completed University of 00:00:00 [facility] [place] [facility] Flu Trivalent 2016-07-03 Completed University of 00:00:00 [facility] [place] [facility] Flu Trivalent 2016-07-03 Completed University of 00:00:00 [facility] [place] [facility] Flu Trivalent 2016-07-03 Completed University of 00:00:00 [facility] [place] [facility] Flu Trivalent 2016-07-03 Completed University of 00:00:00 [facility] DTAP 2014-12-24 Completed University of 00:00:00 [facility] [place] [facility] DTAP 2014-12-24 Completed University of 00:00:00 [facility] [place] [facility] DTAP 2014-12-24 Completed University of 00:00:00 [facility] [place] [facility] DTAP 2014-12-24 Completed University of 00:00:00 [facility] DTAP 2014-12-24 Completed University of 00:00:00 [facility] DTAP 2014-12-24 Completed University of 00:00:00 [facility] DTAP 2014-12-24 Completed University of 00:00:00 [facility] DTAP 2014-12-24 Completed University of 00:00:00 [facility] DTAP 2014-12-24 Completed University of 00:00:00 [facility] DTAP 2014-12-24 Completed University of 00:00:00 [facility] DTAP 2014-12-24 Completed University of 00:00:00 [facility] DTAP 2014-12-24 Completed University of 00:00:00 [facility] DTAP 2014-12-24 Completed University of 00:00:00 [facility] DTAP 2014-12-24 Completed University of 00:00:00 [facility] DTAP 2014-12-24 Completed University of 00:00:00 [facility] DTAP 2014-12-24 Completed University of 00:00:00 [facility] DTAP 2014-12-24 Completed University of 00:00:00 [facility] DTAP 2014-12-24 Completed University of 00:00:00 [facility] DTAP 2014-12-24 Completed University of 00:00:00 [facility] DTAP 2014-12-24 Completed University of 00:00:00 [facility] DTAP 2014-12-24 Completed University of 00:00:00 [facility] DTAP 2014-12-24 Completed University of 00:00:00 [facility] DTAP 2014-12-24 Completed University of 00:00:00 [facility] DTAP 2014-12-24 Completed University of 00:00:00 [facility] DTAP 2014-12-24 Completed University of 00:00:00 [facility] Influenza Virus 2013-07-22 Completed Universit y of Vaccine Quad Nasal 00:00:00 [facility] Influenza Virus 2013-07-22 Completed Universit y of Vaccine Quad Nasal 00:00:00 [facility] Influenza Virus 2013-07-22 Completed Universit y of Vaccine Quad Nasal 00:00:00 [facility] Influenza Virus 2013-07-22 Completed Universit y of Vaccine Quad Nasal 00:00:00 [facility] Influenza Virus 2013-07-22 Completed Universit y of Vaccine [place] Nasal 00:00:00 [facility] Influenza Virus 2013-07-22 Completed Universit y of Vaccine Quad Nasal 00:00:00 [facility] Influenza Virus 2013-07-22 Completed Universit y of Vaccine [place] Nasal 00:00:00 [facility] Influenza Virus 2013-07-22 Completed Universit y of Vaccine Quad Nasal 00:00:00 [facility] Influenza Virus 2013-07-22 Completed Universit y of Vaccine Quad Nasal 00:00:00 [facility] Influenza Virus 2013-07-22 Completed Universit y of Vaccine [place] Nasal 00:00:00 [facility] Influenza Virus 2013-07-22 Completed Universit y of Vaccine Quad Nasal 00:00:00 [facility] Influenza Virus 2013-07-22 Completed Universit y of Vaccine [place] Nasal 00:00:00 [facility] Influenza Virus 2013-07-22 Completed Universit y of Vaccine [place] Nasal 00:00:00 [facility] Influenza Virus 2013-07-22 Completed Universit y of Vaccine [place] Nasal 00:00:00 [facility] Influenza Virus 2012-05-31 Completed Universit y of Vaccine Nasal 00:00:00 [facility] Influenza Virus 2012-05-31 Completed Universit y of Vaccine Nasal 00:00:00 [facility] Influenza Virus 2012-05-31 Completed Universit y of Vaccine Nasal 00:00:00 [facility] Influenza Virus 2012-05-31 Completed Universit y of Vaccine Nasal 00:00:00 [facility] Influenza Virus 2012-05-31 Completed Universit y of Vaccine Nasal 00:00:00 [facility] Influenza Virus 2012-05-31 Completed Universit y of Vaccine Nasal 00:00:00 [facility] Influenza Virus 2012-05-31 Completed Universit y of Vaccine Nasal 00:00:00 [facility] Influenza Virus 2012-05-31 Completed Universit y of Vaccine Nasal 00:00:00 [facility] Influenza Virus 2012-05-31 Completed Universit y of Vaccine Nasal 00:00:00 [facility] Influenza Virus 2012-05-31 Completed Universit y of Vaccine Nasal 00:00:00 [facility] Influenza Virus 2012-05-31 Completed Universit y of Vaccine Nasal 00:00:00 [facility] Influenza Virus 2012-05-31 Completed Universit y of Vaccine Nasal 00:00:00 [facility] Influenza Virus 2012-05-31 Completed Universit y of Vaccine Nasal 00:00:00 [facility] Influenza Virus 2012-05-31 Completed [facility] y of Vaccine Nasal 00:00:00 [facility] Influenza Virus 2011-06-21 Completed Universit y of Vaccine Nasal 00:00:00 [facility] Influenza Virus 2011-06-21 Completed Universit y of Vaccine Nasal 00:00:00 [facility] Influenza Virus 2011-06-21 Completed Universit y of Vaccine Nasal 00:00:00 [facility] Influenza Virus 2011-06-21 Completed Universit y of Vaccine Nasal 00:00:00 [facility] Influenza Virus 2011-06-21 Completed Universit y of Vaccine Nasal 00:00:00 [facility] Influenza Virus 2011-06-21 Completed Universit y of Vaccine Nasal 00:00:00 [facility] Influenza Virus 2011-06-21 Completed Universit y of Vaccine Nasal 00:00:00 [facility] Influenza Virus 2011-06-21 Completed Universit y of Vaccine Nasal 00:00:00 [facility] Influenza Virus 2011-06-21 Completed Universit y of Vaccine Nasal 00:00:00 [facility] Influenza Virus 2011-06-21 Completed Universit y of Vaccine Nasal 00:00:00 [facility] Influenza Virus 2011-06-21 Completed [facility] Vaccine Nasal 00:00:00 [facility] Influenza Virus 2011-06-21 Completed [facility] Vaccine Nasal 00:00:00 [facility] Influenza Virus 2011-06-21 Completed [facility] Vaccine Nasal 00:00:00 [facility] Influenza Virus 2011-06-21 Completed [facility] Vaccine Nasal 00:00:00 [facility] Influenza Virus 2010-07-13 Completed [facility] Vaccine Nasal 00:00:00 [facility] Influenza Virus 2010-07-13 Completed [facility] Vaccine Nasal 00:00:00 [facility] Influenza Virus 2010-07-13 Completed [facility] Vaccine Nasal 00:00:00 [facility] Influenza Virus 2010-07-13 Completed [facility] Vaccine Nasal 00:00:00 [facility] Influenza Virus 2010-07-13 Completed [facility] Vaccine Nasal 00:00:00 [facility] Influenza Virus 2010-07-13 Completed [facility] Vaccine Nasal 00:00:00 [facility] Influenza Virus 2010-07-13 Completed [facility] Vaccine Nasal 00:00:00 [facility] Influenza Virus 2010-07-13 Completed [facility] Vaccine Nasal 00:00:00 [facility] Influenza Virus 2010-07-13 Completed [facility] Vaccine Nasal 00:00:00 [facility] Influenza Virus 2010-07-13 Completed [facility] Vaccine Nasal 00:00:00 [facility] Influenza Virus 2010-07-13 Completed [facility] Vaccine Nasal 00:00:00 [facility] Influenza Virus 2010-07-13 Completed [facility] Vaccine Nasal 00:00:00 [facility] Influenza Virus 2010-07-13 Completed [facility] Vaccine Nasal 00:00:00 [facility] Influenza Virus 2010-07-13 Completed [facility] Vaccine Nasal 00:00:00 [facility] TDAP 2009-09-28 Completed [facility] 00:00:00 [facility] Meningococcal 2009-09-28 Completed [facility] Polysaccharide 00:00:00 [facility] (groups A, C, Y and Branc h W-135) conjugate vaccine (MCV4P) TDAP 2009-09-28 Completed [facility] 00:00:00 [facility] Meningococcal 2009-09-28 Completed [facility] Polysaccharide 00:00:00 [facility] (groups A, C, Y and Branc h W-135) conjugate vaccine (MCV4P) TDAP 2009-09-28 Completed [facility] 00:00:00 [facility] Meningococcal 2009-09-28 Completed [facility] Polysaccharide 00:00:00 [facility] (groups A, C, Y and Branc h W-135) conjugate vaccine (MCV4P) TDAP 2009-09-28 Completed [facility] 00:00:00 [facility] Meningococcal 2009-09-28 Completed [facility] Polysaccharide 00:00:00 [facility] (groups A, C, Y and Branc h W-135) conjugate vaccine (MCV4P) TDAP 2009-09-28 Completed [facility] 00:00:00 [facility] Meningococcal 2009-09-28 Completed [facility] Polysaccharide 00:00:00 [facility] (groups A, C, Y and Branc h W-135) conjugate vaccine (MCV4P) TDAP 2009-09-28 Completed [facility] 00:00:00 [facility] Meningococcal 2009-09-28 Completed [facility] Polysaccharide 00:00:00 [facility] (groups A, C, Y and Branc h W-135) conjugate vaccine (MCV4P) TDAP 2009-09-28 Completed [facility] 00:00:00 [facility] Meningococcal 2009-09-28 Completed [facility] Polysaccharide 00:00:00 [facility] (groups A, C, Y and Branc h W-135) conjugate vaccine (MCV4P) TDAP 2009-09-28 Completed [facility] 00:00:00 [facility] Meningococcal 2009-09-28 Completed [facility] Polysaccharide 00:00:00 [place] [facility] (groups A, C, Y and Branc h W-135) conjugate vaccine (MCV4P) TDAP 2009-09-28 Completed [facility] 00:00:00 [facility] Meningococcal 2009-09-28 Completed [facility] Polysaccharide 00:00:00 [facility] (groups A, C, Y and Branc h W-135) conjugate vaccine (MCV4P) TDAP 2009-09-28 Completed [facility] 00:00:00 [facility] Meningococcal 2009-09-28 Completed [facility] Polysaccharide 00:00:00 [facility] (groups A, C, Y and Branc h W-135) conjugate vaccine (MCV4P) TDAP 2009-09-28 Completed [facility] 00:00:00 [facility] Meningococcal 2009-09-28 Completed [facility] Polysaccharide 00:00:00 [facility] (groups A, C, Y and Branc h W-135) conjugate vaccine (MCV4P) TDAP 2009-09-28 Completed [facility] 00:00:00 [facility] Meningococcal 2009-09-28 Completed [facility] Polysaccharide 00:00:00 [place] [facility] (groups A, C, Y and Branc h W-135) conjugate vaccine (MCV4P) TDAP 2009-09-28 Completed [facility] 00:00:00 [facility] Meningococcal 2009-09-28 Completed [facility] Polysaccharide 00:00:00 [facility] (groups A, C, Y and Branc h W-135) conjugate vaccine (MCV4P) TDAP 2009-09-28 Completed [facility] 00:00:00 [facility] Meningococcal 2009-09-28 Completed [facility] Polysaccharide 00:00:00 [facility] (groups A, C, Y and Branc h W-135) conjugate vaccine (MCV4P) Influenza Virus 2009-06-01 Completed [facility] Vaccine Nasal 00:00:00 [facility] Influenza Virus 2009-06-01 Completed [facility] Vaccine Nasal 00:00:00 [facility] Influenza Virus 2009-06-01 Completed [facility] Vaccine Nasal 00:00:00 [facility] Influenza Virus 2009-06-01 Completed [facility] Vaccine Nasal 00:00:00 [facility] Influenza Virus 2009-06-01 Completed [facility] Vaccine Nasal 00:00:00 [facility] Influenza Virus 2009-06-01 Completed [facility] Vaccine Nasal 00:00:00 [facility] Influenza Virus 2009-06-01 Completed [facility] Vaccine Nasal 00:00:00 [facility] Influenza Virus 2009-06-01 Completed [facility] Vaccine Nasal 00:00:00 [facility] Influenza Virus 2009-06-01 Completed [facility] Vaccine Nasal 00:00:00 [facility] Influenza Virus 2009-06-01 Completed [facility] Vaccine Nasal 00:00:00 [facility] Influenza Virus 2009-06-01 Completed [facility] Vaccine Nasal 00:00:00 [facility] Influenza Virus 2009-06-01 Completed [facility] Vaccine Nasal 00:00:00 [facility] Influenza Virus 2009-06-01 Completed [facility] Vaccine Nasal 00:00:00 [facility] Influenza Virus 2009-06-01 Completed [facility] Vaccine Nasal 00:00:00 [facility] Flu Trivalent 2008-07-08 Completed [facility] 00:00:00 [facility] Flu Trivalent 2008-07-08 Completed [facility] 00:00:00 [facility] Flu Trivalent 2008-07-08 Completed [facility] 00:00:00 [facility] Flu Trivalent 2008-07-08 Completed [facility] 00:00:00 [facility] Flu Trivalent 2008-07-08 Completed [facility] 00:00:00 [facility] Flu Trivalent 2008-07-08 Completed [facility] 00:00:00 [facility] Flu Trivalent 2008-07-08 Completed [facility] 00:00:00 [facility] Flu Trivalent 2008-07-08 Completed [facility] 00:00:00 [facility] Flu Trivalent 2008-07-08 Completed [facility] 00:00:00 [facility] Flu Trivalent 2008-07-08 Completed [facility] 00:00:00 [facility] Flu Trivalent 2008-07-08 Completed [facility] 00:00:00 [facility] Flu Trivalent 2008-07-08 Completed [facility] 00:00:00 [facility] Flu Trivalent 2008-07-08 Completed [facility] 00:00:00 [facility] Flu Trivalent 2008-07-08 Completed [facility] 00:00:00 [facility] Influenza Virus 2007-07-16 Completed [facility] Vaccine Nasal 00:00:00 [facility] Influenza Virus 2007-07-16 Completed [facility] Vaccine Nasal 00:00:00 [facility] Influenza Virus 2007-07-16 Completed [facility] Vaccine Nasal 00:00:00 [facility] Influenza Virus 2007-07-16 Completed [facility] Vaccine Nasal 00:00:00 [facility] Influenza Virus 2007-07-16 Completed [facility] Vaccine Nasal 00:00:00 [facility] Influenza Virus 2007-07-16 Completed [facility] Vaccine Nasal 00:00:00 [facility] Influenza Virus 2007-07-16 Completed [facility] Vaccine Nasal 00:00:00 [facility] Influenza Virus 2007-07-16 Completed [facility] Vaccine Nasal 00:00:00 [facility] Influenza Virus 2007-07-16 Completed [facility] Vaccine Nasal 00:00:00 [facility] Influenza Virus 2007-07-16 Completed [facility] Vaccine Nasal 00:00:00 [facility] Influenza Virus 2007-07-16 Completed [facility] Vaccine Nasal 00:00:00 [facility] Influenza Virus 2007-07-16 Completed [facility] Vaccine Nasal 00:00:00 [facility] Influenza Virus 2007-07-16 Completed [facility] Vaccine Nasal 00:00:00 [facility] Influenza Virus 2007-07-16 Completed [facility] Vaccine Nasal 00:00:00 [facility] Varicella 2007-06-12 Completed [facility] (varivax)(chicken 00:00:00 [place] [facility] Varicella 2007-06-12 Completed [facility] (varivax)(chicken 00:00:00 [facility] Varicella 2007-06-12 Completed [facility] (varivax)(chicken 00:00:00 [facility] Varicella 2007-06-12 Completed [facility] (varivax)(chicken 00:00:00 [facility] Varicella 2007-06-12 Completed [facility] (varivax)(chicken 00:00:00 [facility] Varicella 2007-06-12 Completed [facility] (varivax)(chicken 00:00:00 [facility] Varicella 2007-06-12 Completed [facility] (varivax)(chicken 00:00:00 [facility] Varicella 2007-06-12 Completed [facility] (varivax)(chicken 00:00:00 [facility] Varicella 2007-06-12 Completed [facility] (varivax)(chicken 00:00:00 [facility] Varicella 2007-06-12 Completed [facility] (varivax)(chicken 00:00:00 [facility] Varicella 2007-06-12 Completed [facility] (varivax)(chicken 00:00:00 [facility] Varicella 2007-06-12 Completed [facility] (varivax)(chicken 00:00:00 [facility] Varicella 2007-06-12 Completed [facility] (varivax)(chicken 00:00:00 [facility] Varicella 2007-06-12 Completed [facility] (varivax)(chicken 00:00:00 [facility] Flu Trivalent 2006-07-14 Completed [facility] 00:00:00 [facility] Flu Trivalent 2006-07-14 Completed [facility] 00:00:00 [facility] Flu Trivalent 2006-07-14 Completed [facility] 00:00:00 [facility] Flu Trivalent 2006-07-14 Completed [facility] 00:00:00 [facility] Flu Trivalent 2006-07-14 Completed [facility] 00:00:00 [facility] Flu Trivalent 2006-07-14 Completed [facility] 00:00:00 [facility] Flu Trivalent 2006-07-14 Completed [facility] 00:00:00 [facility] Flu Trivalent 2006-07-14 Completed [facility] 00:00:00 [facility] Flu Trivalent 2006-07-14 Completed [facility] 00:00:00 [facility] Flu Trivalent 2006-07-14 Completed [facility] 00:00:00 [facility] Flu Trivalent 2006-07-14 Completed [facility] 00:00:00 [facility] Flu Trivalent 2006-07-14 Completed [facility] 00:00:00 [facility] Flu Trivalent 2006-07-14 Completed [facility] 00:00:00 [facility] Flu Trivalent 2006-07-14 Completed [facility] 00:00:00 [facility] Flu Trivalent 2005-07-22 Completed [facility] 00:00:00 [facility] Flu Trivalent 2005-07-22 Completed [facility] 00:00:00 [facility] Flu Trivalent 2005-07-22 Completed [facility] 00:00:00 [facility] Flu Trivalent 2005-07-22 Completed [facility] 00:00:00 [facility] Flu Trivalent 2005-07-22 Completed [facility] 00:00:00 [facility] Flu Trivalent 2005-07-22 Completed [facility] 00:00:00 [facility] Flu Trivalent 2005-07-22 Completed [facility] 00:00:00 [facility] Flu Trivalent 2005-07-22 Completed [facility] 00:00:00 [facility] Flu Trivalent 2005-07-22 Completed [facility] 00:00:00 [facility] Flu Trivalent 2005-07-22 Completed [facility] 00:00:00 [facility] Flu Trivalent 2005-07-22 Completed [facility] 00:00:00 [facility] Flu Trivalent 2005-07-22 Completed [facility] 00:00:00 [facility] Flu Trivalent 2005-07-22 Completed [facility] 00:00:00 [facility] Flu Trivalent 2005-07-22 Completed [facility] 00:00:00 [facility] Flu Trivalent 2004-07-23 Completed [facility] 00:00:00 [facility] Flu Trivalent 2004-07-23 Completed [facility] 00:00:00 [facility] Flu Trivalent 2004-07-23 Completed [facility] 00:00:00 [facility] Flu Trivalent 2004-07-23 Completed [facility] 00:00:00 [facility] Flu Trivalent 2004-07-23 Completed [facility] 00:00:00 [facility] Flu Trivalent 2004-07-23 Completed [facility] 00:00:00 [facility] Flu Trivalent 2004-07-23 Completed [facility] 00:00:00 [facility] Flu Trivalent 2004-07-23 Completed [facility] 00:00:00 [facility] Flu Trivalent 2004-07-23 Completed [facility] 00:00:00 [facility] Flu Trivalent 2004-07-23 Completed [facility] 00:00:00 [facility] Flu Trivalent 2004-07-23 Completed [facility] 00:00:00 [facility] Flu Trivalent 2004-07-23 Completed [facility] 00:00:00 [facility] Flu Trivalent 2004-07-23 Completed [facility] 00:00:00 [facility] Flu Trivalent 2004-07-23 Completed [facility] 00:00:00 [facility] Flu Trivalent 2003-07-18 Completed [facility] 00:00:00 [facility] Flu Trivalent 2003-07-18 Completed [facility] 00:00:00 [facility] Flu Trivalent 2003-07-18 Completed [facility] 00:00:00 [facility] Flu Trivalent 2003-07-18 Completed [facility] 00:00:00 [facility] Flu Trivalent 2003-07-18 Completed [facility] 00:00:00 [facility] Flu Trivalent 2003-07-18 Completed [facility] 00:00:00 [facility] Flu Trivalent 2003-07-18 Completed [facility] 00:00:00 [facility] Flu Trivalent 2003-07-18 Completed [facility] 00:00:00 [facility] Flu Trivalent 2003-07-18 Completed [facility] 00:00:00 [facility] Flu Trivalent 2003-07-18 Completed [facility] 00:00:00 [facility] Flu Trivalent 2003-07-18 Completed [facility] 00:00:00 [facility] Flu Trivalent 2003-07-18 Completed [facility] 00:00:00 [facility] Flu Trivalent 2003-07-18 Completed [facility] 00:00:00 [facility] Flu Trivalent 2003-07-18 Completed [facility] 00:00:00 [facility] HEPATITIS A 2003-04-07 Completed [facility] 00:00:00 [facility] HEPATITIS A 2003-04-07 Completed [facility] 00:00:00 [facility] HEPATITIS A 2003-04-07 Completed [facility] 00:00:00 [facility] HEPATITIS A 2003-04-07 Completed [facility] 00:00:00 [facility] HEPATITIS A 2003-04-07 Completed [facility] 00:00:00 [facility] HEPATITIS A 2003-04-07 Completed [facility] 00:00:00 [facility] HEPATITIS A 2003-04-07 Completed [facility] 00:00:00 [facility] HEPATITIS A 2003-04-07 Completed [facility] 00:00:00 [facility] HEPATITIS A 2003-04-07 Completed [facility] 00:00:00 [facility] HEPATITIS A 2003-04-07 Completed [facility] 00:00:00 [facility] HEPATITIS A 2003-04-07 Completed [facility] 00:00:00 [facility] HEPATITIS A 2003-04-07 Completed [facility] 00:00:00 [facility] HEPATITIS A 2003-04-07 Completed [facility] 00:00:00 [facility] HEPATITIS A 2003-04-07 Completed [facility] 00:00:00 [facility] IPV 2002-10-08 Completed [facility] 00:00:00 [facility] MMR 2002-10-08 Completed [facility] 00:00:00 [facility] DTaP, Unspecified 2002-10-08 Completed [facility] of Formulation 00:00:00 [facility] IPV 2002-10-08 Completed [facility] 00:00:00 [facility] MMR 2002-10-08 Completed [facility] 00:00:00 [facility] DTaP, Unspecified 2002-10-08 Completed [facility] Formulation 00:00:00 [facility] IPV 2002-10-08 Completed [facility] 00:00:00 [facility] MMR 2002-10-08 Completed [facility] 00:00:00 [facility] DTaP, Unspecified 2002-10-08 Completed [facility] Formulation 00:00:00 [facility] IPV 2002-10-08 Completed [facility] 00:00:00 [facility] MMR 2002-10-08 Completed [facility] 00:00:00 [facility] DTaP, Unspecified 2002-10-08 Completed [facility] Formulation 00:00:00 [facility] IPV 2002-10-08 Completed [facility] 00:00:00 [facility] MMR 2002-10-08 Completed [facility] 00:00:00 [facility] DTaP, Unspecified 2002-10-08 Completed [facility] Formulation 00:00:00 [facility] IPV 2002-10-08 Completed [facility] 00:00:00 [facility] MMR 2002-10-08 Completed [facility] 00:00:00 [facility] DTaP, Unspecified 2002-10-08 Completed [facility] Formulation 00:00:00 [facility] IPV 2002-10-08 Completed [facility] 00:00:00 [facility] MMR 2002-10-08 Completed [facility] 00:00:00 [facility] DTaP, Unspecified 2002-10-08 Completed [facility] of Formulation 00:00:00 [facility] IPV 2002-10-08 Completed [facility] 00:00:00 [facility] MMR 2002-10-08 Completed [facility] 00:00:00 [facility] DTaP, Unspecified 2002-10-08 Completed [facility] of Formulation 00:00:00 [facility] IPV 2002-10-08 Completed [facility] 00:00:00 [facility] MMR 2002-10-08 Completed [facility] 00:00:00 [facility] DTaP, Unspecified 2002-10-08 Completed [facility] of Formulation 00:00:00 [facility] IPV 2002-10-08 Completed [facility] 00:00:00 [facility] MMR 2002-10-08 Completed [facility] 00:00:00 [facility] DTaP, Unspecified 2002-10-08 Completed [facility] Formulation 00:00:00 [facility] IPV 2002-10-08 Completed [facility] 00:00:00 [facility] MMR 2002-10-08 Completed [facility] 00:00:00 [facility] DTaP, Unspecified 2002-10-08 Completed [facility] of Formulation 00:00:00 [facility] IPV 2002-10-08 Completed [facility] 00:00:00 [facility] MMR 2002-10-08 Completed [facility] 00:00:00 [facility] DTaP, Unspecified 2002-10-08 Completed [facility] Formulation 00:00:00 [facility] IPV 2002-10-08 Completed [facility] 00:00:00 [facility] MMR 2002-10-08 Completed [facility] 00:00:00 [facility] DTaP, Unspecified 2002-10-08 Completed [facility] Formulation 00:00:00 [facility] IPV 2002-10-08 Completed [facility] 00:00:00 [facility] MMR 2002-10-08 Completed [facility] 00:00:00 [facility] DTaP, Unspecified 2002-10-08 Completed [facility] of Formulation 00:00:00 [facility] HEPATITIS A 2002-08-09 Completed [facility] 00:00:00 [facility] Influenza Virus 2002-08-09 Completed [facility]it [facility] Vaccine - Whole 00:00:00 [facility] HEPATITIS A 2002-08-09 Completed [facility] 00:00:00 [facility] Influenza Virus 2002-08-09 Completed [facility] y of Vaccine - Whole 00:00:00 [facility] HEPATITIS A 2002-08-09 Completed [facility] 00:00:00 [facility] Influenza Virus 2002-08-09 Completed [facility]it y of Vaccine - Whole 00:00:00 [facility] HEPATITIS A 2002-08-09 Completed [facility] 00:00:00 [facility] Influenza Virus 2002-08-09 Completed [facility]it [facility] of Vaccine - Whole 00:00:00 [facility] HEPATITIS A 2002-08-09 Completed [facility] 00:00:00 [facility] Influenza Virus 2002-08-09 Completed [facility]it y of Vaccine - Whole 00:00:00 [facility] HEPATITIS A 2002-08-09 Completed [facility] 00:00:00 [facility] Influenza Virus 2002-08-09 Completed [facility]it y of Vaccine - Whole 00:00:00 [facility] HEPATITIS A 2002-08-09 Completed [facility] 00:00:00 [facility] Influenza Virus 2002-08-09 Completed [facility] of Vaccine - Whole 00:00:00 [facility] HEPATITIS A 2002-08-09 Completed [facility] 00:00:00 [facility] Influenza Virus 2002-08-09 Completed [facility] y of Vaccine - Whole 00:00:00 [facility] HEPATITIS A 2002-08-09 Completed [facility] 00:00:00 [facility] Influenza Virus 2002-08-09 Completed [facility] y of Vaccine - Whole 00:00:00 [facility] HEPATITIS A 2002-08-09 Completed [facility] 00:00:00 [facility] Influenza Virus 2002-08-09 Completed [facility] of Vaccine - Whole 00:00:00 [facility] HEPATITIS A 2002-08-09 Completed [facility] 00:00:00 [facility] Influenza Virus 2002-08-09 Completed [facility] of Vaccine - Whole 00:00:00 [facility] HEPATITIS A 2002-08-09 Completed [facility] 00:00:00 [facility] Influenza Virus 2002-08-09 Completed [facility]it [facility] of Vaccine - Whole 00:00:00 [facility] HEPATITIS A 2002-08-09 Completed [facility] 00:00:00 [facility] Influenza Virus 2002-08-09 Completed [facility] Vaccine - Whole 00:00:00 [facility] HEPATITIS A 2002-08-09 Completed [facility] 00:00:00 [facility] Influenza Virus 2002-08-09 Completed [facility] Vaccine - Whole 00:00:00 [facility] Pneumococcal 7 2001-01-12 Completed [facility] of Conjugate, PCV7 00:00:00 [place] [facility] (Prevnar7[facility] Pneumococcal 7 2001-01-12 Completed [facility] Conjugate, PCV7 00:00:00 [place] [facility] (Prevnar7[facility] Pneumococcal 7 2001-01-12 Completed [facility] Conjugate, PCV7 00:00:00 [place] [facility] (Prevnar7[facility] Pneumococcal 7 2001-01-12 Completed [facility] Conjugate, PCV7 00:00:00 [place] [facility] (Prevnar7[facility] Pneumococcal 7 2001-01-12 Completed [facility] Conjugate, PCV7 00:00:00 [place] [facility] (Prevnar7[facility] Pneumococcal 7 2001-01-12 Completed [facility] Conjugate, PCV7 00:00:00 [place] [facility] (Prevnar7) [facility] Pneumococcal 7 2001-01-12 Completed [facility] Conjugate, PCV7 00:00:00 [place] [facility] (Prevnar7[facility] Pneumococcal 7 2001-01-12 Completed [facility] Conjugate, PCV7 00:00:00 [place] [facility] (Prevnar7[facility] Pneumococcal 7 2001-01-12 Completed [facility] Conjugate, PCV7 00:00:00 [place] [facility] (Prevnar7[facility] Pneumococcal 7 2001-01-12 Completed [facility] Conjugate, PCV7 00:00:00 [place] [facility] (Prevnar7[facility] Pneumococcal 7 2001-01-12 Completed [facility] Conjugate, PCV7 00:00:00 [place] [facility] (Prevnar7[facility] Pneumococcal 7 2001-01-12 Completed [facility] Conjugate, PCV7 00:00:00 [place] [facility] (Prevnar7[facility] Pneumococcal 7 2001-01-12 Completed [facility] Conjugate, PCV7 00:00:00 [place] [facility] (Prevnar7[facility] Pneumococcal 7 2001-01-12 Completed [facility] Conjugate, PCV7 00:00:00 [place] [facility] (Prevnar7[facility] Pneumococcal 7 2000-08-28 Completed [facility] Conjugate, PCV7 00:00:00 [place] [facility] (Prevnar7[facility] Influenza Virus 2000-08-28 Completed [facility]it [facility] of Vaccine 00:00:00 [facility] Pneumococcal 7 2000-08-28 Completed [facility] of Conjugate, PCV7 00:00:00 [place] [facility] (Pre[facility]ar[facility] [place] Influenza Virus 2000-08-28 Completed [facility] of Vaccine 00:00:00 [facility] Pneumococcal 7 2000-08-28 Completed [facility] of Conjugate, PCV7 00:00:00 [place] [facility] (Prevnar7[facility] [place] Influenza Virus 2000-08-28 Completed [facility] of Vaccine 00:00:00 [facility] Pneumococcal 7 2000-08-28 Completed [facility] of Conjugate, PCV7 00:00:00 [place] [facility] (Prevnar7[facility] [place] Influenza Virus 2000-08-28 Completed [facility] of Vaccine 00:00:00 [facility] Pneumococcal 7 2000-08-28 Completed [facility] of Conjugate, PCV7 00:00:00 [place] [facility] (Prevnar7) [place] Influenza Virus 2000-08-28 Completed [facility] of Vaccine 00:00:00 [facility] Pneumococcal 7 2000-08-28 Completed [facility] of Conjugate, PCV7 00:00:00 [place] [facility] (Prevnar7) [place] Influenza Virus 2000-08-28 Completed [facility] of Vaccine 00:00:00 [facility] Pneumococcal 7 2000-08-28 Completed [facility] of Conjugate, PCV7 00:00:00 [place] [facility] (Prevnar7) [place] Influenza Virus 2000-08-28 Completed [facility] of Vaccine 00:00:00 [facility] Pneumococcal 7 2000-08-28 Completed [facility] of Conjugate, PCV7 00:00:00 [place] [facility] (Prevnar7) [place] Influenza Virus 2000-08-28 Completed [facility] of Vaccine 00:00:00 [facility] Pneumococcal 7 2000-08-28 Completed [facility] of Conjugate, PCV7 00:00:00 [place] [facility] (Prevnar7) [place] Influenza Virus 2000-08-28 Completed [facility] y of Vaccine 00:00:00 [facility] Pneumococcal 7 2000-08-28 Completed [facility] of Conjugate, PCV7 00:00:00 [place] [facility] (Prevnar7) [place] Influenza Virus 2000-08-28 Completed [facility] y of Vaccine 00:00:00 [facility] Pneumococcal 7 2000-08-28 Completed [facility] of Conjugate, PCV7 00:00:00 [place] [facility] (Pre[facility]ar7[facility] [place] Influenza Virus 2000-08-28 Completed [facility] y of Vaccine 00:00:00 [facility] Pneumococcal 7 2000-08-28 Completed [facility] of Conjugate, PCV7 00:00:00 [place] [facility] (Prevnar7) [facility] Influenza Virus 2000-08-28 Completed [facility] y of Vaccine 00:00:00 [facility] Pneumococcal 7 2000-08-28 Completed [facility] of Conjugate, PCV7 00:00:00 [place] [facility] (Prevnar7) [facility] Influenza Virus 2000-08-28 Completed [facility] y of Vaccine 00:00:00 [facility] Pneumococcal 7 2000-08-28 Completed [facility] of Conjugate, PCV7 00:00:00 [place] [facility] (Prevnar7) [facility] Influenza Virus 2000-08-28 Completed [facility]it y of Vaccine 00:00:00 [facility] IPV 2000-01-12 Completed [facility] of 00:00:00 [facility] IPV 2000-01-12 Completed [facility] 00:00:00 [facility] IPV 2000-01-12 Completed [facility] 00:00:00 [facility] IPV 2000-01-12 Completed [facility] of 00:00:00 [facility] IPV 2000-01-12 Completed [facility] of 00:00:00 [facility] IPV 2000-01-12 Completed [facility] of 00:00:00 [facility] IPV 2000-01-12 Completed [facility] of 00:00:00 [facility] IPV 2000-01-12 Completed [facility] 00:00:00 [facility] IPV 2000-01-12 Completed [facility] of 00:00:00 [facility] IPV 2000-01-12 Completed [facility] of 00:00:00 [facility] IPV 2000-01-12 Completed [facility] of 00:00:00 [facility] IPV 2000-01-12 Completed [facility] of 00:00:00 [facility] IPV 2000-01-12 Completed [facility] of 00:00:00 [facility] IPV 2000-01-12 Completed [facility] of 00:00:00 [facility] IPV 1999-12-10 Completed [facility] of 00:00:00 [facility] Haemophilus 1999-12-10 Completed University of influenzae type b 00:00:00 [facility] edical vaccine, conjugate Branch unspecified formulation DTaP, Unspecified 1999-12-10 Completed Univers ity of Formulation 00:00:00 [facility] IPV 1999-12-10 Completed [facility] of 00:00:00 [facility] Haemophilus 1999-12-10 Completed [facility] of influenzae type b 00:00:00 [place] [facility] vaccine, conjugate Branch unspecified formulation DTaP, Unspecified 1999-12-10 Completed Univers ity of Formulation 00:00:00 [facility] IPV 1999-12-10 Completed [facility] of 00:00:00 [facility] Haemophilus 1999-12-10 Completed University of influenzae type b 00:00:00 [place] [facility] vaccine, conjugate Branch unspecified formulation DTaP, Unspecified 1999-12-10 Completed Univers ity of Formulation 00:00:00 [facility] IPV 1999-12-10 Completed [facility] of 00:00:00 [facility] Haemophilus 1999-12-10 Completed [facility] of influenzae type b 00:00:00 [place] [facility] vaccine, conjugate Branch unspecified formulation DTaP, Unspecified 1999-12-10 Completed Univers ity of Formulation 00:00:00 [facility] IPV 1999-12-10 Completed [facility] of 00:00:00 [facility] Haemophilus 1999-12-10 Completed University of influenzae type b 00:00:00 [place] [facility] vaccine, conjugate Branch unspecified formulation DTaP, Unspecified 1999-12-10 Completed Univers ity of Formulation 00:00:00 [facility] IPV 1999-12-10 Completed [facility] of 00:00:00 [facility] Haemophilus 1999-12-10 Completed [facility] of influenzae type b 00:00:00 [place] [facility] vaccine, conjugate Branch unspecified formulation DTaP, Unspecified 1999-12-10 Completed Univers ity of Formulation 00:00:00 [facility] IPV 1999-12-10 Completed [facility] of 00:00:00 [facility] Haemophilus 1999-12-10 Completed [facility] of influenzae type b 00:00:00 [place] [facility] vaccine, conjugate Branch unspecified formulation DTaP, Unspecified 1999-12-10 Completed Univers ity of Formulation 00:00:00 [facility] IPV 1999-12-10 Completed [facility] of 00:00:00 [facility] Haemophilus 1999-12-10 Completed [facility] of influenzae type b 00:00:00 [place] [facility] vaccine, conjugate Branch unspecified formulation DTaP, Unspecified 1999-12-10 Completed Univers ity of Formulation 00:00:00 [facility] IPV 1999-12-10 Completed [facility] of 00:00:00 [facility] Haemophilus 1999-12-10 Completed [facility] influenzae type b 00:00:00 [place] [facility] vaccine, conjugate [facility] unspecified formulation DTaP, Unspecified 1999-12-10 Completed Univers ity of Formulation 00:00:00 [facility] IPV 1999-12-10 Completed [facility] of 00:00:00 [facility] Haemophilus 1999-12-10 Completed University of influenzae type b 00:00:00 [facility] edical vaccine, conjugate Branch unspecified formulation DTaP, Unspecified 1999-12-10 Completed Univers ity of Formulation 00:00:00 [facility] IPV 1999-12-10 Completed [facility] of 00:00:00 [facility] Haemophilus 1999-12-10 Completed University of influenzae type b 00:00:00 [facility] edical vaccine, conjugate Branch unspecified formulation DTaP, Unspecified 1999-12-10 Completed Univers ity of Formulation 00:00:00 [facility] IPV 1999-12-10 Completed [facility] of 00:00:00 [facility] Haemophilus 1999-12-10 Completed University of influenzae type b 00:00:00 [facility] edical vaccine, conjugate Branch unspecified formulation DTaP, Unspecified 1999-12-10 Completed Univers ity of Formulation 00:00:00 [facility] IPV 1999-12-10 Completed [facility] of 00:00:00 [facility] Haemophilus 1999-12-10 Completed University of influenzae type b 00:00:00 [facility] edical vaccine, conjugate Branch unspecified formulation DTaP, Unspecified 1999-12-10 Completed Univers ity of Formulation 00:00:00 [facility] IPV 1999-12-10 Completed University of 00:00:00 [facility] Haemophilus 1999-12-10 Completed University of influenzae type b 00:00:00 [facility] edical vaccine, conjugate Branch unspecified formulation DTaP, Unspecified 1999-12-10 Completed Univers ity of Formulation 00:00:00 [facility] MMR 1999-09-13 Completed University of 00:00:00 [facility] Varicella 1999-09-13 Completed University of (varivax)(chicken 00:00:00 [facility] edical pox) [place] Influenza Virus 1999-09-13 Completed Universit y of Vaccine 00:00:00 [facility] MMR 1999-09-13 Completed [facility] of 00:00:00 [facility] Varicella 1999-09-13 Completed University of (varivax)(chicken 00:00:00 [facility] edical pox) [place] Influenza Virus 1999-09-13 Completed Universit y of Vaccine 00:00:00 [facility] MMR 1999-09-13 Completed [facility] of 00:00:00 [facility] Varicella 1999-09-13 Completed [facility] (varivax)(chicken 00:00:00 [place] [facility]ox[facility] Influenza Virus 1999-09-13 Completed [facility] y of Vaccine 00:00:00 [facility] MMR 1999-09-13 Completed [facility] of 00:00:00 [facility] Varicella 1999-09-13 Completed [facility] (varivax)(chicken 00:00:00 [place] [facility] pox) [facility] Influenza Virus 1999-09-13 Completed [facility] y of Vaccine 00:00:00 [facility] MMR 1999-09-13 Completed [facility] of 00:00:00 [facility] Varicella 1999-09-13 Completed [facility] (varivax)(chicken 00:00:00 [place] [facility] pox) [facility] Influenza Virus 1999-09-13 Completed [facility] y of Vaccine 00:00:00 [facility] MMR 1999-09-13 Completed [facility] of 00:00:00 [facility] Varicella 1999-09-13 Completed [facility] (varivax)(chicken 00:00:00 [place] [facility] pox) [facility] Influenza Virus 1999-09-13 Completed Univers[facility] y of Vaccine 00:00:00 [facility] MMR 1999-09-13 Completed [facility] of 00:00:00 [facility] Varicella 1999-09-13 Completed [facility] (varivax)(chicken 00:00:00 [place] [facility] pox) [facility] Influenza Virus 1999-09-13 Completed [facility] y of Vaccine 00:00:00 [facility] MMR 1999-09-13 Completed [facility] of 00:00:00 [facility] Varicella 1999-09-13 Completed [facility] (varivax)(chicken 00:00:00 [place] [facility] pox) [facility] Influenza Virus 1999-09-13 Completed [facility] y of Vaccine 00:00:00 [facility] MMR 1999-09-13 Completed [facility] of 00:00:00 [facility] Varicella 1999-09-13 Completed [facility] (varivax)(chicken 00:00:00 [place] [facility] pox) [facility] Influenza Virus 1999-09-13 Completed [facility] y of Vaccine 00:00:00 [facility] MMR 1999-09-13 Completed [facility] of 00:00:00 [facility] Varicella 1999-09-13 Completed [facility] (varivax)(chicken 00:00:00 [place] [facility] pox) [place] Influenza Virus 1999-09-13 Completed [facility] y of Vaccine 00:00:00 [facility] MMR 1999-09-13 Completed [facility] of 00:00:00 [facility] Varicella 1999-09-13 Completed [facility] (varivax)(chicken 00:00:00 [place] [facility] pox) [place] Influenza Virus 1999-09-13 Completed [facility] y of Vaccine 00:00:00 [facility] MMR 1999-09-13 Completed [facility] of 00:00:00 [facility] Varicella 1999-09-13 Completed [facility] (varivax)(chicken 00:00:00 [place] [facility] pox) [place] Influenza Virus 1999-09-13 Completed Universit y of Vaccine 00:00:00 [facility] MMR 1999-09-13 Completed [facility] of 00:00:00 [facility] Varicella 1999-09-13 Completed [facility] of (varivax)(chicken 00:00:00 [place] [facility] pox) [place] Influenza Virus 1999-09-13 Completed Universit y of Vaccine 00:00:00 [facility] MMR 1999-09-13 Completed [facility] of 00:00:00 [facility] Varicella 1999-09-13 Completed [facility] of (varivax)(chicken 00:00:00 [facility] edical pox) [place] Influenza Virus 1999-09-13 Completed Universit y of Vaccine 00:00:00 [facility] Haemophilus 1999-03-11 Completed University of influenzae type b 00:00:00 [facility] edical vaccine, conjugate Branch unspecified formulation Hep B, Unspecified 1999-03-11 Completed Univer sity of Formulation 00:00:00 [facility] DTaP, Unspecified 1999-03-11 Completed Univers ity of Formulation 00:00:00 [facility] Haemophilus 1999-03-11 Completed University of influenzae type b 00:00:00 [facility] edical vaccine, conjugate Branch unspecified formulation Hep B, Unspecified 1999-03-11 Completed Univer sity of Formulation 00:00:00 [facility] DTaP, Unspecified 1999-03-11 Completed Univers ity of Formulation 00:00:00 [facility] Haemophilus 1999-03-11 Completed University of influenzae type b 00:00:00 [facility] edical vaccine, conjugate Branch unspecified formulation Hep B, Unspecified 1999-03-11 Completed Univer sity of Formulation 00:00:00 [facility] DTaP, Unspecified 1999-03-11 Completed Univers ity of Formulation 00:00:00 [facility] Haemophilus 1999-03-11 Completed [facility] of influenzae type b 00:00:00 [place] [facility] vaccine, conjugate Branch unspecified formulation Hep B, Unspecified 1999-03-11 Completed Univer sity of Formulation 00:00:00 [facility] DTaP, Unspecified 1999-03-11 Completed Univers ity of Formulation 00:00:00 [facility] Haemophilus 1999-03-11 Completed University of influenzae type b 00:00:00 [facility] edical vaccine, conjugate Branch unspecified formulation Hep B, Unspecified 1999-03-11 Completed Univer sity of Formulation 00:00:00 [facility] DTaP, Unspecified 1999-03-11 Completed Univers ity of Formulation 00:00:00 [facility] Haemophilus 1999-03-11 Completed University of influenzae type b 00:00:00 [facility] edical vaccine, conjugate Branch unspecified formulation Hep B, Unspecified 1999-03-11 Completed Univer sity of Formulation 00:00:00 [facility] DTaP, Unspecified 1999-03-11 Completed Univers ity of Formulation 00:00:00 [facility] Haemophilus 1999-03-11 Completed University of influenzae type b 00:00:00 [facility] edical vaccine, conjugate Branch unspecified formulation Hep B, Unspecified 1999-03-11 Completed Univer sity of Formulation 00:00:00 [facility] DTaP, Unspecified 1999-03-11 Completed Univers ity of Formulation 00:00:00 [facility] Haemophilus 1999-03-11 Completed University of influenzae type b 00:00:00 [facility] edical vaccine, conjugate Branch unspecified formulation Hep B, Unspecified 1999-03-11 Completed Univer sity of Formulation 00:00:00 [facility] DTaP, Unspecified 1999-03-11 Completed Univers ity of Formulation 00:00:00 [facility] Haemophilus 1999-03-11 Completed University of influenzae type b 00:00:00 [facility] edical vaccine, conjugate Branch unspecified formulation Hep B, Unspecified 1999-03-11 Completed Univer sity of Formulation 00:00:00 [facility] DTaP, Unspecified 1999-03-11 Completed Univers ity of Formulation 00:00:00 [facility] Haemophilus 1999-03-11 Completed University of influenzae type b 00:00:00 [facility] edical vaccine, conjugate Branch unspecified formulation Hep B, Unspecified 1999-03-11 Completed Univer sity of Formulation 00:00:00 [facility] DTaP, Unspecified 1999-03-11 Completed Univers ity of Formulation 00:00:00 [facility] Haemophilus 1999-03-11 Completed University of influenzae type b 00:00:00 [facility] edical vaccine, conjugate Branch unspecified formulation Hep B, Unspecified 1999-03-11 Completed Univer [facility]ity [facility] Formulation 00:00:00 [facility] [facility] DTaP, Unspecified 1999-03-11 Completed Univers ity of Formulation 00:00:00 [facility] Haemophilus 1999-03-11 Completed University of influenzae type b 00:00:00 [facility] edical vaccine, conjugate Branch unspecified formulation Hep B, Unspecified 1999-03-11 Completed Univer sity of Formulation 00:00:00 [facility] DTaP, Unspecified 1999-03-11 Completed Univers ity of Formulation 00:00:00 [facility] Haemophilus 1999-03-11 Completed University of influenzae type b 00:00:00 [facility] edical vaccine, conjugate Branch unspecified formulation Hep B, Unspecified 1999-03-11 Completed Univer sity of Formulation 00:00:00 [facility] DTaP, Unspecified 1999-03-11 Completed Univers ity of Formulation 00:00:00 [facility] Haemophilus 1999-03-11 Completed University of influenzae type b 00:00:00 [facility] edical vaccine, conjugate Branch unspecified formulation Hep B, Unspecified 1999-03-11 Completed Univer sity of Formulation 00:00:00 [facility] DTaP, Unspecified 1999-03-11 Completed Univers ity of Formulation 00:00:00 [facility] IPV 1999-01-11 Completed University of 00:00:00 [facility] Haemophilus 1999-01-11 Completed University of influenzae type b 00:00:00 [facility] edical vaccine, conjugate Branch unspecified formulation DTaP, Unspecified 1999-01-11 Completed Univers ity of Formulation 00:00:00 [facility] IPV 1999-01-11 Completed University of 00:00:00 [facility] Haemophilus 1999-01-11 Completed [facility] of influenzae type b 00:00:00 [place] [facility], conjugate [facility] unspecified formulation DTaP, Unspecified 1999-01-11 Completed Univers ity of Formulation 00:00:00 [facility] IPV 1999-01-11 Completed University of 00:00:00 [facility] Haemophilus 1999-01-11 Completed University of influenzae type b 00:00:00 [place] [facility] vaccine, conjugate Branch unspecified formulation DTaP, Unspecified 1999-01-11 Completed Univers ity of Formulation 00:00:00 [facility] IPV 1999-01-11 Completed University of 00:00:00 [facility] Haemophilus 1999-01-11 Completed University of influenzae type b 00:00:00 [place] [facility] vaccine, conjugate Branch unspecified formulation DTaP, Unspecified 1999-01-11 Completed Univers ity of Formulation 00:00:00 [facility] IPV 1999-01-11 Completed University of 00:00:00 [facility] Haemophilus 1999-01-11 Completed University of influenzae type b 00:00:00 [place] [facility] vaccine, conjugate Branch unspecified formulation DTaP, Unspecified 1999-01-11 Completed Univers ity of Formulation 00:00:00 [facility] IPV 1999-01-11 Completed University of 00:00:00 [facility] Haemophilus 1999-01-11 Completed University of influenzae type b 00:00:00 [place] [facility] vaccine, conjugate Branch unspecified formulation DTaP, Unspecified 1999-01-11 Completed Univers ity of Formulation 00:00:00 [facility] IPV 1999-01-11 Completed University of 00:00:00 [facility] Haemophilus 1999-01-11 Completed University of influenzae type b 00:00:00 [place] [facility] vaccine, conjugate Branch unspecified formulation DTaP, Unspecified 1999-01-11 Completed Univers ity of Formulation 00:00:00 [facility] IPV 1999-01-11 Completed University of 00:00:00 [facility] Haemophilus 1999-01-11 Completed University of influenzae type b 00:00:00 [place] [facility] vaccine, conjugate Branch unspecified formulation DTaP, Unspecified 1999-01-11 Completed Univers ity of Formulation 00:00:00 [facility] IPV 1999-01-11 Completed University of 00:00:00 [facility] Haemophilus 1999-01-11 Completed University of influenzae type b 00:00:00 [place] [facility] vaccine, conjugate Branch unspecified formulation DTaP, Unspecified 1999-01-11 Completed Univers ity of Formulation 00:00:00 [facility] IPV 1999-01-11 Completed University of 00:00:00 [facility] Haemophilus 1999-01-11 Completed University of influenzae type b 00:00:00 [place] [facility] vaccine, conjugate Branch unspecified formulation DTaP, Unspecified 1999-01-11 Completed Univers ity of Formulation 00:00:00 [facility] IPV 1999-01-11 Completed University of 00:00:00 [facility] Haemophilus 1999-01-11 Completed University of influenzae type b 00:00:00 [facility] edical vaccine, conjugate Branch unspecified formulation DTaP, Unspecified 1999-01-11 Completed Univers ity of Formulation 00:00:00 [facility] IPV 1999-01-11 Completed University of 00:00:00 [facility] Haemophilus 1999-01-11 Completed University of influenzae type b 00:00:00 [place] [facility] vaccine, conjugate Branch unspecified formulation DTaP, Unspecified 1999-01-11 Completed Univers ity of Formulation 00:00:00 [facility] IPV 1999-01-11 Completed University of 00:00:00 [facility] Haemophilus 1999-01-11 Completed University of influenzae type b 00:00:00 [facility] edical vaccine, conjugate Branch unspecified formulation DTaP, Unspecified 1999-01-11 Completed Univers ity of Formulation 00:00:00 [facility] IPV 1999-01-11 Completed University of 00:00:00 [facility] Haemophilus 1999-01-11 Completed University of influenzae type b 00:00:00 [place] [facility] vaccine, conjugate Branch unspecified formulation DTaP, Unspecified 1999-01-11 Completed Univers ity of Formulation 00:00:00 [facility] IPV 1998 Completed University of 00:00:00 [facility] Haemophilus 1998 Completed University of influenzae type b 00:00:00 [place] [facility] vaccine, conjugate Branch unspecified formulation Hep B, Unspecified 1998 Completed Univer sity of Formulation 00:00:00 [facility] DTaP, Unspecified 1998 Completed Univers ity of Formulation 00:00:00 [facility] IPV 1998 Completed University of 00:00:00 [facility] Haemophilus 1998 Completed University of influenzae type b 00:00:00 [place] [facility] vaccine, conjugate Branch unspecified formulation Hep B, Unspecified 1998 Completed Univer sity of Formulation 00:00:00 [facility] DTaP, Unspecified 1998 Completed Univers ity of Formulation 00:00:00 [facility] IPV 1998 Completed University of 00:00:00 [facility] Haemophilus 1998 Completed University of influenzae type b 00:00:00 [place] [facility] vaccine, conjugate Branch unspecified formulation Hep B, Unspecified 1998 Completed Univer sity of Formulation 00:00:00 [facility] DTaP, Unspecified 1998 Completed Univers ity of Formulation 00:00:00 [facility] IPV 1998 Completed University of 00:00:00 [facility] Haemophilus 1998 Completed University of influenzae type b 00:00:00 [place] [facility] vaccine, conjugate Branch unspecified formulation Hep B, Unspecified 1998 Completed Univer sity of Formulation 00:00:00 [facility] DTaP, Unspecified 1998 Completed Univers ity of Formulation 00:00:00 [facility] IPV 1998 Completed University of 00:00:00 [facility] Haemophilus 1998 Completed University of influenzae type b 00:00:00 [place] [facility] vaccine, conjugate Branch unspecified formulation Hep B, Unspecified 1998 Completed Univer sity of Formulation 00:00:00 [facility] DTaP, Unspecified 1998 Completed Univers ity of Formulation 00:00:00 [facility] IPV 1998 Completed University of 00:00:00 [facility] Haemophilus 1998 Completed University of influenzae type b 00:00:00 [place] [facility] vaccine, conjugate Branch unspecified formulation Hep B, Unspecified 1998 Completed Univer sity of Formulation 00:00:00 [facility] DTaP, Unspecified 1998 Completed Univers ity of Formulation 00:00:00 [facility] IPV 1998 Completed University of 00:00:00 [facility] Haemophilus 1998 Completed University of influenzae type b 00:00:00 [place] [facility] vaccine, conjugate Branch unspecified formulation Hep B, Unspecified 1998 Completed Univer sity of Formulation 00:00:00 [facility] DTaP, Unspecified 1998 Completed Univers ity of Formulation 00:00:00 [facility] IPV 1998 Completed University of 00:00:00 [facility] Haemophilus 1998 Completed University of influenzae type b 00:00:00 [place] [facility] vaccine, conjugate Branch unspecified formulation Hep B, Unspecified 1998 Completed Univer sity of Formulation 00:00:00 [facility] DTaP, Unspecified 1998 Completed Univers ity of Formulation 00:00:00 [facility] IPV 1998 Completed University of 00:00:00 [facility] Haemophilus 1998 Completed University of influenzae type b 00:00:00 [facility] edical vaccine, conjugate Branch unspecified formulation Hep B, Unspecified 1998 Completed Univer sity of Formulation 00:00:00 [facility] DTaP, Unspecified 1998 Completed Univers ity of Formulation 00:00:00 [facility] IPV 1998 Completed University of 00:00:00 [facility] Haemophilus 1998 Completed University of influenzae type b 00:00:00 [facility] edical vaccine, conjugate Branch unspecified formulation Hep B, Unspecified 1998 Completed Univer sity of Formulation 00:00:00 [facility] DTaP, Unspecified 1998 Completed Univers ity of Formulation 00:00:00 [facility] IPV 1998 Completed University of 00:00:00 [facility] Haemophilus 1998 Completed University of influenzae type b 00:00:00 [place] [facility] vaccine, conjugate Branch unspecified formulation Hep B, Unspecified 1998 Completed Univer sity of Formulation 00:00:00 [facility] DTaP, Unspecified 1998 Completed Univers ity of Formulation 00:00:00 [facility] IPV 1998 Completed University of 00:00:00 [facility] Haemophilus 1998 Completed University of influenzae type b 00:00:00 [place] [facility] vaccine, conjugate Branch unspecified formulation Hep B, Unspecified 1998 Completed Univer sity of Formulation 00:00:00 [facility] DTaP, Unspecified 1998 Completed Univers ity of Formulation 00:00:00 [facility] IPV 1998 Completed University of 00:00:00 [facility] Haemophilus 1998 Completed University of influenzae type b 00:00:00 [place] [facility] vaccine, conjugate Branch unspecified formulation Hep B, Unspecified 1998 Completed Univer sity of Formulation 00:00:00 [facility] DTaP, Unspecified 1998 Completed Univers ity of Formulation 00:00:00 [facility] IPV 1998 Completed University of 00:00:00 [facility] Haemophilus 1998 Completed University of influenzae type b 00:00:00 [place] [facility] vaccine, conjugate Branch unspecified formulation Hep B, Unspecified 1998 Completed Univer sity of Formulation 00:00:00 [facility] DTaP, Unspecified 1998 Completed Univers ity of Formulation 00:00:00 [facility] Hep B, Unspecified 1998 Completed Univer sity of Formulation 00:00:00 [facility] Hep B, Unspecified 1998 Completed Univer sity of Formulation 00:00:00 [facility] Hep B, Unspecified 1998 Completed Univer sity of Formulation 00:00:00 [facility] Hep B, Unspecified 1998 Completed Univer sity of Formulation 00:00:00 [facility] Hep B, Unspecified 1998 Completed Univer sity of Formulation 00:00:00 [facility] Hep B, Unspecified 1998 Completed Univer sity of Formulation 00:00:00 [facility] Hep B, Unspecified 1998 Completed Univer sity of Formulation 00:00:00 [facility] Hep B, Unspecified 1998 Completed Univer sity of Formulation 00:00:00 [facility] Hep B, Unspecified 1998 Completed Univer sity of Formulation 00:00:00 [facility] Hep B, Unspecified 1998 Completed Univer sity of Formulation 00:00:00 [facility] Hep B, Unspecified 1998 Completed Univer sity of Formulation 00:00:00 [facility] Hep B, Unspecified 1998 Completed Univer sity of Formulation 00:00:00 [facility] Hep B, Unspecified 1998 Completed Univer sity of Formulation 00:00:00 [facility] Hep B, Unspecified 1998 Completed Univer sity of Formulation 00:00:00 [facility] Vital Signs Vital Name Observation Time Observation Value Comments Source Systolic blood 2023-04-21 19:21:00 110 mm[Hg] Univer sity of pressure [facility] Diastolic blood 2023-04-21 19:21:00 74 mm[Hg] Unive rsity of pressure [facility] Heart rate 2023-04-21 19:21:00 84 /min [facility] Body temperature 2023-04-21 19:21:00 37.11 Bhumi Univ ersity of [facility] Body height 2023-04-21 19:21:00 165.1 cm [facility] Body weight 2023-04-21 19:21:00 60.646 kg [facility] BMI 2023-04-21 19:21:00 22.25 kg/m2 [facility] Oxygen saturation in 2023-04-21 19:21:00 99 /min University of Arterial blood by [employer]ulse oximetry Branch Systolic blood 2023-03-23 19:25:00 124 mm[Hg] Univer sity of pressure [facility] Diastolic blood 2023-03-23 19:25:00 89 mm[Hg] Unive rsity of pressure [facility] Heart rate 2023-03-23 19:25:00 86 /min [facility] Respiratory rate 2023-03-23 19:25:00 20 /min Univ ersity of [facility] Body height 2023-03-23 19:25:00 165.1 cm [facility] Body weight 2023-03-23 19:25:00 62.007 kg [facility] BMI 2023-03-23 19:25:00 22.75 kg/m2 [facility] Oxygen saturation in 2023-03-23 19:25:00 99 /min University of Arterial blood by [employer] [facility] Branch Systolic blood 2023-03-20 14:52:00 122 mm[Hg] Univer sity of pressure [facility] Diastolic blood 2023-03-20 14:52:00 76 mm[Hg] Unive rsity of pressure [facility] Heart rate 2023-03-20 14:52:00 90 /min [facility] Respiratory rate 2023-03-20 14:52:00 20 /min Univ ers[facility] of [facility] Body height 2023-03-20 14:52:00 165.1 cm [facility] Body weight 2023-03-20 14:52:00 61.054 kg [facility] BMI 2023-03-20 14:52:00 22.40 kg/m2 [facility] Oxygen saturation in 2023-03-20 14:52:00 100 /min University of Arterial blood by [facility] Pulse oximetry Branch Systolic blood 2023-03-09 21:18:00 116 mm[Hg] Univer sity of pressure [facility] Diastolic blood 2023-03-09 21:18:00 73 mm[Hg] Unive rsity of pressure [facility] Heart rate 2023-03-09 21:18:00 90 /min [facility] Body temperature 2023-03-09 21:18:00 36.67 Bhumi [facility] Respiratory rate 2023-03-09 21:18:00 18 /min Univ ersity of [facility] Body height 2023-03-09 21:18:00 165.1 cm [facility] Body weight 2023-03-09 21:18:00 57.516 kg [facility] BMI 2023-03-09 21:18:00 21.10 kg/m2 [facility] Oxygen saturation in 2023-03-09 21:18:00 99 /min University of Arterial blood by [facility] Pulse [facility] Branch Body temperature 2023-01-30 14:35:00 36.22 Bhumi Univ ers[facility] of [facility] Body weight 2023-01-30 14:35:00 60.782 kg [facility] BMI 2023-01-30 14:35:00 22.30 kg/m2 [facility] Systolic blood 2023-01-09 19:28:00 111 mm[Hg] Univer sity of pressure [facility] Diastolic blood 2023-01-09 19:28:00 73 mm[Hg] Unive rsity of pressure [facility] Heart rate 2023-01-09 19:28:00 75 /min [facility] Body temperature 2023-01-09 19:28:00 37.11 Bhumi [facility] Respiratory rate 2023-01-09 19:28:00 18 /min Univ ers[facility] Body height 2023-01-09 19:28:00 165.1 cm [facility] Body weight 2023-01-09 19:28:00 59.875 kg [facility] BMI 2023-01-09 19:28:00 21.97 kg/m2 Universi ty of [facility] Systolic blood 2022-12-26 18:10:00 106 mm[Hg] Univer sity of pressure [facility] Diastolic blood 2022-12-26 18:10:00 71 mm[Hg] Unive rsity of pressure [facility] Heart rate 2022-12-26 18:10:00 96 /min [facility] Body temperature 2022-12-26 18:10:00 36.72 Bhumi [facility] Respiratory rate 2022-12-26 18:10:00 18 /min Univ ers[facility] Body height 2022-12-26 18:10:00 165.1 cm [facility] Body weight 2022-12-26 18:10:00 60.782 kg [facility] BMI 2022-12-26 18:10:00 22.30 kg/m2 [facility] Oxygen saturation in 2022-12-26 18:10:00 99 /min University Arterial blood by [facility] Pulse oximetry Branch Systolic blood 2022-12-09 20:58:00 121 mm[Hg] Univer sity of pressure [facility] Diastolic blood 2022-12-09 20:58:00 80 mm[Hg] Unive rsity of pressure [facility] Heart rate 2022-12-09 20:58:00 87 /min [facility] Body temperature 2022-12-09 20:58:00 36.72 Bhumi Univ ersity of [facility] Respiratory rate 2022-12-09 20:58:00 16 /min Univ ersity of [facility] Body height 2022-12-09 20:58:00 165.1 cm [facility] Body weight 2022-12-09 20:58:00 62.596 kg [facility] BMI 2022-12-09 20:58:00 22.96 kg/m2 Universi ty of [facility] Systolic blood 2022-11-23 07:40:31 104 mm[Hg] Univer sity of pressure [facility] Diastolic blood 2022-11-23 07:40:31 64 mm[Hg] Unive rsity of pressure [facility] Heart rate 2022-11-23 07:40:31 81 /min Universi ty of [facility] Respiratory rate 2022-11-23 07:40:31 17 /min Univ ersity of [facility] Oxygen saturation in 2022-11-23 07:40:31 100 /min University of Arterial blood by [facility] Pulse oximetry Branch Body temperature 2022-11-23 04:05:00 36.89 Bhumi Univ ersity of [facility] Body height 2022-11-23 04:05:00 165.1 cm [facility] Body weight 2022-11-23 04:05:00 61.236 kg [facility] BMI 2022-11-23 04:05:00 22.47 kg/m2 [facility] Systolic blood 2022-11-17 20:53:00 115 mm[Hg] Univer sity of pressure [facility] Diastolic blood 2022-11-17 20:53:00 76 mm[Hg] Unive rsity of pressure [facility] Heart rate 2022-11-17 20:53:00 92 /min Universi ty of [facility] Body temperature 2022-11-17 20:53:00 36.83 Bhumi Univ ersity of [facility] Body height 2022-11-17 20:53:00 165.1 cm [facility] Body weight 2022-11-17 20:53:00 60.419 kg [facility] BMI 2022-11-17 20:53:00 22.17 kg/m2 [facility] Systolic blood 2022-11-16 17:03:00 111 mm[Hg] [facility]iver [facility]ity [facility] Diastolic blood 2022-11-16 17:03:00 77 mm[Hg] Unive rsity of [facility] Heart rate 2022-11-16 17:03:00 67 /min [facility] Body temperature 2022-11-16 17:03:00 36.72 Bhumi Univ [facility] Body height 2022-11-16 17:03:00 165.1 cm [facility] Body weight 2022-11-16 17:03:00 59.058 kg [facility] BMI 2022-11-16 17:03:00 21.67 kg/m2 [facility] Systolic blood 2022-11-08 15:28:00 109 mm[Hg] Univer sity of pressure [facility] Diastolic blood 2022-11-08 15:28:00 72 mm[Hg] Unive rsity of pressure [facility] Heart rate 2022-11-08 15:28:00 62 /min [facility] Body temperature 2022-11-08 15:28:00 36.89 Bhumi [facility] Respiratory rate 2022-11-08 15:28:00 18 /min Univ ers[facility] Body height 2022-11-08 15:28:00 165.1 cm [facility] Body weight 2022-11-08 15:28:00 61.236 kg [facility] BMI 2022-11-08 15:28:00 22.47 kg/m2 [facility] Systolic blood 2022-11-04 21:31:00 130 mm[Hg] Univer sity of pressure [facility] Diastolic blood 2022-11-04 21:31:00 88 mm[Hg] Unive rsity of pressure [facility] Heart rate 2022-11-04 21:31:00 107 /min [facility] Body temperature 2022-11-04 21:31:00 37 Bhumi [facility] Respiratory rate 2022-11-04 21:31:00 16 /min [facility] Body height 2022-11-04 21:31:00 165.1 cm [facility] Body weight 2022-11-04 21:31:00 61[facility]236 [facility] BMI 2022-11-04 21:31:00 22.47 kg/m2 [facility] Oxygen saturation in 2022-11-04 21:31:00 100 /min [facility] Arterial blood by [facility] Pulse oximetry Branch HEIGHT 2021-10-01 06:38:00 167.6 [...] kg Systolic blood 2021-10-19 09:08:00 98 mm[Hg] [facility] Diastolic blood 2021-10-19 09:08:00 62 mm[Hg] [facility] Heart rate 2021-10-19 09:08:00 85 /min [facility] Body temperature 2021-10-19 09:08:00 36.67 Bhumi [facility] Respiratory rate 2021-10-19 09:08:00 16 /min [facility] Oxygen saturation in 2021-10-19 09:08:00 100 /min [facility] Arterial blood by Medical Ce nter Pulse oximetry BMI 2021-10-01 06:38:00 24.00 kg/m2 [facility] Body height 2021-10-01 06:38:00 167.6 cm [facility] Body weight 2021-10-01 06:38:00 67.45 kg [facility] Procedures Procedure Date / Time Performing Clinician Source Performed FREE T4 2023-03-10 16:18:00 [facility] TRIIODOTHYRONINE 2023-03-10 16:18:00 [facility] THYROID STIMULATING 2023-03-10 [facility]:18[facility] [facility] TSH RECEPTOR ANTIBODY 2023-03-10 16:18:00 [facility] (TRAB) [facility] PATIENT QUESTIONNAIRE 2023-01-09 05:01:00 Doctor Andres, [facility] Name [facility] POCT URINALYSIS 2022-12-26 00:00:00 [facility] LIPASE 2022-11-23 04:35:00 Abdiel [facility] TEST, SERUM 2022-11-23 04:35:00 [facility]iel [facility] COMP. METABOLIC PANEL 2022-11-23 04:35:00 Abdiel [facility] ([id number]) [facility] CBC WITH DIFF 2022-11-23 04:35:00 Abdiel [facility] URINALYSIS 2022-11-23 04:35:00 Abdiel [facility] CONSENT/REFUSAL FOR 2022-11-23 03:30:16 Doctor Andres, [facility] DIAGNOSIS AND TREATMENT [place] [facility] CONSENT FOR CONTRACEPTION 2022-11-17 06:01:00 Doctor Andres, [facility] Name [facility] [place] POCT TEST 2022-11-17 00:00:00 [facility] DISCLOSURE AND CONSENT, 2022-11-16 06:01:00 Doctor Keilassigned, [facility] MEDICAL AND SURGICAL [place] [facility] PROCEDURES POCT TEST 2022-11-16 00:00:00 [facility] CONSENT/REFUSAL FOR 2022-11-04 21:27:37 Doctor Unassigned, [facility] DIAGNOSIS AND TREATMENT [facility] SARS-COV2/RT-PCR ([facility] & 2021-10-13 16:50:00 Mark Lemos [facility] REF LABS) Center BASIC METABOLIC PANEL (7) 2021-10-11 06:06:00 FelishaCharly [facility] C-REACTIVE PROTEIN 2021-10-11 06:06:00 Felisha Charly [facility] CBC W/PLT COUNT & AUTO 2021-10-11 06:06:00 FelishaCharly abbott [facility] D-DIMER 2021-10-11 06:06:00 Felisha Charly [facility] PROCALCITONIN 2021-10-11 06:06:00 [facility] CBC W/PLT COUNT & AUTO 2021-10-11 06:06:00 Charly Baeza [facility] XR CHEST 1 VIEW PORTABLE / 2021-10-11 00:28:00 Felisha, Charlydeann Valdez [facility] Center SARS-COV2/RT-PCR ([facility] & 2021-10-10 12:15:00 Rajesh Lowry [facility] REF LABS) [facility] CBC W/PLT COUNT & AUTO 2021-10-08 04:15:00 Mark Lemos [facility] Center BASIC METABOLIC PANEL (7) 2021-10-08 04:15:00 Mark Lemos [facility] CBC W/PLT COUNT & AUTO 2021-10-08 04:15:00 Mark Lemos [facility] SARS-COV2/RT-PCR ([facility] & 2021-10-07 10:31:00 [facility] RE[facility] LABS) Center CBC W/PLT COUNT & AUTO 2021-10-07 04:18:00 [facility] BASIC METABOLIC PANEL (7) 2021-10-07 04:18:00 [facility] PROCALCITONIN 2021-10-07 04:18:00 [facility] D-DIMER 2021-10-07 04:18:00 [facility] C-REACTIVE PROTEIN 2021-10-07 04:18:00 [facility] CBC W/PLT COUNT & AUTO 2021-10-07 04:18:00 [facility] (MANUAL DIFFERENTIAL) 2021-10-07 04:18:00 [facility] XR CHEST 1 VIEW PORTABLE / 2021-10-07 00:39:00 Felisha [facility] CBC W/PLT COUNT & AUTO 2021-10-06 03:34:00 [facility] BASIC METABOLIC PANEL (7) 2021-10-06 03:34:00 [facility] CBC W/PLT COUNT & AUTO 2021-10-06 03:34:00 [facility] PROTHROMBIN TIME/INR 2021-10-05 03:33:00 [facility] PROCALCITONIN 2021-10-05 03:32:00 [facility] C-REACTIVE PROTEIN 2021-10-05 03:32:00 [facility] COMPREHENSIVE METABOLIC 2021-10-05 03:32:00 Felisha [facility] CBC W/PLT COUNT & AUTO 2021-10-05 03:32:00 [facility] ACETAMINOPHEN LEVEL 2021-10-05 03:32:00 Felisha, Charly Kalim [facility] CBC W/PLT COUNT & AUTO 2021-10-05 03:32:00 FelishaCharly Ruma [facility] XR CHEST 1 VIEW PORTABLE / 2021-10-05 00:21:00 Charly Baeza José Miguel caro [facility] Center HEPATIC FUNCTION PANEL 2021-10-04 16:28:00 Canelo [facility] PROTHROMBIN TIME/INR 2021-10-04 16:28:00 Canelo [facility] CBC W/PLT COUNT & AUTO 2021-10-04 01:22:00 [facility] HEPATIC FUNCTION PANEL 2021-10-04 01:22:00 Canelo [facility] PROTHROMBIN TIME/INR 2021-10-04 01:22:00 [facility] BASIC METABOLIC PANEL (7) 2021-10-04 01:22:00 Felisha Chraly escobar [facility] CBC W/PLT COUNT & AUTO 2021-10-04 01:22:00 [facility] ACETAMINOPHEN LEVEL 2021-10-04 00:07:00 Canelo [facility] POCT-GLUCOSE METER 2021-10-03 16:36:00 Canelo [facility] BASIC METABOLIC PANEL (7) 2021-10-03 08:37:00 Mark Lemos [facility] ACETAMINOPHEN LEVEL 2021-10-03 08:37:00 Canelo [facility] POCT-GLUCOSE METER 2021-10-03 08:30:00 Canelo [facility] CBC W/PLT COUNT & AUTO 2021-10-03 06:11:00 [employer] [facility] CBC W/PLT COUNT & AUTO 2021-10-03 06:11:00 [facility] POCT-GLUCOSE METER 2021-10-02 23:54:00 Canelo [facility] ACETAMINOPHEN LEVEL 2021-10-02 14:47:00 CaneloMark [facility] SPUTUM CULTURE + GRAM 2021-10-02 12:22:00 EverardoJan [facility] Jan Center CBC W/PLT COUNT & AUTO 2021-10-02 03:05:00 [facility] PT/APTT 2021-10-02 03:05:00 Felisha [facility] CBC W/PLT COUNT & AUTO 2021-10-02 03:05:00 [facility] COMPREHENSIVE METABOLIC 2021-10-02 02:20:00 [facility] ACETAMINOPHEN LEVEL 2021-10-02 02:20:00 Felisha [facility] HEPATIC FUNCTION PANEL 2021-10-02 02:20:00 Felisha Charly [facility] APTT 2021-10-01 21:04:00 [facility] PROTHROMBIN TIME/INR 2021-10-01 21:04:00 [facility] COMPREHENSIVE METABOLIC 2021-10-01 16:31:00 [facility] PROTHROMBIN TIME/INR 2021-10-01 16:31:00 [facility] APTT 2021-10-01 16:31:00 [facility] COMPREHENSIVE METABOLIC 2021-10-01 10:11:00 [facility] PROTHROMBIN TIME/INR 2021-10-01 10:11:00 [facility] APTT 2021-10-01 10:11:00 [facility] PT/APTT 2021-10-01 05:56:00 Tessytserg [facility] ACETAMINOPHEN LEVEL 2021-10-01 05:56:00 Lytwcathleen [facility] ECG 12-LEAD 2021-10-01 02:36:21 Sheela [facility] ECG 12-LEAD 2021-10-01 02:36:21 Unknown, Hl7 Doctor [facility] ED ECG INTERPRETATION 2021-10-01 02:36:00 Sheela [facility] XR CHEST 1 VIEW PORTABLE / 2021-10-01 02:35:00 Sheela [facility] BEDSIDE [facility] RAPID DRUG SCREEN, URINE 2021-10-01 02:26:00 Sheela [facility] SARS-COV2/RT-PCR ([facility] & 2021-10-01 02:22:00 [facility] CRITICAL CARE 2021-10-01 02:17:39 Sheela [facility] INSERT EMERGENCY ENDOTRACH 2021-10-01 02:15:00 Sheela [facility] AIRWAY [facility] BASIC METABOLIC PANEL (7) 2021-10-01 02:14:00 Sheela [facility] HEPATIC FUNCTION PANEL 2021-10-01 02:14:00 Sheela [facility] CBC W/PLT COUNT & AUTO 2021-10-01 02:14:00 Sheela [facility] DIFFERENTIAL [facility] TROPONIN I 2021-10-01 02:14:00 Juanpablocathleen [facility] ACETAMINOPHEN LEVEL 2021-10-01 02:14:00 Sheela [facility] HCG, SERUM, QUALITATIVE 2021-10-01 02:14:00 Sheela [facility] MAGNESIUM 2021-10-01 02:14:00 Sheela [facility] HEMOGLOBIN A1C 2021-10-01 02:14:00 [facility] W/PLT COUNT & AUTO 2021-10-01 02:14[facility] REPORT OF PROCEDURE - 2021-10-01 00:00:00 Provider, Angelita [facility] ENDOSCOPY SCAN Scanning Center CT ABDOMEN/PELVIS WITH IV 2020-11-27 21:25:00 Lia Chanel [facility] CONTRAST [place] CBC W/PLT COUNT & AUTO 2020-11-27 19:59:00 Lia Chanel [facility] DIFFERENTIAL [place] COMPREHENSIVE METABOLIC 2020-11-27 19:59:00 Lia Chanel [facility] PANEL Center LIPASE 2020-11-27 19:59:00 BereaLia [facility] URINALYSIS W/ REFLEX URINE 2020-11-27 19:59:00 Lia Chanel [facility] CULTURE Center SCREEN, URINE 2020-11-27 19:59:00 BereaLia [facility] CBC W/PLT COUNT & AUTO 2020-11-27 19:59:00 BereaLia [facility] Plan of Care Planned Activity Planned Date Details Comments Source Future Scheduled 2023-06-09 Influenza Vaccine (#1) C HI [facility] Test 00:00:00 [code = Influenza Vaccine Me dical Center (#1)] Future Scheduled 2023-05-14 Screening for Chlamydia [facility] 09:14:47 trachomatis (procedure) Hosp ital [code = 890319666] Future Scheduled 2023-05-14 Hepatitis C screening [facility] 09:14:47 (procedure) [code = Hospital [id number]] Future Scheduled 2023-05-14 Screening for malignant [facility] Test 09:14:47 neoplasm of cervix Hospital (procedure) [code = 155604901] Future Scheduled 2023-05-14 COVID-19 VACCINE (4 - [facility] Test 09:14:47 Moderna series) [code = Hosp ital COVID-19 VACCINE (4 - Moderna series)] Future Scheduled 2023-05-14 ZZZ INFLUENZA VACCINE [facility] Test 09:14:47 [code = ZZZ INFLUENZA Hospit al VACCINE] Future Scheduled 2022-11-05 Screening for Chlamydia [facility] 18:13:09 trachomatis (procedure) Hosp ital [code = 924284300] Future Scheduled 2022-11-05 Hepatitis C screening [facility] Test 18:13:09 (procedure) [code = Hospital 385279779] Future Scheduled 2022-11-05 Screening for malignant [facility] Test 18:13:09 neoplasm of cervix Hospital (procedure) [code = 630483203] Future Scheduled 2022-11-05 COVID-19 VACCINE (4 - [facility] Test 18:13:09 Booster for Moderna Hospital series) [code = COVID-19 VACCINE (4 - Booster for Moderna series)] Future Scheduled 2022-11-05 INFLUENZA VACCINE [code = [facility] Test 18:13:09 INFLUENZA VACCINE] Hospital Future Scheduled 2022-11-05 Screening for Chlamydia [facility] Test 18:13:09 trachomatis (procedure) Hosp ital [code = 052422315] Future Scheduled 2022-11-05 Hepatitis C screening [facility] Test 18:13:09 (procedure) [code = Hospital 844128935] Future Scheduled 2022-11-05 Screening for malignant [facility] Test 18:13:09 neoplasm of cervix Hospital (procedure) [code = 824347005] Future Scheduled 2022-11-05 COVID-19 VACCINE (4 - [facility] Test 18:13:09 Booster for Moderna Hospital series) [code = COVID-19 VACCINE (4 - Booster for Moderna series)] Future Scheduled 2022-11-05 INFLUENZA VACCINE [code = [facility] Test 18:13:09 INFLUENZA VACCINE] Hospital Future Scheduled 2022-10-[address] [facility] Test 00:00:00 (12+) [code = DEPRESSION Med ical Center SCREENING (12+)] Future Scheduled 2022-10-[address] [facility] Test 00:00:00 (12+) [code = DEPRESSION Med ical Center SCREENING (12+)] Future Scheduled 2022-10-[address] [facility] Test 00:00:00 (12+) [code = DEPRESSION Med ical Center SCREENING (12+)] Future Scheduled 2022-06-09 INFLUENZA VACCINE (#1) [facility] 00:00:00 [code = INFLUENZA VACCINE Me dical Center (#1)] Future Scheduled 2022-06-09 INFLUENZA VACCINE (#1) [facility] 00:00:00 [code = INFLUENZA VACCINE Me dical Center (#1)] Future Scheduled 2021-11-17 CHLAMYDIA SCREENING [code [facility] Test 12:54:10 = CHLAMYDIA SCREENING] [facility] Future Scheduled 2021-11-17 Hepatitis C screening [facility] Test 12:54:10 (procedure) [code = Hospital [id number]] Future Scheduled 2021-11-17 Screening for malignant [facility] Test 12:54:10 neoplasm of cervix Hospital (procedure) [code = 364605261] Future Scheduled 2021-11-17 INFLUENZA VACCINE [code = [facility] 12:54:10 INFLUENZA VACCINE] Hospital Future Scheduled 2021-10-27 CHLAMYDIA SCREENING [code [facility] Test 14:35:30 = CHLAMYDIA SCREENING] [facility] Future Scheduled 2021-10-27 Hepatitis C screening [facility] Test 14:35:30 (procedure) [code = Hospital 557325370] Future Scheduled 2021-10-27 Screening for malignant [facility] Test 14:35:30 neoplasm of cervix Hospital (procedure) [code = 586621460] Future Scheduled 2021-10-27 INFLUENZA VACCINE [code = [facility] Test 14:35:30 INFLUENZA VACCINE] Hospital Future Scheduled 2021-10-[address] [facility] Test 00:00:00 (12+) [code = DEPRESSION Med ical Center SCREENING (12+)] Future Scheduled 2021-10-[address] [facility] Test 00:00:00 (12+) [code = DEPRESSION Med ical Center SCREENING (12+)] Future Scheduled 2021-06-09 INFLUENZA VACCINE (#1) [facility] 00:00:00 [code = INFLUENZA VACCINE Me dical Center (#1)] Future Scheduled 2021-06-09 INFLUENZA VACCINE (#1) [facility] 00:00:00 [code = INFLUENZA VACCINE Me dical Center (#1)] Future Scheduled 2019-09-28 DTAP/TDAP/TD VACCINES ([address] [facility] Test 00:00:00 - Td or Tdap) [code = Medica l Center DTAP/TDAP/TD VACCINES (7 - Td or Tdap)] Future Scheduled 2019-09-28 DTAP/TDAP/TD VACCINES ([address] [facility] Test 00:00:00 - Td or Tdap) [code = Medica l Center DTAP/TDAP/TD VACCINES (7 - Td or Tdap)] Future Scheduled 2019-09-28 DTAP/TDAP/TD VACCINES ([address] [facility] Test 00:00:00 - Td or Tdap) [code = Medica l Center DTAP/TDAP/TD VACCINES (7 - Td or Tdap)] Future Scheduled 2019-09-28 DTAP/TDAP/TD VACCINES ([address] [facility] Test 00:00:00 - Td or Tdap) [code = Medica l Center DTAP/TDAP/TD VACCINES (7 - Td or Tdap)] Future Scheduled 2019-09-28 DTAP/TDAP/TD VACCINES ([address] [facility] Test 00:00:00 - Td or Tdap) [code = Medica l Center DTAP/TDAP/TD VACCINES (7 - Td or Tdap)] Future Scheduled 2019 Screening for malignant [facility] Test 00:00:00 neoplasm of cervix Medical C enter (procedure) [code = 679802783] Future Scheduled 2019 Screening for malignant [facility] Test 00:00:00 neoplasm of cervix Medical C enter (procedure) [code = 652344168] Future Scheduled 2019 Screening for malignant [facility] Test 00:00:00 neoplasm of cervix Medical C enter (procedure) [code = 029348514] Future Scheduled 2019 Screening for malignant [facility] Test 00:00:00 neoplasm of cervix Medical C enter (procedure) [code = 177338679] Future Scheduled 2019 Screening for malignant [facility] Test 00:00:00 neoplasm of cervix Medical C enter (procedure) [code = 201566498] Future Scheduled 2018 Lipid panel (procedure) [facility] Test 00:00:00 [code = 47201219] Medical Ce nter Future Scheduled 2018 Lipid panel (procedure) [facility] Test 00:00:00 [code = 19465652] Medical Ce nter Future Scheduled 2018 Lipid panel (procedure) [facility] Test 00:00:00 [code = 95965768] Medical Ce nter Future Scheduled 2018 Lipid panel (procedure) [facility] Test 00:00:00 [code = 95830185] Medical Ce nter Future Scheduled 2018 Lipid panel (procedure) [facility] Test 00:00:00 [code = 58372095] Medical Ce nter Future Scheduled 2016 HEPATITIS C SCREENING CH [...] HEPATITIS C Medical Center SCREENING] Future Scheduled 2013 Human immunodeficiency [facility] Test 00:00:00 virus screening Medical Cent er (procedure) [code = 572186242] Future Scheduled [address] [facility] Test 00:00:00 Counseling and Screening Med ical Center (12+) [code = Tobacco Cessation Counseling and Screening (12+)] Future Scheduled [address] [facility] Test 00:00:00 Counseling and Screening Med ical Center (12+) [code = Tobacco Cessation Counseling and Screening (12+)] Future Scheduled [address] [facility] Test 00:00:00 Counseling and Screening Med ical Center (12+) [code = Tobacco Cessation Counseling and Screening (12+)] Future Scheduled 2004 Pneumococcal Vaccine: [facility] Test 00:00:00 0-64 Years (1 - PCV) Medical Center [code = Pneumococcal Vaccine: 0-64 Years (1 - PCV)] Future Scheduled 2004 PNEUMOCOCCAL VACCINE 0-[address] [facility] Test 00:00:00 YRS (1 of 2 - PPSV23) Medica l Center [code = PNEUMOCOCCAL VACCINE 0-64 YRS (1 of 2 - PPSV23)] Future Scheduled 2004 PNEUMOCOCCAL VACCINE 0-[address] [facility] Test 00:00:00 YRS (1 of 2 - PPSV23) Medica l Center [code = PNEUMOCOCCAL VACCINE 0-64 YRS (1 of 2 - PPSV23)] Future Scheduled 2004 PNEUMOCOCCAL VACCINE 0-[address] [facility] Test 00:00:00 YRS (1 - PCV) [code = Medica l Center PNEUMOCOCCAL VACCINE 0-64 YRS (1 - PCV)] Future Scheduled 2004 PNEUMOCOCCAL VACCINE 0-[address] [facility] Test 00:00:00 YRS (1 - PCV) [code = Medica l Center PNEUMOCOCCAL VACCINE 0-64 YRS (1 - PCV)] Future Scheduled 2003 COVID-19 VACCINE (1) [facility] Test 00:00:00 [code = COVID-19 VACCINE Med ical Center (1)] Future Scheduled 2003 COVID-19 VACCINE (1) [facility] Test 00:00:00 [code = COVID-19 VACCINE Med ical Center (1)] Future Scheduled 1999-03-10 COVID-19 VACCINE (#1) [facility] 00:00:00 [code = COVID-19 VACCINE Med ical Center (#1)] Future Scheduled 1999-03-10 COVID-19 VACCINE (#1) [facility] 00:00:00 [code = COVID-19 VACCINE Med ical Center (#1)] Future Scheduled 1999-03-10 COVID-19 VACCINE (#1) [facility] 00:00:00 [code = COVID-19 VACCINE Med ical Center (#1)] Encounters Start End Encounter Admission Attending Care Care Encounter Source Date/Time Date/Time Type Type Clinicians Facility Department ID 2023-05-08 Emergency [facility] [id number] Univers 13:24:03 ity of [facility] 2023-05-04 2023-05-04 Outpatient R LENCHO [facility] [id number] Univers 13:40:00 13:40:00 , POLINA it y of [facility] 2023-05-03 2023-05-03 Telephone Luis [facility] [id number] Univers 00:00:00 00:00:00 Nichelle COTE [id number] josephine Nova [id number] Jose L FERGUSON [id number] Nh dical NAL 059 [facility] 2023-04-25 2023-04-25 Case [facility] [id number] [facility] 00:00:00 00:00:00 Management , Polina [facility] [id number] ity of [facility] [id number] [place] SHERLY?BLEA [id number] [address] MEDICAL OFFICE [facility] 2023-04-21 2023-04-21 Outpatient R [facility] [id number] Univers 14:20:00 15:02:44 , POLINA it y [facility] 2023-04-21 2023-04-21 Office [facility] [id number] [facility] 14:20:00 15:02:44 [facility] [id number] ity of Randell KOOTENAI [id number] [place] SHERLY?BLEA [phone] [address] OFFICE [facility] 2023-04-21 2023-04-21 [facility] [id number] Univers 09:00:00 09:00:00 JONAH [facility] 2023-04-05 2023-04-05 [facility] [id number] Univers 07:47:15 23:59:00 NICHELLE [facility] 2023-04-03 2023-04-03 [facility] [id number] Univers 11:20:00 11:20:00 RIA [facility] 2023-03-23 2023-03-23 Outpatient [facility] [id number] Univers 08:42:44 23:59:00 NICHELLE [facility] 2023-03-23 2023-03-23 Office [facility] [id number] Univers 14:40:00 15:09:14 Visit , Polina [facility] [id number] ity of Randell KOOTENAI [id number] [place] SHERLY?BLEA [id number] [address] MEDICAL OFFICE [facility] 2023-03-23 2023-03-23 [facility] [id number] Univers 00:00:00 00:00:00 Outreach Berenice Africa [facility] [id number] i ty of [place] [id number] [place] SHERLY?BLEA [id number] Nh dickrista MAXWELL [address] [facility] OFFICE [facility] 2023-03-20 2023-03-20 Outpatient [facility] [id number] Univers 10:00:00 10:27:17 NICHELLE ity of [facility] 2023-03-20 2023-03-20 Office [facility] [id number] Univers 10:00:00 10:27:17 Visit Nichelle Leger KERA [id number] i ty of [id number] [place] [id number] Nh dicmt NAL 059 [facility] 2023-03-10 2023-03-10 Outpatient R ELIZABETH [facility] [id number] Univers 11:15:00 11:46:59 LUCERO sánchez [facility] 2023-03-10 2023-03-10 Employment Consultant Lab, Ang - [facility] [id number] Univers 11:15:00 11:46:59 Visit Unknown, [facility] [id number] ity of Lucero Johnson [id number] [place] SHERLY?BLEA [id number] Nh jadamt HANS [address] MEDICAL OFFICE [facility] 2023-03-09 2023-03-09 Outpatient R LENCHO [facility] [id number] Univers 16:20:00 17:16:11 , POLINA it y of [facility] 2023-03-09 2023-03-09 Office [facility] [id number] Univers 16:20:00 16:40:00 Visit , Polina HAYDEN [id number] ity of Randell COTE [id number] [place] SHERLY?BLEA [id number] Nh dicmt MODESTA [address] [place] MEDICAL OFFICE [facility] 2023-02-26 2023-02-26 Outpatient R GALO TARIQ [facility] [id number] Univers 17:24:38 23:59:00 GALO TARIQ ignacio [facility] 2023-02-26 2023-02-26 [facility] [id number] Univers 17:24:38 23:59:00 Encounter [facility] [id number] ity of [id number] [place] [id number] Nh karyna VICTORY 806 [facility] 2023-01-30 2023-01-30 Outpatient R ROD [facility] [id number] Univers 09:40:00 10:04:17 RIA sánchez [facility] 2023-01-30 2023-01-[address] [facility] 1.2.840.114 [id number] Univers 09:40:00 10:04:[address] [facility] 350.1.13.10 it y [place] [phone] Nh karyna [address] [place] [address] 2023-01-18 2023-01-18 Telephone [facility] 1.2.840.114 [id number] Univers 00:00:00 00:00:00 William COTE 350.1.13.10 i ty of [facility] [place] [phone] Nh karyna NAL 098 [facility] 2023-01-09 2023-01-09 Office [facility] 1.2.840.114 [id number] Univers 14:30:00 15:00:00 Visit William COTE 350.1.13.10 i ty of [facility] 4.[place].2.[place] [phone] Nh dickrista NAL 098 [facility] 2023-01-09 2023-01-09 Outpatient R WILLIAM BASURTO [facility] [id number] Univers 14:30:00 14:30:00 WILLIAM BASURTO [facility] 2023-01-09 2023-01-09 Orders Doctor EDGAR 1.2.840.114 [id number] Univers 00:00:00 00:00:00 Only Unassigned, JIMENA 350.1.13.10 ity [facility] 4.2.7.2.686 [place] as [phone] [facility] [address] 2022-12-27 2022-12-27 Outpatient R ELIZABETH [facility] [id number] Univers 08:56:35 23:59:00 LUCERO ity [facility] 2022-12-27 2022-12-27 Employment Consultant Lab, Ang - [facility] 1.2.840.1 14 [id number] Univers 09:00:00 09:15:00 Visit Lucero Johnson 350.1.13.10 ity of [place] 4.2.7.2.686 [place] SHERLY?BLEA [phone] [facility] [address] MEDICAL OFFICE BUILDING 2022-12-26 2022-12-26 Outpatient R [facility]IZAB[facility] [id number] Univers 13:00:00 13:53:18 LUCERO ity [facility] 2022-12-26 2022-12-26 [facility] 1.2.840.114 [id number] Univers 13:00:00 13:53:18 Visit Lucero HEALTH 350.1.13.10 it y [facility] 4.2.7.2.686 [place] SHERLY?BLEA [phone] [facility] [address] MEDICAL OFFICE BUILDING 2022-12-09 2022-12-09 Outpatient R GALO TARIQ [facility] B [id number] Univers 15:00:00 15:18:36 GALO TARIQ ity [facility] 2022-12-09 2022-12-09 [facility] 1.2.840.114 [id number] Univers 15:00:00 15:18:36 Visit Galo BASURTO 350.1.13.10 it y of W[place] [address] [id number] [facility] [address] 2022-11-22 2022-11-23 Emergency X ABDIEL [facility] ERT [id number] Univers 22:11:00 01:50:00 JENNA ity [facility] 2022-11-22 2022-11-23 Emergency [facility] 1.2.840.114 [id number] Univers 22:11:00 01:50:00 Shinta KERA 350.1.13.10 i ty [place] [phone] [facility] [address] 2022-11-18 2022-11-18 Telephone Nina [facility] 1.2.840.114 [id number] Univers 00:00:00 00:00:00 Cam [place] 350.1.13.10 i ty of [place].2.[place] [phone] Nh dic[address] 2022-11-17 2022-11-17 Office Nina [facility] 1.2.402.968 [id number] Univers 15:00:00 16:22:05 Visit Pierce COTE 350.1.13.10 i ty of [place].2.[place].2.[place] [id number] Nh dical NAL [address] [place] [address] 2022-11-17 2022-11-17 Outpatient R NINA [facility] [id number] Univers 15:00:00 16:22:05 ity of [facility] 2022-11-17 2022-11-17 Orders Doctor HERVE 1.2.840.114 [id number] Univers 00:00:00 00:00:00 Only Unassigned, JIMENA 350.1.13.10 ity of [place] [facility] 4.2.7.2.686 [place] [phone] [facility] [address] 2022-11-16 2022-11-16 Office Nina [facility] 1.2.537.895 [id number] Univers 10:30:00 11:00:00 Visit Cam ANTHONYLANCE 350.1.13.10 i ty of [place].2.[place] [phone] Nh dical NAL [address] [place] [address] 2022-11-16 2022-11-16 Outpatient R NINA [facility] [id number] Univers 10:30:00 10:30:00 ity of [facility] 2022-11-16 2022-11-16 Orders Doctor HERVE 1.2.840.114 [id number] Univers 00:00:00 00:00:00 Only Unassigned, JIMENA 350.1.13.10 ity of [place] [facility] 4.2.7.2.686 [place] [id number] [facility] [address] 2022-11-11 2022-11-11 Outpatient R [facility]ERRI [facility] [id number] Univers 13:00:00 13:00:00 MANOJ ity [facility] 2022-11-08 2022-11-08 Employment Consultant 2, Adc Lab [facility] 1.2.840.114 [id number] Univers 10:30:00 10:45:00 Visit Giovanny Foster 350.1.13.10 it[place] of [place] [phone] [facility] 353 [facility] 2022-11-08 2022-11-08 Office Cristian [facility] 1.2.309.045 [id number] Univers 09:30:00 10:17:09 Visit Giovanny COTE 350.1.13.10 i ty of [place].2.[place].2.[place] [phone] [facility] 134 [facility] 2022-11-08 2022-11-08 Outpatient R [facility]STIAN [facility] [id number] Univers 09:30:00 10:17:09 GIOVANNY ity [facility] 2022-11-04 2022-11-04 Emergency Junito Chapin [facility] 1.2.840.114 10 [id number] Univers 15:33:00 17:01:00 Nicky COTE 350.1.13.10 i ty of [place] [phone] [facility] [address] 2022-11-04 2022-11-04 Emergency X Junito CHAPIN [facility] ERT [id number] Univers 15:33:00 17:01:00 ity [facility] 2021-10-27 2021-10-27 Clinical 1.2.840.1 [id number] Methodi 14:24:37 14:29:[address] 3.430.2.7 Hospit a .3.473731 l .8 2021-10-27 2021-10-27 Travel 1.2.840.1 1.2.877.085 [id number] Methodi 00:00:00 00:00:[address] 3.430.2.7 0.2.7.3.698 Ho spita .3.417589 084.8 l .8 2021-10-01 2021-10-19 Inpatient ER MARK LEMOS [facility] Emergency 20 [id number] SL 02:00:00 14:25:00 2021-10-01 2021-10-19 Hospital ER Deedee Coker [facility] [id number] [facility] [address] 02:00[facility]00 14:25:00 Encounter Mar [facility] Didi Cuenca 2021-10-01 2021-10-01 Travel [facility] [id number] [facility] 00:[facility] 00:00:00 [facility] 2021-10-01 2021-10-[address] [facility] [id number] 00:00:00 00:00:00 Only [facility] 2021-03-23 2021-03-23 Emergency [facility], [facility] [id number] 17:51:00 21:06:00 [facility] 2021-03-23 2021-03-23 Emergency ER [facility] Emergency [id number] [facility] 17:44:00 17:44:00 2021-03-22 2021-03-22 Emergency EM Elkin, BOOTB EO3 [id number] [facility] 06:35:00 07:10:[address] [place] [address] viji [place] 2020-11-27 2020-11-27 Emergency ER Lia Chanel [facility] [id number] 21:57:00 23:07:00 [facility] 2020-11-27 2020-11-27 Emergency 1.2.840.1 [id number] Methodi 18:26:00 19:22:[address] 3.430.2.7 Hospit a .3.131345 l .8 2020-11-27 2020-11-27 Emergency ER SL Emergency [id number] [facility] 18:52:00 18:52:00 2020 2020-09-11 Inpatient HCANC RAMO [id number] [facility] 14:05:00 23:51:55 98 [facility] are [facility] 2020-08-22 2020-08-22 Emergency SHALLOTTE, [facility] [id number] [place] [address] 00:00:00 00:00:00 GEOFF [place] [facility] i st 2019-10-29 2019-10-31 Inpatient HCATB RAMO [id number] [facility] 22:53:00 23:23:55 61 [facility] are [place] Results Test Description Test Time Test Comments Results Result Comments Source TSH RECEPTOR ANTIBODY (TRAB) 2023-03-14 14:17:33 Test Item Value Reference Range Interpretation Comme nts TSH AB (test code = 5385-0) <0.80 See_Comment Performed By: [employer] [place] [address] [id number] Director: Aj Rodriguez MD, PhD [Automated message] The system [employer] generated this result transmit rhett reference range: <=1.75 IU/L. Th e reference range was not used to int erpret this result as normal/abnormal . [facility] 21:44:12 Test Item Value Reference Range Interpretation Comments T3 (test code = 9920620179) 124.0 ng/dL 97.0-170.0 Lab Interpretation (test code = Normal 10625-5) [facility] STIMULATING [id number] 19:33:53 Test Item Value Reference Range Interpretation Comments TSH (test code = 0.34 See_Comment L [Automated message] [id number]) The system [employer] generated this result transmitted ref erence range: 0.45 - 4 .70 mIU/L. The refe rence range was not u sed to interpret this result as normal/abnor mal. Lab Interpretation (test Abnormal code = 63029-5) [facility] [id number] 19:04:09 Test Item Value Reference Range Interpretation Comments FREE T4 (test code = 1.07 See_Comment [Autom ated message] [id number]) The system [employer] generated this result transmitted ref erence range: 0.78 - 2 .20 ng/dL:. The ref erence range was not u sed to interpret this result as normal/abnor mal. Lab Interpretation (test Normal code = 33178-7) [facility] URINALYSIS W SPECIFIC [id number] 18:23:00 Test Item Value Reference Range Interpretation Comments POCT U SP GRAV (test code = 1.030 mg/dl 1.005-1.025 A 3255) POCT PH U (test code = 3254) 6 mg/dl 5-8 POCT U LEUK EST (test code = 2+ Negative - Negative 3263) POCT U NIT (test code = 3262) Positive Negative - Negative POCT U PROT (test code = Trace Negative - Negative 3259) POCT U GLU (test code = 3256) Negative Negative - Negative POCT U KETONE (test code = Moderate Negative - Negative 3258) POCT U UROBILI (test code = 4 mg/dl 0.2-1 A 3260) POCT U BILI (test code = 2+ Negative - Negative 3261) POCT U BLD (test code = 3257) About 250 Negative - Negative POCT U COLOR (test code = Karina 3266) POCT U APPEAR (test code = Clear 3267) Lab Interpretation (test code Abnormal = 19248-3) [facility] URINALYSIS W SPECIFIC [id number] 18:23:00 Test Item Value Reference Range Interpretation Comments POCT U SP GRAV (test code = 1.030 mg/dl 1.005-1.025 A 3255) POCT PH U (test code = 3254) 6 mg/dl 5-8 POCT U LEUK EST (test code = 2+ Negative - Negative 3263) POCT U NIT (test code = 3262) Positive Negative - Negative POCT U PROT (test code = Trace Negative - Negative 3259) POCT U GLU (test code = 3256) Negative Negative - Negative POCT U KETONE (test code = Moderate Negative - Negative 3258) POCT U UROBILI (test code = 4 mg/dl 0.2-1 A 3260) POCT U BILI (test code = 2+ Negative - Negative 3261) POCT U BLD (test code = 3257) About 250 Negative - Negative POCT U COLOR (test code = Karina 3266) POCT U APPEAR (test code = Clear 3267) Lab Interpretation (test code Abnormal = 58289-8) [facility] Metabolic [id number] 05:01:04 Test Item Value Reference Range Interpretation Comments NA (test code = 137 mmol/L 135-145 2904830485) K (test code = 4.5 mmol/L 3.5-5.0 3799553648) CL (test code = 104 mmol/L 98-108 8453767509) CO2 TOTAL (test code 25 mmol/L 23-31 = 8732472736) AGAP (test code = 8 2-16 1626719837) BUN (test code = 13 mg/dL 7-23 0893850201) GLUCOSE (test code = 91 mg/dL 70-110 0919257224) CREATININE (test code 0.67 mg/dL 0.50-1.04 = 3881596250) TOTAL BILI (test code 1.0 mg/dL 0.1-1.1 = 0639357459) CALCIUM (test code = 9.1 mg/dL 8.6-10.6 6343038986) T PROTEIN (test code 6.8 g/dL 6.3-8.2 = 2561805792) ALBUMIN (test code = 4.4 g/dL 3.5-5.0 6825994124) ALK PHOS (test code = 73 U/L 34-122 4239001769) ALTv (test code = 11 U/L 5-35 1742-6) AST(SGOT) (test code 24 U/L 13-40 = 5794583878) eGFR (test code = 108.1 mL/min/1.73m2 6134866616) CHRISTIANA (test code = CHRISTIANA) Association of Glomerular Filtration Rate (GFR) and Staging of Kidney Disease* + + +- +| GFR (mL/min/1.73 m2) ?| With Kidney Damage ?| ?Without Kidney Damage+ ------+ ----+ ------+| ?>90 ?| ?Stage one ?| ? Normal ?+ -+ + -+| ?60-89 ?| ?Stage two ?| ? Decreased GFR ? + + +- +| ?30-59 ?| ?Stage three ?| ? Stage three ? + + +- +| ?15-29 ?| ?Stage four ? | ? Stage four ?+ -+ + -+| ?<15 (or dialysis) ? ?| ?Stage five ? | ? Stage five ?+ -+ + -+ *Each stage assumes the associated GFR level has been in effect for at least three months. ?Stages 1 to 5, with or without kidney disease, indicate chronic kidney disease. Notes: Determination of stages one and two (with eGFR >59mL/min/1.73 m2) requires estimation of kidney damage for at least three months as defined by structural or functional abnormalities of the kidney, manifested by either:Pathological abnormalities or Markers of kidney damage (including abnormalities in the composition of the blood or urine or abnormalities in imaging tests). [facility] HospitalLipase, [id number] 05:01:04 Test Item Value Reference Range Interpretation Comments LIPASE (test code = 9740620074) 115 U/L 0-220 Lab Interpretation (test code = Normal 85828-5) [facility] Hospital[facility]REGNANCY TEST, [id number] 05:00:23 Test Item Value Reference Range Interpretation Comments PREG SERUM (test code Negative = 7816775477) CHRISTIANA (test code = CHRISTIANA) Less than 10 IU/L. ?If low titer or ectopic is suspected, resubmit specimen in 48-72 hours. [facility] HospitalCBC with [id number] 04:46:25 Test Item Value Reference Range Interpretation Comments WBC (test code = 7.90 See_Comment [Automated 9080-2) message] The sy stem which generated this result transmitted reference range : 4.30 - 11.10 10*3/?L. The reference range was not used to interpret this result as normal/abnormal . RBC (test code = 4.32 See_Comment [Automated 789-8) message] The sy stem which generated this result transmitted reference range : 3.93 - 5.25 10*6/?L. The reference range was not used to interpret this result as normal/abnormal . HGB (test code = 13.3 g/dL 11.6-15.0 718-7) HCT (test code = 38.0 % 35.7-45.2 4544-3) MCV (test code = 88.0 fL 80.6-95.5 787-2) MCH (test code = 30.8 pg 25.9-32.8 785-6) MCHC (test code = 35.0 g/dL 31.6-35.1 786-4) RDW-SD (test code = 39.0 fL 39.0-49.9 93543-2) RDW-CV (test code = 12.0 % 12.0-15.5 788-0) PLT (test code = 389 See_Comment H [Automated 777-3) message] The sy stem which generated this result transmitted reference range : 166 - 358 10*3/ ?L. The reference r isreal was not used to interpret this result as normal/abnormal . MPV (test code = 10.2 fL 9.5-12.9 31967-7) NRBC/100 WBC (test 0.0 See_Comment [Automat ed code = 8359310660) message] The system which generated this result transmitted reference range : 0.0 - 10.0 /100 WBCs. The refer ence range was not u sed to interpret th is result as normal/abnormal . NRBC x10^3 (test code See_Comment [Auto mated = 3565827307) message] The s ystem which generated this result transmitted reference range : 10*3/?L. The reference range was not used to interpret this result as normal/abnormal . GRAN MAT (NEUT) % 55.7 % (test code = 770-8) IMM GRAN % (test code 0.30 % = 5969828639) LYMPH % (test code = 29.0 % 736-9) MONO % (test code = 10.6 % 5905-5) EOS % (test code = 3.5 % 713-8) BASO % (test code = 0.9 % 706-2) GRAN MAT x10^3(ANC) 4.40 10*3/uL 1.88-7.09 (test code = 8018478305) IMM GRAN x10^3 (test 0.00-0.06 code = 2835111521) LYMPH x10^3 (test code 2.29 10*3/uL 1.32-3.29 = 731-0) MONO x10^3 (test code 0.84 10*3/uL 0.33-0.92 = 742-7) EOS x10^3 (test code = 0.28 10*3/uL 0.03-0.39 711-2) BASO x10^3 (test code 0.07 10*3/uL 0.01-0.07 = 704-7) Lab Interpretation Abnormal (test code = 07707-2) [facility] [id number] 20:51:00 Test Item Value Reference Range Interpretation Comments POCT PREG (test code = 1605) Negative On board controls acceptable with C Yes Line (test code = 3574) POCT PREG LOT # (test code = 3575) POCT PREG TEST DATE (test code = 3576) [facility] [id number] 20:51:00 Test Item Value Reference Range Interpretation Comments POCT PREG (test code = 1605) Negative On board controls acceptable with C Yes Line (test code = 3574) POCT PREG LOT # (test code = 3575) POCT PREG TEST DATE (test code = 3576) [facility] [id number] 17:01:00 Test Item Value Reference Range Interpretation Comments POCT PREG (test code = 1605) Negative On board controls acceptable with C Yes Line (test code = 3574) POCT PREG LOT # (test code = 3575) POCT PREG TEST DATE (test code = 3576) [facility] [id number] 17:01:00 Test Item Value Reference Range Interpretation Comments POCT PREG (test code = 1605) Negative On board controls acceptable with C Yes Line (test code = 3574) POCT PREG LOT # (test code = 3575) POCT PREG TEST DATE (test code = 3576) [facility]-PCR (Asymptomatic ONLY)2021-10-14 10:23:00 Test Item Value Reference Interpretation Comments Range SARS-COV2/RT-PCR Positive Negative AA The SARS-Co V-2 (test code = target nucleic 98242-1) acids are detec rhett in this specime [...] CARE%20PROVIDERS%2 0FACT%20SHEET.pdf Fact Sheet for Healthcare Patients: https://www.[employer]/Documents/Xp ert%20Xpress%20SAR S%20CoV-2/Fact%20S heets/302-3801%20S ARS-COV-2%20PATIEN T%20FACT%20SHEET.p df Lab Interpretation Abnormal (test code = 64900-6) [facility] ONLY[facility]2021-10-14 10:23:00 Test Item Value Reference Interpretation Comments Range SARS-COV2/RT-PCR Positive Negative AA The SARS-Co V-2 (test code = target nucleic 43172-8) acids are detec rehtt in this specime n. The presence SARS-CoV-2 [...] revoked sooner. Fact Sheet for Healthcare Providers: https://www.[employer]/Documents/Xp ert%20Xpress%20SAR S%20CoV-2/Fact%20S heets/302-3802%20S ARS-COV-2%20HEALTH CARE%20PROVIDERS%2 0FACT%20SHEET.pdf Fact Sheet for Healthcare Patients: https://www.[employer]/Documents/Xp ert%20Xpress%20SAR S%20CoV-2/Fact%20S heets/302-3801%20S ARS-COV-2%20PATIEN T%20FACT%20SHEET.p df Lab Interpretation Abnormal (test code = 73601-4) [facility])2021-10-14 10:23:00 Test Item Value Reference Range Interpretation Comments SARS-COV2/RT-PCR Positive Negative AA The SARS-Co V-2 target (test code = nucleic acids a re detected 1511413) in this specime n. The presence SARS-C [...] revoked sooner. Fact Sheet for Healthcare Providers: https://www.[employer]/Documents/Xpert%20Xpress%20SARS%20CoV-2/Fact%20Sheets/302-3802%94PAGP-IZF-1%20 HEALTHCARE%20PROVIDERS%20FACT%20SHEET.pdf Fact Sheet for Healthcare Patients: https://www.[employer]/Documents/Xpert%20Xp ress%20SARS%20CoV-2/Fact%20Sheets/302-3801%62ZBII-YDK-7%20PATIENT%20FACT%20SHEET .umfTsfgawsildcqg9834-93-99 11:32:11 Test Item Value Reference Range Interpretation Comments Procalcitonin (test code = 0.06 ng/mL <0.05 H 39038-1) CHRISTIANA (test code = CHRISTIANA) SEPSIS RISK (ng/mL)Low: 0.05-0.50Intermedia te: 0.51-2.00High: >=2.01 Lab Interpretation (test Abnormal code = 40431-2) [facility] HospitalYwsldlUxbaasphljwpz3434-53-04 11:32:11 Test Item Value Reference Range Interpretation Comments Procalcitonin (test code = 0.06 ng/mL <0.05 H 20496-6) CHRISTIANA (test code = CHRISTIANA) SEPSIS RISK (ng/mL)Low: 0.05-0.50Intermedia te: 0.51-2.00High: >=2.01 Lab Interpretation (test Abnormal code = 00511-4) [facility] Hos[id number] 11:32:11 Test Item Value Reference Range Interpretation Comments PROCALCITONIN (BEAKER) (test code 0.06 ng/mL <0.05 H = 3036) SEPSIS RISK (ng/mL)Low: 0.05-0.50Intermediate: 0.51-2.00High: >=2.01[facility] [id number] 06:56:17 Test Item Value Reference Range Interpretation Comments Sodium (test code = 141 meq/L 734-968 4950-2) Potassium (test code = 3.8 meq/L 3.6-5.5 2823-3) Chloride (test code = 108 meq/L 98-106 H 2075-0) CO2 (test code = 21 meq/L -2027-9) BUN (test code = 6 mg/dL 10-26 L 3094-0) Creatinine (test code 0.65 mg/dL 0.50-1.20 = 2160-0) Glucose (test code = 99 mg/dL 70-110 2345-7) Calcium (test code = 9.6 mg/dL 8.5-10.5 61907-7) EGFR (test code = 113 mL/min/1.73 [place] [address]-9) NOT ACCURATE CREATININE CLEARANCE IN PREDICTING GLOMERULAR FILTRATION RATE . ESTIMATED GFR I S NOT APPLICABLE FOR DIALYSIS PATIENTS. CHRISTIANA (test code = CHRISTIANA) Bread Baker ID - NLYLE Lab Interpretation Abnormal (test code = 54056-4) [facility] Metabolic [id number] 06:56:17 Test Item Value Reference Range Interpretation Comments Sodium (test code = 141 meq/L 741-636 2785-2) Potassium (test code = 3.8 meq/L 3.6-5.5 2823-3) Chloride (test code = 108 meq/L 98-106 H 2075-0) CO2 (test code = 21 meq/L -29 2027-9) BUN (test code = 6 mg/dL 10-26 L 3094-0) Creatinine (test code 0.65 mg/dL 0.50-1.20 = 2160-0) Glucose (test code = 99 mg/dL 70-110 2345-7) Calcium (test code = 9.6 mg/dL 8.5-10.5 30537-2) EGFR (test code = 113 mL/min/1.73 [place] [address]-7) NOT ACCURATE CREATININE CLEARANCE IN PREDICTING GLOMERULAR FILTRATION RATE . ESTIMATED GFR I S NOT APPLICABLE FOR DIALYSIS PATIENTS. CHRISTIANA (test code = CHRISTIANA) Bread Baker ID - NLYLE Lab Interpretation Abnormal (test code = 88159-0) [facility] HospitalBASIC METABOLIC [id number] 06:56:17 Test Item Value Reference Range Interpretation [...] S NOT APPLICABLE FOR DIALYSIS PATIEN TS. Bread Baker ID - NLYLEC-Reactive [id number] 06:51:44 Test Item Value Reference Range Interpretation Comments CRP (test code = 676) 0.28 mg/dL 0.00-1.00 CHRISTIANA (test code = CHRISTIANA) Bread Baker ID - NLYLE Lab Interpretation (test Normal code = 63909-5) [facility] Hospital[facility]-Reactive [id number] 06:51:44 Test Item Value Reference Range Interpretation Comments CRP (test code = 676) 0.28 mg/dL 0.00-1.00 CHRISTIANA (test code = CHRISTIANA) Bread Baker ID - NLYLE Lab Interpretation (test Normal code = 71728-2) [facility] HospitalC-REACTIVE [id number] 06:51:44 Test Item Value Reference Range Interpretation Comments C-REACTIVE PROTEIN (BEAKER) (test 0.28 mg/dL 0.00-1.00 code = 676) Bread Baker ID - AXUITC-[id number] 06:47:26 Test Item Value Reference Range Interpretation Comments D-Dimer, Quant (test 2.39 See_Comment H Final I nformation code = 31664-9) (Auto Output ) [Automated message] The system which generated this result transmitted reference range : <0.50 MG/L FEU. The reference range was not used to interpr et this result as normal/abnormal . CHRISTIANA (test code = REGARDING D-DIMER CHRISTIANA) RESULTS: The 98% NPV (Negative Predictive Value) for DVT/PE exclusion is 0.50 mg/L FEU as suggested by the branch maker and as approved by the FDA. Lab Interpretation Abnormal (test code = 88205-2) [facility] HospitalD-oncpo9442-36-73 06:47:26 Test Item Value Reference Range Interpretation Comments D-Dimer, Quant (test 2.39 See_Comment H Final I nformation code = 30116-1) (Auto Output ) [Automated message] The system which generated this result transmitted reference range : <0.50 MG/L FEU. The reference range was not used to interpr et this result as normal/abnormal . CHRISTIANA (test code = REGARDING D-DIMER CHRISTIANA) RESULTS: The 98% NPV (Negative Predictive Value) for DVT/PE exclusion is 0.50 mg/L FEU as suggested by the branch maker and as approved by the FDA. Lab Interpretation Abnormal (test code = 93173-9) [id number]:47[facility]26 Test Item Value Reference Range Interpretation Comments D-DIMER QUANTITATIVE 2.39 MG/L FEU <0.50 H Final Information (BEAKER) (test code = (Auto Output) 671) REGARDING D-DIMER RESULTS: The 98% NPV (Negative Predictive Value) for DVT/PE exclusion is 0.50 mg/LFEU as suggested by the branch maker and as approved by the FDA.CBC with platelet count + automated [id number] 06:38:04 Test Item Value Reference Range Interpretation Comments WBC (test code = 6690-2) 5.3 See_Comment [A utomated message] The system [employer] generated this result transmitted ref erence range: 4.0 - 10 .0 K/L. The refe rence range was not u sed to interpret this result as normal/abnor mal. RBC (test code = 789-8) 4.05 See_Comment [Au tomated message] The system [employer] generated this result transmitted ref erence range: 4.00 - 5 .00 M/L. The refe rence range was not u sed to interpret this result as normal/abnor mal. MCHC (test code = 786-4) 35.0 See_Comment [A utomated message] The system [employer] generated this result transmitted ref erence range: [...] H [Aut omated message] 777-3) The system [employer] generated this result transmitted ref erence range: 150 - 43 0 K/CU MM. The referen ce range was not u sed to interpret this result as normal/abnor mal. MPV (test code = 9.4 fL 6.0-11.5 65247-5) nRBC (test code = 413) 0 See_Comment [Aut omated message] The system [employer] generated this result transmitted ref erence range: [...] See_Comment [Aut omated message] 670) The system [employer] generated this result transmitted ref erence range: 1.80 - 8 .00 K/L. The refe rence range was not u sed to interpret this result as normal/abnor mal. # Lymphs (test code = 1.47 See_Comment L [Auto mated message] 414) The system [employer] generated this result transmitted ref erence range: 1.48 - 4 .50 K/L. The refe rence range was not u sed to interpret this result as normal/abnor mal. # Monos (test code = 0.58 See_Comment [Autom ated message] 415) The system [employer] generated this result transmitted ref erence range: 0.00 - 1 .30 K/L. The refe rence range was not u sed to interpret this result as normal/abnor mal. # Eos (test code = 416) 0.24 See_Comment [Au tomated message] The system [employer] generated this result transmitted ref erence range: 0.00 - 0 .50 K/L. The refe rence range was not u sed to interpret this result as normal/abnor mal. # Baso (test code = 417) 0.03 See_Comment [A utomated message] The system [employer] generated this result transmitted ref erence range: 0.00 - 0 .20 K/L. The refe rence range was not u sed to interpret this result as normal/abnor mal. Immature 2 % 0-0 H Granulocytes-Relative (test code = 2801) Lab Interpretation (test Abnormal code = 90473-1) [facility] with platelet count + automated [id number] 06:38:04 Test Item Value Reference Range Interpretation Comments WBC (test code = 6690-2) 5.3 See_Comment [A utomated message] The system [employer] generated this result transmitted ref erence range: 4.0 - 10 .0 K/L. The refe rence range was not u sed to interpret this result as normal/abnor mal. RBC (test code = 789-8) 4.05 See_Comment [Au tomated message] The system [employer] generated this result transmitted ref erence range: 4.00 - 5 .00 M/L. The refe rence range was not u sed to interpret this result as normal/abnor mal. MCHC (test code = 786-4) 35.0 See_Comment [A utomated message] The system [employer] generated this result transmitted ref erence range: [...] H [Aut omated message] 777-3) The system [employer] generated this result transmitted ref erence range: 150 - 43 0 K/CU MM. The referen ce range was not u sed to interpret this result as normal/abnor mal. MPV (test code = 9.4 fL 6.0-11.5 01968-3) nRBC (test code = 413) 0 See_Comment [Aut omated message] The system [employer] generated this result transmitted ref erence range: [...] See_Comment [Aut omated message] 670) The system [employer] generated this result transmitted ref erence range: 1.80 - 8 .00 K/L. The refe rence range was not u sed to interpret this result as normal/abnor mal. # Lymphs (test code = 1.47 See_Comment L [Auto mated message] 414) The system [employer] generated this result transmitted ref erence range: 1.48 - 4 .50 K/L. The refe rence range was not u sed to interpret this result as normal/abnor mal. # Monos (test code = 0.58 See_Comment [Autom ated message] 415) The system [employer] generated this result transmitted ref erence range: 0.00 - 1 .30 K/L. The refe rence range was not u sed to interpret this result as normal/abnor mal. # Eos (test code = 416) 0.24 See_Comment [Au tomated message] The system [employer] generated this result transmitted ref erence range: 0.00 - 0 .50 K/L. The refe rence range was not u sed to interpret this result as normal/abnor mal. # Baso (test code = 417) 0.03 See_Comment [A utomated message] The system [employer] generated this result transmitted ref erence range: 0.00 - 0 .20 K/L. The refe rence range was not u sed to interpret this result as normal/abnor mal. Immature 2 % 0-0 H Granulocytes-Relative (test code = 2801) Lab Interpretation (test Abnormal code = 72785-4) [facility] W/PLT COUNT & AUTO [id number] 06:38:04 Test Item Value Reference Range Interpretation [...] = 2801) RAD, CHEST, 1 VIEW, NON [id number] 03:14:00Reason for exam:- >PneumoniaShould this be performed at the bedside?->Yes [facility] : 2000 Sex: FFINAL REPORT RAD, CHEST, 1 VIEW, NON DEPT INDICATION: Pneumonia COMPARISON: 10/07/2021 FINDINGS: Portable frontal view of the chest. IMPRESSION: Support Lines: None. Lungs and pleura: Lungs are clear. No pneumothorax. Heart and mediastinum: Stable contours. Additional findings: None. Signed: Stefanie Rodríguez MDReport Verified Date/Time: 10/11/2021 03:14:31 SARS-COV2/RT-PCR ([facility]) 2021-10-10 13:12:46 Test Item Value Reference Range Interpretation Comments SARS-COV2/RT-PCR Positive Negative AA The SARS-Co V-2 target (test code = nucleic acids a re detected [id number]) in this specime n. The presence SARS-C [...] revoked sooner. Fact Sheet for Healthcare Providers: https://www.[employer] m/Documents/Xpert%20Xpress%20SARS%20CoV-2/Fact%20Sheets/302-3802%00HJTM-CAJ-4%20 HEALTHCARE%20PROVIDERS%20FACT%20SHEET.pdf Fact Sheet for Healthcare Patients: https://www.[employer]/Documents/Xpert%20Xp ress%20SARS%20CoV-2/Fact%20Sheets/302-3801%38PMIK-WAM-4%20PATIENT%20FACT%20SHEET .pdfCBC W/PLT COUNT & AUTO [id number] 06:48:59 Test Item Value Reference Range Interpretation [...] = 2801) Occasional Reactive Lymphocytes seen.BASIC METABOLIC [id number] 04:55:13 Test Item Value Reference Range Interpretation [...] S NOT APPLICABLE FOR DIALYSIS PATIEN TS. Bread Baker ID - [id number] 12:25:14 Test Item Value Reference Range Interpretation Comments PROCALCITONIN (BEAKER) (test code 1.63 ng/mL <0.05 H = 3036) SEPSIS RISK (ng/mL)Low: 0.05-0.50Intermediate: 0.51-2.00High: >=2.01 SARS-COV2/RT-PCR ([facility])2021-10-07 12:02:11 Test Item Value Reference Range [...] virus is pre sent at levels below e analytical limit of detect ion. This [...] revoked sooner. Fact Sheet for Healthcare Providers: https://www.[employer] m/Documents/Xpert%20Xpress%20SARS%20CoV-2/Fact%20Sheets/302-3802%32KGZS-VMT-1%20 HEALTHCARE%20PROVIDERS%20FACT%20SHEET.pdf Fact Sheet for Healthcare Patients: https://www.[employer]/Documents/Xpert%20Xp ress%20SARS%20CoV-2/Fact%20Sheets/302-3801%15CZDY-YHF-5%20PATIENT%20FACT%20SHEET .pdfManual Sgzrekmtsbsr2255-09-12 06:05:28 Test Item Value Reference Range Interpretation [...] utomated message] code = 1365) The system [employer] generated this result transmitted ref erence range: 1.80 - 8 .00 K/L. The refe rence range was not u sed to interpret this result as normal/abnor mal. # Lymphs (manual) (test 1.44 See_Comment L [Au tomated message] code = 1366) The system [employer] generated this result transmitted ref erence range: 1.48 - 4 .50 K/L. The refe rence range was not u sed to interpret this result as normal/abnor mal. # Monos (manual) (test 0.90 See_Comment [Aut omated message] code = 1367) The system [employer] generated this result transmitted ref erence range: 0.00 - 1 .30 K/L. The refe rence range was not u sed to interpret this result as normal/abnor mal. # Eos (manual) (test 0.06 See_Comment [Autom ated message] code = 1368) The system [employer] generated this result transmitted ref erence range: [...] omated message] code = 1349) The system [employer] generated this result transmitted ref erence range: 0.0 - 0. 8 K/L. The refe rence range was not u sed to interpret this result as normal/abnor mal. # Myelo (manual) (test 0.06 See_Comment H [Aut omated message] code = 1593) The system [employer] generated this result transmitted ref erence range: [...] 762) Lab Interpretation (test Abnormal code = 65594-0) [facility] Oolhinmsjlko4848-21-04 06:05:28 Test Item Value Reference Range Interpretation [...] utomated message] code = 1365) The system [employer] generated this result transmitted ref erence range: 1.80 - 8 .00 K/L. The refe rence range was not u sed to interpret this result as normal/abnor mal. # Lymphs (manual) (test 1.44 See_Comment L [Au tomated message] code = 1366) The system [employer] generated this result transmitted ref erence range: 1.48 - 4 .50 K/L. The refe rence range was not u sed to interpret this result as normal/abnor mal. # Monos (manual) (test 0.90 See_Comment [Aut omated message] code = 1367) The system [employer] generated this result transmitted ref erence range: 0.00 - 1 .30 K/L. The refe rence range was not u sed to interpret this result as normal/abnor mal. # Eos (manual) (test 0.06 See_Comment [Autom ated message] code = 1368) The system [employer] generated this result transmitted ref erence range: [...] omated message] code = 1349) The system [employer] generated this result transmitted ref erence range: 0.0 - 0. 8 K/L. The refe rence range was not u sed to interpret this result as normal/abnor mal. # Myelo (manual) (test 0.06 See_Comment H [Aut omated message] code = 1593) The system [employer] generated this result transmitted ref erence range: [...] 762) Lab Interpretation (test Abnormal code = 05288-4) [facility] W/PLT COUNT & AUTO [id number] 06:05:28 Test Item Value Reference Range Interpretation [...] (test code Normal = 762) BASIC METABOLIC [id number] 05:17:04 Test Item Value Reference Range Interpretation [...] S NOT APPLICABLE FOR DIALYSIS PATIEN TS. Bread Baker ID - NLYLEC-REACTIVE [id number] 05:13:22 Test Item Value Reference Range Interpretation Comments C-REACTIVE PROTEIN (BEAKER) (test 1.41 mg/dL 0.00-1.00 H code = 676) Bread Baker ID - [id number] 05:01:21 Test Item Value Reference Range Interpretation Comments D-DIMER QUANTITATIVE 1.41 MG/L FEU <0.50 H Final Information (JUAN) (test code = (Auto Output) 671) REGARDING D-DIMER RESULTS: The 98% NPV (Negative Predictive Value) for DVT/PE exclusion is 0.50 mg/LFEU as suggested by the branch maker and as approved by the FDA.RAD, CHEST, 1 VIEW, NON [id number] 03:46:00Reason for exam:- >PneumoniaShould this be performed at the bedside?->Yes [facility] : 2000 Sex: FFINAL REPORT RAD, CHEST, 1 VIEW, NON DEPT INDICATION: Pneumonia COMPARISON: 10/05/2021 FINDINGS: Portable frontal view of the chest. IMPRESSION: Support Lines: None Lungs and pleura: Lungs are clear. No pneumothorax. Heart and mediastinum: Stable contours. Additional findings: None. Signed: Stefanie Rodríguez MDReport Verified Date/Time: 10/07/2021 03:46:56 BASIC METABOLIC [id number] 04:21:45 Test Item Value Reference Range Interpretation [...] S NOT APPLICABLE FOR DIALYSIS PATIEN TS. Bread Baker ID - NOLICBC W/PLT COUNT & AUTO [id number] 04:11:29 Test Item Value Reference Range Interpretation [...] H PERCENT (BEAKER) (test code = 2801) [id number] 12:27:04 Test Item Value Reference Range Interpretation Comments PROCALCITONIN (BEAKER) (test code 8.27 ng/mL <0.05 H = 3036) SEPSIS RISK (ng/mL)Low: 0.05-0.50Intermediate: 0.51-2.00High: >=2.01Sputum Culture + Gram [id number] 12:06:13 Test Item Value Reference Range Interpretation Comments Result (test code = 1+ Streptococcus not A 6463-4) group A beta hemolytic Gram Stain Result (test No organisms seen code = 1123) CHRISTIANA (test code = CHRISTIANA) 2+ Normal respiratory saeed present Lab Interpretation Abnormal (test code = 49294-6) [facility] [id number] 12:06:13 Test Item Value Reference Range Interpretation Comments Result (test code = 1+ Streptococcus not A 6463-4) group A beta hemolytic Gram Stain Result (test No organisms seen code = 1123) CHRISTIANA (test code = CHRISTIANA) 2+ Normal respiratory saeed present Lab Interpretation Abnormal (test code = 99279-6) [facility] GRAM [id number] 12:06:13 Test Item Value Reference Range Interpretation Comments CULTURE (BEAKER) A 1+ Streptoc occus not (test code = group A beta 1095) hemolytic GRAM STAIN No White blood RESULT (BEAKER) cells seen (test code = 1123) GRAM STAIN No organisms seen RESULT (BEAKER) (test code = 491689) 2+ Normal respiratory saeed presentRAD, CHEST, 1 VIEW, NON [id number] 05:35:00Reason for exam:->PneumoniaShould this be performed at the bedside?->[facility] : 2000 Sex: FFINAL REPORT [...] unremarkable. Impression: No focal pulmonary consolidation. Signed: Amuta, Sonal MDReport Verified Date/Time: 10/05/2021 05:35:18 Acetaminophen [id number] 04:22:07 Test Item Value Reference Range Interpretation Comments Acetaminophen Level <5.7 10.0-30.0 L Specimen (test code = 3298-7) slightl y hemolyzed CHRISTIANA (test code = CHRISTIANA) Bread Baker ID - [id number] Lab Interpretation Abnormal (test code = 49273-3) [facility]et[facility] [id number] 04:22:07 Test Item Value Reference Range Interpretation Comments Acetaminophen Level <5.7 10.0-30.0 L Specimen (test code = 3298-7) slightl y hemolyzed CHRISTIANA (test code = CHRISTIANA) Bread Baker ID - [id number] Lab Interpretation Abnormal (test code = 85303-8) [facility] HospitalACETAMINOPHEN [id number] 04:22:07 Test Item Value Reference Range Interpretation Comments ACETAMINOPHEN LEVEL < ug/mL 10.0-30.0 L Specimen slightly (BEAKER) (test code = hemoly zed 344) Bread Baker ID - [id number] metabolic [id number] 04:21:04 Test Item Value Reference Range Interpretation Comments Protein, Total (test 6.0 See_Comment [Autom ated code = 2885-2) message] The system which generated this result transmit rhett reference range : 6.0 - 8.5 gm/dL . The reference range was not u sed to interpret th is result as normal/abnormal . Albumin (test code = 3.5 g/dL 3.5-5.0 71988-1) Alkaline Phosphatase 54 U/L 30-115 (test code = 6768-6) Total Bilirubin (test 0.9 mg/dL 0.1-1.2 code = 1974-2) Sodium (test code = 139 meq/L 341-216 8376-2) Potassium (test code 3.2 meq/L 3.6-5.5 L = 2823-3) Chloride (test code = 108 meq/L 98-106 H 2074-0) CO2 (test code = 21 meq/L 20-29 2027-9) BUN (test code = <3 10-26 L 3094-0) Creatinine (test code 0.60 mg/dL 0.50-1.20 = 2160-0) Glucose (test code = 93 mg/dL 70-110 2345-7) Calcium (test code = 8.9 mg/dL 8.5-10.5 83758-1) AST (test code = 179 U/L 5-40 H 1920-8) ALT (test code = 287 U/L 5-50 H 1742-6) EGFR (test code = 124 mL/min/1.73 [place] [address]-2) NOT ACCURATE CREATININE CLEARANCE IN PREDICTING GLOMERULAR FILTRATION RATE . ESTIMATED GFR I S NOT APPLICABLE FOR DIALYSIS PATIEN CHRISTIANA (test code = CHRISTIANA) Bread Baker ID - [id number] Lab Interpretation Abnormal (test code = 68867-7) [facility]Comprehensive metabolic [id number] 04:21:04 Test Item Value Reference Range Interpretation Comments Protein, Total (test 6.0 See_Comment [Autom ated code = 2885-2) message] The system which generated this result transmit rhett reference range : 6.0 - 8.5 gm/dL . The reference range was not u sed to interpret th is result as normal/abnormal . Albumin (test code = 3.5 g/dL 3.5-5.0 89268-6) Alkaline Phosphatase 54 U/L 30-115 (test code = 6768-6) Total Bilirubin (test 0.9 mg/dL 0.1-1.2 code = 1974-2) Sodium (test code = 139 meq/L 863-190 8333-2) Potassium (test code 3.2 meq/L 3.6-5.5 L = 2823-3) Chloride (test code = 108 meq/L 98-106 H 5-0) CO2 (test code = 21 meq/L 20-29 2027-9) BUN (test code = <3 10-26 L 3094-0) Creatinine (test code 0.60 mg/dL 0.50-1.20 = 2160-0) Glucose (test code = 93 mg/dL 70-110 2345-7) Calcium (test code = 8.9 mg/dL 8.5-10.5 32280-0) AST (test code = 179 U/L 5-40 H 1920-8) ALT (test code = 287 U/L 5-50 H 1742-6) EGFR (test code = 124 mL/min/1.[place] [address]-1) NOT ACCURATE CREATININE CLEARANCE IN PREDICTING GLOMERULAR FILTRATION RATE . ESTIMATED GFR I S NOT APPLICABLE FOR DIALYSIS PATIEN TS. CHRISTIANA (test code = CHRISTIANA) Bread Baker ID - [id number] Lab Interpretation Abnormal (test code = 36329-7) [facility] HospitalCOMPREHENSIVE METABOLIC [id number] 04:21:04 Test Item Value Reference Range Interpretation [...] S NOT APPLICABLE FOR DIALYSIS PATIEN TS. Bread Baker ID - [id number] [id number] 04:15:21 Test Item Value Reference Range Interpretation Comments C-REACTIVE PROTEIN (BEAKER) (test 3.57 mg/dL 0.00-1.00 H code = 676) Bread Baker ID - NLYLEProthrombin time/[id number] 04:03:51 Test Item Value Reference Interpretation Comments [...] valves. Lab Interpretation Normal (test code = 21663-8) [facility] HospitalProthrombin time/[id number] 04:03:51 Test Item Value Reference Interpretation Comments [...] valves. Lab Interpretation Normal (test code = 31451-2) [facility] HospitalPROTHROMBIN TIME/[id number] 04:03:51 Test Item Value Reference Range Interpretation Comments PROTIME (BEAKER) 11.9 seconds 9.8-12.0 Final Infor mation (test code = 759) (Auto Outp ut) INR (BEAKER) (test 1.09 See_Comment Final Inf ormation code = 370) (Auto Output) [Automated mess age] The system [employer] generated this result transmitted ref erence range: <=5.90. The reference range was not used to int erpret this result as normal/abnormal . RECOMMENDED COUMADIN/WARFARIN INR THERAPY RANGESSTANDARD DOSE: 2.0 - 3.0 Includes: PROPHYLAXIS for venous thrombosis, systemic embolization; TREATMENT for venous thrombosis and/or pulmonary embolus.HIGH RISK: Target INR is 2.5-3.5 for patients with mechanical heart valves.CBC W/PLT COUNT & AUTO [id number] 03:52:35 Test Item Value Reference Range Interpretation [...] (BEAKER) (test code = 2801) Hepatic function [id number] 17:01:16 Test Item Value Reference Range Interpretation Comments Protein, Total (test 6.2 See_Comment [Autom ated code = 2885-2) message] The system which generated this result transmit rhett reference range : 6.0 - 8.5 gm/dL . The reference range was not u sed to interpret th is result as normal/abnormal . Albumin (test code = 3.6 g/dL 3.5-5.0 63364-0) Total Bilirubin (test 1.2 mg/dL 0.1-1.2 code = 1975-2) Bilirubin, Direct 0.6 mg/dL 0.0-0.4 H (test code = 1968-7) Alkaline Phosphatase 59 U/L 30-115 (test code = 6768-6) AST (test code = 211 U/L 5-40 H 1920-8) ALT (test code = 344 U/L 5-50 H 1742-6) CHRISTIANA (test code = CHRISTIANA) Bread Baker ID - NLYLE Lab Interpretation Abnormal (test code = 73581-7) [facility] HospitalHepatic function [id number] 17:01:16 Test Item Value Reference Range Interpretation Comments Protein, Total (test 6.2 See_Comment [Autom ated code = 2885-2) message] The system which generated this result transmit rhett reference range : 6.0 - 8.5 gm/dL . The reference range was not u sed to interpret th is result as normal/abnormal . Albumin (test code = 3.6 g/dL 3.5-5.0 82423-8) Total Bilirubin (test 1.2 mg/dL 0.1-1.2 code = 1975-2) Bilirubin, Direct 0.6 mg/dL 0.0-0.4 H (test code = 1968-7) Alkaline Phosphatase 59 U/L 30-115 (test code = 6768-6) AST (test code = 211 U/L 5-40 H 1920-8) ALT (test code = 344 U/L 5-50 H 1742-6) CHRISTIANA (test code = CHRISTIANA) Bread Baker ID - NLYLE Lab Interpretation Abnormal (test code = 98292-5) [facility] HospitalHEPATIC FUNCTION [id number] 17:01:16 Test Item Value Reference Range Interpretation [...] code = 344 U/L 5-50 H 347) Bread Baker ID - NLYLEPROTHROMBIN TIME/[id number] 16:48:48 Test Item Value Reference Range Interpretation Comments PROTIME (BEAKER) 12.1 seconds 9.8-12.0 H Final Infor mation (test code = 759) (Auto Outp ut) INR (BEAKER) (test 1.11 See_Comment Final Inf ormation code = 370) (Auto Output) [Automated mess age] The system [employer] generated this result transmitted ref erence range: <=5.90. The reference range was not used to int erpret this result as normal/abnormal . RECOMMENDED COUMADIN/WARFARIN INR THERAPY RANGESSTANDARD DOSE: 2.0 - 3.0 Includes: PROPHYLAXIS for venous thrombosis, systemic embolization; TREATMENT for venous thrombosis and/or pulmonary embolus.HIGH RISK: Target INR is 2.5-3.5 for patients with mechanical heart valves.BASIC METABOLIC [id number] 02:00:44 Test Item Value Reference Range Interpretation [...] S NOT APPLICABLE FOR DIALYSIS PATIEN TS. Bread Baker ID - CHOPZHEPATIC FUNCTION [id number] 02:00:37 Test Item Value Reference Range Interpretation [...] code = 377 U/L 5-50 H 347) Bread Baker ID - CHOPZPROTHROMBIN TIME/[id number] 01:47:37 Test Item Value Reference Range Interpretation Comments PROTIME (BEAKER) 12.6 seconds 9.8-12.0 H Final Infor mation (test code = 759) (Auto Outp ut) INR (BEAKER) (test 1.16 See_Comment Final Inf ormation code = 370) (Auto Output) [Automated mess age] The system [employer] generated this result transmitted ref erence range: <=5.90. The reference range was not used to int erpret this result as normal/abnormal . RECOMMENDED COUMADIN/WARFARIN INR THERAPY RANGESSTANDARD DOSE: 2.0 - 3.0 Includes: PROPHYLAXIS for venous thrombosis, systemic embolization; TREATMENT for venous thrombosis and/or pulmonary embolus.HIGH RISK: Target INR is 2.5-3.5 for patients with mechanical heart valves.CBC W/PLT COUNT & AUTO [id number] 01:38:26 Test Item Value Reference Range Interpretation [...] PERCENT (BEAKER) (test code = 2801) ACETAMINOPHEN [id number] 00:51:51 Test Item Value Reference Range Interpretation Comments ACETAMINOPHEN LEVEL < ug/mL 10.0-30.0 L Specimen slightly (BEAKER) (test code = hemoly zed 344) Bread Baker ID - BRUCEPOC-Glucose [id number] 16:49:05 Test Item Value Reference Range Interpretation Comments POC-Glucose Meter (test 109 mg/dL 70-110 : TE STED AT [facility] code = 1538) [place] [address]: Bread Baker/Techni ck ID = [id number] for Shay-Darius Richabelle Lab Interpretation (test Normal code = 55559-0) [facility]OC[facility]Glucose [id number] 16:49:05 Test Item Value Reference Range Interpretation Comments POC-Glucose Meter (test 109 mg/dL 70-110 : TE STED AT [facility] code = 1538) [place] [address]: Bread Baker/Techni ck ID = [id number] for Shay-Casino, Mirabelle Lab Interpretation (test Normal code = 51479-7) [facility] HospitalPOCT[facility]GLUCOSE [id number] 16:49:05 Test Item Value Reference Range Interpretation Comments POC-GLUCOSE METER 109 mg/dL 70-110 : TESTED A T [facility] (BEAKER) (test code [address], = 1538) [place] [address]: Bread Baker/Techni ck ID = [id number] for Shay -Casino, Mirabelle ACETAMINOPHEN [id number] 09:12:51 Test Item Value Reference Range Interpretation Comments ACETAMINOPHEN LEVEL < ug/mL 10.0-30.0 L Specimen slightly (BEAKER) (test code = hemoly zed 344) Bread Baker ID - [id number] METABOLIC [id number] 09:03:33 Test Item Value Reference Range Interpretation [...] S NOT APPLICABLE FOR DIALYSIS PATIEN TS. Bread Baker ID - [id number]-PSDFHCW [id number] 08:41:11 Test Item Value Reference Range Interpretation Comments POC-GLUCOSE METER 96 mg/dL 70-110 : TESTED A T [facility] (BEAKER) (test code = [address], 1538) [place] [address]: Bread Baker/Techni ck ID = [id number] for Nill as, Cooper CBC W/PLT COUNT & AUTO [id number] 06:22:59 Test Item Value Reference Range Interpretation [...] PERCENT (BEAKER) (test code = 2801) POCT-GLUCOSE [id number] 00:18:37 Test Item Value Reference Range Interpretation Comments POC-GLUCOSE METER 82 mg/dL 70-110 : TESTED A T HV (BEAKER) (test code = [address], [address]) [place] [address] 0: Bread Baker/Techni ck ID = [id number] for REJI OSORIO ACETAMINOPHEN [id number] 15:37:54 Test Item Value Reference Range Interpretation Comments ACETAMINOPHEN LEVEL (BEAKER) (test 37.4 ug/mL 10.0-30.0 H code = 344) Bread Baker ID - NLYLEHEPATIC FUNCTION [id number] 07:18:04 Test Item Value Reference Range Interpretation [...] (test code = 20 U/L 5-50 347) Bread Baker ID - NLYLEPT/eHWA4743-48-48 03:24:12 Test Item Value Reference Interpretation Comments [...] (test code = 35.9 See_Comment H Final 20364-5) Information (Auto Output) [Automated message] The system [...] valves. Lab Interpretation Abnormal (test code = 35899-8) [id number] 03:24:12 Test Item Value Reference Interpretation Comments [...] (test code = 35.9 See_Comment H Final 51267-0) Information (Auto Output) [Automated message] The system [...] valves. Lab Interpretation Abnormal (test code = 38666-2) [facility]/[id number] 03:24:12 Test Item Value Reference Range Interpretation Comments PROTIME (BEAKER) (test 13.8 seconds 9.8-12.0 H Final Information code = 759) (Auto Output) INR (BEAKER) (test 1.28 See_Comment Final Inf ormation code = 370) (Auto Output) [Automated mess age] The system [employer] generated this result transmit rhett reference range [...] mechanical heart valves.CBC W/PLT COUNT & AUTO [id number] 03:13:43 Test Item Value Reference Range Interpretation [...] PERCENT (BEAKER) (test code = 2801) ACETAMINOPHEN [id number] 02:52:25 Test Item Value Reference Range Interpretation Comments ACETAMINOPHEN LEVEL (BEAKER) (test 82.3 ug/mL 10.0-30.0 H code = 344) Bread Baker ID - CHOPZCOMPREHENSIVE METABOLIC [id number] 02:52:14 Test Item Value Reference Range Interpretation [...] GFR I S NOT APPLICABLE FOR DIALYSIS PATIKWESI TS. Bread Baker ID - [id number] 21:30:09 Test Item Value Reference Range Interpretation Comments PTT (test code = 99600-4) 32.0 See_Comment Fi nal Information (Auto Output) [Automated mess age] The system [employer] generated this result transmitted ref erence range: 25.8 - 3 4.5 seconds. The re ference range was not u sed to interpret this result as normal/abnor mal. Lab Interpretation (test Normal code = 45649-6) [facility] 21:30:09 Test Item Value Reference Range Interpretation Comments PTT (test code = 21032-4) 32.0 See_Comment Fi nal Information (Auto Output) [Automated mess age] The system [employer] generated this result transmitted ref erence range: 25.8 - 3 4.5 seconds. The re ference range was not u sed to interpret this result as normal/abnor mal. Lab Interpretation (test Normal code = 94479-7) [facility] 21:30:09 Test Item Value Reference Range Interpretation Comments PARTIAL THROMBOPLASTIN 32.0 seconds 25.8-34.5 Final Information TIME (BEAKER) (test (Auto Ou tput) code = 760) PROTHROMBIN TIME/[id number] 21:30:04 Test Item Value Reference Range Interpretation Comments PROTIME (BEAKER) 11.9 seconds 9.8-12.0 Final Infor mation (test code = 759) (Auto Outp ut) INR (BEAKER) (test 1.10 See_Comment Final Inf ormation code = 370) (Auto Output) [Automated mess age] The system [employer] generated this result transmitted ref erence range: <=5.90. The reference range was not used to int erpret this result as normal/abnormal . RECOMMENDED COUMADIN/WARFARIN INR THERAPY RANGESSTANDARD DOSE: 2.0 - 3.0 Includes: PROPHYLAXIS for venous thrombosis, systemic embolization; TREATMENT for venous thrombosis and/or pulmonary embolus.HIGH RISK: Target INR is 2.5-3.5 for patients with mechanical heart valves.[id number] 17:27:19 Test Item Value Reference Range Interpretation Comments PARTIAL THROMBOPLASTIN 33.9 seconds 25.8-34.5 Final Information TIME (BEAKER) (test (Auto Ou tput) code = 760) PROTHROMBIN TIME/[id number] 17:27:18 Test Item Value Reference Range Interpretation Comments PROTIME (BEAKER) 11.8 seconds 9.8-12.0 Final Infor mation (test code = 759) (Auto Outp ut) INR (BEAKER) (test 1.09 See_Comment Final Inf ormation code = 370) (Auto Output) [Automated mess age] The system [employer] generated this result transmitted ref erence range: [...] S NOT APPLICABLE FOR DIALYSIS PATIEN TS. Bread Baker ID - BRUCECOMPREHENSIVE METABOLIC [id number] 10:50:09 Test Item Value Reference Range Interpretation [...] S NOT APPLICABLE FOR DIALYSIS PATIEN TS. Bread Baker ID - NLYLEPROTHROMBIN TIME/[id number] 10:50:03 Test Item Value Reference Range Interpretation Comments PROTIME (BEAKER) 11.5 seconds 9.8-12.0 Final Infor mation (test code = 759) (Auto Outp ut) INR (BEAKER) (test 1.06 See_Comment Final Inf ormation code = 370) (Auto Output) [Automated mess age] The system [employer] generated this result transmitted ref erence range: <=5.90. The reference range was not used to int erpret this result as normal/abnormal . RECOMMENDED COUMADIN/WARFARIN INR THERAPY RANGESSTANDARD DOSE: 2.0 - 3.0 Includes: PROPHYLAXIS for venous thrombosis, systemic embolization; TREATMENT for venous thrombosis and/or pulmonary embolus.HIGH RISK: Target INR is 2.5-3.5 for patients with mechanical heart valves.[id number] 10:50:03 Test Item Value Reference Range Interpretation Comments PARTIAL THROMBOPLASTIN 37.4 seconds 25.8-34.5 H Final Information TIME (BEAKER) (test (Auto Ou tput) code = 760) Hemoglobin [id number] 06:49:11 Test Item Value Reference Range Interpretation Comments Hemoglobin A1C (test code 4.2 % 4.3-6.1 L = 4548-4) CHRISTIANA (test code = CHRISTIANA) Bread Baker ID - [id number] Lab Interpretation (test Abnormal code = 97059-2) [facility]Hem[facility] [id number] 06:49:11 Test Item Value Reference Range Interpretation Comments Hemoglobin A1C (test code 4.2 % 4.3-6.1 L = 4548-4) CHRISTIANA (test code = CHRISTIANA) Bread Baker ID - [id number] Lab Interpretation (test Abnormal code = 98544-2) [facility] HospitalHEMOGLOBIN [id number] 06:49:11 Test Item Value Reference Range Interpretation Comments HEMOGLOBIN A1C (BEAKER) (test code = 4.2 % 4.3-6.1 L 368) Bread Baker ID - [id number] [id number] 06:43:41 Test Item Value Reference Range Interpretation Comments ACETAMINOPHEN LEVEL 296.3 ug/mL 10.0-30.0 H Specimen slightly (BEAKER) (test code = hemoly zed 344) Bread Baker ID - VTTX97Ksofgwda ID - [id number]/[id number] 06:18:04 Test Item Value Reference Range Interpretation Comments PROTIME (BEAKER) (test 10.9 seconds 9.8-12.0 Final Information code = 759) (Auto Output) INR (BEAKER) (test 1.00 See_Comment Final Inf ormation code = 370) (Auto Output) [Automated mess age] The system [employer] generated this result transmit rhett reference range [...] is 2.5-3.5 for patients with mechanical heart valves.Jzpxopzqv2289-67-10 04:46:31 Test Item Value Reference Range Interpretation Comments Magnesium (test code = 1.5 mg/dL 1.5-3.0 13848-1) CHRISTIANA (test code = CHRISTIANA) Bread Baker ID - [id number] Lab Interpretation (test Normal code = 31824-1) [facility] HospitalMagnesium2021-12-[facility] 04:46:31 Test Item Value Reference Range Interpretation Comments Magnesium (test code = 1.5 mg/dL 1.5-3.0 47160-0) CHRISTIANA (test code = CHRISTIANA) Bread Baker ID - [id number] Lab Interpretation (test Normal code = 41905-0) [facility] HospitalMAGNESIUM2021-12-24 04:46:31 Test Item Value Reference Range Interpretation Comments MAGNESIUM (BEAKER) (test code = 1.5 mg/dL 1.5-3.0 627) Bread Baker ID - [id number], CHEST, 1 VIEW, NON [id number] 03:21:00Reason for exam:->post intubationIs the patient ?->UnknownShould this be performed at the bedside?->Yes [facility] 2000 Sex: FFINAL REPORT [...] lobe opacity suspicious for pneumonia. Signed: Sonal Guerra Verified Date/Time: 10/01/2021 03:21:46 ACETAMINOPHEN [id number] 03:10:33 Test Item Value Reference Range Interpretation Comments ACETAMINOPHEN LEVEL (BEAKER) 568.0 ug/mL 10.0-30.0 H (test code = 344) Bread Baker ID - [id number] ID - [id number]-JBP7/RT-PCR ([facility]) 2021-10-01 03:06:53 Test Item [...] revoked sooner. Fact Sheet for Healthcare Providers: https://www.[employer].TestCred m/Documents/Xpert%20Xpress%20SARS%20CoV-2/Fact%20Sheets/302-3802%10NWWU-JGX-0%20 HEALTHCARE%20PROVIDERS%20FACT%20SHEET.pdf Fact Sheet for Healthcare Patients: https://www.[employer]/Documents/Xpert%20Xp ress%20SARS%20CoV-2/Fact%20Sheets/302-3801%92WVSA-QZL-8%20PATIENT%20FACT%20SHEET .pdfRapid drug screen, [id number] 02:59:03 Test Item Value Reference Range Interpretation Comments Barbiturate Screen Negative Negative (test code = 19263-5) Benzodiazepine Screen Negative Negative (test code = 94575-2) Cocaine (Metab.) Negative Negative Screen (test code = 3397-7) Opiate Screen (test Negative Negative code = 50933-5) Cannabinoid Screen Positive Negative A (test code = 96770-6) Amph/Methamph Screen Negative Negative (test code = 24884-1) Phencyclidine Screen Negative Negative (test code = 28864-6) pH, UA (test code = 5.5 5.0-8.0 5803-2) CHRISTIANA (test code = CHRISTIANA) DRUG CUTOFF CONC.Cocaine 300 ng/mLCannabinoid 50 ng/mLBenzodiazepine 200 ng/mLBarbiturate 200 ng/mLPhencyclidine 25 ng/mLOpiate 300 ng/mLAmphetamine/ 1000 ng/mL Methamphetamine This assay provides an unconfirmed qualitative test result for the clinical management of patients in emergency situations. Chain of custody not maintained. Some bena-fkj-ydmstsv medications, as well as adulterants, may cause inaccurate results. Clinical correlation should be applied. A more comprehensive drug screen or confirmation of a detected drug may be performed upon request.Bread Baker ID - [id number] Lab Interpretation Abnormal (test code = 83873-4) [facility] HospitalRapid drug screen, [id number] 02:59:03 Test Item Value Reference Range Interpretation Comments Barbiturate Screen Negative Negative (test code = 58589-4) Benzodiazepine Screen Negative Negative (test code = 07706-3) Cocaine (Metab.) Negative Negative Screen (test code = 3397-7) Opiate Screen (test Negative Negative code = 09664-5) Cannabinoid Screen Positive Negative A (test code = 08238-5) Amph/Methamph Screen Negative Negative (test code = 78240-2) Phencyclidine Screen Negative Negative (test code = 11299-0) pH, UA (test code = 5.5 5.0-8.0 5803-2) CHRISTIANA (test code = CHRISTIANA) DRUG CUTOFF CONC.Cocaine 300 ng/mLCannabinoid 50 ng/mLBenzodiazepine 200 ng/mLBarbiturate 200 ng/mLPhencyclidine 25 ng/mLOpiate 300 ng/mLAmphetamine/ 1000 ng/mL Methamphetamine This assay provides an unconfirmed qualitative test result for the clinical management of patients in emergency situations. Chain of custody not maintained. Some hbvk-rrd-sohpdmk medications, as well as adulterants, may cause inaccurate results. Clinical correlation should be applied. A more comprehensive drug screen or confirmation of a detected drug may be performed upon request.Bread Baker ID - [id number] Lab Interpretation Abnormal (test code = 15932-9) [facility] HospitalRAPID DRUG SCREEN, [id number] 02:59:03 Test Item Value Reference Range Interpretation [...] situations. Chain of custody not maintained. Some wijs-fwe-vpkfkrm medications, as well as adulterants, may cause inaccurate results. Clinical correlation should be applied. A more comprehensive drug screen or confirmation of a detected drug may be performed upon request.Bread Baker ID - [id number] [id number] 02:52:00 Test Item Value Reference Range Interpretation Comments Salicylate Lvl (test code <5.0 20.0-30.0 L = 4024-6) CHRISTIANA (test code = CHRISTIANA) Bread Baker ID - [id number] Lab Interpretation (test Abnormal code = 99463-7) [facility] [id number] 02:52:00 Test Item Value Reference Range Interpretation Comments Salicylate Lvl (test code <5.0 20.0-30.0 L = 4024-6) CHRISTIANA (test code = CHRISTIANA) Bread Baker ID - [id number] Lab Interpretation (test Abnormal code = 21534-1) [facility]ALICYLATE [id number] 02:52:00 Test Item Value Reference Range Interpretation Comments SALICYLATE LEVEL (BEAKER) (test code < mg/dL 20.0-30.0 L = 764) Bread Baker ID - [id number] METABOLIC [id number] 02:51:55 Test Item Value Reference Range Interpretation [...] S NOT APPLICABLE FOR DIALYSIS PATIEN TS. Bread Baker ID - [id number] T9617-26-15 02:47:00 Test Item Value Reference Range Interpretation Comments Troponin I (test code = <0.01 0.00-0.03 33908-6) CHRISTIANA (test code = CHRISTIANA) Troponin I [...] failure, acidosis, acute neurological disease, and persistent tachyarrhythmia.[facility] ID - [id number] Lab Interpretation (test Normal code = 10661-8) [place] [id number] 02:47:00 Test Item Value Reference Range Interpretation Comments Troponin I (test code = <0.01 0.00-0.03 05986-6) CHRISTIANA (test code = CHRISTIANA) Troponin I [...] failure, acidosis, acute neurological disease, and persistent tachyarrhythmia.[facility] ID - [id number] Lab Interpretation (test Normal code = 29439-5) [facility] [id number] 02:47:00 Test Item Value Reference Range Interpretation [...] failure, acidosis, acute neurological disease, and persistent tachyarrhythmia.Bread Baker ID - [id number] FUNCTION [id number] 02:46:37 Test Item Value Reference Range Interpretation [...] (test code = 5 U/L 5-50 347) Bread Baker ID - [id number] 02:42:17 Test Item Value Reference Range Interpretation Comments Ethanol Lvl (test <10 See_Comment [Automate d code = 5643-2) message] The system which generated this result transmit rhett reference range : <=10 mg/dL. The reference range was not used to interpret this result as normal/abnormal . CHRISTIANA (test code = CHRISTIANA) Bread Baker ID - [id number] Lab Interpretation Normal (test code = 78847-4) [facility] HospitalEthanol2021-12-24 02:42:17 Test Item Value Reference Range Interpretation Comments Ethanol Lvl (test <10 See_Comment [Automate d code = 5643-2) message] The system which generated this result transmit rhett reference range : <=10 mg/dL. The reference range was not used to interpret this result as normal/abnormal . CHRISTIANA (test code = CHRISTIANA) Bread Baker ID - [id number] Lab Interpretation Normal (test code = 31731-8) [facility] HospitalETHANOL2021-12-24 02:42:17 Test Item Value Reference Range Interpretation Comments ETHANOL (BEAKER) < mg/dL See_Comment [Automated message] The (test code = 400) system [facility] generated this result tra nsmitted reference range : <=10. The reference r isreal was not used to int erpret this result as normal/abnormal . Bread Baker ID - RSYI00wBO, serum, [id number] 02:37:59 Test Item Value Reference Range Interpretation Comments Preg Test, Serum (test code = Negative 2110-02) [facility] HospitalhCG, serum, wzoppqyqicn8209-03-04 02:37:59 Test Item Value Reference Range Interpretation Comments Preg Test, Serum (test code = Negative 2110-02) [facility] HospitalHCG, SERUM, [id number] 02:37:59 Test Item Value Reference Range Interpretation Comments TEST SERUM (BEAKER) (test Negative code = 584) CBC W/PLT COUNT & AUTO [id number] 02:23:53 Test Item Value Reference Range Interpretation [...] PERCENT (BEAKER) (test code = 2801) CT, [id number] 21:58:00Reason for exam:->right lower quadrant abdominal painIs the patient ?->UnknownWhat is the patient's sedation requirement?->No Sedation [facility] DAR[facility]O : 2000 Sex: FFINAL REPORT ABDOMINAL AND [...] MDReport Verified Date/Time: 11/27/2020 21:58:08 Reading Location: [facility] C013W Consult Reading Room COMPREHENSIVE METABOLIC [id number] 20:39:00 Test Item Value Reference Range Interpretation [...] 1092) DATA TO CALCULA TE ESTIMATED GFR. Bread Baker ID - [id number] 20:35:00 Test Item Value Reference Range Interpretation Comments Lipase (test code = 15 U/L 6-51 3040-3) CHRISTIANA (test code = CHRISTIANA) Bread Baker ID - CLAVSKI Lab Interpretation (test Normal code = 34288-2) [facility] HospitalLipase2021-02-19 20:35:00 Test Item Value Reference Range Interpretation Comments Lipase (test code = 15 U/L 6-51 3040-3) CHRISTIANA (test code = CHRISTIANA) Bread Baker ID - CLAVSKI Lab Interpretation (test Normal code = 67526-6) [facility] HospitalLIPASE2021-02-19 20:35:00 Test Item Value Reference Range Interpretation Comments LIPASE (BEAKER) (test code = 749) 15 U/L 6-51 Bread Baker ID - CLAVSKIPregnancy Screen, [id number] 20:25:00 Test Item Value Reference Range Interpretation Comments Preg Test, Ur (test code = 2112-1) Negative [facility] HospitalPregnancy Screen, [id number] 20:25:00 Test Item Value Reference Range Interpretation Comments Preg Test, Ur (test code = 2-1) Negative [facility] HospitalPREGNANCY SCREEN, [id number] 20:25:00 Test Item Value Reference Range Interpretation Comments TEST URINE (BEAKER) (test Negative code = 583) Urinalysis w/Microscopic + Reflex to [id number] 20:24:00 Test Item Value Reference Range Interpretation Comments Color, UA (test code = Yellow 5778-6) Clarity, UA (test code = Clear 5767-9) Specific [place], UA 1.020 1.001-1.035 (test code = 5811-5) pH, UA (test code = 7.0 5.0-8.0 5803-2) Protein, UA (test code = Negative Negative 33520-8) Glucose, UA (test code = Negative Negative 365) Ketones, UA (test code = Negative Negative 2514-8) Bilirubin, UA (test code Negative Negative = 13892-1) Blood, UA (test code = Negative Negative 68421-0) Nitrite, UA (test code = Negative Negative 5802-4) Leukocytes, UA (test Small Negative A code = 5799-2) Urobilinogen, UA (test 0.2 mg/dL 0.2-1.0 code = 11412-5) Bacteria, UA (test code Many = 21824-3) RBC, UA (test code = <5 See_Comment [Autom ated message] 799-7) The system [employer] generated this result transmit rhett reference range : /HPF. The refer ence range was not u sed to interpret th is result as normal/abnormal . WBC, UA (test code = 5-10 See_Comment [Autom ated message] 62214-0) The system [employer] generated this result transmit rhett reference range : /HPF. The refer ence range was not u sed to interpret th is result as normal/abnormal . SQUAMOUS EPITHELIAL <5 See_Comment [Automa rhett message] (test code = 48352-9) The sy stem which generated this result transmit rhett reference range : /HPF. The refer ence range was not u sed to interpret th is result as normal/abnormal . Specimen Source (test code = 2795) Lab Interpretation (test Abnormal code = 58192-4) [facility] HospitalUrinalysis w/Microscopic + Reflex to Culture 2020-11-27 20:24:00 Test Item Value Reference Range Interpretation Comments Color, UA (test code = Yellow 5778-6) Clarity, UA (test code = Clear 5767-9) Specific [place], UA 1.020 1.001-1.035 (test code = 5811-5) pH, UA (test code = 7.0 5.0-8.0 5803-2) Protein, UA (test code = Negative Negative 96065-8) Glucose, UA (test code = Negative Negative 365) Ketones, UA (test code = Negative Negative 2514-8) Bilirubin, UA (test code Negative Negative = 51162-9) Blood, UA (test code = Negative Negative 34886-1) Nitrite, UA (test code = Negative Negative 5802-4) Leukocytes, UA (test Small Negative A code = 5799-2) Urobilinogen, UA (test 0.2 mg/dL 0.2-1.0 code = 71899-7) Bacteria, UA (test code Many = 64773-7) RBC, UA (test code = <5 See_Comment [Autom ated message] 799-7) The system [employer] generated this result transmit rhett reference range : /HPF. The refer ence range was not u sed to interpret th is result as normal/abnormal . WBC, UA (test code = 5-10 See_Comment [Autom ated message] 82906-3) The system [employer] generated this result transmit rhett reference range : /HPF. The refer ence range was not u sed to interpret th is result as normal/abnormal . SQUAMOUS EPITHELIAL <5 See_Comment [Automa rhett message] (test code = 23256-4) The sy stem which generated this result transmit rhett reference range : /HPF. The refer ence range was not u sed to interpret th is result as normal/abnormal . Specimen Source (test code = 2795) Lab Interpretation (test Abnormal code = 53120-8) [facility] HospitalURINALYSIS W/ REFLEX URINE [id number] 20:24:00 Test Item Value Reference Range Interpretation [...] code = 1663) SOURCE(BEAKER) (test code = 5525) CBC W/PLT COUNT & AUTO [id number] 20:08:00 Test Item Value Reference Range Interpretation [...] (test code = 2801) Novel Coronavirus 2019 [id number] 10:55:00 Test Item Value Reference Range Interpretation Comments Novel Coronavirus Negative Negative Test Descr iptionAltru Dx 2019 nCoV (test code COVID-1 9 Real-Time RT-PCR = COVID19) test is a lab developedtest b ased on [email or web address] em "[employer]" 2019-n CoV assaystargeting three SARS-CoV-2 [...] the patient going to be discharged home? VIJAYA RFLX MICR CULT IF [id number] 17:18:00 Test Item Value Reference Range Interpretation Comments UA COLOR (test code = COLU) KARINA YELLOW A UA APPEARANCE (test code = [...] MANY /lpf Indication for culture: Dysuria/FrequencyUR HCG [id number] 17:18:00 Test Item Value Reference Range Interpretation [...] /HPF FEW Indication for culture: Dysuria/FrequencyUR HCG [id number] 17:13:00 Test Item Value Reference Range Interpretation Comments UR HCG QUAL (test code = HCGQLU) NEGATIVE NEGATIVE Indication for culture: Dysuria/FrequencyBASIC METABOLIC [id number] 16:55:00 Test Item Value Reference Range Interpretation [...] mg/dL 8.5-10.1 N = CA) LIVER FUNCTION [id number] 16:55:00 Test Item Value Reference Range Interpretation [...] 45-117 N PHOSPHATASE (test code = ALKP) [id number] 16:55:00 Test Item Value Reference Range Interpretation Comments LIPASE (test code = LIP) 90 U/L 73-393 N CBC W/AUTO [id number] 16:40:00 Test Item Value Reference Range Interpretation [...] 3/uL 0.0-0.1 N - XR CHEST 1 [id number] 15:20:00 [facility] : 2000 Sex: FPatient Name: ROX COATES Unit No: [id number] EXAMS: CPT CODE: [id number] XR CHEST 1 V 32068 EXAM: Chest one view. Location: A1 HISTORY: [...] by: Cuate Rdz MD CC: Govind Alvarado [facility] DO; Delmi Mcwilliams NP Technologist: Renetta Fairbanks Fluoro Time: DAP(Gy m2): Air Kerma (mGy): Trscr Dt/Tm: 2020 (1520) by:[email or web address] Electronic Signature Date/Time: 2020 (152)Orig Print D/T: S: 2020 (1524) Name: [facility] [place] [place] [address] : 2000 Age: 20 Sex: [place] [address] Loc: [place] Exam Date: 2020 Status: REG ER PH: FAX: PAGE 1 Signed QpjeobHRRK-HwA-3 (COVID-19) RNA [Presence] in Respiratory specimen by SHOLA with probe [id number] 21:35:03 Test Item Value Reference Range Interpretation Comments SARS-CoV-2 (COVID-19) RNA Not detected Not-Detected [Presence] in Respiratory specimen by SHOLA with probe detection (test code = 59785-5) [place] [id number] [facility] METABOLIC [id number] 23:40:00 Test Item Value Reference Range Interpretation [...] mg/dL 8.6-10.4 N = CA) LIVER FUNCTION [id number] 23:40:00 Test Item Value Reference Range Interpretation Comments TOTAL PROTEIN (test code = PROT) g/dL 6.0-8.3 ALBUMIN (test code = ALB) g/dL 3.2-5.5 BILIRUBIN TOTAL (test code = BILT) mg/dL 0.2-1.0 BILIRUBIN DIRECT (test code = BILD) mg/dL 0.0-0.2 SGOT/AST (test code = AST) UNITS/L 10-42 SGPT/ALT (test code = ALT) UNITS/L 10-40 ALKALINE PHOSPHATASE (test code = UNITS/L 34-104 ALKP) BASIC METABOLIC [id number] 23:40:00 Test Item Value Reference Range Interpretation [...] mg/dL 8.6-10.4 N = CA) LIVER FUNCTION [id number] 23:40:00 Test Item Value Reference Range Interpretation Comments TOTAL PROTEIN (test 7.6 g/dL 6.0-8.3 N code = PROT) ALBUMIN (test code = 5.1 g/dL 3.2-5.5 N ALB) BILIRUBIN TOTAL 0.9 mg/dL 0.2-1.0 N C-ubmjfn-m-b enzoquinone (test code = BILT) imine (NA [...] 34-104 N (test code = ALKP) URINALYSIS [id number] 23:39:00 Test Item Value Reference Range Interpretation [...] BACU) 1+ /HPF NEGATIVE A BASIC METABOLIC [id number] 23:32:00 Test Item Value Reference Range Interpretation [...] CA) 9.6 mg/dL 8.6-10.4 N LIVER FUNCTION [id number] 23:32:00 Test Item Value Reference Range Interpretation Comments TOTAL PROTEIN (test code = PROT) g/dL 6.0-8.3 ALBUMIN (test code = ALB) g/dL 3.2-5.5 BILIRUBIN TOTAL (test code = BILT) mg/dL 0.2-1.0 BILIRUBIN DIRECT (test code = BILD) mg/dL 0.0-0.2 SGOT/AST (test code = AST) UNITS/L 10-42 SGPT/ALT (test code = ALT) UNITS/L 10-40 ALKALINE PHOSPHATASE (test code = UNITS/L 34-104 ALKP) BASIC METABOLIC [id number] 23:30:00 Test Item Value Reference Range Interpretation [...] code = CA) mg/dL 8.6-10.4 LIVER FUNCTION [id number] 23:30:00 Test Item Value Reference Range Interpretation Comments TOTAL PROTEIN (test code = PROT) g/dL 6.0-8.3 ALBUMIN (test code = ALB) g/dL 3.2-5.5 BILIRUBIN TOTAL (test code = BILT) mg/dL 0.2-1.0 BILIRUBIN DIRECT (test code = BILD) mg/dL 0.0-0.2 SGOT/AST (test code = AST) UNITS/L 10-42 SGPT/ALT (test code = ALT) UNITS/L 10-40 ALKALINE PHOSPHATASE (test code = UNITS/L 34-104 ALKP) URINALYSIS [id number] 23:27:00 Test Item Value Reference Range Interpretation [...] code = BACU) /HPF NEGATIVE CBC W/AUTO [id number] 23:26:00 Test Item Value Reference Range Interpretation [...] BA#) 0.06 K/mm3 0.0-0.1 N UR HCG [id number] 23:26:00 Test Item Value Reference Range Interpretation Comments UR HCG QUAL (test code = HCGQLU) NEGATIVE NEGATIVE Notes Date/Time Note Provider Source 2023-05-03 Formatting of this note might be differe nt from the original. Macrina Canseco MA [facility] 09:53:36-00:00 Images from the original note were not included. Left msg on vm below over al l stable monitor results. Pt viewed on mychart. Call back to book recommended 3mo follow up from Nichelle's last ov note. Or if she's going to follow up with PCP? Nichelle Smith, CLINICAL PHARMACOLOGIST P Cardiology Nurse Results of monitor: Baseline: Sinus Sinus tachycardia Occasional extra beat <1% of total No advanced AV block or significant pauses noted . No evidence of significant tachyarrhythmia noted . Electronically signed by Macrina Canseco MA a t 05/03/2023 9:54 AM CDT 2021-03-22 [facility] 06:45:00-00:00 [facility] ([facility] EMERGENCY PROVIDER REPORT REPORT#:[id number] REPORT STATUS: Signed DATE:03/22/21 TIME: 644 PATIENT: ROX COATES UNIT #: [id number] ROOM: BED: AGE: 20 SEX: F PCP PHYS: No Primary or Family Ph ysician SERVICE AUTHOR: Rob Granger MD * ALL edits or amendments must be made on the Publicate/computer document * HPI-Dental/Mouth Prob General Confirmed Patient Yes Patient Type New patient Initial Greet Date/Time 03/22/21 0638 Presentation Chief Complaint Tooth pain Hx Obtained From Patient Onset Occurred Gradual, Days ago (2) Symptom Duration Waxes and wanes Progression since Onset Waxes and wanes Caused by No trauma by history Location Tooth lower Quality Painful Radiation No: Does not radiate, Face, Ear R, Ear L, Neck, Shoulder R, Shoulder L. Severity: Onset Pain level 6 out of 10 Severity: Current Pain level 6 out of 10 Free Text HPI Notes Free Text HPI Notes 20-year-old female patient w ith a crown that had fallen off for left lower molar approximately 4 years prior patient complaining of pain at same tooth for approximately 2 days. Pain is described as throb ibrahima. Patient is taking ibuprofen and Toradol and states she still has p ain. Patient denies any swelling of the gums or gingiva. No difficulty s wallowing no swelling of her neck. Her face. Patient states she has an appoin tment for a dentist tomorrow Review of Systems ROS Statements All systems rev neg except as marked. Complete sys rev neg except as marked. Basic Review of Systems Basic ROS EYES: No redness, CV: No chest pain, : No dysuria/frequency, MS: No ext swelling/pain, HEM: No b leeding/bruising, SKIN: No rash, NEURO: No change MS , NEURO: No focal deficit Focused Review of Systems Constitutional Denies: Chills, Fatigue, Fever, Lethargy, Malais e, Recent wt loss, Weakness - generalized. Ears/Nose/Throat Reports: Toothache. Respiratory Denies: Cough, non-productive, Cough, productive , Dyspnea on exertion, Hemoptysis, Parox nocturnal dyspnea, Pleuritic p ain, Shortness of breath, Wheezing. GI Denies: Abdominal pain, Anorexia, Belching, Bloo dy/tarry stool, Constipation, Diarrhea, Dysphagia, Hematemesis, Hemato chezia, Mucousy stool, Melena, Nausea, Rectal pain, Vomiting. Past Medical History - Adult Stated Complaint toothache lower left x 1 week Allergies Coded Allergies: Penicillins (RASH 10/29/19) codeine (RASH 10/29/19) Home Medications Active Scripts Cefdinir (Omnicef) 300 MG PO Q12H Cefdinir (Omnicef) 300 MG PO Q12H #20 CAPS Prov: 09/09/20 Ondansetron Odt (Zofran Odt) 4 MG PO Q6H PRN PRN NAUSEA/VOMITING Ondansetron Odt (Zofran Odt) 4 MG PO Q6H PRN ME N NAUSEA/VOMITING #15 TABS Prov: 09/09/20 Pt reports no significant: Past medical history, Past surgical history, Family history, Social history Physical Exam Vital Signs Vital Signs First Documented: Result Date Time Pulse Ox 100 03/22 0639 B/P 121/79 03/22 0639 B/P Mean 93 03/22 0639 O2 Delivery Room air 03/22 0639 Temp 36.9 03/22 0639 Pulse 89 03/22 0639 Resp 03/22 0639 Last Documented: Result Date Time Pulse Ox 100 03/22 0639 B/P 121/79 03/22 0639 B/P Mean 93 03/22 0639 O2 Delivery Room air 03/22 0639 Temp 36.9 03/22 0639 Pulse 89 03/22 0639 Resp 03/22 0639 Review of Vital Signs Reviewed, Vital signs norm al Basic Physical Exam Basic PE GEN: Well appearing /NAD, HEAD: Atraumatic/NC, EYES: PERRL, conj clear, RESP: No resp distress, CV: Reg rate rhythm, ABD : Soft/non-tender, EXT: No gross abnormality, SKIN: No rashes, warm/dry, NE URO: alert oriented Focused PE General/Const General/Const Awake, Alert, No acute distress, Well appearing MS Head Head Normocephalic Eyes Eyes Atraumatic, PERRL, EOMI, No nystagmus, No periorbital redness Ears/Nose/Throat Dental/Gums Tender to palpation, Tooth fracture. Negative: Decay single tooth, Dental abscess, Dental caries present, Dental impaction , Dentition poor, Ginigivitis present, Gum bleeding present, Gum erosion prese nt, Gum discoloration, Gum swelling, Gum tenderness, Gum ulcers present. MS Neck Neck Atraumatic, Supple, No meningismus , Full range of motion, No adenopathy, No swelling Resp/Chest Respiratory/Chest Atraumatic, Breath sounds NL, Breath sounds = bilat, No respiratory distress, No rales, No rhonchi, No w heezing Cardiovascular Cardiovascular Heart rate NL, Regular rhythm, H eart sounds NL, No gallop, No murmurs, No rubs Neurologic Neurologic Oriented X3, Speech NL, No m otor deficits, No sensory deficits, CN II - XII intact, Reflexes equal bilat, Cerebella r NL Re-Evaluation MDM Re-Evaluation/Progress Re-Evaluation/Progress Text/Dict Note patient to received tablet tramadol and follow u p with dentist, she refused dental block ED Course Medication(s) Ordered Medication(s) Ordered: Central Nervous System Agents Sig/Jose G Start time Last Medication Dose Route Stop Time Status Admin Tramadol HCl 50 MG X1ED STA 03/22 658 DC PO 03/22 659 Differential Diagnosis Differential Diagnosis Periapical absces s, Periodontal abscess, Periodontitis, Pulpitis, Tooth avulsion, Tooth fracture Patient Discharge Departure Vital Signs/Condition Vital Signs First Documented: Result Date Time Pulse Ox 100 03/22 639 B/P 121/79 03/22 639 B/P Mean 93 03/22 639 O2 Delivery Room air 03/22 639 Temp 36.9 03/22 639 Pulse 89 03/22 639 Resp 18 03/22 639 Last Documented: Result Date Time Pulse Ox 100 03/22 639 B/P 121/79 03/22 639 B/P Mean 93 03/22 639 O2 Delivery Room air 03/22 639 Temp 36.9 03/22 639 Pulse 89 03/22 0639 Resp 18 03/22 0639 All vital signs available at the time of this en try have been reviewed. Condition Stable Clinical Impression Clinical Impression Primary Impression: Pain in a tooth or teeth Disposition Decision Discharge )( Discharged to Home Yes )( Time 0659 )( Date 03/22/21 Discharge/Care Plan Counseled Regarding Diagnosis (Auto) Prescriptions Current Visit Scripts Tramadol (Ultram) 50 MG PO Q6H PRN PRN ACUTE LONI N Tramadol (Ultram) 50 MG PO Q6H PRN PRN ACUTE PA IN #15 TABS Patient Instructions ED Dental Pain Referrals Giovanny Lazo Departure Forms WORK/SCHOOL EXCUSE VARIABLE Discharge Note I have spoken with the patie nt and/or caregivers. I have explained the patient's condition, diagnoses and keith atment plan based on the information available to me at this time. I have answered the patient's and/ or caregiver's questions and addressed any concerns. The patient and/or careg deson have as good an understanding of the patient 's diagnosis, condition and treatment plan as can be expected at this point. The vital signs have bee n stable. The patient's condition is stable and appr opriate for discharge from the emergency department. The patient will pursue further outpatient evalu ation with the primary care physician or other designated or consulting phys ician as outlined in the discharge instructions. The patient and/or caregivers are agreeable to this plan of care and follow-up instructions have been exp lained in detail. The patient and/or caregivers have received these instructio ns in written format and have expressed an understanding of the discharge inst ructions. The patient and/or caregivers are aware that any significant change in condition or worsening of symptoms should prompt an immediate return to [facility] or the closest emergency department or a call to 911. Electronically Signed by Rob Granger MD 03/22/21 at 0705 RPT #:[id number] END OF REPORT 2020 [facility] 18:14:00-00:[address] [facility] ([facility]) EMERGENCY PROVIDER REPORT REPORT#:[id number] REPORT STATUS: Signed DATE:09/09/20 TIME: 1813 PATIENT: ROX COATES UNIT #: [id number] ROOM: BED: AGE: 20 SEX: F PCP PHYS: No Primary or Family Ph ysician SERVICE AUTHOR: Delmi Mcwilliams SUIT ATTENDANT * ALL edits or amendments must be made on the Publicate/computer document * HPI-URI/Cough/Cold General Initial Greet Date/Time 09/09/20 1407 Presentation Chief Complaint Fever, Nasal congestion, BODY AC HES, NAUSEA/VOMITING/DIARRHEA Hx Obtained From Patient Onset Occurred Yesterday Symptom Duration Since onset Progression since Onset Gradually worsening Free Text HPI Notes Free Text HPI Notes 20-year-old female presents ER with complaints of mild suprapubic abdominal pain , chest tightness and body aches. Patien t states her symptoms began yesterday, she has had several episodes of vomiting and intermittent diarrhea. She denies any cough, severe abdominal pain, chest pain or shortness of breath. Review of Systems ROS Statements All systems rev neg except as marked. Focused Review of Systems Constitutional Reports: Chills, Fever. Respiratory Denies: Cough, non-productive, Shortness of khang th. GI Reports: Abdominal pain, Diarrhea, Nausea, Vomit ing. Past Medical History - Adult Stated Complaint FEVER, N/V/D, CONGESTION Allergies Coded Allergies: Penicillins (RASH 10/29/19) codeine (RASH 10/29/19) Pt reports no significant: Past medical history, Past surgical history, Family history, Social history Smoking status for patients 13 years old or olde r: Current every day smoker Physical Exam Vital Signs Vital Signs First Documented: Result Date Time Pulse Ox 96 09/09 1440 B/P 129/88 09/09 1440 B/P Mean 101 09/09 1440 O2 Delivery Room air 09/09 1440 Temp 37.2 09/09 1440 Pulse 122 09/09 1440 Resp 18 09/09 1440 Last Documented: Result Date Time Pulse Ox 98 09/09 1839 B/P 101/71 09/09 1839 B/P Mean 81 12/02 1839 O2 Delivery Room air 09/09 1839 Temp 37.1 09/09 1839 Pulse 94 09/09 1839 Resp 16 09/09 1839 Review of Vital Signs Reviewed, Vital signs norm al Basic Physical Exam Basic PE HEAD: Atraumatic/NC, EYES: PERRL, conj clear, NECK: Supple, CV: Reg rate rhythm, ABD: Soft/non-tender, EXT: No gross abnormality, SKIN: No rashes, warm/dry, NEURO: alert oriented, NEURO: gross mo vement NL, PSYCH: NL thought content Focused PE General/Const General/Const Awake, Alert, No acute di stress, Well appearing, Well developed , Well hydrated, Well nourished Ears/Nose/Throat Ears/Nose/Throat Airway patent, Mucous membrane s moist, Pharynx NL, No peritonsillar abscess, No po oling of secretions, No trismus, Tympanic membs NL, Ext aud canal NL, Mastoid ar ea NL, Nose exam NL, No sinus tenderness, No facial swelling, Gums/dentition NL Resp/Chest Respiratory/Chest Breath sounds NL, Breath soun ds = bilat, No respiratory distress, No rales, No rhonchi, No wheezing, No retractions, No stridor, No chest tenderness, No chest wall deformity, No cr epitus Abdomen/GI Abdomen/GI Soft Tenderness/Guarding/Rebound Tender suprapubic. Negative: Guarding voluntary , Guarding involuntary, Rebound localized, Rebound diffuse. Interpretation Diagnostics Lab Results Interpretation Results Laboratory Tests 09/09/20 1625: [Embedded Image Not Available] Laboratory Tests: 09/09 09/09 1625 1635 Chemistry Sodium (135 - 145 mmol/L) 138 Potassium (3.5 - 5.1 mmol/L) 3.5 Chloride (98 - 107 mmol/L) 106 Carbon Dioxide (21 - 32 mmol/L) 27 Anion Gap (2.0 - 16.0) 8.5 BUN (4 - 23 mg/dL) 12 Creatinine (0.6 - 1.5 mg/dL) 0.9 Glomerular Filtr Rate (>60 ml/min) >=60 max est imate BUN/Creatinine Ratio (12.0 - 20.0) 13.3 Glucose (65 - 99 mg/dL) 92 Calcium (8.5 - 10.1 mg/dL) 9.0 Total Bilirubin (0.2 - 1.2 mg/dL) 0.9 Direct Bilirubin (0.0 - 0.3 mg/dL) 0.2 Indirect Bilirubin (0.0 - 0.8 mg/dL) 0.7 AST (15 - 37 U/L) 29 ALT (6 - 50 U/L) 13 Total Alk Phosphatase (45 - 117 U/L) 78 Total Protein (6.4 - 8.2 g/dL) 7.9 Albumin (3.4 - 5.0 g/dL) 4.4 Globulin (2.3 - 3.5 g/dL) 3.5 Lipase (73 - 393 U/L) 90 Hematology WBC (4.5 - 11.0 10 3/uL) 4.1 L RBC (3.50 - 5.50 10 6/uL) 5.27 Hgb (12.0 - 16.0 g/dL) 16.1 H Hct (37.0 - 55.0 %) 46.5 MCV (81 - 102 fL) 88 MCH (26.0 - 34.0 pg) 30.6 MCHC (31.0 - 37.0 g/dL) 34.6 RDW (11.6 - 14.4 %) 12.0 Plt Count (150 - 400 10 3/uL) 312 MPV (9.0 - 12.6 fL) 9.7 Neut % (Auto) (33.0 - 76.0 %) 74.2 Lymph % (Auto) (14.0 - 56.4 %) 20.0 Perry % (Auto) (0.0 - 12.9 %) 5.1 Eos % (Auto) (0.0 - 7.0 %) 0.0 Baso % (Auto) (0 - 2.0 %) 0.2 Neut # (Auto) (1.5 - 7.0 10 3/uL) 3.03 Lymph # (Auto) (1.50 - 4.00 10 3/uL) 0.82 L Perry # (Auto) (0.20 - 0.80 10 3/uL) 0.21 Eos # (Auto) (0.0 - 0.5 10 3/uL) 0.00 Baso # (Auto) (0.0 - 0.1 10 3/uL) 0.01 Abs Immat Gran (auto) (0.000 - 0.100 x10 3/uL) 0.020 Immature Gran % (0.0 - 1.0 %) 0.5 Nucleated RBC % (0 - 0.2 %) 0.0 Urines Urine Color (YELLOW) KARINA H Urine Appearance (CLEAR) CLEAR Urine pH (5.0 - 8.0) 5.0 Ur Specific [place] (1.005 - 1.025) 1.029 H Urine Protein (NEGATIVE) 2+ H Urine Glucose (UA) (NEGATIVE) NEGATIVE Urine Ketones (NEGATIVE) NEGATIVE Urine Blood (NEGATIVE) NEGATIVE Urine Nitrite (NEGATIVE) NEGATIVE Urine Bilirubin (NEGATIVE) 1+ H Urine Urobilinogen (0.1 - 0.2 EU/dL) NEGATIVE Ur Leukocyte Esterase (NEGATIVE) 2+ H Urine RBC (0 - 3 /hpf) 0-2 Urine WBC (0 - 3 /hpf) 11-20 H Ur Squamous Epith Cells (FEW /HPF) Many Urine Bacteria (NEGATIVE /HPF) RARE Urine Mucus (/lpf) MANY Urine HCG, Qual (NEGATIVE) NEGATIVE Microbiology: Date/Time Procedure - Status Source Growth 09/09 1635 Urine Culture - RECD URINE 09/09 1556 Influenza Virus Type B Antigen - COM P NASOPHARG 09/09 1556 Influenza Virus Type A Antigen - COM P NASOPHARG Recent Impressions: RADIOLOGY - XR CHEST 1 V 09/09 1515 Report Impression - Status: SIGNED Entered: 2020 1524 IMPRESSION: No active disease in the chest. Impression By: LeeroyALShiva - Cuate Rdz MD Lab Imaging Statement Laboratory radiographic studies reviewed and con sidered in the medical decision-making. Re-Evaluation MDM Free Text MDM Notes Free Text MDM Notes + uti patient felt better after medications, lab work reviewed and was unremarkable, flu and chest x-ray also unremarka ble. Discussed results with patient and plan of care, she is requesting be d ischarged home. Patient discharged home with medications, strict return precautions were discussed. Patient verbalized understanding agrees plan of care. Staffed with Dr. Leiva Re-Evaluation/Progress URI/Flu Adult MDM Note The patient is now resting c omfortably, is alert and in no distress. The patient has a normal mental status and is neurologically intact. The patient appears well and is able to tolerate food or fluid by mouth, and there is no significant dehydration. There is no res piratory distress and no signs of systemic toxicity. The history, exam, diagnostic testing (if any) a nd current condition do not demonstrate an infectious process such as mening itis, severe pneumonia, retropharyngeal abscess, epiglottitis, sepsis or other serious bacterial infection requiring further testing, treatment, consultation, or admission at this time. The vital signs have been sta ble. The patient's condition is stable and appropriate for discharge. The patient will pursue further outpatient evaluation with the primary care physician or ot her designated or consulting physician as indicated in the discharge instruct ions. ED Course Medication(s) Ordered Medication(s) Ordered: Electrolytic, Caloric, And Sang Sig/Jose G Start time Last Medication Dose Route Stop Time Status Admin Sodium Chloride 1,000 ML X1ED STA 09/09 1501 DC IV 09/09 1600 Gastrointestinal Drugs Sig/Jose G Start time Last Medication Dose Route Stop Time Status Admin Ondansetron HCl 4 MG X1ED STA 09/09 1834 DC IV 09/09 1835 1838 Ondansetron HCl 4 MG X1ED PRN PRN 09/09 1515 DC D 09/09 IV 10/09 1516 1630 Patient Discharge Departure Vital Signs/Condition Vital Signs First Documented: Result Date Time Pulse Ox 96 09/09 1440 B/P 129/88 09/09 1440 B/P Mean 101 09/09 1440 O2 Delivery Room air 09/09 1440 Temp 37.2 09/09 1440 Pulse 122 09/09 1440 Resp 18 09/09 1440 Last Documented: Result Date Time Pulse Ox 98 09/09 1839 B/P 101/71 09/09 1839 B/P Mean 81 09/09 1839 O2 Delivery Room air 09/09 1839 Temp 37.1 09/09 1839 Pulse 94 09/09 1839 Resp 16 09/09 1839 All vital signs available at the time of this en try have been reviewed. Clinical Impression Clinical Impression Primary Impression: UTI (urinary tract infection ) Secondary Impressions: Nausea and vomiting, URI (upper respiratory infection) Disposition Decision Discharge )( Discharged to Home Yes )( Time 1818 )( Date 09/09/20 Discharge/Care Plan Counseled Regarding Diagnosi s, Lab results, Imaging studies, Need for follow-up, When to return to ED (Auto) Prescriptions Current Visit Scripts Cefdinir (Omnicef) 300 MG PO Q12H Cefdinir (Omnicef) 300 MG PO Q12H #20 CAPS Ondansetron Odt (Zofran Odt) 4 MG PO Q6H PRN PRN NAUSEA/VOMITING Ondansetron Odt (Zofran Odt) 4 MG PO Q6H PRN ME N NAUSEA/VOMITING #15 TABS Discharge Note I have spoken with the patie nt and/or caregivers. I have explained the patient's condition, diagnoses and keith atment plan based on the information available to me at this time. I have answered the patient's and/ or caregiver's questions and addressed any concerns. The patient and/or careg edson have as good an understanding of the patient 's diagnosis, condition and treatment plan as can be expected at this point. The vital signs have bee n stable. The patient's condition is stable and appr opriate for discharge from the emergency department. The patient will pursue further outpatient evalu ation with the primary care physician or other designated or consulting phys dionicio as outlined in the discharge instructions. The patient and/or caregivers are agreeable to this plan of care and follow-up instructions have been exp lained in detail. The patient and/or caregivers have received these instructio ns in written format and have expressed an understanding of the discharge inst ructions. The patient and/or caregivers are aware that any significant change in condition or worsening of symptoms should prompt an immediate return to [facility] or the closest emergency department or a call to 911. at 0664 RPT #:[id number] END OF REPORT 2020 [facility] 18:14:00-00:[address] [facility] ([facility]) EMERGENCY PROVIDER REPORT REPORT#:[id number] REPORT STATUS: Signed DATE:09/09/20 TIME: 1813 PATIENT: ROX COATES UNIT #: [id number] ROOM: BED: AGE: 20 SEX: F PCP PHYS: No Primary or Family Ph ysician SERVICE AUTHOR: Delmi Mcwilliams NP * ALL edits or amendments must be made on the Publicate/computer document * Ledy Mcwilliams 09/09/201813: HPI-URI/Cough/Cold Presentation Chief Complaint Fever, Nasal congestion, BODY AC HES, NAUSEA/VOMITING/DIARRHEA Hx Obtained From Patient Onset Occurred Yesterday Symptom Duration Since onset Progression since Onset Gradually worsening Free Text HPI Notes Free Text HPI Notes 20-year-old female presents ER with complaints of mild suprapubic abdominal pain , chest tightness and body aches. Patien t states her symptoms began yesterday, she has had several episodes of vomiting and intermittent diarrhea. She denies any cough, severe abdominal pain, chest pain or shortness of breath. Review of Systems ROS Statements All systems rev neg except as marked. Focused Review of Systems Constitutional Reports: Chills, Fever. Respiratory Denies: Cough, non-productive, Shortness of khang th. GI Reports: Abdominal pain, Diarrhea, Nausea, Vomit ing. Past Medical History - Adult Stated Complaint FEVER, N/V/D, CONGESTION Allergies Coded Allergies: Penicillins (RASH 10/29/19) codeine (RASH 10/29/19) Pt reports no significant: Past medical history, Past surgical history, Family history, Social history Smoking status for patients 13 years old or olde r: Current every day smoker Physical Exam Vital Signs Vital Signs First Documented: Result Date Time Pulse Ox 96 09/09 1440 B/P 129/88 09/09 1440 B/P Mean 101 09/09 1440 O2 Delivery Room air 09/09 1440 Temp 37.2 09/09 1440 Pulse 122 09/09 1440 Resp 18 09/09 1440 Last Documented: Result Date Time Pulse Ox 98 09/09 1839 B/P 101/71 09/09 1839 B/P Mean 81 09/09 183 O2 Delivery Room air 09/09 183 Temp 37.1 09/09 183 Pulse 94 09/09 183 Resp 16 09/09 183 Review of Vital Signs Reviewed, Vital signs norm al Basic Physical Exam Basic PE HEAD: Atraumatic/NC, EYES: PERRL, conj clear, NECK: Supple, CV: Reg rate rhythm, ABD: Soft/non-tender, EXT: No gross abnormality, SKIN: No rashes, warm/dry, NEURO: alert oriented, NEURO: gross mo vement NL, PSYCH: NL thought content Focused PE General/Const General/Const Awake, Alert, No acute di stress, Well appearing, Well developed , Well hydrated, Well nourished Ears/Nose/Throat Ears/Nose/Throat Airway patent, Mucous membrane s moist, Pharynx NL, No peritonsillar abscess, No po oling of secretions, No trismus, Tympanic membs NL, Ext aud canal NL, Mastoid ar ea NL, Nose exam NL, No sinus tenderness, No facial swelling, Gums/dentition NL Resp/Chest Respiratory/Chest Breath sounds NL, Breath soun ds = bilat, No respiratory distress, No rales, No rhonchi, No wheezing, No retractions, No stridor, No chest tenderness, No chest wall deformity, No cr epitus Abdomen/GI Abdomen/GI Soft Tenderness/Guarding/Rebound Tender suprapubic. Negative: Guarding voluntary , Guarding involuntary, Rebound localized, Rebound diffuse. Interpretation Diagnostics Lab Results Interpretation Results Laboratory Tests 09/09/20 1625: [Embedded Image Not Available] Laboratory Tests: 09/09 09/09 1625 1635 Chemistry Sodium (135 - 145 mmol/L) 138 Potassium (3.5 - 5.1 mmol/L) 3.5 Chloride (98 - 107 mmol/L) 106 Carbon Dioxide (21 - 32 mmol/L) 27 Anion Gap (2.0 - 16.0) 8.5 BUN (4 - 23 mg/dL) 12 Creatinine (0.6 - 1.5 mg/dL) 0.9 Glomerular Filtr Rate (>60 ml/min) >=60 max est imate BUN/Creatinine Ratio (12.0 - 20.0) 13.3 Glucose (65 - 99 mg/dL) 92 Calcium (8.5 - 10.1 mg/dL) 9.0 Total Bilirubin (0.2 - 1.2 mg/dL) 0.9 Direct Bilirubin (0.0 - 0.3 mg/dL) 0.2 Indirect Bilirubin (0.0 - 0.8 mg/dL) 0.7 AST (15 - 37 U/L) 29 ALT (6 - 50 U/L) 13 Total Alk Phosphatase (45 - 117 U/L) 78 Total Protein (6.4 - 8.2 g/dL) 7.9 Albumin (3.4 - 5.0 g/dL) 4.4 Globulin (2.3 - 3.5 g/dL) 3.5 Lipase (73 - 393 U/L) 90 Hematology WBC (4.5 - 11.0 10 3/uL) 4.1 L RBC (3.50 - 5.50 10 6/uL) 5.27 Hgb (12.0 - 16.0 g/dL) 16.1 H Hct (37.0 - 55.0 %) 46.5 MCV (81 - 102 fL) 88 MCH (26.0 - 34.0 pg) 30.6 MCHC (31.0 - 37.0 g/dL) 34.6 RDW (11.6 - 14.4 %) 12.0 Plt Count (150 - 400 10 3/uL) 312 MPV (9.0 - 12.6 fL) 9.7 Neut % (Auto) (33.0 - 76.0 %) 74.2 Lymph % (Auto) (14.0 - 56.4 %) 20.0 Perry % (Auto) (0.0 - 12.9 %) 5.1 Eos % (Auto) (0.0 - 7.0 %) 0.0 Baso % (Auto) (0 - 2.0 %) 0.2 Neut # (Auto) (1.5 - 7.0 10 3/uL) 3.03 Lymph # (Auto) (1.50 - 4.00 10 3/uL) 0.82 L Perry # (Auto) (0.20 - 0.80 10 3/uL) 0.21 Eos # (Auto) (0.0 - 0.5 10 3/uL) 0.00 Baso # (Auto) (0.0 - 0.1 10 3/uL) 0.01 Abs Immat Gran (auto) (0.000 - 0.100 x10 3/uL) 0.020 Immature Gran % (0.0 - 1.0 %) 0.5 Nucleated RBC % (0 - 0.2 %) 0.0 Urines Urine Color (YELLOW) KARINA H Urine Appearance (CLEAR) CLEAR Urine pH (5.0 - 8.0) 5.0 Ur Specific [place] (1.005 - 1.025) 1.029 H Urine Protein (NEGATIVE) 2+ H Urine Glucose (UA) (NEGATIVE) NEGATIVE Urine Ketones (NEGATIVE) NEGATIVE Urine Blood (NEGATIVE) NEGATIVE Urine Nitrite (NEGATIVE) NEGATIVE Urine Bilirubin (NEGATIVE) 1+ H Urine Urobilinogen (0.1 - 0.2 EU/dL) NEGATIVE Ur Leukocyte Esterase (NEGATIVE) 2+ H Urine RBC (0 - 3 /hpf) 0-2 Urine WBC (0 - 3 /hpf) 11-20 H Ur Squamous Epith Cells (FEW /HPF) Many Urine Bacteria (NEGATIVE /HPF) RARE Urine Mucus (/lpf) MANY Urine HCG, Qual (NEGATIVE) NEGATIVE Microbiology: Date/Time Procedure - Status Source Growth 09/09 1635 Urine Culture - RECD URINE 09/09 1556 Influenza Virus Type B Antigen - COM P NASOPHARG 09/09 155 Influenza Virus Type A Antigen - COM P NASOPHARG Recent Impressions: RADIOLOGY - XR CHEST 1 V 09/09 1515 Report Impression - Status: SIGNED Entered: 2020 1524 IMPRESSION: No active disease in the chest. Impression By: Renetta - Cuate Rdz MD Lab Imaging Statement Laboratory radiographic studies reviewed and con sidered in the medical decision-making. Re-Evaluation MDM Free Text MDM Notes Free Text MDM Notes + uti patient felt better after medications, lab work reviewed and was unremarkable, flu and chest x-ray also unremarka ble. Discussed results with patient and plan of care, she is requesting be d ischarged home. Patient discharged home with medications, strict return precautions were discussed. Patient verbalized understanding agrees plan of care. Staffed with Dr. Leiva Re-Evaluation/Progress URI/Flu Adult MDM Note The patient is now resting c omfortably, is alert and in no distress. The patient has a normal mental status and is neurologically intact. The patient appears well and is able to tolerate food or fluid by mouth, and there is no significant dehydration. There is no res piratory distress and no signs of systemic toxicity. The history, exam, diagnostic testing (if any) a nd current condition do not demonstrate an infectious process such as mening itis, severe pneumonia, retropharyngeal abscess, epiglottitis, sepsis or other serious bacterial infection requiring further testing, treatment, consultation, or admission at this time. The vital signs have been sta ble. The patient's condition is stable and appropriate for discharge. The patient will pursue further outpatient evaluation with the primary care physician or ot her designated or consulting physician as indicated in the discharge instruct ions. ED Course Medication(s) Ordered Medication(s) Ordered: Electrolytic, Caloric, And Sang Sig/Jose G Start time Last Medication Dose Route Stop Time Status Admin Sodium Chloride 1,000 ML X1ED STA 09/09 1501 DC IV 09/09 1600 Gastrointestinal Drugs Sig/Jose G Start time Last Medication Dose Route Stop Time Status Admin Ondansetron HCl 4 MG X1ED STA 09/09 1834 DC / IV 09/09 1835 1838 Ondansetron HCl 4 MG X1ED PRN PRN 09/09 1515 DC D 09/09 IV 10/09 1516 1630 Patient Discharge Departure Vital Signs/Condition Vital Signs First Documented: Result Date Time Pulse Ox 96 09/09 1440 B/P 129/88 09/09 1440 B/P Mean 101 09/09 1440 O2 Delivery Room air 09/09 1440 Temp 37.2 09/09 1440 Pulse 122 09/09 1440 Resp 18 09/09 1440 Last Documented: Result Date Time Pulse Ox 98 09/09 1839 B/P 101/71 09/09 1839 B/P Mean 81 09/09 1839 O2 Delivery Room air 09/09 1839 Temp 37.1 09/09 1839 Pulse 94 / 1839 Resp 16 09/09 1839 All vital signs available at the time of this en try have been reviewed. Clinical Impression Clinical Impression Primary Impression: UTI (urinary tract infection ) Secondary Impressions: Nausea and vomiting, URI (upper respiratory infection) Disposition Decision Discharge )( Discharged to Home Yes )( Time 1818 )( Date 09/09/20 Discharge/Care Plan Counseled Regarding Diagnosi s, Lab results, Imaging studies, Need for follow-up, When to return to ED (Auto) Prescriptions Current Visit Scripts Cefdinir (Omnicef) 300 MG PO Q12H Cefdinir (Omnicef) 300 MG PO Q12H #20 CAPS Ondansetron Odt (Zofran Odt) 4 MG PO Q6H PRN PRN NAUSEA/VOMITING Ondansetron Odt (Zofran Odt) 4 MG PO Q6H PRN ME N NAUSEA/VOMITING #15 TABS Discharge Note I have spoken with the patie nt and/or caregivers. I have explained the patient's condition, diagnoses and keith atment plan based on the information available to me at this time. I have answered the patient's and/ or caregiver's questions and addressed any concerns. The patient and/or careg edson have as good an understanding of the patient 's diagnosis, condition and treatment plan as can be expected at this point. The vital signs have bee n stable. The patient's condition is stable and appr opriate for discharge from the emergency department. The patient will pursue further outpatient evalu ation with the primary care physician or other designated or consulting phys ician as outlined in the discharge instructions. The patient and/or caregivers are agreeable to this plan of care and follow-up instructions have been exp lained in detail. The patient and/or caregivers have received these instructio ns in written format and have expressed an understanding of the discharge inst ructions. The patient and/or caregivers are aware that any significant change in condition or worsening of symptoms should prompt an immediate return to [facility] or the closest emergency department or a call to 911. Govind Leiva 09/09/20 2307: HPI-URI/Cough/Cold General Initial Greet Date/Time 09/09/20 1407 Patient Discharge Departure Supervising Physician Note MidLv Saw Pt Alone I have reviewed the PA/SUIT ATTENDANT's note and plan of car e. I was available for consultation as needed at al l times during the patient's visit in the emergency department. I agree with the clinical impression , plan and disposition. at 2154 at 2308 RPT #:[id number] END OF REPORT 2020 [id number] [facility] 16:20:00-00:00 [address] [facility] [address] PATIENT NAME: ROX COATES ADMIT DATE: 0 ACCOUNT NO: [id number] ROOM NO: AGE: 20 REPORT TYPE: eELECTROCARDIOGRAM SEX: F ADMITTING PHYSICIAN: ATTENDING PHYSICIAN: Order: [id number] Test Reason : Test Date/Time Stamp: MonSep 09 2020 16:20:48 Blood Pressure : / mmHG Vent. Rate : 100 BPM Atrial Rate : 100 BPM P-R Int : 138 ms QRS Dur : 069 ms QT Int : 326 ms P-R-T Axes : 039 077 -18 degree s QTc Int : 421 ms Sinus tachycardia Borderline T abnormalities, inferior leads Confirmed by MARIAELENA KEYS ([id number]) on 09/10/2020 5:16:03 PM Referred By: Self Referred Confirmed by:MARIAELENA GEIGER at [address] [facility] [id number] [facility] [address] PATIENT NAME: ROX COATES [id number] 2019[birth year] [facility] 00:15:00-00:00 [facility] ([facility] EMERGENCY PROVIDER REPORT REPORT#:[id number] REPORT STATUS: Signed DATE:10/30/19 TIME: 0015 PATIENT: ROX COATES UNIT #: [id number] ROOM: BED: AGE: 19 SEX: F PCP PHYS: No Primary or Family Ph ysician SERVICE AUTHOR: Kristian Valencia * ALL edits or amendments must be made on the Publicate/enercast document * HPI-General Illness Free Text HPI Notes Free Text HPI Notes Not feeling well Onset 3 weeks Duration constant Character nausea back stiffness Severity moderate 19 y/o female presents to ED with complains of not feeling well tonight. Reports nausea and back stiffness. D enies vomiting, dysuria, burning, or urgency. States she feels dehydrated. Denies drug or alcohol use . Denies any other symptoms. General Confirmed Patient Yes Patient Type New patient Initial Greet Date/Time 10/29/19 2316 Presentation Chief Complaint Not feeling well Review of Systems ROS Statements All systems rev neg except as marked. Free Text ROS Notes Free Text ROS Notes See HPI, 10 point review of systems otherwise ne gative Past Medical History - Adult Stated Complaint 3 WEEK HX OF NOT FEELING WELL Allergies Coded Allergies: Penicillins (RASH 10/29/19) codeine (RASH 10/29/19) Pt reports no significant: Past medical history, Past surgical history, Family history, Social history Smoking status for patients 13 years old or olde r: Current every day smoker Physical Exam Vital Signs Vital Signs First Documented: Result Date Time Pulse Ox 99 10/296 B/P 132/85 10/29 2255 B/P Mean 100.8 10/29 2255 Temp 98.6 10/29 2255 Pulse 102 10/29 2255 Resp 16 10/29 2255 O2 Delivery Room air 10/30 32 Last Documented: Result Date Time Pulse Ox 100 10/30 32 O2 Delivery Room air 10/30 32 Pulse 90 10/30 32 Resp 16 10/30 32 B/P 132/85 10/29 2255 B/P Mean 100.8 10/29 2255 Temp 98.6 10/29 2255 Review of Vital Signs Reviewed Free Text PE Notes Free Text PE Notes CONSTITUTIONAL: Well developed, well nourished. No acute distress. HEAD: Scalp is atraumatic. Normocephalic. EYES: PERRL. EOMI. Conjunctivae are not injected . ENT: Moist mucus membranes. NECK: Full ROM. No Stridor. CARDIOVASCULAR: Regular rhythm, rate. No murmurs , rubs, or gallops. RESPIRATORY/CHEST: No respiratory distress. No t achypnea. CTAB. ABDOMEN/BACK: Soft and non-distended. Non-TTP. N o CVA TTP. EXTREMITIES: No C/C/E. FROM in all extremities. No calf tenderness. SKIN: Warm, dry intact. No petechiae, purpura, r ashes. NEURO: AAO x 3 and situation. Normal speech. PSYCH: Good eye contact. Normal interaction, aff ect, and behavior. Interpretation Diagnostics Lab Results Interpretation Considerations Independ review imaging, Reviewed prior records Results Laboratory Tests 10/29/192301: [Embedded Image Not Available] Laboratory Tests: 10/29 Chemistry Sodium (136 - 145 mmol/L) 139 Potassium (3.6 - 5.2 MMOL/L) 3.9 Chloride (98 - 110 MMOL/L) 107 Carbon Dioxide (24 - 32 mEq/L) 24 BUN (7 - 18 mg/dL) 8 Creatinine (0.60 - 1.30 mg/dL) 0.74 Glomerular Filtr Rate (>60) >=60 max estimate Glucose (70 - 110 mg/dL) 110 Calcium (8.6 - 10.4 mg/dL) 9.6 Total Bilirubin (0.2 - 1.0 mg/dL) 0.9 Direct Bilirubin (0.0 - 0.2 mg/dL) 0.1 Indirect Bilirubin (mg/dL) 0.8 AST (10 - 42 UNITS/L) 23 ALT (10 - 40 UNITS/L) 8 L Total Alk Phosphatase (34 - 104 UNITS/L) 49 Total Protein (6.0 - 8.3 g/dL) 7.6 Albumin (3.2 - 5.5 g/dL) 5.1 Hematology WBC (5.0 - 12.0 K/mm3) 7.29 RBC (4.20 - 5.40 M/mm3) 4.72 Hgb (12.0 - 16.0 G/DL) 14.2 Hct (36.0 - 46.0 %) 41.2 MCV (81 - 99 fL) 87 MCH (27 - 31 PGM) 30.1 MCHC (33 - 37 G/DL) 34.5 RDW (11.6 - 16.2 %) 11.8 Plt Count (130 - 400 K/mm3) 465 H MPV (7.4 - 10.4 fl) 9.8 Neut % (Auto) (43 - 65 %) 51.3 Lymph % (Auto) (20.5 - 45.5 %) 35.7 Perry % (Auto) (5.5 - 11.7 %) 8.5 Eos % (Auto) (0.9 - 2.9 %) 3.3 H Baso % (Auto) (0.2 - 1.0 %) 0.8 Neut # (Auto) (2.2 - 4.8 K/mm3) 3.74 Lymph # (Auto) (1.3 - 2.9 K/mm3) 2.60 Perry # (Auto) (0.3 - 0.8 K/mm3) 0.62 Eos # (Auto) (0.0 - 0.2 K/MM3) 0.24 H Baso # (Auto) (0.0 - 0.1 K/mm3) 0.06 Immature Gran % (0.0 - 2.0 %) 0.4 Nucleated RBC % (0 - 1.0 %) 0.0 Urines Urine Color (YELLOW) YELLOW Urine Appearance (CLEAR) CLEAR Urine pH (4.5 - 8.5) 7.0 Ur Specific [place] (1.000 - 1.030) 1.020 Urine Protein (NEGATIVE) NEGATIVE Urine Glucose (UA) (NEGATIVE MG/AL) NEGATIVE Urine Ketones (NEGATIVE MG/DL) NEGATIVE Urine Blood (NEGATIVE) NEGATIVE Urine Nitrite (NEGATIVE) NEGATIVE Urine Bilirubin (NEGATIVE) NEGATIVE Urine Urobilinogen (<=1.0 EU/dL) 0.2 Ur Leukocyte Esterase (NEGATIVE) 1+ Urine RBC (0 - 3 /HPF) 0-3 Urine WBC (0 - 3 /HPF) 3-5 H Ur Epithelial Cells (NONE - FEW /LPF) 1+ Urine Bacteria (NEGATIVE /HPF) 1+ H Urine HCG, Qual (NEGATIVE) NEGATIVE Lab Statement Laboratory studies reviewed and considered in e medical decision-making. Point of Care Testing Pulse Oximetry Pulse Ox % 99 On: Room air Interpretation Interpreted by ar Time 2255 Re-Evaluation MDM Re-Evaluation/Progress #1 Text/Dict Note Plan for discharge after reviewing results. Time of Re-Eval 9 Re-Eval Status Improved Plan Post Re-Eval Plan discharge ED Course Medication(s) Ordered Medication(s) Ordered: Anti-Infective Agents Sig/Jose G Start time Last Medication Dose Route Stop Time Status Admin Cephalexin 500 MG X1ED STA 10/29 2354 DC 10/30 PO 10/29 2355 0004 Antihistamine Drugs Sig/Jose G Start time Last Medication Dose Route Stop Time Status Admin Diphenhydramine HCl 50 MG X1ED STA 10/29 2315 D C 10/29 IV 10/29 2315 2346 Central Nervous System Agents Sig/Jose G Start time Last Medication Dose Route Stop Time Status Admin Ketorolac 15 MG X1ED STA 10/29 2354 DC 10/30 Tromethamine IV 10/29 2354 0005 Gastrointestinal Drugs Sig/Jose G Start time Last Medication Dose Route Stop Time Status Admin Metoclopramide HCl 10 MG X1ED STA 10/29 2315 DC 10/29 IV 10/29 2315 2346 Patient Discharge Departure Vital Signs/Condition Vital Signs First Documented: Result Date Time Pulse Ox 99 10/29 2255 B/P 132/85 10/29 2255 B/P Mean 100.8 10/29 2255 Temp 98.6 10/29 2255 Pulse 102 10/29 2255 Resp 10/29 O2 Delivery Room air 10/30 32 Last Documented: Result Date Time Pulse Ox 100 10/30 32 O2 Delivery Room air 10/30 32 Pulse 90 10/30 32 Resp 10/30 B/P 132/85 10/29 2255 B/P Mean 100.8 10/29 2255 Temp 98.6 10/29 2255 All vital signs available at the time of this en try have been reviewed. Clinical Impression Clinical Impression Primary Impression: UTI (urinary tract infection ) Disposition Decision Discharge )( Discharged to Home Yes )( Time 0015 )( Date 10/30/19 Discharge/Care Plan Counseled Regarding Diagnosi s, Lab results, Imaging studies, Need for follow-up, When to return to ED Discharge Note I have spoken with the patie nt and/or caregivers. I have explained the patient's condition, diagnoses and keith atment plan based on the information available to me at this time. I have answered the patient's and/ or caregiver's questions and addressed any concerns. The patient and/or careg edson have as good an understanding of the patient 's diagnosis, condition and treatment plan as can be expected at this point. The vital signs have bee n stable. The patient's condition is stable and appr opriate for discharge from the emergency department. The patient will pursue further outpatient evalu ation with the primary care physician or other designated or consulting phys ician as outlined in the discharge instructions. The patient and/or caregivers are agreeable to this plan of care and follow-up instructions have been exp lained in detail. The patient and/or caregivers have received these instructio ns in written format and have expressed an understanding of the discharge inst ructions. The patient and/or caregivers are aware that any significant change in condition or worsening of symptoms should prompt an immediate return to [facility] or the closest emergency department or a call to 911. Supervising Physician Note Scribe Statement Arturo Thompson, 10/30/1916, scribing for and in the presence of [Dr. Ky Valencia]. Signed By: Kristian Valencia, 10/30/1916 Provider Scribed Statement I personally performed the s ervices described in this documentation and reviewed the documentation that was dictated to the scrib e(s) in my presence, and it accurately records my words and actions. Gokul Valencia, 10/30/19 at 0247 [facility] #:[id number] END OF REPORT
[2023-06-02] MEDS ORDERED: KETOROLAC 30 MG/ML INJ ONE (20:05)
[2023-06-02] MEDS ORDERED: dexAMETHasone 10 MG/ML VIAL ONE (20:05)
[2023-06-02 20:21] LABS: Specific Gravity 1.028 (1.005-1.030)
[2023-06-02 20:25] LABS: Specific Gravity 1.028 (1.005-1.030); Urine Bacteria 20-50 /HPF (<20); Urine Bilirubin NEGATIVE (Negative); Urine Blood Negative (Negative); Urine Clarity Extremely Turbid (Clear); Urine Color Yellow (Yellow); Urine Glucose NEGATIVE (Negative); Urine Mucus 1+ /HPF (None Seen); Urine Protein NEGATIVE (Negative); Urine RBC None Seen /HPF (None Seen); Urine Urobilinogen Normal (Normal); Urine pH 5.5 (5.0-7.0)
--- NOTE | 2023-06-02 21:27 | EDPHYS ---
Physician Documentation [facility] Name: Yasmine Domínguez Age: 22 yrs Sex: Female : 2000 Arrival Date: 06/02/2023 Time: 18:35 Bed 17 Private MD: ED Physician Kamron Madrid HPI: 06/02 23:21 This 22 yrs old Female presents to ER via Ambulatory with complaints of Pain All Over. kb 23:21 The patient presents with pain that is acute. The symptoms are located in the low back. kb The pain does not radiate. The problem was sustained when lifting. Onset: The symptoms/episode began/occurred today. Modifying factors: The patient symptoms are alleviated by nothing, the patient symptoms are aggravated by any movement. Associated signs and symptoms: The patient has no apparent associated signs or symptoms. Severity of symptoms: At their worst the symptoms were moderate, in the emergency department the symptoms are unchanged. The patient has not experienced similar symptoms in the past. The patient has not recently seen a physician. Pt reports she was carrying 2 gallons of milk in each hand, bent over and pulled her low back. Reports pain since then. Denies urinary symptoms. Denies numbness or tingling. . 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 - Social history:: Smoking status: Reported history of juuling and/or vaping. ROS: 23:20 Constitutional: Negative for fever, chills, and weight loss. kb 23:20 Back: Positive for pain at rest, pain with movement, of the lumbar area. 23:20 All other systems are negative. Exam: 23:20 Constitutional: This is a well developed, well nourished patient who is awake, alert, kb and in no acute distress. Head/Face: Normocephalic, atraumatic. ENT: Moist Mucous membranes Cardiovascular: Regular rate and rhythm with a normal S1 and S2. No gallops, murmurs, or rubs. No pulse deficits. Respiratory: Respirations even and unlabored. No increased work of breathing. Talking in full sentences Abdomen/GI: Soft, non-tender. No distention Skin: Warm, dry with normal turgor. Normal color. MS/ Extremity: Pulses equal, no cyanosis. Neurovascular intact. Full, normal range of motion. Neuro: Awake and alert, GCS 15, oriented to person, place, time, and situation. Moves all extremities. Normal gait. 23:20 Back: pain, that is moderate, of the lumbar area, ROM is normal, normal spinal alignment noted. Vital Signs: 19:05 BP 112 / 63; Pulse 80; Resp 18; Temp 98.2; Pulse Ox 100% ; Weight 61.23 kg; Height 5 cm10 ft. 5 in. ; Pain 10/10; 20:00 BP 107 / 62; Pulse 65; Resp 18; Pulse Ox 99% on R/A; eh3 21:00 BP 105 / 59; Pulse 70; Resp 18; Pulse Ox 100% on R/A; eh3 19:05 Body Mass Index 22.46 (61.23 kg, 165.1 cm) cm10 19:05 Pain Scale: Adult cm10 MDM: 18:51 Patient medically screened. kb 23:20 Data reviewed: vital signs, nurses notes. kb 23:20 Differential diagnosis: strain, sciatica, contusion, Herniated disc UTI. Test kb considered but Not performed: X-ray: x-ray considered, but pt has no trauma to back. Counseling: I had a detailed discussion with the patient and/or guardian regarding the historical points, exam findings, and any diagnostic results supporting the discharge/admit diagnosis, the need for outpatient follow up, a family practitioner, to return to the emergency department if symptoms worsen or persist or if there are any questions or concerns that arise at home. 06/02 19:05 Order name: Test, Urine; Complete Time: 20:39 cm10 06/02 19:05 Order name: Urinalysis w/ reflexes; Complete Time: 20:39 cm10 Administered Medications: 20:00 Drug: Ketorolac IM 30 mg Route: IM; Site: right ventrogluteal; 3 21:45 Follow up: Response: No adverse reaction 3 20:00 Drug: Dexamethasone IM 10 mg Route: IM; Site: right ventrogluteal; 3 21:45 Follow up: Response: No adverse reaction 3 21:45 Drug: Hydrocodone-Acetaminophen PO (7.5 mg-325 mg) 1 tabs Route: PO; 3 21:46 Follow up: Response: Medication administered at discharge. 3 21:45 Drug: Ondansetron Oral Disintegrating Tablet Oral Disintegrating Tablet 4 mg Route: PO; [facility] 21:46 Follow up: Response: Medication administered at discharge. 3 Disposition Summary: 06/02/23 21:26 Discharge Ordered Location: Home kb Condition: Stable kb Diagnosis - UTI/ Urinary tract infection, site not specified kb - Low back pain kb Followup: kb - With: Emergency Department - When: As needed - Reason: Worsening of condition Followup: kb - With: Private Physician - When: 2 - 3 days - Reason: Recheck today's complaints, Continuance of care, Re-evaluation by your physician Discharge Instructions: - Discharge Summary Sheet kb - Acute Back Pain, Adult kb - Urinary Tract Infection, Adult, [id number] kb Forms: - Medication Reconciliation Form kb - Thank You Letter kb - Antibiotic Education kb - Prescription Opioid Use kb - Patient Portal Instructions kb - Leadership Thank You Letter kb - Work release form ha1 Prescriptions: - Macrobid 100 mg Oral Capsule - take 1 capsule by ORAL route every 12 hours for 10 days; 20 capsule; Refills: kb 0, Product Selection Permitted - Diclofenac Sodium 75 mg Oral tablet,delayed release (DR/EC) - take 1 tablet by ORAL route 2 times per day As needed; 30 tablet; Refills: 0, kb Product Selection Permitted - orphenadrine citrate 100 mg Oral Tablet Sustained Release - take 1 tablet by ORAL route 2 times per day As needed; 20 tablet; Refills: 0, kb Product Selection Permitted Signatures: Dispatcher [employer] Irma Taveras, EXHIBIT TECHNICIAN-C EXHIBIT TECHNICIAN-Chloe Marin RN RN 3 Kate Wallace RN RN cm10
--- NOTE | 2023-06-02 21:27 | ER ---
Nurse's Notes [facility] Name: Yasmine Domínguez Age: 22 yrs Sex: Female : 2000 Arrival Date: 06/02/2023 Time: 18:35 Bed 17 Private MD: Diagnosis: UTI/ Urinary tract infection, site not specified;Low back pain Presentation: 06/02 19:05 Chief complaint: Patient states: lower back pain that radiates up her back onset today cm10 while at work. Coronavirus screen: Vaccine status: Patient reports receiving the 2nd dose of the covid vaccine. Ebola Screen: Patient denies travel to an Ebola-affected area in the 21 days before illness onset. No symptoms or risks identified at this time. Initial Sepsis Screen: Does the patient meet any 2 criteria? No. Patient's initial sepsis screen is negative. Does the patient have a suspected source of infection? No. Patient's initial sepsis screen is negative. Risk Assessment: Do you want to hurt yourself or someone else? Patient reports no desire to harm self or others. Onset of symptoms was June 02, 2023. 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 - Social history:: Smoking status: Reported history of juuling and/or vaping. Screenin:40 [facility] ED Fall Risk Assessment (Adult) Score/Fall Risk Level 0 - 2 = Low Risk. Abuse eh3 screen: Denies threats or abuse. Denies injuries from another. Nutritional screening: No deficits noted. Tuberculosis screening: No symptoms or risk factors identified. Assessment: 19:40 General: Appears in no apparent distress. uncomfortable, Behavior is calm, cooperative, eh3 appropriate for age. Pain: Complains of pain in back. Neuro: Level of Consciousness is awake, alert, obeys commands, Oriented to person, place, time, situation. Cardiovascular: Capillary refill < 3 seconds Patient's skin is warm and dry. Respiratory: Airway is patent Respiratory effort is even, unlabored, Respiratory pattern is regular, symmetrical. GI: Abdomen is round non-distended. : Urine is cloudy. Derm: Skin is healthy with good turgor, Skin is pink, warm \T\ dry. Musculoskeletal: Circulation, motion, and sensation intact. 20:00 Reassessment: Patient appears in no apparent distress at this time. Patient and/or eh3 family updated on plan of care and expected duration. Pain level reassessed. Patient is alert, oriented x 3, equal unlabored respirations, skin warm/dry/pink. 21:00 Reassessment: Patient appears in no apparent distress at this time. Patient and/or eh3 family updated on plan of care and expected duration. Pain level reassessed. Patient is alert, oriented x 3, equal unlabored respirations, skin warm/dry/pink. Vital Signs: 19:05 BP 112 / 63; Pulse 80; Resp 18; Temp 98.2; Pulse Ox 100% ; Weight 61.23 kg; Height 5 cm10 ft. 5 in. ; Pain 10/10; 20:00 BP 107 / 62; Pulse 65; Resp 18; Pulse Ox 99% on R/A; eh3 21:00 BP 105 / 59; Pulse 70; Resp 18; Pulse Ox 100% on R/A; eh3 19:05 Body Mass Index 22.46 (61.23 kg, 165.1 cm) cm10 19:05 Pain Scale: Adult cm10 ED Course: 18:36 Patient arrived in ED. rg4 18:51 Irma Basurto FNP-C [facility]. kb 18:51 Kamron Madrid MD is Attending Physician. kb 19:07 Triage completed. cm10 19:07 Arm band placed on Patient placed in waiting room, on a stretcher. cm10 19:40 Patient has correct armband on for positive identification. Bed in low position. Call eh3 light in reach. Side rails up X2. Provided Education on: Use of call duarte. 19:50 Chloe Mendez, ALFREDO is Primary Nurse. eh3 21:47 No provider procedures requiring assistance completed. Patient did not have IV access eh3 during this emergency room visit. Administered Medications: 20:00 Drug: Ketorolac IM 30 mg Route: IM; Site: right ventrogluteal; eh3 21:45 Follow up: Response: No adverse reaction eh3 20:00 Drug: Dexamethasone IM 10 mg Route: IM; Site: right ventrogluteal; eh3 21:45 Follow up: Response: No adverse reaction eh3 21:45 Drug: Hydrocodone-Acetaminophen PO (7.5 mg-325 mg) 1 tabs Route: PO; eh3 21:46 Follow up: Response: Medication administered at discharge. eh3 21:45 Drug: Ondansetron Oral Disintegrating Tablet Oral Disintegrating Tablet 4 mg Route: PO; eh3 21:46 Follow up: Response: Medication administered at discharge. eh3 Medication: 21:46 VIS not applicable for this client. 3 Outcome: 21:26 Discharge ordered by . migel 21:47 Discharged to home ambulatory. eh3 21:47 Condition: stable 21:47 Discharge instructions given to patient, Instructed on discharge instructions, follow up and referral plans. medication usage, Demonstrated understanding of instructions, follow-up care, medications, Prescriptions given X 2. 21:48 Patient left the ED. 3 Signatures: Irma Basurto, FINANCIAL ASSISTANCE ADVISOR-C FINANCIAL ASSISTANCE ADVISOR-China Nassar rg4 Chloe Mendez RN RN 3 Kate Wallace RN RN cm10 Corrections: (The following items were deleted from the chart) 21:46 20:30 Reassessment: Patient appears in no apparent distress at this time. Patient eh3 and/or family updated on plan of care and expected duration. Pain level reassessed. Patient is alert, oriented x 3, equal unlabored respirations, skin warm/dry/pink. eh3
[2023-06-02] MEDS ORDERED: HYDROCODONE/APAP 7.5/325 MG TAB ONE (21:51)
[2023-06-02] MEDS ORDERED: ONDANSETRON 4 MG (ODT) TAB ONE (21:51)
[2023-06-02 23:21] VITALS: TEMP 98.2
[2023-06-02 23:25] VITALS: BP 105/59; O2SAT 100
== END 2023-06-02 21:48 | disposition home or self-care (01) ==
LOC: ER 18:35
DX: N39.0 Urinary tract infection, site not specified (principal); Z88.0 Allergy status to penicillin; Z88.5 Allergy status to narcotic agent
CPT/HCPCS: 81001; 81025; 96372; 99284; Q0162; J1100

== ENCOUNTER → 2023-09-27 | Emergency (ER) | payer OTHER ==
[~2023-09-27] MED LIST: ACETAMINOPHEN 500 MG TAB ONE
--- NOTE | 2023-09-27 05:04 | EDPHYS ---
Physician Documentation [facility] Name: Yasmine Domínguez Age: 23 yrs Sex: Female : 2000 Arrival Date: 09/27/2023 Time: 03:17 Bed IW1 Private MD: ED Physician Raghu Granados HPI: 09/27 04:02 This 23 yrs old Female presents to ER via Ambulatory with complaints of sp4 Cough, Congestion, Headache. 05:01 22-year-old female presents with chills, cough congestion and headache since yesterday. sp4 Patient's boyfriend is sick at home as well with similar symptoms. Patient denied vomiting. Reported nasal congestion. . 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 - Social history:: Smoking status: Reported history of juuling and/or vaping. Patient/guardian denies using alcohol, street drugs. - Family history:: not pertinent. ROS: 05:01 Constitutional: Positive chills negative fever, positive congestion, positive headache, sp4 positive cough 05:01 All other systems are negative, Exam: 05:01 Constitutional: This is a well developed, well nourished patient who is awake, alert, sp4 and in no acute distress. Head/Face: Normocephalic, atraumatic. Eyes: Pupils equal round and reactive to light, extra-ocular motions intact. Lids and lashes normal. Conjunctiva and sclera are not injected. Cornea within normal limits. Periorbital areas with no swelling, redness, or edema. ENT: Nares patent. no septal abnormalities noted. Tympanic membranes are normal and external auditory canals are clear. Oropharynx positive redness bilaterally, irritation, no exudates, positive nasal congestion and nasal clear discharge. Neck: Trachea midline, no thyromegaly or masses palpated, and no cervical lymphadenopathy. Supple, full range of motion without nuchal rigidity, or vertebral point tenderness. Chest/axilla: Normal chest wall appearance and motion. Nontender with no deformity. No lesions are appreciated. Cardiovascular: Regular rate and rhythm with a normal S1 and S2. No gallops, murmurs, or rubs. Normal PMI, no JVD. No pulse deficits. Respiratory: Lungs have equal breath sounds bilaterally, clear to auscultation and percussion. No rales, rhonchi or wheezes noted. No increased work of breathing, no retractions or nasal flaring. Abdomen/GI: Soft, non-tender, with normal bowel sounds. No distension or tympany. No guarding or rebound. No evidence of tenderness throughout. Back: No spinal tenderness. No costovertebral tenderness. Skin: Warm, dry with normal turgor. Normal color with no rashes, no lesions, and no evidence of cellulitis. MS/ Extremity: Pulses equal, no cyanosis. Neurovascular intact. Full, normal range of motion. Neuro: Awake and alert, GCS 15, oriented to person, place, time, and situation. Cranial nerves II-XII grossly intact. Motor strength 5/5 in all extremities. Sensory grossly intact. Psych: Awake, alert, with orientation to person, place and time. Behavior, mood, and affect are within normal limits Vital Signs: 03:32 BP 122 / 88; Pulse 87; Resp 17 S; Temp 98.8(O); Pulse Ox 99% on R/A; Weight 61.23 kg lg3 (R); Height 5 ft. 5 in. (R); 03:32 Body Mass Index 22.46 (61.23 kg, 165.1 cm) lg3 MDM: 04:07 Patient medically screened. sp4 05:01 Differential Diagnosis: Obstructed Airway Bronchitis Influenza Upper Respiratory sp4 Infection Sinusitis Pharyngitis. Data reviewed: vital signs, nurses notes, lab test result(s), Flu: negative. ED course: Patient is positive for COVID-19. Negative for influenza. Provided prescription for Paxlovid and ondansetron. Will advise Tylenol and ibuprofen p.o. as needed every 6 hours for headache and symptoms of fever. . 09/27 04:02 Order name: SARS-COV-2 RT PCR; Complete Time: 04:58 EDMS 09/27 04:02 Order name: Influenza Screen (A ; Complete Time: 04:52 EDMS Administered Medications: 03:39 Drug: Acetaminophen PO 1000 mg PO once Route: PO; lg3 Disposition Summary: 09/27/23 05:04 Discharge Ordered Problem: new sp4 Symptoms: have improved sp4 Condition: Stable sp4 Diagnosis - Other specified viral diseases sp4 - Acute COVID-19, acute systemic viral illness sp4 Followup: sp4 - With: Private Physician - When: 7 - 10 days - Reason: Recheck today's complaints Discharge Instructions: - Discharge Summary Sheet sp4 - COVID-19 sp4 Forms: - Patient Portal Instructions sp4 Prescriptions: - Paxlovid 300 mg (150 mg x 2)-100 mg Oral Tablet, Dose Pack - take 1 dose pack ORAL route as directed on dose pack take TWO 150 mg tablets of sp4 nirmatrelvir with ONE 100 mg tablet of ritonavir twice daily for 5 days; 1 packet; Refills: 0, Product Selection Permitted - ondansetron 8 mg Oral Tablet,disintegrating - take 1 tablet ORAL route every 6 hours PRN nausea; 30 tablet; Refills: 0, sp4 Product Selection Permitted Signatures: Dispatcher [employer] EDMS Neela Freeman RN RN lg3 Raghu Granados MD MD sp4 Corrections: (The following items were deleted from the chart) 04:02 03:36 COVID-19/FLU A+B+MOL.LAB.BRZ ordered. EDMS EDMS
--- NOTE | 2023-09-27 05:04 | ER ---
Nurse's Notes [facility] Name: Yasmine Domínguez Age: 23 yrs Sex: Female : 2000 Arrival Date: 09/27/2023 Time: 03:17 Bed IW1 Private MD: Diagnosis: Other specified viral diseases;Acute COVID-19, acute systemic viral illness Presentation: 09/27 03:32 Chief complaint: Patient states: congestion, sore throat, body aches, headache, chills lg3 starting yesterday morning. Coronavirus screen: Client denies travel out of the [place] in the last 14 days. Client presents with at least one sign or symptom that may indicate coronavirus-19. Standard/surgical mask placed on the client. Ebola Screen: No symptoms or risks identified at this time. Initial Sepsis Screen: Does the patient meet any 2 criteria? No. Patient's initial sepsis screen is negative. Does the patient have a suspected source of infection? No. Patient's initial sepsis screen is negative. Risk Assessment: Do you want to hurt yourself or someone else? Patient reports no desire to harm self or others. Onset of symptoms was September 26, 2023. 03:32 Method Of Arrival: Ambulatory lg3 03:32 Acuity: MARVIN 4 lg3 Triage Assessment: 03:33 General: Appears in no apparent distress. uncomfortable, Behavior is calm, cooperative. lg3 Pain: Complains of pain in body aches. EENT: No deficits noted. Reports nasal congestion nasal discharge. Neuro: No deficits noted. Orozco Agitation-Sedation Scale (RASS): 0 - Alert and Calm Level of Consciousness is awake, alert, obeys commands, Oriented to person, place, time, situation. Cardiovascular: No deficits noted. Denies chest pain, shortness of breath, Capillary refill < 3 seconds Clubbing of nail beds is absent JVD is absent Patient's skin is warm and dry. Respiratory: Reports cough that is Breath sounds are clear bilaterally. GI: No deficits noted. No signs and/or symptoms were reported involving the gastrointestinal system. : No deficits noted. No signs and/or symptoms were reported regarding the genitourinary system. Derm: No deficits noted. No signs and/or symptoms reported regarding the dermatologic system. Musculoskeletal: No deficits noted. Circulation, motion, and sensation intact. Range of motion: intact in all extremities. 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 - Social history:: Smoking status: Reported history of juuling and/or vaping. Patient/guardian denies using alcohol, street drugs. - Family history:: not pertinent. Screenin:40 [facility] ED Fall Risk Assessment (Adult) History of falling in the last 3 months, lg3 including since admission No falls in past 3 months (0 pts). Abuse screen: Denies threats or abuse. Denies injuries from another. Nutritional screening: No deficits noted. Tuberculosis screening: No symptoms or risk factors identified. Assessment: 03:39 General: see triage assessment. Cardiovascular: No deficits noted. Denies chest pain, lg3 shortness of breath. Cardiovascular: Rhythm is sinus rhythm. Respiratory: No deficits noted. Reports cough that is. Vital Signs: 03:32 BP 122 / 88; Pulse 87; Resp 17 S; Temp 98.8(O); Pulse Ox 99% on R/A; Weight 61.23 kg lg3 (R); Height 5 ft. 5 in. (R); 03:32 Body Mass Index 22.46 (61.23 kg, 165.1 cm) lg3 ED Course: 03:21 Patient arrived in ED. jj6 03:33 Triage completed. lg3 03:33 Arm band placed on left wrist. lg3 03:40 Patient has correct armband on for positive identification. lg3 03:40 Patient maintains SpO2 saturation greater than 95% on room air. lg3 04:02 Raghu Granados MD is Attending Physician. sp4 05:24 No provider procedures requiring assistance completed. Patient did not have IV access lg3 during this emergency room visit. Administered Medications: 03:39 Drug: Acetaminophen PO 1000 mg PO once Route: PO; lg3 Medication: 05:24 VIS not applicable for this client. lg3 Outcome: 05:04 Discharge ordered by . sp4 05:24 Discharged to home ambulatory, lg3 05:24 Condition: stable 05:24 Discharge instructions given to patient, Instructed on discharge instructions, follow up and referral plans. medication usage, Demonstrated understanding of instructions, follow-up care, medications, Prescriptions given X 2, 05:24 Patient left the ED. lg3 Signatures: Neela Freeman RN RN lg3 Merlene Davej6 Raghu Granados MD MD sp4
[2023-09-27 08:01] VITALS: BP 122/88; TEMP 98.8; O2SAT 99
== END ==
LOC: ER 03:17
DX: U07.1 COVID-19 (principal); Z88.0 Allergy status to penicillin; Z88.5 Allergy status to narcotic agent
CPT/HCPCS: 87635; 87804; 99284

== ENCOUNTER 2024-03-03 19:34 | Emergency (ER) | payer SELFPAY ==
[2024-03-03] MEDS ORDERED: ONDANSETRON 4 MG/2 ML VIAL ONE (20:35)
[2024-03-03] MEDS ORDERED: KETOROLAC 30 MG/ML INJ ONE (20:36)
[2024-03-03] MEDS ORDERED: NA CHLORIDE 0.9% 1,000 ML ONE (20:36)
[2024-03-03] MEDS ORDERED: FAMOTIDINE 20 MG/2 ML VIAL IV ONE (20:36)
[2024-03-03 20:56] LABS: Absolute Eosinophils 0.2 K/uL (0-0.5); Absolute Lymphocytes (CBC) 1.8 K/uL (0.7-4.9); Absolute Monocytes 0.6 K/uL (0.1-1.3); Absolute Neutrophil 4.8 K/uL (1.8-8.0); Basophils % 0.6 % (0-1.3); Eosinophils % 3.3 % (0-4.4); Hematocrit 39.2 % (36.0-45.0); Hemoglobin 13.6 g/dL (12.0-15.0); Lymphocytes % 24.3 % (15.3-44.8); MCH 31.1 pg (27.0-35.0); MCHC 34.7 g/dL (32.0-36.0); MCV 89.6 fL (80-100); MPV 8.4 fL (7.6-11.3); Monocytes % 7.8 % (3.3-12.3); Nucleated Red Blood Cells % 0.1 % (0-0); Platelets 322 thou/uL (152-406); RBC Red Blood Cell Count 4.38 M/uL (3.86-4.86); Red Cell Distribution Width 12.5 % (12.1-15.2)
[2024-03-03 21:07] LABS: Specific Gravity 1.025 (1.005-1.030); Sqamous Epithelial <5 /HPF (None Seen); Urine Bacteria <20 /HPF (<20); Urine Bilirubin NEGATIVE (Negative); Urine Blood Negative (Negative); Urine Clarity Turbid (Clear); Urine Color Yellow (Yellow); Urine Culture Reflex Order NOT NEEDED; Urine Glucose NEGATIVE (Negative); Urine Ketones 1+ (Negative); Urine Microscopic Reflex YN ORDER UMIC; Urine Mucus 2+ /HPF (None Seen); Urine Nitrite NEGATIVE (Negative); Urine Protein TRACE (Negative); Urine RBC <5 /HPF (None Seen); Urine Urobilinogen Normal (Normal); Urine WBC <5 /HPF (<5)
[2024-03-03 21:10] LABS: Specific Gravity 1.025 (1.005-1.030)
[2024-03-03 21:13] LABS: ALT/SGPT < 14 U/L (13-56); AST/SGOT 11 U/L (15-37); Albumin 4.2 g/dL (3.4-5.0); Albumin/Globulin Ratio 1.4 (1.1-1.8); Alkaline Phosphatase 53 U/L (45-117); Anion Gap 10.4 mEq/L (5.0-15.0); BUN Blood Urea Nitrogen 10 mg/dL (7-18); Bicarbonate 23 mEq/L (21-32); Bilirubin Total 1.3 mg/dL (0.2-1.0); Globulin 2.9 g/dL (2.3-3.5); Glomerular Filtration Rate 97 ml/min (=/>90); Glucose Level 81 mg/dL (74-106); Lipase 23 U/L (13-75); Potassium 3.4 mEq/L (3.5-5.1); Protein, Total 7.1 g/dL (6.4-8.2); Sodium Level 135 mEq/L (136-145)
--- NOTE | 2024-03-03 21:54 | EDPHYS ---
Physician Documentation [facility] Name: Yasmine Domínguez Age: 23 yrs Sex: Female : 2000 Arrival Date: 03/03/2024 Time: 19:34 Bed 13 Private MD: ED Physician Vel Lyon HPI: 03/03 20:19 This 23 yrs old Female presents to ER via Ambulatory with complaints of Urinary Problem.kb 20:19 Patient is a 23-year-old female who presents for vomiting and diarrhea that started a kb week ago with foul-smelling urine that started a couple days ago. Denies fever. States she is unable to tolerate anything by mouth. Symptoms aggravated by eating or drinking anything, alleviated by nothing.. 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 - Infectious Disease History:: Denies. - Social history:: Smoking status: Patient denies any tobacco usage or history of. ROS: 20:19 Constitutional: As per HPI kb Exam: 20:19 Constitutional: This is a well developed, well nourished patient who is awake, alert, kb and in no acute distress. Head/Face: Normocephalic, atraumatic. ENT: Moist Mucous membranes Cardiovascular: Regular rate Respiratory: Respirations even and unlabored. No increased work of breathing. Talking in full sentences Skin: Warm, dry with normal turgor. Normal color. MS/ Extremity: Pulses equal, no cyanosis. Neurovascular intact. Full, normal range of motion. Neuro: Awake and alert, GCS 15, oriented to person, place, time, and situation. Moves all extremities. Normal gait. 20:19 Abdomen/GI: Inspection: abdomen appears normal, Bowel sounds: normal, Palpation: soft, in all quadrants, mild abdominal tenderness, in all quadrants, Vital Signs: 20:05 BP 113 / 82; Pulse 61; Resp 18; Temp 98.1; Pulse Ox 97% ; Weight 56.7 kg; Height 5 ft. as6 5 in. ; Pain 7/10; 22:22 BP 111 / 76; Pulse 69; Resp 17 S; Temp 97.8(O); Pulse Ox 99% on R/A; lg3 20:05 Body Mass Index 20.80 (56.70 kg, 165.1 cm) as6 20:05 Pain Scale: Adult as6 MDM: 19:42 Patient medically screened. kb 21:52 Differential diagnosis: UTI, gastroenteritis. Data reviewed: vital signs, nurses notes. kb Test considered but Not performed: CT: ct abd considered but pt has mild diffuse abd pain, is nontoxic in appearance, afebrile with reassuring labs. Counseling: I had a detailed discussion with the patient and/or guardian regarding the historical points, exam findings, and any diagnostic results supporting the discharge/admit diagnosis, lab results, the need for outpatient follow up, a family practitioner, to return to the emergency department if symptoms worsen or persist or if there are any questions or concerns that arise at home. Response to treatment: the patient's symptoms have resolved after treatment. 03/03 20:05 Order name: CBC with Diff; Complete Time: 21:04 kb 03/03 20:05 Order name: CMP; Complete Time: 21:21 kb 03/03 20:05 Order name: Lipase; Complete Time: 21:21 kb 03/03 20:53 Order name: Test, Urine; Complete Time: 21:10 EDMS 03/03 20:53 Order name: Urinalysis w/ reflexes; Complete Time: 21:10 EDMS 03/03 20:05 Order name: IV Saline Lock; Complete Time: 20:39 kb 03/03 20:05 Order name: Labs collected and sent; Complete Time: 20:39 kb 03/03 21:21 Order name: PO challenge; Complete Time: 22:05 kb Administered Medications: 20:42 Drug: NS 0.9% IV 1000 ml IV at 1 bolus Per protocol; 1000 mL bolus Route: IV; Rate: 1 lg3 bolus; Site: right antecubital; 22:25 Follow up: Response: No adverse reaction; IV Status: Completed infusion; IV Intake: lg3 1000ml 20:42 Drug: Famotidine IVP 20 mg IVP once; dilute with 10 mL 0.9% NaCl; give over 2 minutes lg3 Route: IVP; Site: right antecubital; 22:25 Follow up: Response: No adverse reaction lg3 20:42 Drug: TORadol - Ketorolac IVP 15 mg IVP once Route: IVP; Site: right antecubital; lg3 22:25 Follow up: Response: No adverse reaction lg3 20:42 Drug: Ondansetron IVP 4 mg IVP once; over 2 minutes Route: IVP; Site: right antecubital;lg3 22:25 Follow up: Response: No adverse reaction lg3 Disposition Summary: 03/03/24 21:54 Discharge Ordered Notes: Location: Home kb Condition: Stable kb Diagnosis - Nausea with vomiting, unspecified kb - Diarrhea, unspecified kb Followup: kb - With: Emergency Department - When: As needed - Reason: Worsening of condition Followup: kb - With: Private Physician - When: 2 - 3 days - Reason: Recheck today's complaints, Continuance of care, Re-evaluation by your physician Discharge Instructions: - Discharge Summary Sheet kb - Food Choices to Help Relieve Diarrhea, Adult kb - Nausea and Vomiting, Adult, [id number] kb - Diarrhea, Adult, [id number] kb Forms: - Medication Reconciliation Form kb - Antibiotic Education kb - Prescription Opioid Use kb - Patient Portal Instructions kb - Leadership Thank You Letter kb Prescriptions: - Zofran 4 mg Oral tablet - take 1 tablet ORAL route every 6 hours As needed; 12 tablet; Refills: 0, kb Product Selection Permitted - dicyclomine 20 mg Oral tablet - take 1 tablet ORAL route 4 times per day As needed; 20 tablet; Refills: 0, kb Product Selection Permitted Addendum: 03/05/2024 05:40 I was immediately available for consultation during this patient's visit. I did not e c2 personally see the patient or discuss the patient with the MURALI. . Signatures: Dispatcher [employer] EDMS Irma Basurto, SEWER PIPE SORTER-C SEWER PIPE SORTER-Neela Samano RN RN lg3 Adriel Barger, ALFREDO RN as6 Vel Lyon MD MD ec2 Corrections: (The following items were deleted from the chart) 03/03 20:05 20:05 CBC+H.LAB.BRZ ordered. EDMS EDMS 20:05 20:05 COMPREHENSIVE METABOLIC PANEL+C.LAB.BRZ ordered. EDMS EDMS 20:05 20:05 LIPASE+C.LAB.BRZ ordered. EDMS EDMS
--- NOTE | 2024-03-03 21:54 | ER ---
Nurse's Notes [facility] Name: Yasmine Domínguez Age: 23 yrs Sex: Female : 2000 Arrival Date: 03/03/2024 Time: 19:34 Bed 13 Private MD: Diagnosis: Nausea with vomiting, unspecified;Diarrhea, unspecified Presentation: 03/03 20:06 Chief complaint: Patient states: n/v/d x1 week with foul smelling urine and painful as6 urination. Coronavirus screen: At this time, the client does not indicate any symptoms associated with coronavirus-19. Ebola Screen: No symptoms or risks identified at this time. Initial Sepsis Screen: Does the patient meet any 2 criteria? No. Patient's initial sepsis screen is negative. Does the patient have a suspected source of infection? No. Patient's initial sepsis screen is negative. Risk Assessment: Do you want to hurt yourself or someone else? Patient reports no desire to harm self or others. Onset of symptoms was February 25, 2024. 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 - Infectious Disease History:: Denies. - Social history:: Smoking status: Patient denies any tobacco usage or history of. Screenin:40 [facility] ED Fall Risk Assessment (Adult) History of falling in the last 3 months, lg3 including since admission No falls in past 3 months (0 pts) Confusion or Disorientation No (0 pts) Intoxicated or Sedated No (0 pts) Impaired Gait No (0 pts) Mobility Assist Device Used No (0 pt) Altered Elimination No (0 pt) Score/Fall Risk Level 0 - 2 = Low Risk Oriented to surroundings, Maintained a safe environment, Educated pt \T\ family on fall prevention, incl call for assistance when getting out of bed, Assessed \T\ reinforced patient's understanding of fall precautions. Abuse screen: Denies threats or abuse. Denies injuries from another. Nutritional screening: No deficits noted. Tuberculosis screening: No symptoms or risk factors identified. Assessment: 20:40 General: Appears in no apparent distress. uncomfortable, Behavior is calm, cooperative. lg3 Pain: Complains of pain in pelvis Pain does not radiate. Neuro: No deficits noted. Orozco Agitation-Sedation Scale (RASS): 0 - Alert and Calm Level of Consciousness is awake, alert, obeys commands, Oriented to person, place, time, situation. Cardiovascular: No deficits noted. Denies chest pain, shortness of breath, Capillary refill < 3 seconds Clubbing of nail beds is absent JVD is absent Patient's skin is warm and dry. Respiratory: No deficits noted. Airway is patent Respiratory effort is even, unlabored, Respiratory pattern is regular, symmetrical, Breath sounds are clear bilaterally. GI: Abdomen is flat, non-distended, Bowel sounds present X 4 quads. Abd is soft and non tender X 4 quads. Reports nausea, vomiting. : Urine is clear, Reports burning with urination, urinary frequency. EENT: No deficits noted. No signs and/or symptoms were reported regarding the EENT system. Derm: No deficits noted. No signs and/or symptoms reported regarding the dermatologic system. Skin is intact, is healthy with good turgor, Skin is dry, Skin is normal, Skin temperature is warm. Musculoskeletal: No deficits noted. No signs and/or symptoms reported regarding the musculoskeletal system. Circulation, motion, and sensation intact. Range of motion: intact in all extremities. 22:22 Reassessment: Patient appears in no apparent distress at this time. Patient and/or lg3 family updated on plan of care and expected duration. Pain level reassessed. Patient is alert, oriented x 3, equal unlabored respirations, skin warm/dry/pink. Patient states feeling better. Patient states symptoms have improved. Vital Signs: 20:05 BP 113 / 82; Pulse 61; Resp 18; Temp 98.1; Pulse Ox 97% ; Weight 56.7 kg; Height 5 ft. as6 5 in. ; Pain 7/10; 22:22 BP 111 / 76; Pulse 69; Resp 17 S; Temp 97.8(O); Pulse Ox 99% on R/A; lg3 20:05 Body Mass Index 20.80 (56.70 kg, 165.1 cm) as6 20:05 Pain Scale: Adult as6 ED Course: 19:40 Patient arrived in ED. im 19:41 [facility]C [facility] kb 19:41 Vel Lyon MD is Attending Physician. kb 20:05 Arm band placed on. as6 20:07 Triage completed. as6 20:23 Neela Freeman, RN is Primary Nurse. lg3 20:39 Inserted saline lock: 22 gauge in right antecubital area, using aseptic technique. rv1 Blood collected. 20:39 CBC with Diff Sent. rv1 20:39 CMP Sent. rv1 20:39 Lipase Sent. rv1 20:40 Patient has correct armband on for positive identification. Placed in gown. Bed in low lg3 position. Call light in reach. Side rails up X 1. Client placed on continuous cardiac and pulse oximetry monitoring. NIBP monitoring applied. Door closed. Noise minimized. Warm blanket given. Pillow given. 20:54 Test, Urine Sent. lg3 20:54 Urinalysis w/ reflexes Sent. lg3 22:24 No provider procedures requiring assistance completed. IV discontinued, intact, lg3 bleeding controlled, No redness/swelling at site. Pressure dressing applied. Administered Medications: 20:42 Drug: NS 0.9% IV 1000 ml IV at 1 bolus Per protocol; 1000 mL bolus Route: IV; Rate: 1 lg3 bolus; Site: right antecubital; 22:25 Follow up: Response: No adverse reaction; IV Status: Completed infusion; IV Intake: lg3 1000ml 20:42 Drug: Famotidine IVP 20 mg IVP once; dilute with 10 mL 0.9% NaCl; give over 2 minutes lg3 Route: IVP; Site: right antecubital; 22:25 Follow up: Response: No adverse reaction lg3 20:42 Drug: TORadol - Ketorolac IVP 15 mg IVP once Route: IVP; Site: right antecubital; lg3 22:25 Follow up: Response: No adverse reaction lg3 20:42 Drug: Ondansetron IVP 4 mg IVP once; over 2 minutes Route: IVP; Site: right antecubital;lg3 22:25 Follow up: Response: No adverse reaction lg3 Medication: 22:22 VIS not applicable for this client. lg3 Intake: 22:25 IV: 1000ml; Total: 1000ml. lg3 Outcome: 21:54 Discharge ordered by . migel 22:40 Discharged to home ambulatory, lg3 22:40 Condition: stable 22:40 Discharge instructions given to patient, Instructed on discharge instructions, follow up and referral plans. medication usage, Demonstrated understanding of instructions, follow-up care, medications, Prescriptions given X 2, 22:40 Patient left the ED. lg3 Signatures: Irma Basurto, BLAKE-C EXTERMINATION INSPECTOR-Neela Samano, RN RN lg3 Adriel Barger, ALFREDO RN as6 Brianne Roy rv1 Vanessa Cavanaugh
[2024-03-03 23:19] VITALS: BP 111/76; TEMP 97.8; O2SAT 99
== END 2024-03-03 22:40 | disposition home or self-care (01) ==
LOC: ER 19:34
DX: R11.2 Nausea with vomiting, unspecified (principal); R19.7 Diarrhea, unspecified
CPT/HCPCS: 36415; 80053; 81001; 81025; 83690; 85025; 96361; 96374; 96375; 99284; J2405; J7030